=== PATIENT | female | born 1965 | race Caucasian/White ===

== ENCOUNTER 2023-05-06 08:59 | Outpatient (OUT) | payer OTHER, SELFPAY ==
--- NOTE | 2023-05-06 09:01 | MM_ITS ---
Patient: TAMELA MENJIVAR Exam Date: 05/06/2023 : 1965 Gender:F Ordering : DR Chris Quezada . Admission #: [id number] Family : DR Emory Alexis . Order #: [id number] CLICK HERE TO VIEW EXAM RADIOLOGY REPORT PROCEDURE: MM TOMOSYNTHESIS SCREENING BI COMPARISON: MG MAMM SCREEN 3D ESTHE[facility] CAD, 03/15/2021. MG MAMM SCREEN 3D [place]HELA CAD, 04/07/2022. INDICATIONS: Screening Calculator Name NCI Breast Cancer Risk Assessment Tool 5 Year Breast Cancer Risk 0.90% Lifetime Breast Cancer Risk 4.90% Personal Breast Cancer No Personal Ovarian Cancer No Treatments None Family Cancers Aunt-paternal with breast cancer at age 50; Grandmother-maternal with breast cancer at age 70. LOCATION: [facility] BREAST COMPOSITION: Heterogeneously dense,which may obscure small masses. FINDINGS: DIAGNOSTIC CATEGORY 1--NEGATIVE. NO CHANGE FROM COMPARISON ASSESSMENT. Scattered benign-appearing calcifications are present. Scattered benign-appearing lymph nodes are present. RIGHT BREAST: No significant suspicious finding. LEFT BREAST: No significant suspicious finding. RECOMMENDATIONS: ROUTINE MAMMOGRAM AND CLINICAL EVALUATION IN 12 MONTHS. PLEASE NOTE: A NORMAL MAMMOGRAM DOES NOT EXCLUDE THE POSSIBILITY OF BREAST CANCER. A CLINICALLY SUSPICIOUS PALPABLE LUMP SHOULD BE BIOPSIED. Dictated by: Quinton Baeza MD on 05/06/2023 at 11:43 Approved by: Quinton Baeza MD on 05/06/2023 at 11:52
== END 2023-05-06 09:00 | disposition home or self-care (01) ==
LOC: MAMMO 08:59
PROVIDERS: PCP Family Medicine; Visit Provider Obstetrics & Gynecology
DX: Z12.31 Encounter for screening mammogram for malignant neoplasm of breast (principal); Z80.3 Family history of malignant neoplasm of breast
CPT/HCPCS: 77063; 77067

== ENCOUNTER 2023-09-17 21:07 | Outpatient (REF) | payer OTHER, SELFPAY ==
[2023-09-23 15:09] LABS: Age Gdln ACOG Testing Note (.); HPV Aptima Negative (Negative); IGP, Aptima HPV, rfx 16/18,45 Note (.)
== END 2023-09-17 21:08 | disposition home or self-care (01) ==
LOC: LAB 21:07
PROVIDERS: PCP Family Medicine; Visit Provider Physician Assistant
DX: Z01.419 Encounter for gynecological examination (general) (routine) without abnormal findings (principal)
CPT/HCPCS: 87624; G0145

== ENCOUNTER 2023-09-21 08:00 | Outpatient (OUT) | payer OTHER, SELFPAY ==
--- OUTSIDE RECORDS SUMMARY | 2023-09-21 08:03 | XMS_ITS | CCD ---
Author Name Unknown Address [id number] [place] [address] Organization [facility] Care Team Providers Care Pool Hand Name Role Phone PHYSICIAN, DEFAULT Unavailable Unavailable PHYSICIAN, DEFAULT Unavailable Unavailable Unavailable Primary Care Provider UnavailArpan Pagan Primary Care Physician [phone] Unavailable Primary Care Provider Unavailmalaika e Unavailable Primary Care Provider Unavailmalaika ALEXIS ., DR ANTONY Primary Care Unavailable KARASIK ., DR BARKER Admitting Unavailabl e KARASIK ., DR BARKER Consulting Unavailabl e KARASIK ., DR BARKER Attending Unavailabl e ZIEBER, DR GEORGIA Orozco Consulting Unavailable HOY ., DR ANTONY Consulting Unavailable HOY ., DR ANTONY Attending Unavailable HOY ., DR ANTONY Admitting Unavailable HOY ., DR ANTONY Primary Care Unavailable SAMSA .ADAM Attending Unavailable SAMSA ., ADAM Admitting Unavailable SAMSA ., ADAM Consulting Unavailable HOY ., DR ANTONY Primary Care Unavailable HOY ., DR ANTONY Primary Care Unavailable KARASIK ., DR BARKER Admitting Unavailabl e KARASIK ., DR BARKER Consulting Unavailabl e KARASIK ., DR BARKER Attending Unavailabl e SALAM, Peters Attending Unavailable SALAM, Lorraine Attending Unavailable SALAM, Lorraine Attending Unavailable SALAM, Peters Admitting Unavailable NONE, XXXX Referring Unavailable INDIGO PUGH Attending Unavailable HAMDAN, MOHAMMAD Referring Unavailable HAMDAN, MOHAMMAD Attending Unavailable COREEN, HILDA J Referring Unavailable HAMDAN, MOHAMMAD Attending Unavailable COREEN, HILDA J Referring Unavailable HAMDAN, MOHAMMAD Attending Unavailable COREEN, HILDA J Referring Unavailable COREEN, HILDA J Attending Unavailable Allergies Allergy Classification Reported Allergen(s) Allergy Type Date of Onset Reaction(s) Facility (8 sources) Sulfonamides (Antibiotic); Translations: [SULFA (SULFONAMIDE ANTIBIOTICS)] Drug All[facility]08[facility]2020 [facility] Work Phone: (3 sources) Sulfonamides (Antibiotic); Translations: [sulfa drugs] Drug allergy [facility] (1 source) Sulfonamides (Antibiotic) Drug allergy (disorder) 03-08-2013 [facility] Repository Medications Current Medications Medication Drug Class(es) Dates Sig (Normalized) Sig (Original) amitriptyline hydrochloride 10 mg oral tablet (10 sources) Tricyclic Antidepressant Start: 07-26-2020 End: 04-13-2022 take 1 tablet by mouth once daily amitriptyline 10 mg Tab 10 mg = 1 tab(s), Oral, Daily, # 30 tab(s), Refills(s) 11, Pharmacy: [address], 154, cm, 07/26/20 9:59:00 EST, Height/Length Dosing, 66.8, kg, 07/26/20 9:59:00 EST, Weight Dosing Start Date: 07/26/20 Status: Ordered Start: 04-07-2020 take 3 tablets by mo uth once daily at bedtime amitriptyline (ELAVIL) 25 mg tablet Take 75 mg by mouth daily at bedtime. Takes 3 tabs 0 04/07/2020 Active Comment on above: Take 75 mg by mouth daily at bedtime. Takes 3 tabs omeprazole 20 mg delayed release oral capsule (9 sources) Proton Pump Inhibitor Start: 02-23-2019 omeprazole 20 mg Cap-DR 20 mg = 1 cap(s), Oral, Daily, Control of stomach acid Start Date: 02/23/19 Status: Ordered Start: 05-05-2011 take 20 mg by mouth once daily Omeprazole 20 mg TbEC Take 20 mg by mouth once daily. 0 05/05/2011 Active Comment on above: Take 20 mg by mouth once daily. Completed/Discontinued Medications Medication Drug Class(es) Dates Sig (Normalized) Sig (Original) onabotulinumtoxina 200 unt injection (7 sources) Acetylcholine Release Inhibitor Start: 10-17-2022 onabotulinum toxin type A 200 Units injection (BOTOX) Start: 07-23-2022 End: 07-23-2022 onabotulinum toxin type A 20 0 Units injection (BOTOX) Start: 01-23-2022 End: 01-23-2022 onabotulinum toxin type A 20 0 Units injection (BOTOX) estrogens, conjugated (mcfp) 0.625 mg/ml vaginal cream (7 sources) Estrogen Start: 03-13-2020 PREMARIN vaginal cream Use 1 Applicator vaginally three times a week. 0 03/13/2020 Active Comment on above: Use 1 Applicator vag inally three times a week. methylPREDNISolone 4 mg oral tablet (2 sources) Corticosteroid Start: 03-30-2023 methylPREDNISolone (MEDROL, SHAWNA,) 4 mg Dose-Pack Indications: Intractable chronic migraine without aura and without status migrainosus Take by mouth. As directed on package 21 tablet 0 03/30/2023 Active Comment on above: Take by mouth. As di rected on package 24 hr metoprolol succinate 100 mg extended release oral tablet (9 sources) beta-Adrenergic Angel Start: 02-23-2019 take 100 mg by mouth once daily metoprolol succinate ER (TOPROL XL) 100 mg Take 100 mg by mouth once daily. 0 04/04/2020 Active Comment on above: Take 100 mg by mouth once daily. naratriptan 2.5 mg oral tablet (8 sources) Serotonin-1b and Serotonin-1d Receptor Agonist Start: 06-14-2021 End: 07-23-2022 take 1 tablet by mouth every four hours as needed, then take 2 tablets by mouth every twenty-fou r hours as needed naratriptan (AMERGE) 2.5 mg tablet Indications: Intractable chronic migraine without aura and without status migrainosus Take 1 tablet by mouth as needed (at onset of migraine, may repeat in 4 hrs. no more than 2 in 24 hrs or 2 days a week). 9 tablet 11 07/23/2022 Active Comment on above: Take 1 tablet by skye th as needed (at onset of migraine, may repeat in 4 hrs. no more than 2 in 24 hrs or 2 days a week). Problems Active Problems Problem Classification Problem Date Documented Da te Episodic/Chronic Cardiac dysrhythmias (3 sources) Atrial fibrillation; Translations: [Unspecified atrial fibrillation] Onset: 2 04-21-2019 Chronic Esophageal disorders (3 sources) Gastroesophageal reflux disease; Translations: [Gastroesophageal reflux disease without esophagitis] Onset: 2 04-21-2019 Chronic Genitourinary symptoms and ill-defined conditions (4 sources) Dysuria; Translations: [Urgent desire to urinate] 04-21-2019 Episodic Headache; including migraine (11 sources) Chronic intractable migraine without aura; Translations: [Chronic migraine without aura, intractable, without status migrainosus] Onset: 1 Chronic Other diseases of bladder and urethra (2 sources) Urethral stricture 04-22-2019 Episodic Other gastrointestinal disorders (4 sources) Irritable bowel syndrome 04-21-2019 Chronic Other liver diseases (3 sources) Steatosis of liver; Translations: [Fatty (change of) liver, not elsewhere classified] Onset: 2 02-26-2022 Chronic Other nervous system disorders (2 sources) Neuropathy 04-22-2019 Chronic Other screening for suspected conditions (not mental disorders or infectious disease) (12 sources) Abnormal results of pulmonary function studies; Translations: [Encounter for screening for malignant neoplasm of cervix] Onset: 2 Episodic Screening and history of mental health and substance abuse codes (2 sources) Ex-smoker 04-22-2019 Episodic Unclassified (3 sources) COUGH, UNSPECIFIED; Translations: [COUGH, UNSPECIFIED] Onset: 3 Unclassified (1 source) CONTACT W/AND (SUSP) EXPOS COVID-19; Translations: [CONTACT W/AND (SUSP) EXPOS COVID-19] Onset: 3 Urinary tract infections (2 sources) Chronic cystitis 04-22-2019 Chronic Urinary tract infections (2 sources) Cystitis 04-22-2019 Episodic Past or Other Problems Problem Classification Problem Date Documented Date Episodic/Chronic Immunizations and screening for infectious disease (1 source) Encounter for screening for human papillomavirus (HPV); Translations: [ENC SCREENING HUMAN PAPILLOMAVIRUS] Onset: 04-21-2022 Episodic Residual codes; unclassified (1 source) Family history of malignant neoplasm of breast; Translations: [FAMILY HX MALIG NEOPLASM OF BREAST] Onset: 04-10-2022 Episodic Unclassified (2 sources) History of nasal sinus surgery Resolved: 02-22-2019 04-22-2019 Unclassified (1 source) COUGH, UNSPECIFIED; Translations: [COUGH, UNSPECIFIED] Onset: 11-06-2022 Results Test Name Value Interpretation Reference Range Facility [facility] 09-17-2023 CNOV Office Visit (NEHAAV ) TAMELA HOPPER ([id number]) 1965 F [place] Date Time Provider Department 09/17/23 1:00 PM DAPHNE PADRON During your visit today, we recorded the following information about you: Pulse Blood pressure 86/minute 144/97 Daphne Padron APRN.DEPUTY ASSESSOR 09/17/2023 1:18 PM Signed Answers submitted by the patient for this visit: Headache Questionnaire (Submitted on 09/10/2023) How many days of work or school have you missed due to headaches in the last month? : 0 In the last month, how many headache days did you experience ALL of the following symptoms: decreased productivity, light sensitivity and nausea?: 0 How many days have you been completely free of headache pain in the last month? : 15 Follow-Up Onabotulinum Toxin A (BotoxTM) for Migraine Indication: Chronic Intractable Migraine Treatment #: 13 Referral Expiration: 08/25/2024 Prior to the initiation of the FIRST treatment with Onabotulinum Toxin A, the patient reported the following average headache frequency over the past 3 MONTHS: Number of moderate-severe migraine days/month: 18 Number of mild migraine days/month: 10 Number of headache free days/month: 2 (48 headache-free hours) Migraine severity: 8/10 After treatment with Onabotulinum Toxin A: Number of mild migraine days/month: 15 Number of headache free days/month: 15 (360 headache-free hours) Migraine severity: 6/10 Patient reduction in overall migraine days: Yes Patient reduction in moderate-severe migraine days: Yes Patient reduction of headache hours by 100 hours or more: Yes (reduction of 312 hours) Individual has obtained clinical benefit deemed significant by individual or prescriber (Y/N): Yes Patient's quality of life and ability to perform ADLs has improved (Y/N): Yes Side effects: none Wearing off: Yes - 10 weeks after treatment The patient has been assessed for disorders which could contribute to breathing or swallowing difficulty, and there is no contraindication with PREEMPT Botox. There is no documented allergic reaction/hypersensitiv ity to any botulinum toxin and there is no active infection at proposed injection site. HEADACHE SCORES: Headache Questions 03/23/2023 06/18/2023 09/10/2023 ID Migraine Screener: - - - ER visits in the last year: - - - ER visits since last office visit: 0 0 0 Hospital stays in the last year: - - - Hospital stays since last office visit 0 0 0 Limited ADLs in the last month: 0 0 0 Days missed from work or school in the last month: 0 0 0 Days headache pain free in the last month: 20 26 15 Days per month with ALL of the following symptoms - decreased productivity, light sensitivity and nausea: 0 0 0 Initial improvement of headache after botox injection at last visit: Much improved Much improved Much improved PRN medication usage in the last month: 3 4 12 Patient impression of improvement since last visit: No change Much improved Much improved HIT-6 03/23/2023 06/18/2023 09/10/2023 HIT-6 46 (Little or no impact) 48 (Little or no impact) 42 (Little or no impact) HANS - 2/7 SCORES 03/23/2023 06/18/2023 09/10/2023 HANS-2 Score 0 0 0 Migraine Specific QOL - Higher scores indicate better HRQL 03/23/2023 06/18/2023 09/10/2023 Role Function-Restrictive Transformed Score (range: 0-100) 97.14 100 100 Role Function-Preventive Transformed Score (range: 0-100) 100 100 95 Emotional Function Transformed Score (range: 0-100) 100 100 100 PHQ-9 03/23/2023 06/18/2023 09/10/2023 Score 0 0 0 BP 144/97 (BP Site: Right Arm, BP Position: Sitting, BP Cuff Size: Regular Adult) Pulse 86 [facility] 1965 ALLERGIES Allergen Reactions Sulfa (Sulfonamide * Hives UNIVERSAL PROTOCOL / SAFETY CHECKLIST Procedure: Onabotulinum toxin A for migraine Informed Consent Consent Obtained: Written [place] Protocol A moment to CARE was completed SIGN IN Personnel directly involved with the procedure wore the appropriate PPE Special Equipment: N/A Patient/Surrogate Stated/Verified: Patient name, Date of , Relevant allergies and Intended procedure TIME OUT Intended patient and procedure match the source document(s) Consent documented and matches the intended procedure No relevant labs, photos, and/or imaging studies were applicable for review. Correct side/site marked and visible. Medications required for procedure verified. No fire risk assessment and interventions applicable. No implant(s) inserted. SIGN OUT No specimen collected. No instruments, equipment or retained foreign bodies applicable. Post-procedure follow-up management communicated and Plan of Care Visit completed when applicable Written Consent Obtained: Written Injection Sites Left (Units) Left (Sites) Right (Units) Right (Sites) TOTAL (Units) Butcher 5 1 5 1 10 Procerus Units: 5 Sites: 1 (more content not included)... Normal [facility] CNOVon 06-25-2023 CNOV Office Visit (BALWINDER ) TAMELA HOPPER ([id number]) 1965 F [place] Date Time Provider Department 06/25/23 11:00 AM DAPHNE PADRON During your visit today, we recorded the following information about you: Pulse Blood pressure Weight 68/minute 161/97 78 kg Daphne Padron APRN.CNP 06/25/2023 11:18 AM Signed Answers submitted by the patient for this visit: Headache Questionnaire (Submitted on 06/18/2023) How many days of work or school have you missed due to headaches in the last month? : 0 In the last month, how many headache days did you experience ALL of the following symptoms: decreased productivity, light sensitivity and nausea?: 0 How many days have you been completely free of headache pain in the last month? : 26 Follow-Up Onabotulinum Toxin A (BotoxTM) for Migraine Indication: Chronic Intractable Migraine Treatment #: 12 Referral Expiration: 09/06/2023 Prior to the initiation of the FIRST treatment with Onabotulinum Toxin A, the patient reported the following average headache frequency over the past 3 MONTHS: Number of moderate-severe migraine days/month: 18 Number of mild migraine days/month: 10 Number of headache free days/month: 2 (48 headache-free hours) Migraine severity: 04/16 After treatment with Onabotulinum Toxin A: Number of moderate-severe migraine days/month: 4 Number of mild migraine days/month: 0 Number of headache free days/month: 26 (624 headache-free hours) Migraine severity: 02/14 Patient reduction in overall migraine days: Yes Patient reduction in moderate-severe migraine days: Yes Patient reduction of headache hours by 100 hours or more: Yes (reduction of 576 hours) Individual has obtained clinical benefit deemed significant by individual or prescriber (Y/N): Yes Patient's quality of life and ability to perform ADLs has improved (Y/N): Yes Side effects: none Wearing off: Yes - 10 weeks after treatment The patient has been assessed for disorders which could contribute to breathing or swallowing difficulty, and there is no contraindication with PREEMPT Botox. There is no documented allergic reaction/hypersensitiv ity to any botulinum toxin and there is no active infection at proposed injection site. HEADACHE SCORES: Headache Questions 10/15/2022 03/23/2023 06/18/2023 ID Migraine Screener: - - - ER visits in the last year: - - - ER visits since last office visit: 0 0 0 Hospital stays in the last year: - - - Hospital stays since last office visit 0 0 0 Limited ADLs in the last month: 0 0 0 Days missed from work or school in the last month: 0 0 0 Days headache pain free in the last month: 20 20 26 Days per month with ALL of the following symptoms - decreased productivity, light sensitivity and nausea: 0 0 0 Initial improvement of headache after botox injection at last visit: Very much improved Much improved Much improved PRN medication usage in the last month: 8 3 4 Patient impression of improvement since last visit: Much improved No change Much improved HIT-6 10/15/2022 03/23/2023 06/18/2023 HIT-6 46 (Little or no impact) 46 (Little or no impact) 48 (Little or no impact) HANS - 2/7 SCORES 10/15/2022 03/23/2023 06/18/2023 HANS-2 Score 0 0 0 Migraine Specific QOL - Higher scores indicate better HRQL 10/15/2022 03/23/2023 06/18/2023 Role Function-Restrictive Transformed Score (range: 0-100) 97.14 97.14 100 Role Function-Preventive Transformed Score (range: 0-100) 100 100 100 Emotional Function Transformed Score (range: 0-100) 100 100 100 PHQ-9 10/15/2022 03/23/2023 06/18/2023 Score 0 0 0 There were no vitals taken for this visit. Patient name: Tamela Perrinyadiraxiomara : 1965 ALLERGIES Allergen Reactions Sulfa (Sulfonamide * Hives UNIVERSAL PROTOCOL / SAFETY CHECKLIST Procedure: Onabotulinum toxin A for migraine Informed Consent Consent Obtained: Written [place] Protocol A moment to CARE was completed SIGN IN Personnel directly involved with the procedure wore the appropriate PPE Special Equipment: N/A Patient/Surrogate Stated/Verified: Patient name, Date of , Relevant allergies and Intended procedure TIME OUT Intended patient and procedure match the source document(s) Consent documented and matches the intended procedure No relevant labs, photos, and/or imaging studies were applicable for review. Correct side/site marked and visible. Medications required for procedure verified. No fire risk assessment and interventions applicable. No implant(s) inserted. SIGN OUT No specimen collected. No instruments, equipment or retained foreign bodies applicable. Post-procedure follow-up management communicated and Plan of Care Visit completed when applicable Written Consent Obtained: Written LOT #: [id number] Expiration Date: Month: 3 Year: 2024 Injection Sites Left (Units) Left (Sites) Right (Units) Rig (more content not included)... Normal [facility] 06-22-2023 [facility] ([facility]) TAMELA HOPPER ([id number]) 1965 F [place] Date Time Provider Department 06/22/23 DAPHNE PADRON [facility] During your visit today, we recorded the following information about you: Belle Erazo RN 06/22/2023 3:40 PM Signed Botox referral sent to pharmacy. Maya Erazo RN Allergies As of Date: 06/22/2023 Noted Allergy Reaction SULFA (SULFONAMIDE ANTIBIOTICS) 05/08/2020 4 - Hives Date Reviewed: 03/30/2023 Reviewed by: Daphne Padron, 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 - Fully Assessed Reason for Visit: Referral Request [124] Prescriptions as of 06/22/2023 - amitriptyline (ELAVIL) 25 mg tablet Take 75 mg by mouth daily at bedtime. Takes 3 tabs - methylPREDNISolone (MEDROL, SHAWNA,) 4 mg Dose-Pack Take by mouth. As directed on package - metoprolol succinate ER (TOPROL XL) 100 mg Take 100 mg by mouth once daily. - naratriptan (AMERGE) 2.5 mg tablet Take 1 tablet by mouth as needed (at onset of migraine, may repeat in 4 hrs. no more than 2 in 24 hrs or 2 days a week). - Omeprazole 20 mg TbEC Take 20 mg by mouth once daily. - PREMARIN vaginal cream Use 1 Applicator vaginally three times a week. Facility-Administered Medications as of 06/22/2023 - onabotulinum toxin type A 200 Units injection (BOTOX) Problem List As Of Date 06/22/2023 Noted Resolved Intractable chronic migraine without aura and w*10/03/2020 Encounter Status:Closed by BELLE ERAZO on 06/22/23 [facility] CNOVon 03-30-2023 CNOV Office Visit ([facility] ) TAMELA HOPPER ([id number]) 1965 F [place] Date Time Provider Department 03/30/23 11:30 AM DAPHNE PADRON [facility] During your visit today, we recorded the following information about you: Pulse Blood pressure Weight Height 66/minute 125/79 77.3 kg 1.549 m Frediconnor APRN. DaphneDEPUTY ASSESSOR 03/30/2023 11:46 AM Signed Answers submitted by the patient for this visit: Headache Questionnaire (Submitted on 03/23/2023) How many days of work or school have you missed due to headaches in the last month? : 0 In the last month, how many headache days did you experience ALL of the following symptoms: decreased productivity, light sensitivity and nausea?: 0 How many days have you been completely free of headache pain in the last month? : 20 Follow-Up Onabotulinum Toxin A (BotoxTM) for Migraine Indication: Chronic Intractable Migraine Treatment #: 11 Referral Expiration: 09/06/2023 Prior to the initiation of the FIRST treatment with Onabotulinum Toxin A, the patient reported the following average headache frequency over the past 3 MONTHS: Number of moderate-severe migraine days/month: 18 Number of mild migraine days/month: 10 Number of headache free days/month: 2 (48 headache-free hours) Migraine severity: 8/10 After treatment with Onabotulinum Toxin A: Number of moderate-severe migraine days/month: 14 Number of mild migraine days/month: 10 Number of headache free days/month: 6 (144 headache-free hours) Migraine severity: 6/10 Patient reduction in overall migraine days: Yes Patient reduction in moderate-severe migraine days: Yes Patient reduction of headache hours by 100 hours or more: No Individual has obtained clinical benefit deemed significant by individual or prescriber (Y/N): Yes Patient's quality of life and ability to perform ADLs has improved (Y/N): Yes Side effects: none Wearing off: Yes - 10 weeks after treatment The patient has been assessed for disorders which could contribute to breathing or swallowing difficulty, and there is no contraindication with PREEMPT Botox. There is no documented allergic reaction/hypersensitiv ity to any botulinum toxin and there is no active infection at proposed injection site. HEADACHE SCORES: Headache Questions 07/17/2022 10/15/2022 03/23/2023 ID Migraine Screener: - - - ER visits in the last year: - - - ER visits since last office visit: - 0 0 Hospital stays in the last year: - - - Hospital stays since last office visit - 0 0 Limited ADLs in the last month: - 0 0 Days missed from work or school in the last month: - 0 0 Days headache pain free in the last month: - 20 20 Days per month with ALL of the following symptoms - decreased productivity, light sensitivity and nausea: - 0 0 Initial improvement of headache after botox injection at last visit: - Very much improved Much improved PRN medication usage in the last month: - 8 3 Patient impression of improvement since last visit: Much improved Much improved No change HIT-6 07/17/2022 10/15/2022 03/23/2023 HIT-6 44 (Little or no impact) 46 (Little or no impact) 46 (Little or no impact) HANS - 2/7 SCORES 07/14/2022 10/15/2022 03/23/2023 HANS-2 Score 0 0 0 Migraine Specific QOL - Higher scores indicate better HRQL 07/17/2022 10/15/2022 03/23/2023 Role Function-Restrictive Transformed Score (range: 0-100) 100 97.14 97.14 Role Function-Preventive Transformed Score (range: 0-100) 100 100 100 Emotional Function Transformed Score (range: 0-100) 100 100 100 PHQ-9 07/17/2022 10/15/2022 03/23/2023 Score 0 0 0 There were no vitals taken for this visit. Patient name: Tamela Meza [facility] : 1965 ALLERGIES Allergen Reactions - Sulfa (Sulfonamide * Hives UNIVERSAL PROTOCOL / SAFETY CHECKLIST Procedure: Onabotulinum toxin A for migraine Informed Consent Consent Obtained: Written [place] Protocol A moment to CARE was completed SIGN IN Personnel directly involved with the procedure wore the appropriate PPE Special Equipment: N/A Patient/Surrogate Stated/Verified: Patient name, Date of , Relevant allergies and Intended procedure TIME OUT Intended patient and procedure match the source document(s) Consent documented and matches the intended procedure No relevant labs, photos, and/or imaging studies were applicable for review. Correct side/site marked and visible. Medications required for procedure verified. No fire risk assessment and interventions applicable. No implant(s) inserted. SIGN OUT No specimen collected. No instruments, equipment or retained foreign bodies applicable. Post-procedure follow-up management communicated and Plan of Care Visit completed when applicable Written Consent Obtained: Written LOT #: [id number] Expiration Date: Month: 2 Year: 2025 Injection Sites Left (Units) Left (Sites) Right (Units) Right (Sites) TOTAL (Unit (more content not included)... Normal [facility] 03-03-2023 CNPN Telephone ([facility] TAMELA HOPPER ([id number]) 1965 F [place] Date Time Provider Department 03/03/23 HILDA ANGELA During your visit today, we recorded the following information about you: Hakan Mike 03/03/2023 9:09 AM Signed === PHARMACY TEAM ==== ADDITIONAL INFORMATION NEEDED/REQUESTED Case Submitted: No Request Type: Provider Date of Service: 03/30/2023 Additional Information Needed: as per today's eligibility check [employer] [place] ([id number]) coverage for the patient is termed. We need active coverage of the patient to work on authorization. Request from Payor by: N/A Email Sent to: C21 Botjessica Galevz, Britney W, Rashawn S, Dwight T, Maddie ORahat Requested Clinicals/Information Sent: N/A Adry Acosta 03/03/2023 11:23 AM Signed Called patient, she has new MMO insurance. Registration has been updated Allergies As of Date: 03/03/2023 Noted Allergy Reaction SULFA (SULFONAMIDE ANTIBIOTICS) 05/08/2020 4 - Hives Date Reviewed: 10/17/2022 Reviewed by: Hlida Angela APRN.DEPUTY ASSESSOR - Fully Assessed Reason for Visit: Insurance Authorization [[id number]] Cmt: PRIOR AUTH DELAYED: NEED COVERAGE VERIFICATION Prescriptions as of 03/03/2023 - naratriptan (AMERGE) 2.5 mg tablet Take 1 tablet by mouth as needed (at onset of migraine, may repeat in 4 hrs. no more than 2 in 24 hrs or 2 days a week). - metoprolol succinate ER (TOPROL XL) 100 mg Take 100 mg by mouth once daily. - amitriptyline (ELAVIL) 25 mg tablet Take 75 mg by mouth daily at bedtime. Takes 3 tabs - PREMARIN vaginal cream Use 1 Applicator vaginally three times a week. - Omeprazole 20 mg TbEC Take 20 mg by mouth once daily. Facility-Administered Medications as of 03/03/2023 - onabotulinum toxin type A 200 Units injection (BOTOX) Problem List As Of Date 03/03/2023 Noted Resolved Intractable chronic migraine without aura and w*10/03/2020 Encounter Status:Closed by HAKAN MCKEON on 03/03/23 [facility] Outside Mammographyon 2022 Outside Mammography [id number]#[id number] 0CD:127 [facility] Transfer Inon 01-20-2023 Transfer In [id number] 04 [id number]. 00CD:127 [facility] TAMELA HOPPER ([id number]) 1965 F [place] Date Time Provider Department 01/01/23 HILDA ANGELA [facility] During your visit today, we recorded the following information about you: Glendy Gipson LPN 01/01/2023 11:45 AM Signed Botox referral sent to pharmacy Glendy Gipson LPN January 01, 2023 11:44 AM Allergies As of Date: 01/01/2023 Noted Allergy Reaction SULFA (SULFONAMIDE ANTIBIOTICS) 05/08/2020 4 - Hives Date Reviewed: 10/17/2022 Reviewed by: 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 APRN.DEPUTY ASSESSOR - Fully Assessed Reason for Visit: Referral Request [[id number]] Prescriptions as of 01/01/2023 - naratriptan (AMERGE) 2.5 mg tablet Take 1 tablet by mouth as needed (at onset of migraine, may repeat in 4 hrs. no more than 2 in 24 hrs or 2 days a week). - metoprolol succinate ER (TOPROL XL) 100 mg Take 100 mg by mouth once daily. - amitriptyline (ELAVIL) 25 mg tablet Take 75 mg by mouth daily at bedtime. Takes 3 tabs - PREMARIN vaginal cream Use 1 Applicator vaginally three times a week. - Omeprazole 20 mg TbEC Take 20 mg by mouth once daily. Facility-Administered Medications as of 01/01/2023 - onabotulinum toxin type A 200 Units injection (BOTOX) Problem List As Of Date 01/01/2023 Noted Resolved Intractable chronic migraine without aura and w*10/03/2020 Encounter Status:Closed by GLENDY GIPSON on 01/01/23 Normal [facility] Covid-19 PCR (CVDTBH)on SARS-CoV-2 (COVID-19) RNA NELL+probe Ql (Unsp spec) Not detected Normal NOT DETECTED [facility] Comment on above: Result Comment: When diagnostic testing is negative, the possibility of a false negative should be considered in the context of a patient's recent exposures and the presence of clinical signs and symptoms consistent with SARS-CoV-2. This test is not yet approved or cleared by the [place] FDA. When there are no FDA-approved or cleared tests available, and other criteria are met, FDA can make tests available under an emergency access mechanism called an Emergency Use Authorization (EUA). The EUA for this test is supported by the Logging Assistant of Health and Human Service's declaration that circumstances exist to justify the emergency use of in vitro diagnostics for the detection and/or diagnosis of the virus that causes COVID-19. This EUA will remain in effect for the duration of the COVID-19 declaration justifying emergency of IVDs, unless it is terminated or revoked by the FDA (after which the test may no longer be used). Performed By: #### C VDTB #### [facility] [address] [place] [address] Dr. Merritt Berger INFLUENZA A AND B AGon 11-06 [facility] SEE BELOW Normal [facility] Comment on above: Result Comment: Nega tive for Flu A protein angiten. Infection due to Flu A cannot be ruled out. Flu A angiten in the sample may be below the detection limit of the test. Performed By: #### I NFLUAB #### [facility] [address] [place] [address] Dr. Merritt Berger [facility] SEE BELOW Normal [facility] Comment on above: Result Comment: Nega tive for Flu B protein antigen. Infection due to Flu B cannot be ruled out. Flu B antigen in the sample may be below the detection limit of the test. Performed By: #### I NFLUAB #### [facility] [address] [place] [address] Dr. Merritt Berger INFLUENZA A AG Negative Normal NEGATIVE SEE COMMENT [facility] Comment on above: Performed By: #### I NFLUAB #### [facility] [address] [place] [address] Dr. Merritt Berger INFLUENZA B AG Negative Normal NEGATIVE SEE COMMENT [facility] Comment on above: Performed By: #### I NFLUAB #### [facility] [address] [place] [address] Dr. Merritt Durant 10-17-2022 [facility] Office Visit ([facility] ) TAMELA HOPPER ([id number]) 1965 F [place] Date Time Provider Department 10/17/22 10:30 AM HILDA ANGELA [facility] During your visit today, we recorded the following information about you: Pulse Blood pressure Weight Height 74/minute 126/84 76.4 kg 1.549 m 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 APRN.DEPUTY ASSESSOR 10/17/2022 11:02 AM Signed Follow-Up Onabotulinum Toxin A (BotoxTM) for Migraine Indication: Chronic Intractable Migraine Treatment #: 11 Referral Expiration: 01/22/2023 Prior to the initiation of the FIRST treatment with Onabotulinum Toxin A, the patient reported the following average headache frequency over the past 3 MONTHS: Number of moderate-severe migraine days/month: 18 Number of mild migraine days/month: 10 Number of headache free days/month: 2 (48 headache-free hours) Migraine severity: 04/16 After treatment with Onabotulinum Toxin A: Number of moderate-severe migraine days/month: 4 Number of mild migraine days/month: 0 Number of headache free days/month: 26 (624 headache-free hours) Migraine severity: 02/14 Patient reduction in overall migraine days: Yes Patient reduction in moderate-severe migraine days: Yes Patient reduction of headache hours by 100 hours or more: Yes (reduction of 576 hours) Individual has obtained clinical benefit deemed significant by individual or prescriber (Y/N): Yes Patient's quality of life and ability to perform ADLs has improved (Y/N): Yes Side effects: none Wearing off: Yes - 10 weeks after treatment The patient has been assessed for disorders which could contribute to breathing or swallowing difficulty, and there is no contraindication with PREEMPT Botox. There is no documented allergic reaction/hypersensitiv ity to any botulinum toxin and there is no active infection at proposed injection site. HEADACHE SCORES: Headache Questions 07/14/2022 07/17/2022 10/15/2022 ID Migraine Screener: - - - ER visits in the last year: - - - ER visits since last office visit: 0 - 0 Hospital stays in the last year: - - - Hospital stays since last office visit 0 - 0 Limited ADLs in the last month: 0 - 0 Days missed from work or school in the last month: 0 - 0 Days headache pain free in the last month: 20 - 20 Days per month with ALL of the following symptoms - decreased productivity, light sensitivity and nausea: 0 - 0 Initial improvement of headache after botox injection at last visit: Much improved - Very much improved PRN medication usage in the last month: 0 - 8 Patient impression of improvement since last visit: Much improved Much improved Much improved HIT-6 07/14/2022 07/17/2022 10/15/2022 HIT-6 44 (Little or no impact) 44 (Little or no impact) 46 (Little or no impact) HANS - 2/7 SCORES 07/14/2022 07/14/2022 10/15/2022 HANS-2 Score 0 0 0 Migraine Specific QOL - Higher scores indicate better HRQL 07/14/2022 07/17/2022 10/15/2022 Role Function-Restrictive Transformed Score (range: 0-100) 100 100 97.14 Role Function-Preventive Transformed Score (range: 0-100) 100 100 100 Emotional Function Transformed Score (range: 0-100) 100 100 100 PHQ-9 07/14/2022 07/17/2022 10/15/2022 Score 0 0 0 BP 126/84 (BP Site: Left Arm, BP Position: Sitting, BP Cuff Size: Small Adult) Pulse 74 Ht 154.9 cm (5' 1 ) Wt 76.4 kg (168 lb 8 oz) SpO2 97% BMI 31.84 kg/m? Patient name: Tamela Meza [facility] : 1965 ALLERGIES Allergen Reactions Sulfa (Sulfonamide * Hives UNIVERSAL PROTOCOL / SAFETY CHECKLIST Procedure: Onabotulinum toxin A for migraine Informed Consent Consent Obtained: Written [place] Protocol A moment to CARE was completed SIGN IN Personnel directly involved with the procedure wore the appropriate PPE Special Equipment: N/A Patient/Surrogate Stated/Verified: Patient name, Date of , Relevant allergies and Intended procedure TIME OUT Intended patient and procedure match the source document(s) Consent documented and matches the intended procedure No relevant labs, photos, and/or imaging studies were applicable for review. No correct side/site applicable for marking and visibility. No medications required for procedure. No fire risk assessment and interventions applicable. No implant(s) inserted. SIGN OUT No specimen collected. No instruments, equipment or retained foreign bodies applicable. Post-procedure follow-up management communicated and Plan of Care Visit completed when applicable Written Consent Obtained: Written LOT #: [id number] Expiration Date: Month: 5 Year: 2024 Injection Sites Left (Units) Left (Sites) Right (Units) Right (Sites) TOTAL (Units) Butcher 5 1 5 1 10 Procerus Units: 5 Sites: 1 5 Frontalis 10 2 10 2 20 Temporalis 20 4 20 4 40 Occipitalis 15 3 15 3 30 Cervical PSP 10 2 10 2 20 Trapezius 15 3 15 3 30 Total Units used: 155 Total Units wasted: 45 Prior Therapies Duration (more content not included)... Normal [facility] HEMOGLOBINon 09-12-2022 Hemoglobin (Bld) [Mass/Vol] 12.5 g/dL Normal 12.0-16.0 [facility] Comment on above: Performed By: #### H GB #### [facility] [address] [address] [address] Merritt Berger Gastroenterology Office/Clin ic Noteon 05-12-2022 Gastroenterology Office/Clinic Note Chief Complaint f/u fibro HPI Staff This is a 57 year old female who presents today for a follow up to a Fibroscan History of Present Illness Tamela Hopper is a 57-year-old white female who presents today for a follow-up. She was last seen in 02/2022. She has a history of fatty liver. Her FibroScan was done in 2020 and showed severe steatosis and F4 fibrosis. Her blood testing and clinical examination were arguing against advanced liver disease. We discussed at her last visit proceeding with a liver biopsy and eventually we agreed to repeat FibroScan. We did FibroScan again and showed a fibrosis score of F4, which is consistent with liver cirrhosis, but again her blood tests are not consistent with that. The patient has a history of atrial fibrillation and she is no longer taking blood thinners. She notes she had a blood clot when she had COVID-19 in 06/2020. The patient states she is in agreement to proceed with a liver biopsy. Review of Systems PHQ Score Initial Depression Screen Score: 0 Constitutional: no fever, no chills, no sweats, no weakness Skin: no Jaundice, no rash, no lesions, no petechiae ENMT: no ear pain, no sore throat, no congestion, no hoarseness Respiratory: no shortness of breath, no cough, no orthopnea, no wheezing Cardiovascular: no chest pain, no palpitations, no edema Gastrointestinal: no nausea, no vomiting, no diarrhea, no constipation, no GI bleeding, no abdominal pain, no dysphagia, no bloating, no heartburn Genitourinary: no dysuria, no hematuria, no discharge, no pain Musculoskeletal: no back pain, no trauma Neurologic: no numbness, no sleeping problems Additional ROS info: Except as noted in the above Review of Systems and in the History of Present Illness all other systems have been reviewed and are negative or noncontributory. Physical Exam Vitals & Measurements HR: 78(Peripheral) RR: 16 BP: 116/78 HT: 154.0 cm HT: 154 cm WT: 75.9 kg WT: 75.9 kg BMI: 32 Constitutional: Appearance: well developed Skin: Inspection: no rashes, ulcers, icterus, or telangiectasias. Eyes: Conjunctivae/lids: normal conjunctivae and lids. ENMT: Hearing: within normal limits. Lips/Teeth/Gums: normal oral mucosa Neck: Neck: normal motion, central trachea Respiratory: Percussion: thorax normoresonant. Auscultation: normal breath sounds; no rubs, wheezes, rale or ronchi. Cardiovascular: Auscultation: normal rhythm, S1 and S2; no rubs, murmurs or gallop. Peripheral: no edema Gastrointestinal/Abdom en: Abdomen: normal consistency and bowel sounds; no tenderness or masses. Liver/Spleen: normal size and consistency, not palpable. Rectal: deferred Musculoskeletal: Gait/station: normal gait Assessment/Plan 1. Fatty liver (K76.0: Fatty (change of) liver, not elsewhere classified) The patient had 2 separate FibroScans. Both showed severe steatosis and advanced fibrosis at F4. Her blood serologies are not consistent with advanced liver disease. Her platelets are normal. Her creatinine is normal. AST and ALT ratio is not inverted. She has normal albumin and protein. She tested negative for serology for other etiologies of advanced liver disease including a normal TOMAS, AMA, celiac panel, ASMA, ceruloplasmin and viral hepatitis B and C. At this point, I think it would be reasonable to proceed with a liver biopsy to differentiate between mild versus advanced liver fibrosis, including ruling out cirrhosis. A detailed discussion was made with the patient about the potential complications and she agreed to proceed. 2. Chronic GERD (K21.9: Gastro-esophageal reflux disease without esophagitis) This is fairly controlled with her current anti-acid. She has no alarming symptoms. 3. Atrial fibrillation (I48.91: Unspecified atrial fibrillation) The patient is not on any anticoagulation or antiplatelets currently. ATTESTATION: Documentation services were performed after patient or guardian consented to allow Henok Baeza to record this visit. PUMA provider enrollment specialist and provider reviewed before signing. PUMA: Smitha Pradhan Follow-up With When Contact Information ENA BROTHERS, LELIA Peters MED Within 3 months [facility] [address], [place] [address]- Additional Instructions: Problem List/Past Medical History Ongoing Atrial fibrillation Chronic cystitis Chronic GERD Cystitis Dysuria Fatty liver Former smoker IBS (irritable bowel syndrome) Irritable bowel syndrome (IBS) Neuropathy Other urethral stricture, female Urgency of urination Historical H/O sinus surgery History of appendectomy History of partial hysterectomy Hx of tonsillectomy Procedure/Surgical History Cystourethroscopy with dilation of urethral stricture (05/26/2017), Suspension of bladder (09/06/2015), Cystourethroscopy with dilation of urethral stricture (04/24/2015), Adenoidectomy planned, Appendectomy, Bilateral carpal tunnel syndrome, Colonoscopy, Hysterectomy, Sinus Surgery, (more content not included)... Normal [facility] Comment on above: Result Comment: Elec tronically Signed By: Lorraine SUTHERLAND MD\.br\Date and Time Signed: 05/12/22 13:56 EDT\.br\Electronically Co-Signed By: Smitha Pradhan\.br\Date and Time Co-Signed: 05/08/22 15:12 EDT Ambulatory Visit Summaryon 0 05-08-2022 Ambulatory Visit Summary TAMELA HOPPER :1965 Visit Date:05/08/2022 Ambulatory Visit Instructions Your Diagnosis Fatty liver Chronic GERD Atrial fibrillation Your Care Team Attending Physician - Lorraine SUTHERLAND MD Primary Care Physician - Arpan Alexis MD This Is Your Medications List Contact prescribing physician if questions or concerns amitriptyline (amitriptyline 10 mg Tab) metoprolol (metoprolol 100 mg ER Tab) omeprazole (omeprazole 20 mg Cap-DR) Procedures Performed Cystourethroscopy with dilation of urethral stricture (05/26/2017), Suspension of bladder (09/06/2015), Cystourethroscopy with dilation of urethral stricture (04/24/2015), Adenoidectomy planned, Appendectomy, Bilateral carpal tunnel syndrome, Colonoscopy, Hysterectomy, Sinus Surgery, Tonsillectomy. Discharge Vitals Heart Rate (Peripheral) 78 Respiratory Rate 16 Blood Pressure 116/78 Height 154.0 cm Height 154 cm Weight 75.9 kg Weight 75.9 kg BMI 32 What to do next You Need to Schedule the Following Appointments Follow Up with ENA BROTHERS, LELIA Peters, YOGI When: Within 3 months Where: [facility] [address], [place] [address]- Medications What How Much When Why Instructions Unchanged amitriptyline (amitriptyline 10 mg Tab) 1 Tablets By Mouth Every day Bacterial overgrowth syndrome Irritable bowel syndrome with diarrhea Contact prescribing physician if questions or concerns Unchanged metoprolol (metoprolol 100 mg ER Tab) 100 Milligram By Mouth Every day Contact prescribing physician if questions or concerns Unchanged omeprazole (omeprazole 20 mg Cap-DR) 1 Capsules By Mouth Every day Contact prescribing physician if questions or concerns Medications and Immunizations Administered Not Given influenza virus vaccine, inactivated, Patient Refuses Allergies sulfa drugs (hives) Problems Ongoing - Any problem that you are currently receiving treatment for. Atrial fibrillation Chronic cystitis Chronic GERD Cystitis Dysuria Fatty liver Former smoker IBS (irritable bowel syndrome) Irritable bowel syndrome (IBS) Neuropathy Other urethral stricture, female Urgency of urination Historical - Any problem that you are no longer receiving treatment for. H/O sinus surgery History of appendectomy History of partial hysterectomy Hx of tonsillectomy Normal [facility] PAP ACOG PANEL 2: 30 to 65on 04-24-2022 . . Normal [facility] Comment on above: Result Comment: Perf ormed at: WB Performed By: #### [id number] #### [facility] [address] [address] [address] Merritt Berger Age Gdln ACOG Testing 30-65 [facility] Comment on above: Performed By: #### [id number] #### [facility] [address] [address] [address] Merritt Berger DIAGNOSIS: Comment [facility] Comment on above: Result Comment: NEGA TIVE FOR INTRAEPITHELIAL LESION OR MALIGNANCY. Performed at: WB Performed By: #### [id number] #### [facility] [address] [place] [address] Dr. Merritt Berger HPV Aptima Negative Normal Negative [facility] Comment on above: Result Comment: This nucleic acid amplification test detects fourteen high-risk HPV types (16,18,31,33,35,39,45,51,52,56,58,59,66,68) without differentiation. Performed at: =G Performed By: #### [id number] #### [facility] [address] [place] [address] Dr. Merritt Berger Methodology: Comment Normal [facility] Comment on above: Result Comment: This liquid based ThinPrep(R) pap test was screened with the use of an image guided system. Performed at: WB Performed By: #### [id number] #### [facility] [address] [place] [address] Dr. Merritt Berger Note: Comment Normal [facility] Comment on above: Result Comment: The Pap smear is a screening test designed to aid in the detection of premalignant and malignant conditions of the uterine cervix. It is not a diagnostic procedure and should not be used as the sole means of detecting cervical cancer. Both false-positive and false-negative reports do occur. . Performed at: WB Performed By: #### [id number] #### [facility] [address] [place] [address] Dr. Merritt Berger Performed by: Comment Normal [facility] Comment on above: Result Comment: Marlen Travis, Dye Maker (ASCP) Performed at: WB Performed By: #### [id number] #### [facility] [address] [place] [address] Dr. Merritt Berger Specimen adequacy: Comment Normal [facility] Comment on above: Result Comment: Sati sfactory for evaluation. No endocervical component is identified. Performed at: WB Performed By: #### [id number] #### [facility] [address] [place] [address] Dr. Merritt Berger MG MAMM SCREEN 3D ESTHELA CADon 04-07-2022 MG MAMM SCREEN 3D ESTHELA CAD Patient: TAMELA HOPPER Exam Date: 04/07/2022 : 1965 Gender:F Ordering : DR MJ ORTIZ . Admission #: [id number] Family : DR ARPAN ALEXIS . Order #: [id number] CLICK HERE TO VIEW EXAM RADIOLOGY REPORT PROCEDURE: MAMMOGRAM SCREENING 3D BILATERAL CAD COMPARISON: MG MAMM SCREEN 3D ESTHELA CAD, 03/15/2021. MG MAMM SCREEN ESTHELA W CAD, 03/14/2020. INDICATIONS: Screening mammography Calculator Name NCI Breast Cancer Risk Assessment Tool 5 Year Breast Cancer Risk 0.90% Lifetime Breast Cancer Risk 5.00% Personal Breast Cancer No Personal Ovarian Cancer No Treatments None Family Cancers Aunt-paternal with breast cancer at age 50; Grandmother-maternal with breast cancer at age 70. LOCATION: [facility] BREAST COMPOSITION: Heterogeneously dense,which may obscure small masses. FINDINGS: DIAGNOSTIC CATEGORY 2--BENIGN FINDING: RIGHT BREAST: No significant suspicious finding. Scattered benign-appearing calcifications are present. No significant change has occurred. LEFT BREAST: No significant suspicious finding. No significant change has occurred. RECOMMENDATIONS: ROUTINE MAMMOGRAM AND CLINICAL EVALUATION IN 12 MONTHS. PLEASE NOTE: A NORMAL MAMMOGRAM DOES NOT EXCLUDE THE POSSIBILITY OF BREAST CANCER. A CLINICALLY SUSPICIOUS PALPABLE LUMP SHOULD BE BIOPSIED. Dictated by: Georgia Lopez M.D. on 04/07/2022 at 14:21 Approved by: Georgia Lopez M.D. on 04/07/2022 at 14:25 Normal [facility] Coding Summary.on 03-13-2022 Coding Summary. CD:[id number] Gh 0bWw+PGhlYWQ+GX6HNLXkG 79anCZaxS7PZ1uUBT9FEZK FZNAHDD9FIG4xqSK0YOibW 2VybiAv VhdaqJWsQN04UPf9QIY4eF yxHYmvvF0kvSRoC6t5OsCr QO31mL37MDiqBVEfZjA0Dj ZpbjsgbWFy H2gtMeMakYSrQrj+PHRhYm xlIHdpZHRoPScxMDAlJyBz hZykNE4fVq8oGOPdQZQikK xhcHNlOiBj o1uqIWPcHYijTY2nuTyyT5 GbiJB7BKNpk6t0Qv81jKA+ RRPqSWT5hGwcWFnau975Om Ocy0zoYBR6 sQUmHOddURX4P50nk2G5PX XnFWNtEQW6aOD5lS6hiFag jrdwR9AxpOJnAoY5NLO3hB GlwS1oeQqn mzdabK5hGti+W13KGB2CWR JRPH2ENwe0H0WfThzbjIG+ RV29SUHvEU82oGPlnXDuv2 ffeYw1QbDp YMXhQOX9bTmaBPygt9FjXY DoL00loYJop6G8NUXjpTwq vBSnSeKabTD6hA3lOBlbpj cbz9kwmmvc Ebqxt3ddku28qR33Y94kUY twBWTtKHM2DFEqQMHwtOug no2oyK8iVx1+CVpzf1sim9 wqkKx2AwUb JILdqcCscOdqANF5x4BmLl 44X9FuhQzze6HrUxg4vc29 uLQpc3K0qRQ9MLnhZMJfyZ 0hSUruEaN5 QGQsCdErcE18iOAwGUzjVj 3kzBbwgMqfOY3kHXRoeuak ZCNoeO9lNARqkAUfmPopEZ 4wNTBpbjtm m488BqVkHNC4VABxdJKcS1 DjzE3wIcSkWYDoLPStE3Al aIBfXZapR323UXpxAwM8RU IxatSvK1Wt LXBnmOpeNmN2i4T4Lu6Vk0 KpbkqxUFZ6UOrcJOJ5RlJ5 CrQkUiL0W3CvKlt7SZDloD tkDL2dD3Gi JRPszdhanrbvdUI8VGXxET DynW52jZWnSSqbTu5vp1M5 c379LESoHITjjH50Ei5giZ ogMTBwdCBU qR7xzjtmm3vefefqRwOfMY NdWJt3BOs4JOZceNokRtSd YJC6QjX4HSG3uITahR5fyR jvwbfzaB4m Oyc+B10afU1kAKI8FMH1id atNTOnevDuCX22CV76Z0Co PjwvdGFibGU+PGRpdiBzdH ezPL3rOdOn r0aiz2XjREpmW1UiIEVyTM dvThm0JOVhTGP5kRJ1xS2n IKSlCJzlq4O6kDF8U7Tmqo Olcm4bc6bf ANNqWIveY75rhMEoh5Y9KY PzuFO3ONKxgDwuJgArzR92 Oyc+PGZesVkue2PkCcipg7 kgf5jalZp2 FwGxGYTitqGerZjsVOU9t6 BfHd81X41pEIrcHOOjGTTh XVMzRDDoxNmuff3zsD7jHu 8+PGNvbCB3 lGU9mN5nQYUzKzM7YRvuI5 41JjOxaVEyCvwhd8iju2ri iKc5NrRnQLSdtcEnwYpkGB F4h0MyVe10 D59pHEkuZDUbFLQoMEQnJM LlbDxmdc2hgK1tRs0+PC9j d0bczi47aD79tLW+PHRkIH A5bJalCZkv LWWjwT2hDWzxDnG6DWFuVh HecD87fOMsEHgoHl5dlAjb fNzdFW0uZDCebklcc962To Gme9dbFZMp ySExTMslZDY3C54kn6Y6WD PwUVGjFHN4dNC0pZ0mlZxk bjogbGVmdDsgdmVydGljYW obHGwxC434 IHRvcDsnPlBhdGllbnQgTm LmMQq2N3McFkl4VUAilOaw YY7yuOUbPYhfWh1mqKqejC hsMC3eEDMu lpsiu879YzVlq7yuEIVvqB JmRSdkCZV3W85qq2J4TDSz WRRmASG7pXY9iG7cbIozck ogbGVmdDsg ghSdrSvpLVsvFKhvJ909VB RvcDsnPkJpcnRoIERhdGU6 HG16QO50jFKvj0Y6qKD7S5 BhZGRpbmct mbyllOG0GMEkTWFcfY74Sf 5fdNagQp0sQZQfRJA9JPQs tMLsX4XnaJ6xLwWhZZMvBJ TvE2LpwBJn DEpgP875EViiDpE7RRNbde TmG3GjUDLsnDxpYfN7e1U7 Vb7OR4Z8XB55PK41hHQku4 Y8tWX3I3Bj ZUDxsqbgqembyKW6CMKhQZ UulB12Bq7wuPmjPz8zYYRi BQD9TKTxzFKtJ0AkuZ5rCd AjMDAwMDAw U7TjwOSuFEslI575LKltYk Y3XFHbwwLxR1StMRCutSbv VyH5l9F7Tm0YFCz6DG79MP 36pQBvv3O0 uUU6X2WqALOlhoodjrfmfI H5CYDgBCVtbR40Xy2liChn Nw3oSRIdNYH9ZBOieWEfL2 PplI1bWyGc HNPiKUTcE6OzdYVkYGteH0 54ESpzMpY9XULdueGrL7Rz POFxtRieGsH9z7D5Vx4BKI VrAW36PLM2 tMI3AA69SL62P4AuCaytaO FibGU+PHRhYmxlIHdpZHRo NHooKXGiOaJqcEraUU5oKc 9yZGVyLWNv cWoasCLuYyYeu8wkRSAyFQ wbLX1abXpqL3OyaRQ5LFJp o6t3Vq52X40oA9PisQU+PG NlkKX9cCR7 wV1bFsFxByP3CDltU769Kt LqmTKoZwcmf9hec8agnXb7 AsZ1SXAwrwYlwCowKSV5f8 YvOc56F86c IHdpZHRoPSIxNSUiIHZhbG guie0scO0bIa9+PGNvbCB3 qZV7yQ3qEiMuSnV9MLtqG9 49InRvcCIv Nwqdq3hpe6ezjTe6YkQkCD QpjnQljWylLVV8g7KxQz15 F2AmoRlmw8XvYwh0sf48hN Ftd6F8mJE9 O8TqDSBawcbwxZGgtPtbQT 7zPTIaifvyLDElaR9dVCCy L1n4YuJsKcC1SSwwC2Rqky M0JIMycJOo UEypVJE9P43vb0P5YZGnKT NtHRG2nWB1qY0hxJfrwskf bGVmdDsgdmVydGljYWwtYW weY494SCBr mZzfZKWubQ8hOXLdrXVgeR hyVR9lJBVrampbMcpAPqtJ Hp6IY0RKFLkeZ4FVQ6wPPw EXMV67OS53 sSSsa2U8iCA0M5SjKEKeyb yidcxhnZD5TQIoRCJxzT31 dAVnKZseRz6sc4O5a218HM VlYXYhxP11 Qz7vtTefWLIvgBJZiI3gdj cbi5pngzgfAuIxATDhTWq0 FNw4XBNvwFagFrVoXSU5Wq Z3VDL1aXJn lE3jlLvzvcxvaI8nLpv+MD SbQMOkLQs6XspvaQE+PHRk XSU0oSpsZVirAYWqsB9vEY GgT1c4ZmTn TxE2PRooH4ZiXGCrifkjSi 86lJ0rSmOqAkG5RYfbW2Lb aaX3CPPxaKMrIKcoHHA4U3 2ew8B5OQNa WQYkPIL1jVK2nI5ajKqejc ogbGVmdDsgdmVydGljYWwt XYduK332URAwoPinIsE1LA evEVWpDE19 VX77lURxj1F3vST9L8VzPD ZfocrofmucpZE9SAPrJFJx jU04qNEeNDjbRp2jl0I0q8 06IDAuMDUw cZ52Jm1esXjlEZFaoPDUuI 6zmtaoi4ecilveVfSnSGNa EDx3FTr6RSJydQrrJdLcPO P6RxZ9UJD8 rUMogJ0slJeyjmutqK1qNi c+ArLrQKquLF58CT82tPZe e4K3tRV3G4VqVUAoiqogxx ompUX5ANZn WEAxeF42iDFyYYvdEj0lo4 G3b524QHMgFTBpjO64Nz5y rQxfPJXraPJXlB1qyzbxs7 xvcjogIzAw NBFhQPd0RAz0KXPahRppYb BlSNZ1HpO5FFV2jOUklF3i nXlkvnzpzO5iSdc+T3V0cG I0sWBtpWzy dGQ+LG54mi33N0DyFiujPj b8QHBnKMI9eQB5wM4eXVYk CQcbz1B4nCK5K3YizxCtkz 6oc0pmJVPp YJteU62ohWJyw8N1WLXllN L3CHInaJnwHoUehD48Hke+ LLColVbyr1EfBmron8lpy9 gdfNe1TfAr JQXzeuYvyVlaXPT9l9OsNk 37O95cTLjrJEYzOKBiBTWl UWYniMaxrk5keU9wWp1+PG SuoDH7fKI4 pO1jCgQrRdY3IXqrO739Zg TvsQSmMuacv4lto1qcpLi4 UsWnBODmmaBioFmaHLO4l3 FvAs69B6Wq lLjvo8IvZuw9rm22lEKeh2 K6hDR0J2MwPNBvpfkkcCZs eYtrWQ4aCFJsdrnkBQJdyO 6aEWQpU4c8 QiZgJnJ5HDlmR2DixpP3WP ApcNCrOBAkyDKKeO6rrakz k9gfqstkFlIoSHHfVWa6GX x2KROfvNmy UeRlKAG0BlD1TUV5jGBuyN 6fyBcktbabvA5aBkl+UGh5 j3vbnAVgIO1veOM5BV43NN 02uTVzz4J1 dEF6G0JgMGIznljfkricvY Z6XJWwIOFsgQ40Is4qnYix Kp6fPHEiMDF5ECBnzLOlR0 KgyL5cSvSe QFXbFPDjM4FntNDuWVkpI9 48NQylOmG6WQXxtlDdI1Lm BOAthNcmHqO5p1A7Ij1FXE 69WR75XA58 rDIjz3S2oGU6S1QaEGHtqw uagrldwGP6GEQpBNAefW35 Rw8neCrvSh7dTUGlQJN4OG JsnLHaQ5Ju zH6zDeQzQFKhIXWwV5LpqO WjJSzbG585WFemOyY1RGJn aoJbP0RaSBPsjTzqTaF2a9 B9Jf2EBf83 RF56LE24eKZah8S3cRE7R2 DnNJMdozcyqohybRR0MBRu LUZeiG11Qo5jzQwfWg7fNQ IhAUM3CLFg sWHdV1CzeW0lSmIcPSThEF TuV9KvpGXqRSgkA093YHib PbT2DKBffjCyS2XiBZIumI qkMtT6s1O1 If8ZDPxdnoo6I8RvPvvdyH I+VE81FXVoZL18wCOfzNPs t9fhmNr7MdXqZPXqLMX9zE rdXOypw3Yw ZXIt (more content not included)... Normal [facility] Postoperative Documentson Postoperative Documents [id number]#1.0 0CD:127 Normal [facility] Physician Orderon 03-07-2022 Physician Order [id number]#1. 00CD:127 Normal [facility] Consent for Treatmenton 02-07 Consent for Treatment [id number]#1.0 0CD:127 Normal [facility] Gastroenterology Office/Clin ic Noteon 02-27-2022 Gastroenterology Office/Clinic Note Chief Complaint 1 year follow up HPI Staff Tamela is a 57 y.o. female here for 1 year follow up IBS. Patient continues with amitriptyline 10 mg daily History of Present Illness Lovely is a 57-year-old white female who presents today for a 1-year follow-up. She was last seen in 04/2021 and was diagnosed with fatty liver. She has a personal history of colon polyps. Her fatty liver was diagnosed based on an ultrasound that showed fatty infiltrate and negative serology for other etiologies. She had a FibroScan in 2020 that showed severe steatosis with F4 fibrosis. Her MELD score is consistent with possible liver cirrhosis. Her platelets have been always normal. Her AST and ALT ratio was normal. Her albumin and protein has been normal. Her testing for autoimmune disease, TOMAS, ASMA, and celiac disease have been normal. She is no longer taking blood thinners. The patient has a history of IBS that she feels is well controlled. Review of Systems PHQ Score Initial Depression Screen Score: 0 Constitutional: no fever, no chills, no sweats, no weakness Skin: no Jaundice, no rash, no lesions, no petechiae ENMT: no ear pain, no sore throat, no congestion, no hoarseness Respiratory: no shortness of breath, no cough, no orthopnea, no wheezing Cardiovascular: no chest pain, no palpitations, no edema Gastrointestinal: no nausea, no vomiting, no diarrhea, no constipation, no GI bleeding, no abdominal pain, no dysphagia, no bloating, no heartburn Genitourinary: no dysuria, no hematuria, no discharge, no pain Musculoskeletal: no back pain, no trauma Neurologic: no numbness, no sleeping problems Additional ROS info: Except as noted in the above Review of Systems and in the History of Present Illness all other systems have been reviewed and are negative or noncontributory. Physical Exam Vitals & Measurements HR: 76(Peripheral) RR: 16 BP: 132/88 HT: 154 cm HT: 154.0 cm WT: 76.3 kg WT: 76.3 kg BMI: 32.17 Constitutional: Appearance: well developed Skin: Inspection: no rashes, ulcers, icterus, or telangiectasias. Eyes: Conjunctivae/lids: normal conjunctivae and lids. ENMT: Hearing: within normal limits. Lips/Teeth/Gums: normal oral mucosa Neck: Neck: normal motion, central trachea Respiratory: Percussion: thorax normoresonant. Auscultation: normal breath sounds; no rubs, wheezes, rale or rhonchi. Cardiovascular: Auscultation: normal rhythm, S1 and S2; no rubs, murmurs or gallop. Peripheral: no edema Gastrointestinal/Abdom en: Abdomen: normal consistency and bowel sounds; no tenderness or masses. Liver/Spleen: normal size and consistency, not palpable. Rectal: deferred Musculoskeletal: Gait/station: normal gait Assessment/Plan 1. Fatty liver (K76.0: Fatty (change of) liver, not elsewhere classified) This was seen on ultrasound. She underwent a FibroScan in 2020 that showed severe steatosis andF4 fibrosis. Her blood test and clinic physical exam are arguing against liver cirrhosis given the high fibrosis score on FibroScan. I discussed proceeding with a liver biopsy and eventually agreed to repeat the FibroScan. If the FibroScan showed a high fibrosis score, then we will proceed with a liver biopsy at this time. 2. IBS (irritable bowel syndrome) (K58.9: Irritable bowel syndrome without diarrhea) This is fairly controlled. She will continue with fiber, probiotics, and peppermint oil as symptomatic treatment. 3. Atrial fibrillation (I48.91: Unspecified atrial fibrillation) ATTESTATION: Documentation services were performed after patient or guardian consented to allow [employer] to record this visit. PUMA provider enrollment specialist and provider reviewed before signing. PUMA: Lyndsey Baxter. Follow-up No qualifying data available Problem List/Past Medical History Ongoing Atrial fibrillation Chronic cystitis Chronic GERD Cystitis Dysuria Fatty liver Former smoker IBS (irritable bowel syndrome) Irritable bowel syndrome (IBS) Neuropathy Other urethral stricture, female Urgency of urination Historical H/O sinus surgery History of appendectomy History of partial hysterectomy Hx of tonsillectomy Procedure/Surgical History Cystourethroscopy with dilation of urethral stricture (05/26/2017), Suspension of bladder (09/06/2015), Cystourethroscopy with dilation of urethral stricture (04/24/2015), Adenoidectomy planned, Appendectomy, Bilateral carpal tunnel syndrome, Colonoscopy, Hysterectomy, Sinus Surgery, Tonsillectomy. Medications amitriptyline 10 mg Tab, 10 mg= 1 tab(s), Oral, Daily, 11 refills amitriptyline 10 mg Tab, 10 mg= 1 tab(s), Oral, Once a day (at bedtime), 1 refills metoprolol 100 mg ER Tab, 100 mg, Oral, Daily omeprazole 20 mg Cap-DR, 20 mg= 1 cap(s), Oral, Daily Allergies sulfa drugs (hives) Social History Alcohol - Low Risk, 05/04/2019 Current, Beer, Wine, 02/23/2019 Exercise Other Caffeine- 1 cup daily, 02/23/2019 Substance Abuse - Denies Substance Abuse, 02/23/2019 (more content not included)... Normal [facility] Comment on above: Result Comment: Elec tronically Signed By: Lyndsey Baxter\.br\Date and Time Signed: 02/26/22 13:04 EDT\.br\Electronically Co-Signed By: Lorraine SUTHERLAND MD\.br\Date and Time Co-Signed: 02/27/22 09:09 EDT Ambulatory Visit Summaryon 0 02-26-2022 Ambulatory Visit Summary TAMELA HOPPER :1965 Visit Date:02/26/2022 Ambulatory Visit Instructions Your Diagnosis Fatty liver IBS (irritable bowel syndrome) Atrial fibrillation Your Care Team Attending Physician - Lorraine SUTHERLAND MD Primary Care Physician - Arpan Alexis MD This Is Your Medications List Contact prescribing physician if questions or concerns amitriptyline (amitriptyline 10 mg Tab) amitriptyline (amitriptyline 10 mg Tab) metoprolol (metoprolol 100 mg ER Tab) omeprazole (omeprazole 20 mg Cap-DR) Procedures Performed Cystourethroscopy with dilation of urethral stricture (05/26/2017), Suspension of bladder (09/06/2015), Cystourethroscopy with dilation of urethral stricture (04/24/2015), Adenoidectomy planned, Appendectomy, Bilateral carpal tunnel syndrome, Colonoscopy, Hysterectomy, Sinus Surgery, Tonsillectomy. Discharge Vitals Heart Rate (Peripheral) 76 Respiratory Rate 16 Blood Pressure 132/88 Height 154 cm Height 154.0 cm Weight 76.3 kg Weight 76.3 kg BMI 32.17 What to do next Scheduled Follow-Up Appointments 2021 1:00 PM EDT With: Where: [facility] 2021 1:15 PM EDT With: Lorraine SUTHERLAND MD Where: [facility] Normal [facility] HIPAA Forms Officeon 022 HIPAA Forms Office [id number] 0CD:127 Normal [facility] Complete Blood Count Auto Di ffon 07-02-2021 Basophils (Bld) [#/Vol] 0.0 10*3/uL Normal 0.0-0.2 [facility] Comment on above: Result Comment: PERF ORMED BY: [place] [address] PATHOLOGIST SILK SCREEN PRINTER JUAN LUNA M.D. Performed By: #### C BC #### [address] Basophils/100 WBC (Bld) 1.0 % Normal . [facility] Comment on above: Performed By: #### C BC #### [facility] [address] [place] [address] [place] Eosinophils (Bld) [#/Vol] 0.2 10*3/uL Normal 0.0-0.45 [facility] Comment on above: Performed By: #### C BC #### [address] Eosinophils/100 WBC (Bld) 3.8 % Normal . [facility] Comment on above: Performed By: #### C BC #### [address] Erythrocyte distribution width (RBC) [Ratio] 14.0 % Normal 11.9-15.3 [facility] Comment on above: Performed By: #### C BC #### [facility] [address] Hematocrit (Bld) [Volume fraction] 39.8 % Normal 34.0-46.4 [facility] Comment on above: Performed By: #### C BC #### [facility] [address] Hemoglobin (Bld) [Mass/Vol] 13.2 g/dL Normal 11.8-15.4 [facility] Comment on above: Performed By: #### C BC #### [facility] [address] Lymphocytes (Bld) [#/Vol] 1.4 10*3/uL Normal 1.00-4.8 [facility] Comment on above: Performed By: #### C BC #### [address] Lymphocytes/100 WBC (Bld) 31.7 % Normal . [facility] Comment on above: Performed By: #### C BC #### [facility] [address] MCH (RBC) [Entitic mass] 31.4 pg Normal 24.7-34.3 [facility] Comment on above: Performed By: #### C BC #### [address] MCV (RBC) [Entitic vol] 94.9 fL Normal 80-100 [facility] Comment on above: Performed By: #### C BC #### [address] Mean Corpuscular HGB Conc 33.1 g/dL Normal 32.0-35.0 [facility] Comment on above: Performed By: #### C BC #### [address] Monocytes (Bld) [#/Vol] 0.4 10*3/uL Normal 0.0-0.8 [facility] Comment on above: Performed By: #### C BC #### [facility] [address] [place] [address] [place] Monocytes/100 WBC (Bld) 9.6 % Normal . [facility] Comment on above: Performed By: #### C BC #### [facility] [address] Neutrophils (Bld) [#/Vol] 2.4 10*3/uL Normal 1.8-7.7 [facility] Comment on above: Performed By: #### C BC #### [facility] [address] Neutrophils/100 WBC (Bld) 53.9 % Normal . [facility] Comment on above: Performed By: #### C BC #### [facility] [address] Nucleated RBC/100 WBC (Bld) [Ratio] 0.1 % Normal 0-0.5 [facility] Comment on above: Performed By: #### C BC #### [facility] [address] Platelet mean volume (Bld) [Entitic vol] 8.3 fL Normal 6.3-10.7 [facility] Comment on above: Performed By: #### C BC #### [place] [address] [place] Platelets (Bld) [#/Vol] 236 10*3/uL Normal 150-450 [facility] Comment on above: Performed By: #### C BC #### [facility] [address] [place] [address] [place] RBC (Bld) [#/Vol] 4.19 10*6/uL Normal 3.60-5.00 [facility] Comment on above: Performed By: #### C BC #### [facility] [address] [place] [address] [place] WBC (Bld) [#/Vol] 4.5 10*3/uL Normal 4.5-11.0 [facility] Comment on above: Performed By: #### C BC #### [address] [place] [address] [facility] Dermatopathologyon Dermatopathology [facility] [id number] [address] DERMATOPATHOLOGY REPORT Name:TAMELA HOPPER. Rec #. [id number] Location: [facility] Date of Procedure: 11/14/2020 Race: Date Received: 11/16/2020 /Sex: 1965 (Age: 55) / F Date Reported: 11/19/2020 Other: Submitting Physician:JINNY PURI APRN, QUILTING MACHINE HELPER-C FINAL DIAGNOSIS A. 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 B. SKIN, R POSTAUR. NECK, 3MM PUNCH BIOPSY: ACUTE TO SUBACUTE SPONGIOTIC DERMATITIS, SEE NOTE. Note: Microscopic examination reveals a specimen that extends into the deep reticular dermis. There is both orthokeratosis and parakeratosis with mild spongiosis and an area of mild acanthosis of the epidermis with a mild superficial lymphocytic infiltrate. The differential diagnosis includes atopic dermatitis, nummular dermatitis, allergic contact dermatitis, id reaction, eczematous drug reaction, and seborrheic dermatitis. Electronically Signed Out by FEDERICO SNOW M.D. Electronically Signed Out By FEDERICO SNOW MD/[facility] By the signature on this report, the individual or group listed as making the Final Interpretation/Diagnos is certifies that they have reviewed this case. Clinical History: A: SCC vs BCC vs amelanotic melanoma vs other. Biopsy. B: Drug eruption vs dermatomyositis vs jessica derm vs other. 3 mm Biopsy. Specimens Submitted As: A: SKIN, L HAIR B: SKIN, R POSTAUR. NECK Gross Description: A: Received in formalin is one gillette-brown piece of skin measuring [id number]. The specimen is inked and embedded in toto. B: Received in formalin is a gillette-brown, cylindrical piece of skin measuring [id number]. The specimen is inked and embedded in toto. dcp/11/16/2020 Microscopic Description: A. Microscopic analysis shows hyperplastic epidermis with full-thickness atypia of keratinocytes. Normal [facility] Comment on above: Performed By: #### D #### Dermatopathology Vital Signs Date Time Vital Sign Value Performing Clinician Nga bright 06-25-2023 11:08-0400 Body weight 78.02 kg Mohammad Hamdan 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 Work Phone: [facility] 06-25-2023 11:08-0400 Diastolic blood pressure 97 mm[Hg] Mohammad Hamdan 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 Work Phone: [facility] 06-25-2023 11:08-0400 Heart rate 68 /min Mohammad Hamdan 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 Work Phone: [facility] 06-25-2023 11:08-0400 Systolic blood pressure 161 mm[Hg] Mohammad Hamdan 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 Work Phone: [facility] 10-17-2022 10:07-0500 Body height 154.9 cm 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 Work Phone: [facility] 10-17-2022 10:07-0500 Body weight 76.43 kg 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 Work Phone: [facility] 10-17-2022 10:07-0500 Diastolic blood pressure 84 mm[Hg] 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 Work Phone: [facility] 10-17-2022 10:07-0500 Heart rate 74 /min 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 Work Phone: [facility] 10-17-2022 10:07-0500 SaO2% (BldA) [Mass fraction] 97 % 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 Work Phone: [facility] 10-17-2022 10:07-0500 Systolic blood pressure 126 mm[Hg] 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 Work Phone: [facility] 07-23-2022 08:56-0500 Body height 154.9 cm Koli Green 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 Work Phone: [facility] 07-23-2022 08:56-0500 Body weight 76.66 kg Koli Green 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 Work Phone: [facility] 07-23-2022 08:56-0500 Diastolic blood pressure 84 mm[Hg] Koli Green 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 Work Phone: [facility] 07-23-2022 08:56-0500 Heart rate 94 /min Koli Green 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 Work Phone: [facility] 07-23-2022 08:56-0500 Systolic blood pressure 119 mm[Hg] Koli Green 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 Work Phone: [facility] 05-08-2022 14:05-0400 Blood Pressure Location Peters SALAM [facility] 05-08-2022 14:05-0400 Diastolic blood pressure 78 mm[Hg] Peters SALAM [facility] 05-08-2022 14:05-0400 Heart rate 78 /min Peters SALAM [facility] 05-08-2022 14:05-0400 Respiratory rate 16 /min Peters SALAM [facility] 05-08-2022 14:05-0400 Systolic blood pressure 116 mm[Hg] Peters SALAM [facility] 01-23-2022 09:38-0400 Body height 154.9 cm 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 Work Phone: [facility] 01-23-2022 09:38-0400 Body weight 77.52 kg 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 Work Phone: [facility] 01-23-2022 09:38-0400 Diastolic blood pressure 72 mm[Hg] 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 Work Phone: [facility] 01-23-2022 09:38-0400 Heart rate 68 /min 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 Work Phone: [facility] 01-23-2022 09:38-0400 SaO2% (BldA) [Mass fraction] 99 % 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 Work Phone: [facility] 01-23-2022 09:38-0400 Systolic blood pressure 120 mm[Hg] 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 Work Phone: [facility] Encounters Encounter Date Encounter Type Care Provider Facility Start: 09-17-2023 End: 09-17-2023 ambulatory INDIGO PUGH Not Available Start: 06-25-2023 End: 06-25-2023 ambulatory HILDA ANGELA Facility:[facility] Start: 06-25-2023 End: 06-25-2023 Patient encounter procedure Daphne Padron APRN.DEPUTY ASSESSOR Work Phone: Neurology Comment on above: Intractable chronic migraine without aura and without status migrainosus (Primary Dx) Start: 06-22-2023 Telephone encounter Daphne del real APRN.CNP Work Phone: Neurology Comment on above: Referral Request Start: 03-30-2023 End: 03-30-2023 ambulatory HILDA ANGELA Facility:[facility] Start: 03-03-2023 Telephone encounter Hilda Garayfler 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 Work Phone: [facility] HB[facility] Comment on above: Insurance Authorizat ion (PRIOR AUTH DELAYED: NEED COVERAGE VERIFICATION) Start: 01-14-2023 ambulatory Lorraine SUTHERLAND Facility: [facility] Start: 01-01-2023 Telephone encounter Hilda Patino iffler 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 Work Phone: Neurology Comment on above: Referral Request Start: 11-06-2022 End: 11-06-[address] ARPAN ALEXIS . Facility: Start: 10-17-2022 End: 10-17-2022 ambulatory HILDA ANGELA Facility:[facility] Start: 10-17-2022 End: 10-17-2022 Patient encounter procedure Hilda nAgela 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 Work Phone: Neurology Comment on above: Intractable chronic migraine without aura and without status migrainosus (Primary Dx) Start: 09-12-2022 End: 09-13-2022 ambulatory ADAM SHADIA . Facility: Start: 07-23-2022 End: 07-23-2022 Patient encounter procedure Marcus Zamora 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 Work Phone: Neurology Comment on above: Intractable chronic migraine without aura and without status migrainosus Start: 05-08-2022 End: 05-09-2022 ambulatory [facility] Start: 05-08-2022 End: 05-08-2022 Patient encounter procedure Petersbibi SUTHERLAND [facility] Start: 04-18-2022 End: 04-18-[address] ARPAN ALEXIS . Facility: Start: 04-07-2022 End: 04-08-[address] ARPAN ALEXIS . Facility: Start: 03-06-2022 End: 03-07-2022 [facility] [place] Start: 03-06-2022 End: 03-06-2022 Patient encounter procedure Peters SALAM [facility] Start: 02-26-2022 End: 02-27-2022 ambulatory Peters [facility] Start: 02-19-2022 ambulatory Peters [facility] Facility:Carolee Gudino Start: 01-23-2022 End: 01-23-2022 Patient encounter procedure 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 Work Phone: Neurology Comment on above: Intractable chronic migraine without aura and without status migrainosus (Primary Dx) Start: 03-31-2017 End: 04-01-2017 Ambulatory DEFAULT PHYSICIAN Facility:[facility] Procedures Date Procedure Procedure Detail Performing Clinician Start: 01-19-2022 Adult depression scr eening assessment 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 Work Phone: Start: 05-26-2017 Cystourethroscopy wi th dilation of urethral stricture Lorraine SUTHERLAND Start: 09-06-2015 Cystopexy Lorraine Maciel Start: 04-24-2015 Cystourethroscopy wi th dilation of urethral stricture Lorraine SUTHERLAND Comment on above: 05-26-2017 Adenoidectomy planned Lorraine SUTHERLAND Appendectomy Lorraine SUTHERLAND 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) Petersbibi RASHEEDAM Colonoscopy Lorraine SUTHERLAND End: 02-22-2019 H/O: hysterectomy History of partial hysterectomy( Confirmed ) Lorraine SUTHERLAND End: 02-22-2019 History of appendectomy History of appendectomy( Confirmed ) Petersbibi SUTHERLAND End: 02-22-2019 History of tonsillectomy Hx of tonsillectomy( Confirmed ) Petersbibi SUTHERLAND Hysterectomy Lorraine S[facility]LAND [facility] Sinus Surgery [facility] Tonsillectomy Petersbibi [facility] Plan of Treatment Date Care Activity Detail Author Start: 05-08-2023 Influenza vaccination Influenza Vacc ine (#1) [facility] Start: 01-19-2023 Adult depression scr eening assessment DEPRESSION SCREENING [facility] Start: 2023 RSV Vaccine (1 - 1-d ose 60+ series) RSV Vaccine (1 - 1-dose 60+ series) [facility] Start: 09-07-2022 DEPRESSION ASSESSMENT DEPRESSION ASS ESSMENT [facility] Start: 09-07-2021 DEPRESSION ASSESSMENT DEPRESSION ASS ESSMENT [facility] Start: 01-18-2008 COLOGUARD (FIT-DNA) COLOGUARD (FIT-D NA) [facility] Start: 01-18-2008 Colonoscopy COLONOSCOPY [facility] Start: 01-18-2008 COLORECTAL CANCER SCREENING COLORECTAL CANCER SCREENING [facility] Start: 01-18-[address] COLONOGRAPHY [facility] Start: 01-18-2008 DIABETES SCREEN DIABETES SCREEN [facility] Start: 01-18-2008 Diabetes Screening Diabetes Screenin g [facility] Start: 01-18-2008 FECAL OCCULT BLOOD FECAL OCCULT BLOO D [facility] Start: 01-18-2008 Lipid 1996 panel - S shey or Plasma Lipid Screening [facility] Start: 01-18-2008 LIPID SCREEN LIPID SCREEN [facility] Start: 01-18-2008 SIGMOIDOSCOPY SIGMOIDOSCOPY [facility] Start: 2003 Mammography [facility] Start: 1993 HPV TESTING HPV TESTING [facility] Start: 01-18-1984 PAP TESTING PAP TESTING [facility] Start: 1982 Urine microalbumin profile [facility] Start: 1981 HEPATITIS C SCREENING HEPATITIS C SC REENING [facility] Start: 1981 HIV SCREENING HIV SCREENING [facility] Start: 01-18-1968 COVID-19 VACCINE (#1) COVID-19 VACCI NE (#1) [facility] Start: 1965 COVID-19 VACCINE (#1) COVID-19 VACCI NE (#1) [facility] Immunizations Immunization Date Immunization Notes Care Provider Ruth montoya 06-11-2022 influenza virus vaccine, unspecified formulation Daphne Padron 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 Work Phone: [facility] 07-01-2021 influenza virus vaccine, unspecified formulation Peters SALAM [facility] 05-29-2020 influenza virus vaccine, unspecified formulation Peters SALAM [facility] 05-22-2020 influenza virus vaccine, unspecified formulation Peters SALAM [facility] 08-08-2019 zoster vaccine recombinant 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 Work Phone: [facility] Work Phone: 05-19-2019 zoster vaccine recombinant 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.[facility] Work Phone: [facility] Work Phone: 05-10-2019 influenza virus vaccine, unspecified formulation Peters SALAM [facility] 05-10-2019 influenza, injectabl e, quadrivalent, preservative free 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.[facility] Work Phone: [facility] Work Phone: 05-10-2019 measles, mumps and rubella virus vaccine 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.[facility] Work Phone: [facility] Work Phone: 06-08-2017 influenza virus vaccine, unspecified formulation 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.[facility] Work Phone: [facility] Work Phone: 06-08-2017 influenza, unspecifi ed formulation Peters SALAM [facility] 09-15-2016 pneumococcal polysaccharide vaccine, 23 valent 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.[facility] Work Phone: [facility] Work Phone: 06-17-2016 influenza virus vaccine, unspecified formulation 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.[facility] Work Phone: [facility] Work Phone: 06-17-2016 influenza, unspecifi ed formulation Peters SALAM [facility] NEGATED: Highlighted row has not occurred!05-08-2022 influenza virus vaccine, unspecified formulation Peters SALAM [facility] Payers Date Payer Category Payer Unknown [id number] 2021 Unknown 2021 Unknown [employer] PPO [id number] 2021-Present [phone] [address] [place] [address] PPO [id number] 1965 Unknown [id number] 1965 Unknown [id number] 1965 Unknown [id number] 1965 Unknown [id number] 1965 Unknown [id number] 1965 Unknown [id number] 1965 Unknown [id number] 1965 Unknown [id number] 1965 Unknown [id number] 1959 Unknown [id number] Social History Date Type Detail Facility Start: 10-03-2020 End: 04-17-2022 Tobacco smoking status NHIS Ex-smoker [facility] Start: 10-03-2020 End: 04-17-2022 Tobacco use and exposure Smokeless tobacco non-user [facility] Start: 01-23-2022 End: 06-25-2023 Alcohol intake Current drinker of alcohol (finding) [facility] Start: 05-08-2020 History SDOH Alcohol Frequency 4 [facility] Start: 1965 Sex Assigned At Not on file [facility] Start: 01-13-2022 End: 07-23-2022 Exposure to SARS-CoV-2 (event) Not sure [facility] Start: 05-08-2020 End: 03-30-2023 Sex Assigned At Female [facility] History of tobacco use Current smoker [facility] Start: 05-08-2020 End: 03-30-2023 History of Social function [facility] Work Phone: How often to you hav e a drink containing alcohol? 2-3 time sa week [facility] Work Phone: Average Number of Drinks Not on file [facility] Functional Status Date Assessment Result Facility 05-08-2022 Functional Status N/A [facility] Clinical Notes 01-23-2022 to 09-17-2023 Patient InstructionsDaphne Padron APRN.DEPUTY ASSESSOR - 06/25/2023 11:08 AM EDTTelephone Kush - Belle Erazo RN - 06/22/2023 3:40 PM Nemo Angela APRN.DEPUTY ASSESSOR - 10/17/2022 10:30 AM EST Note Date & Type Note Facility 09-17-2023 Note HNO ID: [id number] Author: DAPHNE PADRON APRN.DEPUTY ASSESSOR Service: ? Author Type: Nurse Practitioner Type: Progress Notes Filed: 09/17/2023 13:18 Note Text: Answers submitted by the patient for this visit: Headache Questionnaire (Submitted on 09/10/2023) How many days of work or school have you missed due to headaches in the last month? : 0 In the last month, how many headache days did you experience ALL of the following symptoms: decreased productivity, light sensitivity and nausea?: 0 How many days have you been completely free of headache pain in the last month? : 15 Follow-Up Onabotulinum Toxin A (BotoxTM) for Migraine Indication: Chronic Intractable Migraine Treatment #: 13 Referral Expiration: 08/25/2024 Prior to the initiation of the FIRST treatment with Onabotulinum Toxin A, the patient reported the following average headache frequency over the past 3 MONTHS: Number of moderate-severe migraine days/month: 18 Number of mild migraine days/month: 10 Number of headache free days/month: 2 (48 headache-free hours) Migraine severity: 8/10 After treatment with Onabotulinum Toxin A: Number of mild migraine days/month: 15 Number of headache free days/month: 15 (360 headache-free hours) Migraine severity: 02/14 Patient reduction in overall migraine days: Yes Patient reduction in moderate-severe migraine days: Yes Patient reduction of headache hours by 100 hours or more: Yes (reduction of 312 hours) Individual has obtained clinical benefit deemed significant by individual or prescriber (Y/N): Yes Patient's quality of life and ability to perform ADLs has improved (Y/N): Yes Side effects: none Wearing off: Yes - 10 weeks after treatment The patient has been assessed for disorders which could contribute to breathing or swallowing difficulty, and there is no contraindication with PREEMPT Botox. There is no documented allergic reaction/hypersensitivity to any botulinum toxin and there is no active infection at proposed injection site. HEADACHE SCORES: Headache Questions 03/23/2023 06/18/2023 09/10/2023 ID Migraine Screener: - - - ER visits in the last year: - - - ER visits since last office visit: 0 0 0 Hospital stays in the last year: - - - Hospital stays since last office visit 0 0 0 Limited ADLs in the last month: 0 0 0 Days missed from work or school in the last month: 0 0 0 Days headache pain free in the last month: 20 26 15 Days per month with ALL of the following symptoms - decreased productivity, light sensitivity and nausea: 0 0 0 Initial improvement of headache after botox injection at last visit: Much improved Much improved Much improved PRN medication usage in the last month: 3 4 12 Patient impression of improvement since last visit: No change Much improved Much improved HIT-6 03/23/2023 06/18/2023 09/10/2023 HIT-6 46 (Little or no impact) 48 (Little or no impact) 42 (Little or no impact) HANS - 2/7 SCORES 03/23/2023 06/18/2023 09/10/2023 HANS-2 Score 0 0 0 Migraine Specific QOL - Higher scores indicate better HRQL 03/23/2023 06/18/2023 09/10/2023 Role Function-Restrictive Transformed Score (range: 0-100) 97.14 100 100 Role Function-Preventive Transformed Score (range: 0-100) 100 100 95 Emotional Function Transformed Score (range: 0-100) 100 100 100 PHQ-9 03/23/2023 06/18/2023 09/10/2023 Score 0 0 0 BP 144/97 (BP Site: Right Arm, BP Position: Sitting, BP Cuff Size: Regular Adult) Pulse 86 [facility] 1965 ALLERGIES Allergen Reactions Sulfa (Sulfonamide * Hives UNIVERSAL PROTOCOL / SAFETY CHECKLIST Procedure: Onabotulinum toxin A for migraine Informed Consent Consent Obtained: Written [place] Protocol A moment to CARE was completed SIGN IN Personnel directly involved with the procedure wore the appropriate PPE Special Equipment: N/A Patient/Surrogate Stated/Verified: Patient name, Date of , Relevant allergies and Intended procedure TIME OUT Intended patient and procedure match the source document(s) Consent documented and matches the intended procedure No relevant labs, photos, and/or imaging studies were applicable for review. Correct side/site marked and visible. Medications required for procedure verified. No fire risk assessment and interventions applicable. No implant(s) inserted. SIGN OUT No specimen collected. No instruments, equipment or retained foreign bodies applicable. Post-procedure follow-up management communicated and Plan of Care Visit completed when applicable Written Consent Obtained: Written Injection Sites Left (Units) Left (Sites) Right (Units) Right (Sites) TOTAL (Units) Butcher 5 1 5 1 10 Procerus Units: 5 Sites: 1 5 Frontalis 10 2 10 2 20 Temporalis optional follow the pain 20 10 4 2 20 10 4 2 60 Occipitalis optional follow the pain 15 10 3 2 15 10 3 2 50 Cervical PSP 10 2 10 2 20 Trapezius optional follow the pain 15 (more content not included)... [facility] 06-25-2023 Note HNO ID: [id number] Author: Daphne Padron APRN.DEPUTY ASSESSOR Service: ? Author Type: Nurse Practitioner Type: Progress Notes Filed: 06/25/2023 11:18 AM Note Text: Answers submitted by the patient for this visit: Headache Questionnaire (Submitted on 06/18/2023) How many days of work or school have you missed due to headaches in the last month? : 0 In the last month, how many headache days did you experience ALL of the following symptoms: decreased productivity, light sensitivity and nausea?: 0 How many days have you been completely free of headache pain in the last month? : 26 Follow-Up Onabotulinum Toxin A (BotoxTM) for Migraine Indication: Chronic Intractable Migraine Treatment #: 12 Referral Expiration: 09/06/2023 Prior to the initiation of the FIRST treatment with Onabotulinum Toxin A, the patient reported the following average headache frequency over the past 3 MONTHS: Number of moderate-severe migraine days/month: 18 Number of mild migraine days/month: 10 Number of headache free days/month: 2 (48 headache-free hours) Migraine severity: 04/16 After treatment with Onabotulinum Toxin A: Number of moderate-severe migraine days/month: 4 Number of mild migraine days/month: 0 Number of headache free days/month: 26 (624 headache-free hours) Migraine severity: 02/14 Patient reduction in overall migraine days: Yes Patient reduction in moderate-severe migraine days: Yes Patient reduction of headache hours by 100 hours or more: Yes (reduction of 576 hours) Individual has obtained clinical benefit deemed significant by individual or prescriber (Y/N): Yes Patient's quality of life and ability to perform ADLs has improved (Y/N): Yes Side effects: none Wearing off: Yes - 10 weeks after treatment The patient has been assessed for disorders which could contribute to breathing or swallowing difficulty, and there is no contraindication with PREEMPT Botox. There is no documented allergic reaction/hypersensitivity to any botulinum toxin and there is no active infection at proposed injection site. HEADACHE SCORES: Headache Questions 10/15/2022 03/23/2023 06/18/2023 ID Migraine Screener: - - - ER visits in the last year: - - - ER visits since last office visit: 0 0 0 Hospital stays in the last year: - - - Hospital stays since last office visit 0 0 0 Limited ADLs in the last month: 0 0 0 Days missed from work or school in the last month: 0 0 0 Days headache pain free in the last month: 20 20 26 Days per month with ALL of the following symptoms - decreased productivity, light sensitivity and nausea: 0 0 0 Initial improvement of headache after botox injection at last visit: Very much improved Much improved Much improved PRN medication usage in the last month: 8 3 4 Patient impression of improvement since last visit: Much improved No change Much improved HIT-6 10/15/2022 03/23/2023 06/18/2023 HIT-6 46 (Little or no impact) 46 (Little or no impact) 48 (Little or no impact) HANS - 2/7 SCORES 10/15/2022 03/23/2023 06/18/2023 HANS-2 Score 0 0 0 Migraine Specific QOL - Higher scores indicate better HRQL 10/15/2022 03/23/2023 06/18/2023 Role Function-Restrictive Transformed Score (range: 0-100) 97.14 97.14 100 Role Function-Preventive Transformed Score (range: 0-100) 100 100 100 Emotional Function Transformed Score (range: 0-100) 100 100 100 PHQ-9 10/15/2022 03/23/2023 06/18/2023 Score 0 0 0 There were no vitals taken for this visit. [facility] 1965 ALLERGIES Allergen Reactions Sulfa (Sulfonamide * Hives UNIVERSAL PROTOCOL / SAFETY CHECKLIST Procedure: Onabotulinum toxin A for migraine Informed Consent Consent Obtained: Written [place] Protocol A moment to CARE was completed SIGN IN Personnel directly involved with the procedure wore the appropriate PPE Special Equipment: N/A Patient/Surrogate Stated/Verified: Patient name, Date of , Relevant allergies and Intended procedure TIME OUT Intended patient and procedure match the source document(s) Consent documented and matches the intended procedure No relevant labs, photos, and/or imaging studies were applicable for review. Correct side/site marked and visible. Medications required for procedure verified. No fire risk assessment and interventions applicable. No implant(s) inserted. SIGN OUT No specimen collected. No instruments, equipment or retained foreign bodies applicable. Post-procedure follow-up management communicated and Plan of Care Visit completed when applicable Written Consent Obtained: Written LOT #: [id number] Expiration Date: Month: 3 Year: 2024 Injection Sites Left (Units) Left (Sites) Right (Units) Right (Sites) TOTAL (Units) Butcher 5 1 5 1 10 Procerus Units: 5 Sites: 1 5 Frontalis 10 2 10 2 20 Temporalis optional follow the pain 20 10 4 2 20 10 4 2 60 Occipitalis optional follow the pain 15 10 3 2 15 10 3 (more content not included)... [facility] 06-25-2023 Instructions Daphne Padron APRN.DEPUTY ASSESSOR - 06/25/2023 11:10 AM EDT Instruction after Botox injection: - If you have any pain or swelling use ice, 20 min on and 20 min off. Do not rub or massage the area for 24 hrs. - If you have any neck stiffness, you may use heat and do stretching exercises. - This should improve over the next 5 days. - If it does not, call our office at [phone] for further instructions. documented in this encounter [facility] 06-25-2023 History of Presen t illness Narrative Answers submitted by the patient for this visit: Headache Questionnaire (Submitted on 06/18/2023) How many days of work or school have you missed due to headaches in the last month? : 0 In the last month, how many headache days did you experience ALL of the following symptoms: decreased productivity, light sensitivity and nausea?: 0 How many days have you been completely free of headache pain in the last month? : 26 Follow-Up Onabotulinum Toxin A (BotoxTM) for Migraine Indication: Chronic Intractable Migraine Treatment #: 12 Referral Expiration: 09/06/2023 Prior to the initiation of the FIRST treatment with Onabotulinum Toxin A, the patient reported the following average headache frequency over the past 3 MONTHS: Number of moderate-severe migraine days/month: 18 Number of mild migraine days/month: 10 Number of headache free days/month: 2 (48 headache-free hours) Migraine severity: 8/10 After treatment with Onabotulinum Toxin A: Number of moderate-severe migraine days/month: 4 Number of mild migraine days/month: 0 Number of headache free days/month: 26 (624 headache-free hours) Migraine severity: 6/10 Patient reduction in overall migraine days: Yes Patient reduction in moderate-severe migraine days: Yes Patient reduction of headache hours by 100 hours or more: Yes (reduction of 576 hours) Individual has obtained clinical benefit deemed significant by individual or prescriber (Y/N): Yes Patient's quality of life and ability to perform ADLs has improved (Y/N): Yes Side effects: none Wearing off: Yes - 10 weeks after treatment The patient has been assessed for disorders which could contribute to breathing or swallowing difficulty, and there is no contraindication with PREEMPT Botox. There is no documented allergic reaction/hypersensitivity to any botulinum toxin and there is no active infection at proposed injection site. HEADACHE SCORES: Headache Questions 10/15/2022 03/23/2023 06/18/2023 ID Migraine Screener: - - - ER visits in the last year: - - - ER visits since last office visit: 0 0 0 Hospital stays in the last year: - - - Hospital stays since last office visit 0 0 0 Limited ADLs in the last month: 0 0 0 Days missed from work or school in the last month: 0 0 0 Days headache pain free in the last month: 20 20 26 Days per month with ALL of the following symptoms - decreased productivity, light sensitivity and nausea: 0 0 0 Initial improvement of headache after botox injection at last visit: Very much improved Much improved Much improved PRN medication usage in the last month: 8 3 4 Patient impression of improvement since last visit: Much improved No change Much improved HIT-6 10/15/2022 03/23/2023 06/18/2023 HIT-6 46 (Little or no impact) 46 (Little or no impact) 48 (Little or no impact) HANS - 2/7 SCORES 10/15/2022 03/23/2023 06/18/2023 HANS-2 Score 0 0 0 Migraine Specific QOL - Higher scores indicate better HRQL 10/15/2022 03/23/2023 06/18/2023 Role Function-Restrictive Transformed Score (range: 0-100) 97.14 97.14 100 Role Function-Preventive Transformed Score (range: 0-100) 100 100 100 Emotional Function Transformed Score (range: 0-100) 100 100 100 PHQ-9 10/15/2022 03/23/2023 06/18/2023 Score 0 0 0 There were no vitals taken for this visit. Patient name: Tamela Meza [facility] : 1965 ALLERGIES Allergen Reactions Sulfa (Sulfonamide * Hives UNIVERSAL PROTOCOL / SAFETY CHECKLIST Procedure: Onabotulinum toxin A for migraine Informed Consent Consent Obtained: Written [place] Protocol A moment to CARE was completed SIGN IN Personnel directly involved with the procedure wore the appropriate PPE Special Equipment: N/A Patient/Surrogate Stated/Verified: Patient name, Date of , Relevant allergies and Intended procedure TIME OUT Intended patient and procedure match the source document(s) Consent documented and matches the intended procedure No relevant labs, photos, and/or imaging studies were applicable for review. Correct side/site marked and visible. Medications required for procedure verified. No fire risk assessment and interventions applicable. No implant(s) inserted. SIGN OUT No specimen collected. No instruments, equipment or retained foreign bodies applicable. Post-procedure follow-up management communicated and Plan of Care Visit completed when applicable Written Consent Obtained: Written LOT #: [id number] Expiration Date: Month: 3 Year: 2024 Injection Sites Left (Units) Left (Sites) Right (Units) Right (Sites) TOTAL (Units) Butcher 5 1 5 1 10 Procerus Units: 5 Sites: 1 5 Frontalis 10 2 10 2 20 Temporalis optional follow the pain 20 10 4 2 20 10 4 2 60 Occipitalis optional follow the pain 15 10 3 2 15 10 3 2 50 Cervical PSP 10 2 10 2 20 Trapezius optional follow the pain 15 5 3 1 15 3 35 Total Units used: 200 Total Units wasted: 0 Prior Therapies Duration of Use Dose Side effect Anti-Convulsant Gabapentin (Neurontin) Anti-Depressant and Antipsychotic Amitriptyline (Elavil) Blood Pressure Metoprolol (Lopressor,Toprol XL) Over the Counter Medications Acetaminophen (Tylenol) lack of efficacy Ibuprofen (Advil, Motrin) Naproxen sodium (Aleve) lack of efficacy Daphne Padron APRN.CNP documented in this encounter [facility] 06-22-2023 Miscellaneous Notes Botox referral sent to pharmacy. Maya Erazo RN documented in this encounter [facility] 03-30-2023 Note HNO ID: [id number] Author: Daphne Padron APRN.CNP Service: ? Author Type: Nurse Practitioner Type: Progress Notes Filed: 03/30/2023 11:46 AM Note Text: Answers submitted by the patient for this visit: Headache Questionnaire (Submitted on 03/23/2023) How many days of work or school have you missed due to headaches in the last month? : 0 In the last month, how many headache days did you experience ALL of the following symptoms: decreased productivity, light sensitivity and nausea?: 0 How many days have you been completely free of headache pain in the last month? : 20 Follow-Up Onabotulinum Toxin A (BotoxTM) for Migraine Indication: Chronic Intractable Migraine Treatment #: 11 Referral Expiration: 09/06/2023 Prior to the initiation of the FIRST treatment with Onabotulinum Toxin A, the patient reported the following average headache frequency over the past 3 MONTHS: Number of moderate-severe migraine days/month: 18 Number of mild migraine days/month: 10 Number of headache free days/month: 2 (48 headache-free hours) Migraine severity: 04/16 After treatment with Onabotulinum Toxin A: Number of moderate-severe migraine days/month: 14 Number of mild migraine days/month: 10 Number of headache free days/month: 6 (144 headache-free hours) Migraine severity: 02/14 Patient reduction in overall migraine days: Yes Patient reduction in moderate-severe migraine days: Yes Patient reduction of headache hours by 100 hours or more: No Individual has obtained clinical benefit deemed significant by individual or prescriber (Y/N): Yes Patient's quality of life and ability to perform ADLs has improved (Y/N): Yes Side effects: none Wearing off: Yes - 10 weeks after treatment The patient has been assessed for disorders which could contribute to breathing or swallowing difficulty, and there is no contraindication with PREEMPT Botox. There is no documented allergic reaction/hypersensitivity to any botulinum toxin and there is no active infection at proposed injection site. HEADACHE SCORES: Headache Questions 07/17/2022 10/15/2022 03/23/2023 ID Migraine Screener: - - - ER visits in the last year: - - - ER visits since last office visit: - 0 0 Hospital stays in the last year: - - - Hospital stays since last office visit - 0 0 Limited ADLs in the last month: - 0 0 Days missed from work or school in the last month: - 0 0 Days headache pain free in the last month: - 20 20 Days per month with ALL of the following symptoms - decreased productivity, light sensitivity and nausea: - 0 0 Initial improvement of headache after botox injection at last visit: - Very much improved Much improved PRN medication usage in the last month: - 8 3 Patient impression of improvement since last visit: Much improved Much improved No change HIT-6 07/17/2022 10/15/2022 03/23/2023 HIT-6 44 (Little or no impact) 46 (Little or no impact) 46 (Little or no impact) HANS - 2/7 SCORES 07/14/2022 10/15/2022 03/23/2023 HANS-2 Score 0 0 0 Migraine Specific QOL - Higher scores indicate better HRQL 07/17/2022 10/15/2022 03/23/2023 Role Function-Restrictive Transformed Score (range: 0-100) 100 97.14 97.14 Role Function-Preventive Transformed Score (range: 0-100) 100 100 100 Emotional Function Transformed Score (range: 0-100) 100 100 100 PHQ-9 07/17/2022 10/15/2022 03/23/2023 Score 0 0 0 There were no vitals taken for this visit. Patient name: Tamela Meza [facility] : 1965 ALLERGIES Allergen Reactions - Sulfa (Sulfonamide * Hives UNIVERSAL PROTOCOL / SAFETY CHECKLIST Procedure: Onabotulinum toxin A for migraine Informed Consent Consent Obtained: Written [place] Protocol A moment to CARE was completed SIGN IN Personnel directly involved with the procedure wore the appropriate PPE Special Equipment: N/A Patient/Surrogate Stated/Verified: Patient name, Date of , Relevant allergies and Intended procedure TIME OUT Intended patient and procedure match the source document(s) Consent documented and matches the intended procedure No relevant labs, photos, and/or imaging studies were applicable for review. Correct side/site marked and visible. Medications required for procedure verified. No fire risk assessment and interventions applicable. No implant(s) inserted. SIGN OUT No specimen collected. No instruments, equipment or retained foreign bodies applicable. Post-procedure follow-up management communicated and Plan of Care Visit completed when applicable Written Consent Obtained: Written LOT #: [id number] Expiration Date: Month: 2 Year: 2025 Injection Sites Left (Units) Left (Sites) Right (Units) Right (Sites) TOTAL (Units) Butcher 5 1 5 1 10 Procerus Units: 5 Sites: 1 5 Frontalis 10 2 10 2 20 Temporalis optional follow the pain 20 10 4 2 20 10 4 2 60 Occipitalis optional follow the pain 15 10 3 2 15 10 3 2 50 Cervical PSP 10 2 10 2 20 Trap (more content not included)... [facility] 03-03-2023 Miscellaneous Notes Called patient, she has new MMO insurance. Registration has been updated === PHARMACY TEAM ==== ADDITIONAL INFORMATION NEEDED/REQUESTED Case Submitted: No Request Type: Provider Date of Service: 03/30/2023 Additional Information Needed: as per today's eligibility check [place] ([id number]) coverage for the patient is termed. We need active coverage of the patient to work on authorization. Request from Payor by: N/A Email Sent to: [employer] Lenny, Britney Sandoval, Rashawn Padilla, Dwight Olsen, Rahat Cassidy Requested Clinicals/Information Sent: N/A documented in this encounter [facility] 01-01-2023 Miscellaneous Notes Botox referral sent to pharmacy Glendy Gipson LPN January 01, 2023 11:44 AM documented in this encounter [facility] 10-17-2022 Note HNO ID: [id number] Author: 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 APRN.DEPUTY ASSESSOR Service: ? Author Type: Nurse Practitioner Type: Progress Notes Filed: 10/17/2022 11:02 AM Note Text: Follow-Up Onabotulinum Toxin A (BotoxTM) for Migraine Indication: Chronic Intractable Migraine Treatment #: 11 Referral Expiration: 01/22/2023 Prior to the initiation of the FIRST treatment with Onabotulinum Toxin A, the patient reported the following average headache frequency over the past 3 MONTHS: Number of moderate-severe migraine days/month: 18 Number of mild migraine days/month: 10 Number of headache free days/month: 2 (48 headache-free hours) Migraine severity: 04/16 After treatment with Onabotulinum Toxin A: Number of moderate-severe migraine days/month: 4 Number of mild migraine days/month: 0 Number of headache free days/month: 26 (624 headache-free hours) Migraine severity: 02/14 Patient reduction in overall migraine days: Yes Patient reduction in moderate-severe migraine days: Yes Patient reduction of headache hours by 100 hours or more: Yes (reduction of 576 hours) Individual has obtained clinical benefit deemed significant by individual or prescriber (Y/N): Yes Patient's quality of life and ability to perform ADLs has improved (Y/N): Yes Side effects: none Wearing off: Yes - 10 weeks after treatment The patient has been assessed for disorders which could contribute to breathing or swallowing difficulty, and there is no contraindication with PREEMPT Botox. There is no documented allergic reaction/hypersensitivity to any botulinum toxin and there is no active infection at proposed injection site. HEADACHE SCORES: Headache Questions 07/14/2022 07/17/2022 10/15/2022 ID Migraine Screener: - - - ER visits in the last year: - - - ER visits since last office visit: 0 - 0 Hospital stays in the last year: - - - Hospital stays since last office visit 0 - 0 Limited ADLs in the last month: 0 - 0 Days missed from work or school in the last month: 0 - 0 Days headache pain free in the last month: 20 - 20 Days per month with ALL of the following symptoms - decreased productivity, light sensitivity and nausea: 0 - 0 Initial improvement of headache after botox injection at last visit: Much improved - Very much improved PRN medication usage in the last month: 0 - 8 Patient impression of improvement since last visit: Much improved Much improved Much improved HIT-6 07/14/2022 07/17/2022 10/15/2022 HIT-6 44 (Little or no impact) 44 (Little or no impact) 46 (Little or no impact) HANS - 2/7 SCORES 07/14/2022 07/14/2022 10/15/2022 HANS-2 Score 0 0 0 Migraine Specific QOL - Higher scores indicate better HRQL 07/14/2022 07/17/2022 10/15/2022 Role Function-Restrictive Transformed Score (range: 0-100) 100 100 97.14 Role Function-Preventive Transformed Score (range: 0-100) 100 100 100 Emotional Function Transformed Score (range: 0-100) 100 100 100 PHQ-9 07/14/2022 07/17/2022 10/15/2022 Score 0 0 0 BP 126/84 (BP Site: Left Arm, BP Position: Sitting, BP Cuff Size: Small Adult) Pulse 74 Ht 154.9 cm (5' 1 ) Wt 76.4 kg (168 lb 8 oz) SpO2 97% BMI 31.84 kg/m? Patient name: Tamela Meza [facility] : 1965 ALLERGIES Allergen Reactions Sulfa (Sulfonamide * Hives UNIVERSAL PROTOCOL / SAFETY CHECKLIST Procedure: Onabotulinum toxin A for migraine Informed Consent Consent Obtained: Written [place] Protocol A moment to CARE was completed SIGN IN Personnel directly involved with the procedure wore the appropriate PPE Special Equipment: N/A Patient/Surrogate Stated/Verified: Patient name, Date of , Relevant allergies and Intended procedure TIME OUT Intended patient and procedure match the source document(s) Consent documented and matches the intended procedure No relevant labs, photos, and/or imaging studies were applicable for review. No correct side/site applicable for marking and visibility. No medications required for procedure. No fire risk assessment and interventions applicable. No implant(s) inserted. SIGN OUT No specimen collected. No instruments, equipment or retained foreign bodies applicable. Post-procedure follow-up management communicated and Plan of Care Visit completed when applicable Written Consent Obtained: Written LOT #: [id number] Expiration Date: Month: 5 Year: 2024 Injection Sites Left (Units) Left (Sites) Right (Units) Right (Sites) TOTAL (Units) Butcher 5 1 5 1 10 Procerus Units: 5 Sites: 1 5 Frontalis 10 2 10 2 20 Temporalis 20 4 20 4 40 Occipitalis 15 3 15 3 30 Cervical PSP 10 2 10 2 20 Trapezius 15 3 15 3 30 Total Units used: 155 Total Units wasted: 45 Prior Therapies Duration of Use Dose Side effect Anti-Convulsant Gabapentin (Neurontin) Anti-Depressant and Antipsychotic Amitriptyline (Elavil) Blood Pressure Metoprolol (Lopressor,Toprol XL) Over the Counter Medications Acetaminophen (Tylenol) lack of efficacy Ibupr (more content not included)... [facility] 10-17-2022 History of Presen t illness Narrative Follow-Up Onabotulinum Toxin A (BotoxTM) for Migraine Indication: Chronic Intractable Migraine Treatment #: 11 Referral Expiration: 01/22/2023 Prior to the initiation of the FIRST treatment with Onabotulinum Toxin A, the patient reported the following average headache frequency over the past 3 MONTHS: Number of moderate-severe migraine days/month: 18 Number of mild migraine days/month: 10 Number of headache free days/month: 2 (48 headache-free hours) Migraine severity: 04/16 After treatment with Onabotulinum Toxin A: Number of moderate-severe migraine days/month: 4 Number of mild migraine days/month: 0 Number of headache free days/month: 26 (624 headache-free hours) Migraine severity: 02/14 Patient reduction in overall migraine days: Yes Patient reduction in moderate-severe migraine days: Yes Patient reduction of headache hours by 100 hours or more: Yes (reduction of 576 hours) Individual has obtained clinical benefit deemed significant by individual or prescriber (Y/N): Yes Patient's quality of life and ability to perform ADLs has improved (Y/N): Yes Side effects: none Wearing off: Yes - 10 weeks after treatment The patient has been assessed for disorders which could contribute to breathing or swallowing difficulty, and there is no contraindication with PREEMPT Botox. There is no documented allergic reaction/hypersensitivity to any botulinum toxin and there is no active infection at proposed injection site. HEADACHE SCORES: Headache Questions 07/14/2022 07/17/2022 10/15/2022 ID Migraine Screener: - - - ER visits in the last year: - - - ER visits since last office visit: 0 - 0 Hospital stays in the last year: - - - Hospital stays since last office visit 0 - 0 Limited ADLs in the last month: 0 - 0 Days missed from work or school in the last month: 0 - 0 Days headache pain free in the last month: 20 - 20 Days per month with ALL of the following symptoms - decreased productivity, light sensitivity and nausea: 0 - 0 Initial improvement of headache after botox injection at last visit: Much improved - Very much improved PRN medication usage in the last month: 0 - 8 Patient impression of improvement since last visit: Much improved Much improved Much improved HIT-6 07/14/2022 07/17/2022 10/15/2022 HIT-6 44 (Little or no impact) 44 (Little or no impact) 46 (Little or no impact) HANS - 2/7 SCORES 07/14/2022 07/14/2022 10/15/2022 HANS-2 Score 0 0 0 Migraine Specific QOL - Higher scores indicate better HRQL 07/14/2022 07/17/2022 10/15/2022 Role Function-Restrictive Transformed Score (range: 0-100) 100 100 97.14 Role Function-Preventive Transformed Score (range: 0-100) 100 100 100 Emotional Function Transformed Score (range: 0-100) 100 100 100 PHQ-9 07/14/2022 07/17/2022 10/15/2022 Score 0 0 0 BP 126/84 (BP Site: Left Arm, BP Position: Sitting, BP Cuff Size: Small Adult) Pulse 74 Ht 154.9 cm (5' 1 ) Wt 76.4 kg (168 lb 8 oz) SpO2 97% BMI 31.84 kg/m Patient name: Tamela Meza [facility] : 1965 ALLERGIES Allergen Reactions Sulfa (Sulfonamide * Hives UNIVERSAL PROTOCOL / SAFETY CHECKLIST Procedure: Onabotulinum toxin A for migraine Informed Consent Consent Obtained: Written [place] Protocol A moment to CARE was completed SIGN IN Personnel directly involved with the procedure wore the appropriate PPE Special Equipment: N/A Patient/Surrogate Stated/Verified: Patient name, Date of , Relevant allergies and Intended procedure TIME OUT Intended patient and procedure match the source document(s) Consent documented and matches the intended procedure No relevant labs, photos, and/or imaging studies were applicable for review. No correct side/site applicable for marking and visibility. No medications required for procedure. No fire risk assessment and interventions applicable. No implant(s) inserted. SIGN OUT No specimen collected. No instruments, equipment or retained foreign bodies applicable. Post-procedure follow-up management communicated and Plan of Care Visit completed when applicable Written Consent Obtained: Written LOT #: [id number] Expiration Date: Month: 5 Year: 2024 Injection Sites Left (Units) Left (Sites) Right (Units) Right (Sites) TOTAL (Units) Butcher 5 1 5 1 10 Procerus Units: 5 Sites: 1 5 Frontalis 10 2 10 2 20 Temporalis 20 4 20 4 40 Occipitalis 15 3 15 3 30 Cervical PSP 10 2 10 2 20 Trapezius 15 3 15 3 30 Total Units used: 155 Total Units wasted: 45 Prior Therapies Duration of Use Dose Side effect Anti-Convulsant Gabapentin (Neurontin) Anti-Depressant and Antipsychotic Amitriptyline (Elavil) Blood Pressure Metoprolol (Lopressor,Toprol XL) Over the Counter Medications Acetaminophen (Tylenol) lack of efficacy Ibuprofen (Advil, Motrin) Naproxen sodium (Aleve) lack of efficacy 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 APRN.SOHAIL Answers submitted by the patient for this visit: Headache Questionnaire (Submitted on 10/15/2022) How many days of work or school have you missed due to headaches in the last month? : 0 documented in this encounter [facility] 07-23-2022 Instructions Marcus Zamora APRN.CNP - 07/23/2022 9:38 AM EST Instruction after Botox injection: - If you have any pain or swelling use ice, 20 min on and 20 min off. Do not rub or massage the area for 24 hrs. - If you have any neck stiffness, you may use heat and do stretching exercises. - This should improve over the next 5 days. - If it does not, call our office at [phone] for further instructions. documented in this encounter [facility] 07-23-2022 History of Presen t illness Narrative Follow-Up Onabotulinum Toxin A (BotoxTM) for Migraine Indication: Chronic Intractable Migraine Treatment #: 10 Referral Expiration: 01/22/2023 Prior to the initiation of the FIRST treatment with Onabotulinum Toxin A, the patient reported the following average headache frequency over the past 3 MONTHS: Number of moderate-severe migraine days/month: 18 Number of mild migraine days/month: 10 Number of headache free days/month: 2 (48 headache-free hours) Migraine severity: 04/16 After treatment with Onabotulinum Toxin A: Number of moderate-severe migraine days/month: 1 Number of mild migraine days/month: 1 Number of headache free days/month: 28 (672 headache-free hours) Migraine severity: 03/16 Patient reduction in overall migraine days: Yes Patient reduction in moderate-severe migraine days: Yes Patient reduction of headache hours by 100 hours or more: Yes (reduction of 624 hours) Individual has obtained clinical benefit deemed significant by individual or prescriber (Y/N): Yes Patient's quality of life and ability to perform ADLs has improved (Y/N): Yes Side effects: none Wearing off: Yes - 11 weeks after treatment The patient has been assessed for disorders which could contribute to breathing or swallowing difficulty, and there is no contraindication with PREEMPT Botox. There is no documented allergic reaction/hypersensitivity to any botulinum toxin and there is no active infection at proposed injection site. HEADACHE SCORES: Headache Questions 04/10/2022 07/14/2022 07/17/2022 ID Migraine Screener: - - - ER visits in the last year: - - - ER visits since last office visit: 0 0 - Hospital stays in the last year: - - - Hospital stays since last office visit 0 0 - Limited ADLs in the last month: 0 0 - Days missed from work or school in the last month: 0 0 - Days headache pain free in the last month: 20 20 - Days per month with ALL of the following symptoms - decreased productivity, light sensitivity and nausea: 0 0 - Initial improvement of headache after botox injection at last visit: Much improved Much improved - PRN medication usage in the last month: 10 0 - Patient impression of improvement since last visit: Much improved Much improved Much improved HIT-6 04/10/2022 07/14/2022 07/17/2022 HIT-6 44 (Little or no impact) 44 (Little or no impact) 44 (Little or no impact) HANS - 2/7 SCORES 04/10/2022 07/14/2022 07/14/2022 HANS-2 Score 0 0 0 Migraine Specific QOL - Higher scores indicate better HRQL 04/10/2022 07/14/2022 07/17/2022 Role Function-Restrictive Transformed Score (range: 0-100) 100 100 100 Role Function-Preventive Transformed Score (range: 0-100) 100 100 100 Emotional Function Transformed Score (range: 0-100) 100 100 100 PHQ-9 07/14/2022 07/14/2022 07/17/2022 Score 0 0 0 There were no vitals taken for this visit. Patient [facility]: [facility] : 1965 ALLERGIES Allergen Reactions Sulfa (Sulfonamide * Hives Denies . No fever, rashes, or body aches. UNIVERSAL PROTOCOL / SAFETY CHECKLIST Procedure: Onabotulinum toxin A for migraine Informed Consent Consent Obtained: Written [place] Protocol A moment to CARE was completed SIGN IN Personnel directly involved with the procedure wore the appropriate PPE Special Equipment: N/A Patient/Surrogate Stated/Verified: Patient name, Date of , Relevant allergies and Intended procedure TIME OUT Intended patient and procedure match the source document(s) Consent documented and matches the intended procedure No relevant labs, photos, and/or imaging studies were applicable for review. No correct side/site applicable for marking and visibility. No medications required for procedure. No fire risk assessment and interventions applicable. No implant(s) inserted. SIGN OUT No specimen collected. No instruments, equipment or retained foreign bodies applicable. Post-procedure follow-up management communicated and Plan of Care Visit completed when applicable Written Consent Obtained: Written LOT #: [id number] Expiration Date: Month: 3 Year: 2024 Injection Sites Left (Units) Left (Sites) Right (Units) Right (Sites) TOTAL (Units) Butcher 5 1 5 1 10 Procerus Units: 5 Sites: 1 5 Frontalis 10 2 10 2 20 Temporalis optional follow the pain 20 10 4 2 20 10 4 2 60 Occipitalis 15 3 15 3 30 Cervical PSP 10 2 10 2 20 Trapezius optional follow the pain 15 10 3 2 15 10 3 2 50 Total Units used: 195 Total Units wasted: 5 Prior Therapies Duration of Use Dose Side effect Anti-Convulsant Gabapentin (Neurontin) Anti-Depressant and Antipsychotic Amitriptyline (Elavil) Blood Pressure Metoprolol (Lopressor,Toprol XL) Over the Counter Medications Acetaminophen (Tylenol) lack of efficacy Ibuprofen (Advil, Motrin) Naproxen sodium (Aleve) lack of efficacy Marcus Zamora APRN.DEPUTY ASSESSOR Answers submitted by the patient for this visit: Headache Questionnaire (Submitted on 07/17/2022) documented in this encounter [facility] 02-26-2022 Hospital Discharg e instructions Follow Up Care 02/26/2022 10:41:21 With:ENA BROTHERS, LELIA Peters, [facility] Address: [facility] [address] [place] [address]- When:3 months [facility] 01-23-2022 History of Presen t illness Narrative Follow-Up Onabotulinum Toxin A (BotoxTM) for Migraine Indication: Chronic Intractable Migraine Treatment #: 7 Referral Expiration: 01/22/2023 Prior to the initiation of the FIRST treatment with Onabotulinum Toxin A, the patient reported the following average headache frequency over the past 3 MONTHS: Number of moderate-severe migraine days/month: 18 Number of mild migraine days/month: 10 Number of headache free days/month: 2 (48 headache-free hours) Migraine severity: 8/10 After treatment with Onabotulinum Toxin A: Number of moderate-severe migraine days/month: 10 Number of mild migraine days/month: 0 Number of headache free days/month: 20 (480 headache-free hours) Migraine severity: 7/10 Patient reduction in overall migraine days: Yes Patient reduction in moderate-severe migraine days: Yes Patient reduction of headache hours by 100 hours or more: Yes (reduction of 432 hours) Individual has obtained clinical benefit deemed significant by individual or prescriber (Y/N): Yes Patient's quality of life and ability to perform ADLs has improved (Y/N): Yes Side effects: none Wearing off: No HEADACHE SCORES: Headache Questions 10/04/2021 10/21/2021 01/19/2022 ID Migraine Screener: - - - ER visits in the last year: - - - ER visits since last office visit: 0 - 0 Hospital stays in the last year: - - - Hospital stays since last office visit 0 - 0 Limited ADLs in the last month: - - 0 Days missed from work or school in the last month: 0 0 0 Days headache pain free in the last month: 20 - 25 Days per month with ALL of the following symptoms - decreased productivity, light sensitivity and nausea: 0 - 0 Initial improvement of headache after botox injection at last visit: Much improved Much improved Much improved PRN medication usage in the last month: 0 - - Patient impression of improvement since last visit: Much improved Much improved Much improved HIT-6 07/05/2021 10/04/2021 01/19/2022 HIT-6 46 (Little or no impact) 46 (Little or no impact) 46 (Little or no impact) HANS - 2/7 SCORES 10/04/2021 10/04/2021 01/19/2022 HANS-2 Score 0 0 0 Migraine Specific QOL - Higher scores indicate better HRQL 07/05/2021 10/04/2021 01/19/2022 Role Function-Restrictive Transformed Score (range: 0-100) 94.28 97.14 97.14 Role Function-Preventive Transformed Score (range: 0-100) 95 100 100 Emotional Function Transformed Score (range: 0-100) 100 100 93.33 PHQ-9 10/04/2021 10/04/2021 01/19/2022 Score 0 0 0 BP 120/72 (BP Site: Left Arm, BP Position: Sitting, BP Cuff Size: Small Adult) Pulse 68 Ht 154.9 cm (5' 1 ) Wt 77.5 kg (170 lb 14.4 oz) SpO2 99% BMI 32.29 kg/m Patient name: Tamela Meza [facility] : 1965 ALLERGIES Allergen Reactions Sulfa (Sulfonamide * Hives UNIVERSAL PROTOCOL / SAFETY CHECKLIST Procedure to be Performed: Botox Sign In: A Moment of CARE was completed. Personnel directly involved with the procedure wore the appropriate PPE (Personal Protective Equipment). No special equipment needed. Patient/Surrogate Stated/Verified: PATIENT VERIFIED(optional for EMERGENT procedures): Patient name, Date of , Relevant allergies and The intended procedure Time Out Communication: Intended patient and procedure match the source documents. Consent documented and matches the intended procedure. No relevant labs, photos, and/or imaging studies were applicable for review. No correct side/site applicable for marking and visibility. Medications required for procedure verified. No fire risk assessment and interventions applicable. No implant(s) inserted. Sign Out: SIGN OUT (optional for EMERGENT procedures): No specimen collected. No instruments, equipment or retained foreign bodies applicable. Post-procedure follow-up management communicated and Plan of Care Visit completed when applicable. 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 APRN.CNP UNIVERSAL PROTOCOL / SAFETY CHECKLIST Procedure: Onabotulinum toxin A for migraine Informed Consent Consent Obtained: yes [place] Protocol A moment to CARE was completed SIGN IN Personnel directly involved with the procedure wore the appropriate PPE Special Equipment: N/A Patient/Surrogate Stated/Verified: Patient name, Date of , Relevant allergies and Intended procedure TIME OUT Intended patient and procedure match the source document(s) Consent documented and matches the intended procedure No relevant labs, photos, and/or imaging studies were applicable for review. No correct side/site applicable for marking and visibility. No medications required for procedure. No fire risk assessment and interventions applicable. No implant(s) inserted. SIGN OUT No specimen collected. No instruments, equipment or retained foreign bodies applicable. Post-procedure follow-up management communicated and Plan of Care Visit completed when applicable Procedure to be performed: Onabotulinum toxin A injections Written Consent Obtained: yes LOT #: [id number] Expiration Date: Month: 12 Year: 2023 Injection Sites Left (Units) Left (Sites) Right (Units) Right (Sites) TOTAL (Units) Butcher 5 1 5 1 10 Procerus Units: 5 Sites: 1 5 Frontalis 10 2 10 2 20 Temporalis optional follow the pain 20 4 1 20 4 1 40 Occipitalis 15 3 15 3 30 Cervical PSP optional follow the pain 10 2 1 10 2 1 20 Trapezius optional follow the pain 15 3 2 15 3 2 30 Total Units used: 155 Total Units wasted: 45 Prior Therapies Duration of Use Dose Side effect Anti-Convulsant Gabapentin (Neurontin) Anti-Depressant and Antipsychotic Amitriptyline (Elavil) Blood Pressure Metoprolol (Lopressor,Toprol XL) Over the Counter Medications Acetaminophen (Tylenol) lack of efficacy Ibuprofen (Advil, Motrin) Naproxen sodium (Aleve) lack of efficacy RTC 3 months 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 APRN.CNP Answers for HPI/ROS submitted by the patient on 01/19/2022 How many days of work or school have you missed due to headaches in the last month? : 0 documented in this encounter [facility] Evaluation + Plan note Future Appointments Appointment Date:04/10/2022 01:15:00 PM Scheduled Provider:Lorraine SUTHERLAND [place] [place] [facility] [place] Type[place] Follow Up [facility] Evaluation note Diagnosis Intractable chronic migraine without aura and without status migrainosus- Primary Chronic migraine without aura, with intractable migraine, so stated, without mention of status migrainosus [facility] Intractable chronic migraine without aura and without status migrainosus Chronic migraine without aura, with intractable migraine, so stated, without mention of status migrainosus [facility] Diagnosis Intractable chronic migraine without aura and without status migrainosus- Primary Chronic migraine without aura, with intractable migraine, so stated, without mention of status migrainosus [facility] Intractable chronic migraine without aura and without status migrainosus- Primary Chronic migraine without aura, with intractable migraine, so stated, without mention of status migrainosus documented in this encounter [facility] course Narrative No data available for this section [facility] No data available for this section [facility] No data available for this section [facility] Summary Purpose Family History No Family History Records FoundNo Family History Records FoundNo Family History Records FoundNo Family History Records FoundNo Family History Records FoundNo Family History Records FoundNo Family History Records Found Advance Directives No Advanced Directives Records FoundNo Advanced Directives Records FoundNo Advanced Directives Records FoundNo Advanced Directives Records FoundNo Advanced Directives Records FoundNo Advanced Directives Records FoundNo Advanced Directives Records Found Medications Administered Section Inactive Administered Medications - up to 3 most recent administrations Medication Order MAR Action Action Date Dose Rate Site onabotulinum toxin type A 200 Units injection (BOTOX) 200 Units, INTRADERMAL, ONCE, 1 dose, On Alice 01/23/22 at 0730, This record documents the total dose provided to patient. See progress note for specific locations and amounts administered. Given 01/23/2022 7:30 AM EDT 200 Units Othe r Inactive Administered Medications - up to 3 most recent administrations Medication Order MAR Action Action Date Dose Rate Site onabotulinum toxin type A 200 Units injection (BOTOX) 200 Units, INTRAMUSCULAR, ONCE, 1 dose, On 07/23/22 at 1000, This record documents the total dose provided to patient. See progress note for specific locations and amounts administered. Given 07/23/2022 10:00 AM EST 200 Units Oth er Active Administered Medications - up to 3 most recent administrations Medication Order MAR Action Action Date Dose Rate Site onabotulinum toxin type A 200 Units injection (BOTOX) 200 Units, INTRAMUSCULAR, EVERY 3 MONTHS, First dose on Thu10/17/22 at 1130, Until Discontinued, This record documents the total dose provided to patient. See progress note for specific locations and amounts administered. Given 10/17/2022 11:30 AM EST 200 Units Oth er Active Administered Medications - up to 3 most recent administrations Medication Order MAR Action Action Date Dose Rate Site onabotulinum toxin type A 200 Units injection (BOTOX) 200 Units, INTRAMUSCULAR, EVERY 3 MONTHS, First dose on Thu10/17/22 at 1130, Until Discontinued, This record documents the total dose provided to patient. See progress note for specific locations and amounts administered. Given 06/25/2023 11:09 AM EDT 200 Units Oth er Given 03/30/2023 11:28 AM EDT 200 Units O ther Given 10/17/2022 11:30 AM EST 200 Units O ther Reason for Referral Specialty Diagnoses / Procedures Referred By Contac t Referred To Contact Diagnoses Intractable chronic migraine without aura and without status migrainosus Procedures PROVIDER ORDERED FOLLOW UP OFFICE/OUTPATIENT [facility] MDM 60-74 MINUTES Marcus Zamora APRN.DEPUTY ASSESSOR [address] [place] [address] Referral ID Status Reason Start Date Expiration Date Visits Requested Visits Authorized [id number] Authorized PCP Requested Referral 10/23/2022 07/23/2023 1 1 Additional Source Comments INFORMATION SOURCE (unrecogn ized section and content) DATE CREATED AUTHOR 03/03/2018 [facility] DATE CREATED AUTHOR AUTHOR'S ORGANIZ ATION 11/20/2020 [facility] DATE CREATED AUTHOR AUTHOR'S ORGANIZ ATION 10/31/2021 [facility] DATE CREATED AUTHOR AUTHOR'S ORGANIZ ATION 11/11/2022 [facility] DATE CREATED AUTHOR AUTHOR'S ORGANIZ ATION 01/21/2023 [facility] DATE CREATED AUTHOR AUTHOR'S ORGANIZ ATION 09/18/2023 [facility] DATE CREATED AUTHOR AUTHOR'S ORGANIZ ATION 09/18/2023 [facility] Source Comments (unrecognize d section and content) In the event this informatio n is protected by the Federal Confidentiality of Alcohol and Drug Abuse Patient Records regulations: The Federal rules restrict any use of the information to criminally investigate or prosecute any alcohol or drug abuse patient.[facility] the event this information is protected by the Federal Confidentiality of Alcohol and Drug Abuse Patient Records regulations: The Federal rules restrict any use of the information to criminally investigate or prosecute any alcohol or drug abuse patient.[facility] the event this information is protected by the Federal Confidentiality of Alcohol and Drug Abuse Patient Records regulations: The Federal rules restrict any use of the information to criminally investigate or prosecute any alcohol or drug abuse patient.[facility] the event this information is protected by the Federal Confidentiality of Alcohol and Drug Abuse Patient Records regulations: The Federal rules restrict any use of the information to criminally investigate or prosecute any alcohol or drug abuse patient.[facility] the event this information is protected by the Federal Confidentiality of Alcohol and Drug Abuse Patient Records regulations: The Federal rules restrict any use of the information to criminally investigate or prosecute any alcohol or drug abuse patient.[facility] the event this information is protected by the Federal Confidentiality of Alcohol and Drug Abuse Patient Records regulations: The Federal rules restrict any use of the information to criminally investigate or prosecute any alcohol or drug abuse patient.[facility] the event this information is protected by the Federal Confidentiality of Alcohol and Drug Abuse Patient Records regulations: The Federal rules restrict any use of the information to criminally investigate or prosecute any alcohol or drug abuse patient.[facility] Reason for Visit (unrecogniz ed section and content) Reason Comments Botox Injection Specialty Diagnoses / Procedures Referred By Contac t Referred To Contact HEADACHE Diagnoses Chronic migraine without aura, intractable, without status migrainosus Procedures BOTULINUM TOXIN A PER 1 UNIT CHEMODERVATE FACIAL/TRIGEM/CERV MUSC MIGRAINE Renewal due 12/24/2021 Botox 200 units every 12 weeks for 1 year through [facility] buy and bill Preempt protocol J0585 Procedure -25956 chemodervate facial/trigem/cerv musc migraine 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, 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 [address] [place] [address] Neur Headache Main [address] [id number] Referral ID Status Reason Start Date Expiration Date V isits Requested Visits Authorized [id number] Authorized 12/24/2021 01/22/2023 5 5 Reason Comments Botox Injection Specialty Diagnoses / Procedures Referred By Contac t Referred To Contact HEADACHE Diagnoses Chronic migraine without aura, intractable, without status migrainosus Procedures BOTULINUM TOXIN A PER 1 UNIT CHEMODERVATE FACIAL/TRIGEM/CERV MUSC MIGRAINE Renewal due 12/24/2021 Botox 200 units every 12 weeks for 1 year through [facility] buy and bill Preempt protocol J0585 Procedure -89169 chemodervate facial/trigem/cerv musc migraine 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, 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 [address] [place] [address] Neur Headache Main [address] [place] [address] Reason Comments Referral Request Reason Comments Insurance Authorization PRIOR AUTH DELAY ED: NEED COVERAGE VERIFICATION Reason Comments Chronic Migraine botox Specialty Diagnoses / Procedures Referred By Contac t Referred To Contact HEADACHE Diagnoses Chronic migraine without aura, intractable, without status migrainosus Botox renewal due 03/14/2023 Botox 200 units every 12 weeks for 1 year through [facility] buy and bill Preempt protocol J0585 Procedure -63195 chemodervate facial/trigem/cerv musc migraine Procedures BOTULINUM TOXIN A PER 1 UNIT CHEMODERVATE FACIAL/TRIGEM/CERV MUSC MIGRAINE 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, 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 This clinical summary was aggregated from multiple sources. Caution should be exercised in using it in the provision of clinical care. This summary normalizes information from multiple sources, and as a consequence, information in this document may materially change the coding, format and clinical context of patient data. In addition, data may be omitted in some cases. CLINICAL DECISIONS SHOULD BE BASED ON THE PRIMARY CLINICAL RECORDS. [facility] [employer] [facility]. provides no warranty or guarantee of the accuracy or completeness of information in this document.
--- NOTE | 2023-09-21 08:16 | XR_ITS ---
The [address] [address] Patient Name: TAMELA MENJIVAR MRN: [id number] date: 1965 Sex: F Assigned Patient Location: [facility] Current Patient Location: [facility] Accession/Order Number: [id number] Exam Date: 09/21/2023 08:08 Report Date: 09/21/2023 10:19 At the request of: INDIGO PUGH Procedure: XR DEXA axial skeleton EXAM: XR DEXA axial skeleton HISTORY: Postmenopausal State Z78.0 COMPARISON: None. TECHNIQUE: Routine DEXA scan lumbar spine and bilateral hips. FINDINGS: L1-L4: Bone mineral density 1.302 g/sq cm and T score 1.0. Left femoral neck: Bone mineral density 0.913 g/sq cm and T score -0.9. Left hip total: Bone mineral density 1.019 g/sq cm and T score 0.1. Right femoral neck: Bone mineral density 0.85 g/sq cm and T score -1.1. Right hip total: Bone mineral density 0.992 g percent meters squared and T score -0.1. XR/XR DEXA axial skeleton IMPRESSION: Osteopenia. Electronically authenticated by: TOI AUSTIN Date: 09/21/2023 10:19
== END 2023-09-21 08:01 | disposition home or self-care (01) ==
LOC: RAD 08:00
PROVIDERS: PCP Family Medicine; Visit Provider Physician Assistant
DX: M85.80 Other specified disorders of bone density and structure, unspecified site (principal); Z78.0 Asymptomatic menopausal state
CPT/HCPCS: 77080

== ENCOUNTER 2024-05-11 07:41 | Outpatient (OUT) | payer OTHER, SELFPAY ==
--- NOTE | 2024-05-11 07:43 | MM_ITS ---
Patient Name: TAMELA MENJIVAR MR#: [id number] : 1965 Exam Date: 05/11/2024 Ordering Doctor: RAFIA Jaimes . RADIOLOGY REPORT PROCEDURE: MM TOMOSYNTHESIS SCREENING BI COMPARISON: MM TOMOSYNTHESIS SCREENING BI, 05/06/2023. MG MAMM SCREEN 3D ESTHELA CAD, 04/07/2022. MG MAMM SCREEN 3D ESTHELA CAD, 03/15/2021. MG MAMM ESTHELA SCRN W CAD DIG, 01/17/2014. INDICATIONS: Screening Calculator Name NCI Breast Cancer Risk Assessment Tool 5 Year Breast Cancer Risk 1.00% Lifetime Breast Cancer Risk 4.70% Personal Breast Cancer No Personal Ovarian Cancer No Treatments None Family Cancers Aunt-paternal with breast cancer at age 50; Grandmother-maternal with breast cancer at age 70. LOCATION: [facility] BREAST COMPOSITION: The breasts are heterogeneously dense,which may obscure small masses. FINDINGS: DIAGNOSTIC CATEGORY 2--BENIGN FINDING: RIGHT BREAST: No significant suspicious finding. Scattered benign-appearing calcifications are present. No significant change has occurred. LEFT BREAST: No significant suspicious finding. No significant change has occurred. RECOMMENDATIONS: ROUTINE MAMMOGRAM AND CLINICAL EVALUATION IN 12 MONTHS. PLEASE NOTE: A NORMAL MAMMOGRAM DOES NOT EXCLUDE THE POSSIBILITY OF BREAST CANCER. A CLINICALLY SUSPICIOUS PALPABLE LUMP SHOULD BE BIOPSIED. Dictated by: Marlo Lopez M.D. on 05/13/2024 at 09:25 Approved by: Marlo Lopez M.D. on 05/13/2024 at 09:37
--- OUTSIDE RECORDS SUMMARY | 2024-05-11 07:43 | XMS_ITS | CCD ---
Author Organization [facility] Care Team Providers Care Medical Coding Instructor Name Role Phone PHYSICIAN, DEFAULT Unavailable Unavailable PHYSICIAN, DEFAULT Unavailable Unavailable Unavailable Primary Care Provider UnavailArpan Pagan Primary Care Physician Unavailable Primary Care Provider Unavailabl e Unavailable Primary Care Provider Unavailabl haja ALEXIS ., DR ANTONY Primary Care Unavailable KARASIK ., DR BARKER Admitting Unavailabl e KARASIK ., DR BARKER Consulting Unavailabl e KARASIK ., DR BARKER Attending Unavailabl e ZIEBER, DR GEORGIA Orozco Consulting Unavailable HOY ., DR ANTONY Consulting Unavailable HOY ., DR ANTONY Attending Unavailable HOY ., DR ANTONY Admitting Unavailable HOY ., DR ANTONY Primary Care Unavailable SAMSA ., ADAM Attending Unavailable SAMSA ., ADAM Admitting Unavailable SAMSA ., ADAM Consulting Unavailable HOY ., DR ANTONY Primary Care Unavailable HOY ., DR ANTONY Primary Care Unavailable KARASIK ., DR BARKER Admitting Unavailabl e KARASIK ., DR BARKER Consulting Unavailabl e KARASIK ., DR BARKER Attending Unavailabl e SALAM, Lorraine Attending Unavailable SALAM, Lorraine Attending Unavailable SALAM, Lorraine Attending Unavailable SALAM, Lorraine Admitting Unavailable NONE, XXXX Referring Unavailable HAMDAN, MOHAMMAD Attending Unavailable HAMDAN, MOHAMMAD Referring Unavailable HAMDAN, MOHAMMAD Attending Unavailable HAMDAN, MOHAMMAD Referring Unavailable HAMDAN, MOHAMMAD Attending Unavailable HILDA ANGELA Referring Unavailable HAMDAN, MOHAMMAD Attending Unavailable HILDA ANGELA Referring Unavailable Unavailable Primary Care Provider Unavailabl e INDIGO PUGH Attending Unavailable ALFONSO CORREA Attending Unavailable Allergies Allergy Classification Reported Allergen(s) Allergy Type Date of Onset Reaction(s) Facility (11 sources) Sulfonamides (Antibiotic); Translations: [SULFA (SULFONAMIDE ANTIBIOTICS)] Drug Allergy 05-08-[address] [facility] Work Phone: (3 sources) Sulfonamides (Antibiotic); Translations: [sulfa drugs] Drug allergy hives [facility] (1 source) Sulfonamides (Antibiotic) Drug allergy (disorder) 03-08-2013 [facility] Repository Medications Current Medications Medication Drug Class(es) Dates Sig (Normalized) Sig (Original) amitriptyline hydrochloride 10 mg oral tablet (13 sources) Tricyclic Antidepressant Start: 07-26-2020 End: 04-13-2022 take 1 tablet by mouth once daily amitriptyline 10 mg Tab 10 mg = 1 tab(s), Oral, Daily, # 30 tab(s), Refills(s) 11, [facility], 154, cm, 07/26/20 9:59:00 EST, Height/Length Dosing, 66.8, kg, 07/26/20 9:59:00 EST, Weight Dosing Start Date: 07/26/20 Status: Ordered Start: 04-07-2020 take 3 tablets by mo uth once daily at bedtime amitriptyline (ELAVIL) 25 mg tablet Take 75 mg by mouth daily at bedtime. Takes 3 tabs 04/07/2020 Active Comment on above: Take 75 mg by mouth daily at bedtime. Takes 3 tabs estrogens, conjugated (half-way) 0.625 mg/ml vaginal cream (10 sources) Estrogen Start: 0 PREMARIN vaginal cream Use 1 Applicator vaginally three times a week. 03/13/2020 Active Comment on above: Use 1 Applicator vag inally three times a week. 24 hr metoprolol succinate 100 mg extended release oral tablet (12 sources) beta-Adrenergic Angel Start: 9 take 100 mg by mouth once daily metoprolol succinate ER (TOPROL XL) 100 mg Take 100 mg by mouth once daily. 04/04/2020 Active Comment on above: Take 100 mg by mouth once daily. naratriptan 2.5 mg oral tablet (12 sources) Serotonin-1b and Serotonin-1d Receptor Agonist Start: 3 End: 4 take 1 tablet by mouth every four hours as needed naratriptan (AMERGE) 2.5 mg tablet Indications: Intractable chronic migraine without aura and without status migrainosus Take 1 tablet (2.5 mg) by mouth as needed. May repeat dose after 4 hours if needed. Maximum daily dose is 5 mg per day. 9 tablet 11 05/06/2024 Active Start: 06-14-2021 End: 07-23-2022 take 1 tablet by mouth every four hours as needed, then take 2 tablets by mouth every twenty-four hours as needed naratriptan (AMERGE) 2.5 mg tablet Indications: Intractable chronic migraine without aura and without status migrainosus Take 1 tablet by mouth as needed (at onset of migraine, may repeat in 4 hrs. no more than 2 in 24 hrs or 2 days a week). 9 tablet 11 07/23/2022 Active Comment on above: Take 1 tablet by yovanny th as needed (at onset of migraine, may repeat in 4 hrs. no more than 2 in 24 hrs or 2 days a week). TAKE 1 TABLET BY YOVANNY TH AT ONSET OF MIGRAINE - MAY REPEAT IN 4 HOURS - NO MORE THAN 2 IN 24 HOURS OR 2 DAYS PER WEEK omeprazole 20 mg delayed release oral capsule (12 sources) Proton Pump Inhibitor Start: 02-23-2019 omeprazole 20 mg Cap-DR 20 mg = 1 cap(s), Oral, Daily, Control of stomach acid Start Date: 02/23/19 Status: Ordered Start: 05-05-2011 take 20 mg by mouth once daily Omeprazole 20 mg TbEC Take 20 mg by mouth once daily. 05/05/2011 Active Comment on above: Take 20 mg by mouth once daily. Completed/Discontinued Medications Medication Drug Class(es) Dates Sig (Normalized) Sig (Original) onabotulinumtoxina 100 unt injection (11 sources) Acetylcholine Release Inhibitor Start: 03-31-2024 End: 03-31-2024 onabotulinum toxin type A 200 Units injection (BOTOX) Start: 03-31-2024 End: 03-31-2024 onabotulinum toxin type A 20 0 Units injection (BOTOX) Start: 12-24-2023 End: 12-24-2023 onabotulinum toxin type A 20 0 Units injection (BOTOX) Start: 10-17-2022 End: 12-24-2023 onabotulinum toxin type A 20 0 Units injection (BOTOX) Start: 07-23-2022 End: 07-23-2022 onabotulinum toxin type A 20 0 Units injection (BOTOX) Start: 01-23-2022 End: 01-23-2022 onabotulinum toxin type A 20 0 Units injection (BOTOX) methylPREDNISolone 4 mg oral tablet (4 sources) Corticosteroid Start: 03-30-2023 End: 03-31-2024 methylPREDNISolone (MEDROL, SHAWNA,) 4 mg Dose-Pack Indications: Intractable chronic migraine without aura and without status migrainosus Take by mouth. As directed on package 21 tablet 0 03/30/2023 03/31/2024 Discontinued (Course of therapy completed) Comment on above: Take by mouth. As di rected on package Problems Active Problems Problem Classification Problem Date Documented Da te Episodic/Chronic Cardiac dysrhythmias (3 sources) Atrial fibrillation; Translations: [Unspecified atrial fibrillation] Onset: 2 04-21-2019 Chronic Esophageal disorders (3 sources) Gastroesophageal reflux disease; Translations: [Gastroesophageal reflux disease without esophagitis] Onset: 2 04-21-2019 Chronic Genitourinary symptoms and ill-defined conditions (4 sources) Dysuria; Translations: [Urgent desire to urinate] 04-21-2019 Episodic Headache; including migraine (17 sources) Chronic intractable migraine without aura; Translations: [...] Test Name Value Interpretation Reference Range Facility [facility] 12-24-2023 CNOV Office Visit (NEHAAV ) TAMELA HOPPER ([id number]) 1965 F [facility] Date Time Provider Department 12/24/23 10:30 AM DAPHNE PADRON During your visit today, we recorded the following information about you: Pulse Blood pressure 68/minute 159/85 Daphne Padron APRN.TRUSS BUILDER 12/24/2023 10:50 AM Signed Answers submitted by the patient for this visit: Headache Questionnaire (Submitted on 12/19/2023) How many days of work or school have you missed due to headaches in the last month? : 0 In the last month, how many headache days did you experience ALL of the following symptoms: decreased productivity, light sensitivity and nausea?: 0 How many days have you been completely free of headache pain in the last month? : 28 Follow-Up Onabotulinum Toxin A (BotoxTM) for Migraine Indication: Chronic Intractable Migraine Treatment #: 14 Referral Expiration: 08/25/2024 Prior to the initiation of the FIRST treatment with Onabotulinum Toxin A, the patient reported the following average headache frequency over the past 3 MONTHS: Number of moderate-severe migraine days/month: 18 Number of mild migraine days/month: 10 Number of headache free days/month: 2 (48 headache-free hours) Migraine severity: 04/16 After treatment with Onabotulinum Toxin A: Number of moderate-severe migraine days/month: 0 Number of mild migraine days/month: 2 Number of headache free days/month: 28 (672 headache-free hours) Migraine severity: 02/14 Patient reduction [...] infection at proposed injection site. HEADACHE SCORES: 06/18/2023 09/10/2023 12/19/2023 Headache Questions ER visits since last office visit: 0 0 0 Hospital stays since last office visit 0 0 0 Limited ADLs in the last month: 0 0 0 Days missed from work or school in the last month: 0 0 0 Days headache pain free in the last month: 26 15 28 Days per month with ALL of the following symptoms - decreased productivity, light sensitivity and nausea: 0 0 0 Initial improvement of headache after botox injection at last visit: Much improved Much improved Much improved PRN medication usage in the last month: 4 12 Patient impression of improvement since last visit: Much improved Much improved Much improved 06/18/2023 09/10/2023 12/19/2023 HIT-6 HIT-6 48 (Little or no impact) 42 (Little or no impact) 42 (Little or no impact) 06/18/2023 09/10/2023 12/19/2023 HANS - 2/7 SCORES HANS-2 Score 0 0 0 06/18/2023 09/10/2023 12/19/2023 Migraine Specific QOL - Higher scores indicate better HRQL Role Function-Restrictive Transformed Score (range: 0-100) 100 100 100 Role Function-Preventive Transformed Score (range: 0-100) 100 95 100 Emotional Function Transformed Score (range: 0-100) 100 100 100 12/19/2023 09/10/2023 06/18/2023 PHQ-9 Score 0 0 0 BP 159/85 (BP Site: Right Arm, BP Position: Sitting, BP Cuff Size: Regular Adult) Pulse 68 [facility] 1965 ALLERGIES Allergen Reactions Sulfa (Sulfonamide * Hives UNIVERSAL PROTOCOL / SAFETY CHECKLIST Procedure: Onabotulinum toxin A for migraine Informed Consent Consent Obtained: Written Helton Protocol A moment to CARE was completed [...] (Sites) Right (Units) Right (Sites) TOTAL (Units) Production Pattern Maker 5 1 5 1 10 Procerus Units: 5 Sites: 1 5 Frontalis 10 2 10 2 20 Temporalis opti (more content not included)... Normal [facility] CNOVon 09-17-2023 CNOV Office [facility] (NEHAAV ) [id number] 1965 F [facility] Date Time Provider Department 09/17/23 1:00 PM DAPHNE PADRON During your visit today, we recorded the following information about you: Pulse Blood pressure 86/minute 144/97 Daphne Padron APRN.CNP 09/17/2023 1:18 PM Signed Answers submitted by [...] Regular Adult) Pulse 86 [facility]: [facility] : 1965 ALLERGIES Allergen Reactions Sulfa (Sulfonamide * Hives UNIVERSAL PROTOCOL / SAFETY CHECKLIST Procedure: Onabotulinum toxin A for migraine Informed Consent Consent Obtained: Written Helton Protocol A moment to CARE was completed [...] (Sites) Right (Units) Right (Sites) TOTAL (Units) Production Pattern Maker 5 1 5 1 10 Procerus Units: 5 Sites: 1 (more content not included)... Normal [facility] CNOVon 06-25-2023 CNOV Office Visit (NEHAAV ) TAMELA HOPPER ([id number]) 1965 [facility] Date Time Provider Department 06/25/23 11:00 AM DAPHNE PADRON During your visit today, we recorded the following information about you: Pulse Blood pressure Weight 68/minute 161/97 78 kg Daphne Padron APRN.TRUSS BUILDER 06/25/2023 11:18 AM Signed Answers submitted by [...] taken for this visit. Patient name: Tamela Hopper : 1965 ALLERGIES Allergen Reactions Sulfa (Sulfonamide * Hives UNIVERSAL PROTOCOL / SAFETY CHECKLIST Procedure: Onabotulinum toxin A for migraine Informed Consent Consent Obtained: Written Helton Protocol A moment to CARE was completed [...] applicable Written Consent Obtained: Written LOT #: [id number] Expiration Date: Month: 3 Year: 2024 Injection Sites Left (Units) Left (Sites) Right (Units) Rig (more content not included)... Normal [facility] 06-22-2023 [facility] Telephone (NHMNS2) TAMELA HOPPER ([id number]) 1965 F [place] Date Time Provider Department 06/22/23 DAPHNE PADRON [facility] During your visit today, we recorded the following information about you: Belle Erazo RN 06/22/2023 3:40 PM Signed Botox referral sent to pharmacy. Maya Erazo RN Allergies As of Date: 06/22/2023 Noted Allergy Reaction SULFA (SULFONAMIDE ANTIBIOTICS) 05/08/2020 4 - Hives Date Reviewed: 03/30/2023 Reviewed by: Daphne Padron APRN.CNP - Fully Assessed Reason for Visit: Referral [...] Encounter Status:Closed by BELLE ERAZO on 06/22/23 [facility] Bhargav 03-30-2023 CNOV Office Visit (AZMNS2 ) TAMELA HOPPER ([id number]) 1965 F [facility] Date Time Provider Department 03/30/23 11:30 AM DAPHNE PADRON AZSAL During your visit today, we recorded the following information about you: Pulse Blood pressure Weight Height 66/minute 125/79 77.3 kg 1.549 m Daphne Padron APRN.CNP 03/30/2023 11:46 AM Signed Answers submitted by [...] HANS - 2/7 SCORES 07/14/2022 10/15/2022 03/23/2023 AHNS-2 Score 0 0 0 Migraine Specific QOL - Higher scores indicate better HRQL 07/17/2022 10/15/2022 03/23/2023 Role Function-Restrictive Transformed Score (range: 0-100) 100 97.14 97.14 Role Function-Preventive Transformed Score (range: 0-100) 100 100 100 Emotional Function Transformed Score (range: 0-100) 100 100 100 PHQ-9 07/17/2022 10/15/2022 03/23/2023 Score 0 0 0 There were no vitals taken for this visit. Patient name: Tamela Meza [facility] : 1965 ALLERGIES Allergen Reactions - Sulfa (Sulfonamide * Hives UNIVERSAL PROTOCOL / SAFETY CHECKLIST Procedure: Onabotulinum toxin A for migraine Informed Consent Consent Obtained: Written Helton Protocol A moment to CARE was completed [...] applicable Written Consent Obtained: Written LOT #: [id number] Expiration Date: Month: 2 Year: 2025 Injection Sites Left (Units) Left (Sites) Right (Units) Right (Sites) TOTAL (Unit (more content not included)... Normal [facility] 03-03-2023 [facility] Telephone ([facility]) OTTOTAMELA Meza ([id number]) 1965 F [place] Date Time Provider Department 03/03/23 HILDA ANGELA During your visit today, we recorded the following information about you: Hakan Mckeon 03/03/2023 9:09 AM Signed === PHARMACY TEAM ==== ADDITIONAL INFORMATION NEEDED/REQUESTED Case Submitted: No Request Type: Provider Date of Service: 03/30/2023 Additional Information Needed: as per today's eligibility check [employer] ([id number]) coverage for the patient is termed. We need active coverage of the patient to work on authorization. Request from Payor by: N/A Email Sent to: [employer] Lenny, Britney W, Rashawn S, Dwight T, Maddie O, Rahat Maciel Requested Clinicals/Information Sent: N/A Adry Acosta 03/03/2023 11:23 AM Signed Called patient, she has new MMO insurance. Registration has been updated Allergies As of Date: 03/03/2023 Noted Allergy Reaction SULFA (SULFONAMIDE ANTIBIOTICS) 05/08/2020 4 - Hives Date Reviewed: 10/17/2022 Reviewed by: 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 APRN.TRUSS BUILDER - Fully Assessed Reason for Visit: Insurance [...] Encounter Status:Closed by HAKAN MCKEON on 03/03/23 Normal [facility] Outside Mammographyon 2022 Outside Mammography [id number]#[id number] 0CD:127 [facility] Transfer Inon 01-20-2023 Transfer In [id number]. 00CD:127 [facility]Non [facility] TAMELA HOPPER ([id number]) 1965 F [facility] Date Time Provider Department 01/01/23 HILDA ANGELAS2 During your visit today, we recorded the following information about you: Glendy Gipson LPN 01/01/2023 11:45 AM Signed Botox referral sent to pharmacy Glendy Gipson LPN January 01, 2023 11:44 AM Allergies As of Date: 01/01/2023 Noted Allergy Reaction SULFA (SULFONAMIDE ANTIBIOTICS) 05/08/2020 4 - Hives Date Reviewed: 10/17/2022 Reviewed by: 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 APRN.TRUSS BUILDER - Fully Assessed Reason for Visit: Referral [...] [facility] Covid-[facility] ([facility])on SARS-CoV-2 (COVID-19) RNA NELL+probe Ql (Unsp spec) Not detected Normal NOT DETECTED [facility] Comment on above: Result Comment: When [...] for this test is supported by the [employer] Vice President of Health and Human Service's declaration that [...] longer be used). Performed By: #### C [facility] #### [facility] [address] [place] [address] Dr. Merritt Berger INFLUENZA A AND B AGon 11-06 INFLUANEGH SEE BELOW Normal [facility] Comment on above: Result Comment: Nega tive for Flu A protein angiten. Infection due to Flu A cannot be ruled out. Flu A angiten in the sample may be below the detection limit of the test. Performed By: #### I NFLUAB #### [facility] [address] [place] [address] Dr. Merritt Berger INFLUBNEGH SEE BELOW Normal [facility] Comment on above: Result Comment: Nega tive for Flu B protein antigen. Infection due to Flu B cannot be ruled out. Flu B antigen in the sample may be below the detection limit of the test. Performed By: #### I NFLUAB #### [facility] [address] [place] [address] Dr. Merritt Berger INFLUENZA A AG Negative Normal NEGATIVE SEE COMMENT [facility] Comment on above: Performed By: #### I NFLUAB #### [facility] [address] [place] [address] Dr. Merritt Berger INFLUENZA B AG Negative Normal NEGATIVE SEE COMMENT [facility] Comment on above: Performed By: #### I NFLUAB #### [facility] [address] [place] [address] Dr. Merritt Berger HEMOGLOBINon 09-12-2022 Hemoglobin (Bld) [Mass/Vol] 12.5 g/dL Normal 12.0-16.0 [facility] Comment on above: Performed By: #### H GB #### [facility] [address] [place] [address] Dr. Merritt Berger Gastroenterology Office/Clin ic Noteon [...] after patient or guardian consented to allow [employer] to record this visit. PUMA drug safety specialist and provider reviewed before signing. PUMA: Smitha Pradhan Follow-up With When Contact Information Lorraine SUTHERLAND MD, GAS, MED Within 3 months [facility] [address], [place] [address]- Additional Instructions: Problem List/Past Medical History Ongoing [...] Sinus Surgery, (more content not included)... Normal [facility] Comment on above: Result Comment: Elec tronically [...] Follow Up with ENA BROTHERS, LELIA Peters, [facility] When: Within 3 months Where: [facility] [address] [place] [address]- Medications What How Much When Why Instructions [...] of partial hysterectomy Hx of tonsillectomy Normal [facility] PAP ACOG PANEL 2: 30 to 65on 04-24-2022 . . Normal [facility] Comment on above: Result Comment: Perf ormed at: WB Performed By: #### [id number] #### [facility] [address] [address] [address] Merritt Berger Age Gdln ACOG Testing 30-65 Normal [facility] Comment on above: Performed By: #### [id number] #### [facility] [address] [address] [address] Merritt Berger DIAGNOSIS: Comment Normal [facility] Comment on above: Result Comment: NEGA TIVE FOR INTRAEPITHELIAL LESION OR MALIGNANCY. Performed at: WB Performed By: #### 4 [id number] #### [facility] [address] [place] [address] Dr. Merritt Berger HPV Aptima Negative Normal Negative [facility] Comment on above: Result Comment: This nucleic acid amplification test detects fourteen high-risk HPV types (16,18,31,33,35,39,45,51,52,56,58,59,66,68) without differentiation. Performed at: =G Performed By: #### 4 [id number] #### [facility] [address] [address] [address] Merritt Berger Methodology: Comment Normal [facility] Comment on above: Result Comment: This liquid based ThinPrep(R) pap test was screened with the use of an image guided system. Performed at: WB Performed By: #### 4 [id number] #### [facility] [address] [address] [address] Merritt Berger Note: Comment Normal [facility] Comment on above: Result Comment: The Pap smear is a screening test designed to aid in the detection of premalignant and malignant conditions of the uterine cervix. It is not a diagnostic procedure and should not be used as the sole means of detecting cervical cancer. Both false-positive and false-negative reports do occur. . Performed at: WB Performed By: #### [id number] #### [facility] [address] [place], [place] [address] Dr. Merritt Berger Performed by: Comment Normal [facility] Comment on above: Result Comment: Marlen Travis, Information Systems Supervisor (ASCP) Performed at: WB Performed By: #### [id number] #### [facility] [address] [place], [place] [address] Dr. Merritt Berger Specimen adequacy: Comment Normal [facility] Comment on above: Result Comment: Sati sfactory for evaluation. No endocervical component is identified. Performed at: WB Performed By: #### 4 [id number] #### [facility] [address] [address] [address] Merritt Berger MG MAMM SCREEN 3D ESTHELA CADon 04-07-2022 MG MAMM SCREEN 3D ESTHELA CAD Patient: TAMELA HOPPER Exam Date: 04/07/2022 : 1965 Gender:F Ordering : DR MJ ORTIZ . Admission #: [id number] Family : DR ARPAN ALEXIS . Order #: [id number] CLICK HERE TO VIEW EXAM RADIOLOGY REPORT [...] breast cancer at age 68. LOCATION: [facility] BREAST COMPOSITION: Heterogeneously dense,which may obscure [...] M.D. on 04/07/2022 at 14:25 Normal [facility] Coding Summary.on 03-13-2022 Coding Summary. CD:[id number] Gh 0bWw+PGhlYWQ+KG2FNXRqW 73dtWKvtM5UQ8vRXU5MBUT RBXKETF5FBA9xoBX5YIgoQ 2VybiAv OkyrvUZzYB92VWl3IYA2pO xeGYlohY5kxTKqR4d8FlUl DI36tA22CAznGXEyQxE0Rz ZpbjsgbWFy S8sqHkZeiEOjPxl+PHRhYm xlIHdpZHRoPScxMDAlJyBz jBvyGA1tMk4qEVMzSWTvkZ xhcHNlOiBj r3miQQBpYZuaVC1otRgsP8 OmlDV9QQSxj1n9Qu97zZV+ GDXhATT5nAkjCTgwr742Sg Jkc1ioQBJ7 wCUbTDblRCS2E82mf3F0FA VdMJIzDSW1ySS3dH4liYar oxsiD6KqyCBkUhA6DRQ0wY PmtR3bvPdh ktdogF8oKad+N27HUO5SLL WNDI4TFpy6S2MpGzfbjPE+ FH84OGSmDO34xMCjwCBpx8 ojoMg4QdUt WRAaIGE4uUqhOQktr4YuTH DpZ14mwGThp9O9NXDmrSef hMDtWcBjqLM1hE8gTKyxdm tum3xujeqm Ycsfi1uprt53qJ04H49rRE emSFAgQTT0IXLwBAPylChh jo2muY1mUc9+DEnrx2cfj9 fuiFf3UwOm BWXnvkGwiGkaDRK2l3DpYq 70P2JryOmcq2XtHpc3km66 tRTtb2I4hVH7IMpaLIBqoL 1jEShfLaV4 LPPyZjKsgD85qQVfXOgkAk 6wcVispEooXD7hWYWqmlaa TQSmrR0aHBVrgKYdmIdmVU 4wNTBpbjtm v962HxFbNHN9GUBvrZDbM8 DgfX9iZkOpGGTqKMOkG8Km fJEgHOqkQ941OWacGcO4BK HoeiDiL7Dg NECliWxnBbM0x0Z9Ks4Gw3 JwgnrwZWF4HJgfXSK7IwN4 ZcBsUqF5M7XcVhh7LAPyyB cdQR5eX3Zg TIKioetlqtiluHK5MBFlUH XxnV67pJVcLWvnMr0yo0E8 f452DFMlUEUxcA22Uy1mdM ogMTBwdCBU mF7tqihez5sifgjzWhAsZU KzAHy1ZXh4WNXgyVieFiSw NPO8UzK7MGJ2lOVzaQ2ivU tmmgmtgF9q Oyc+B72dnT4aIPY6WZB2gt dbRJLsevGrLG61FE98F0Tb PjwvdGFibGU+PGRpdiBzdH cdRA5wRyQp u7hye6QrHXbkT4NdKSYaLB ljIbi8PPZjFAC1sQO8cT2r LEHbCHqzx3Z8lYD4K2Ljfh Juyc3ln9xu HOEuRLoxN58euMVai0E5YG XesYJ0PPLocSnsIgDstG75 Oyc+HYCbdSjnd7XrRjlby1 ugg4kugSo4 MiDbRHZeytUwhGvwSDO3o4 FkGg60W19dOSueXFQpJRZm XJDqQFXqtTajqi3niJ1dUr 8+PGNvbCB3 oQS8uK9wRBYqJrP3LZueD5 30MdYskLIqCkotv1apr3nm nPq8UqNbZHEypbDckHpyZV R0v7KdOl44 N89aZTwcFEMhJYIeKTJeVO PkbHxbek5jqK8eLq3+PC9j u6eetg60mR71aGN+PHRkIH R6wSuvVSce OBLiaQ8qCBzlWlR7VXFgJb HksC52uLTiRVydTd1ypFgl pKewMH9wZUJmohpzr422Ie Ehh7oqCOUk nVUfMWonEON4G25fd5J8TX WdKLQuSOQ6xNA4aO6mwTmn bjogbGVmdDsgdmVydGljYW ycPQyhM538 IHRvcDsnPlBhdGllbnQgTm LmMKy3G2ZqLqe8ZFMygPsw UK2pkHIrCSgfVh5odAoduO gtTT6uIONn hkwec928FjUkx6seHMMzfI UhRDcqZNH9J62lx9Z4GLOa YRLfZXU9mAF7uV2oeWknvr ogbGVmdDsg fxGzgKdcASxmUHefA615GT RvcDsnPkJpcnRoIERhdGU6 WJ50CO13qQChc3N7oKT6O2 BhZGRpbmct nonorXO2AFIiGCJkjA77Ki 8arDemKr2bVGNrHMG4CZVq nSApO7TrrV1gIuUsOIJjON OdT0OwhGSf KQccH055SGbfWkK2VNIzvh ChF8OhRVNipJpuXqK1r2P5 As2YO0K8HZ82UB66eWBml6 L7dMF4X1Fh GJDkfrikhyweqEE3OLFkWM DvlC32Iy0srJtjPd3nUKGq DYP0IEEecMFrW3UauN6nYv AjMDAwMDAw G2JtwWMnCOzgN891PGojEy J1BHCtupNzF4CwNWFsfTkw NwH3v5L9Sh0OXGy9CF68BW 57lEJfb7X5 oBQ7F4EfBBCojfzsxegoqP C3SDCkXSCarG49Tn5icZij Ih5bPLIwTAK6UDUxzMCxL2 SrcZ8zUyWi WBPeLXPjS4IgsVToTSvzJ0 17GXlqFfU0MQEpziTbP1Pk EKMtiNfhRcF1k5C1Pp0AEW AfRX64UNQ6 cQI9EO11LU24T1VzYhkfbG FibGU+PHRhYmxlIHdpZHRo CHgvZINwLaOqkPkeMW4qZg 9yZGVyLWNv rTscqZPuYrYeg6qpPHVcKS ncEX2pjIiwE0UkxXM3HFOt z6h0Fc59U94mE8EwcEP+PG RwzOD5dCK8 vQ1aZdFjDmC2CEqkJ079Yn PjmTBxXvmlj2dzq9bsyPe0 SqK2WTOmelKavSbbCNO6r5 PcBf10E66g IHdpZHRoPSIxNSUiIHZhbG hxnj4kaZ7vKo6+PGNvbCB3 fVV7uX6eBiKeErM5UGllB9 49InRvcCIv Jbxsf1hkg0klfIw7YgJiGO AlrhGslGizJUD9w3McGl80 B1FvnKqmn1ScBlo8fz73jZ Ylb7E6qFS4 Y6PjHUMfwawwdVFddHhsET 5lZIThgkmuLFFyvR5yRZQv F5b5NnOxGoB3ZZcnP2Vqaq G3RNHubBJr KOcfARZ1F04no0V0EMZlKB LxOQI6rHP9wA4ncZoxavwa bGVmdDsgdmVydGljYWwtYW dqG861BMWq hVoeTXIdwR5uSAGuzGQbjV cwPL7eAXYfcuqiRzsQWzlL Td6ZG8OZLTxmZ6SMS8jQGc KVKL61EL59 lEAja2Q9vSG3M4EjOBOquu npayessEX7ZSOjYREorP14 zHUzILhnVk1px7P5j978NW ZwUCHorG14 Kn4poIxqKLGnhKEFtS2gjj lrh3xubvzhEdApHILhIAz8 DTm8YJFzvDroZfCzEHS5Vo T6HRZ6fWKa gS7ctQhgsxgdnF5gLem+MD DuPZMuCKv7DbqebNE+PHRk NQH3hGotKJupYYWvzE4zKG GjW2s2XaFb KwJ4JLyzW8ZkSPLtpmckQm 65jS8jUvSsGzO2WHimV9Be alT0MDEcwZAtXYdkPMM9J7 1gr5N3AJFg RZNqVZZ8cQP7yQ1luKcezp ogbGVmdDsgdmVydGljYWwt CVecP679GQTrrRogPwM2ND hjCCThJU74 DM64rPNfx4Q3lAS2I1FgNF ZsnwhscrvsrEK6XSJrTJNu bK88cCSaDZezSb2fq9A5c5 06IDAuMDUw cA41Jq7kyIslIYSuhFABfO 7brripc2wxxekbXrAmHLLc FFw2RQb4QXMpzNizJvCpOC V2FmP7ZXP8 eVOveO2cqVuntywmcB2xQg c+FtAaOBzrQW63XJ22gARi d7P9iGM9H2BwNKCfbvoslp gcrBV3HDRn DRKglX35kRZtUJawDe9zg7 N8x968MNFwCZGikM49Ur5m zPqzTDLbsSABaP1ezakgf3 xvcjogIzAw GPOkBCa9XZi7LSBqcDdqHn RfIGQ8XbU8GLA4dFOvvG2m zKlcjnfhfP4jSso+T3V0cG D6kSRrsQxy dGQ+IG54bn77R9PgUikvGz r9YDXaUFJ9pDP1tA6nCYBh GZmsv8Z9sTD2G9PfmoIkmq 0nd9drANGq NAvoL42dmGMag7E0EIGkfG T5ZKYjgFreRiIssY13Rnu+ BVNtdOxbe7AwIfohv5tah1 tmbJc1GxEr ZNPirgVevOzoUPJ1g6EmXr 32Y26kDAniYVGgVEIuMHPo MFSepJouxa6ioX9pFo0+PG UsmHQ0qTM9 yJ1qDxAxFyB1TJrnH778Eo HzzQQhDazzh1sll6bxaKm5 NcLrHUCfpxSsrYfiPBM6u7 YwEo73E2Gu rRaea9HbLtd4nb63cJDrr2 U0mBS5Z2QrYWDizyktdIMe rCczDM3pBJQqujftFZHrrU 4nMIHbV6s0 MwEbOxS3BMarV8AmhlC9KH UfbLUsCZAyuLBHyG2liwhe j4fhjcvoJmQyVRXiZPm2VL t3XMFnqJkq UlCmXZY7VoD3GKF1zCYbyM 3wyZgcwvvskQ0rRov+UGh5 e2qyhMQhLM7jrJC9DY82EJ 04mUWzr9O7 yNJ3G1ErCIIlzemjftkabV C6OMKbKPZblS39Iz7xdHuv Ma1bVUVpCOT9VAShhWOfO0 WibM9gUkUj HUQhXKKtG2RzmVMgMYylO2 78TSlnAvF7TCLbsgZyV9Cw AGCtfZbuRvD4a1Q0Ds7JHM 96FR00QP78 lGVtl8A2wVH9F0KzIOMdho rrydrwzCQ8KPGwGTUuhM03 Xb6thYhwYp9oCHNuYVW2UC PmtICeF3Vi xM3sVaIvRRJsYHLxA9NlcZ QrUOmhA931PBdgBrB7RHZb nwGbZ4LuPOFvfAwhEuP1t9 I2Qc3ITx30 MP57XE30oYFed4M6iLR4C1 DlDTTxrgixkngppCA0FOAu DONjxH72Si2btGsdPh9mJA DwZJI4PUUd qNAbW2HqdU2zSxKzPURuRE PtC3XidBJnBMxtW930IKic FeE3BIHkknJeO0CkMYQmvF biNjL8g6U4 Wz7IKPakilt0W6SjFqxjrT I+LD33FIKhLH33eATwsOWh y5vulFu5GwVcHFLxKVR1eS ynJEtap6Bl ZXIt (more content not included)... Normal [facility] Postoperative Documentson Postoperative Documents [id number]#1.0 0CD:127 Normal [facility] Physician Orderon 03-07-2022 Physician Order [id number]#1. 00CD:127 Normal [facility] Consent for Treatmenton 02-07 Consent for Treatment [id number]#1.0 0CD:127 Normal [facility] Gastroenterology Office/Clin ic Noteon 02-27-2022 Gastroenterology Office/Clinic [...] Henok Baeza to record this visit. [facility]MA drug safety specialist and provider reviewed before signing. PUMA: [...] Abuse, 02/23/2019 (more content not included)... Normal [facility] Comment on above: Result Comment: Elec tronically Signed By: Lyndsey Baxter\.br\Date and Time Signed: 02/26/22 13:04 EDT\.br\Electronically Co-Signed By: Lorraine SUTHERLAND MD\.br\Date and Time Co-Signed: 02/27/22 09:09 EDT Ambulatory Visit Summaryon 0 02-26-2022 Ambulatory Visit Summary TAMELA HOPPER :1965 Visit Date:02/26/2022 Ambulatory Visit Instructions Your Diagnosis Fatty liver IBS (irritable bowel syndrome) Atrial fibrillation Your Care Team Attending Physician - ENA BROTHERS, Lorraine Primary Care Physician - Arpan Alexis MD [...] Appointments 2021 1:00 PM EDT With: Where: [facility] 2021 1:15 PM EDT With: Lorraine SUTHERLAND MD Where: [facility] Normal [facility] HIPAA Forms Officeon 022 HIPAA Forms Office [id number]#1.0 0CD:127 Normal [facility] Complete Blood Count Auto Di ff07-02-2021 Basophils (Bld) [#/Vol] 0.0 10*3/uL Normal 0.0-0.[address] [facility] Comment on above: Result Comment: PERF ORMED BY: [address] [id number] PATHOLOGIST CHECK PROCESSOR JUAN LUNA M.D. Performed By: #### C #### [address] Basophils/100 WBC (Bld) 1.0 % Normal . [facility] Comment on above: Performed By: #### C BC #### [facility] [address] Eosinophils (Bld) [#/Vol] 0.2 10*3/uL Normal 0.0-0.[address] [facility] Comment on above: Performed By: #### C BC #### [facility] [address] Eosinophils/100 WBC (Bld) 3.8 % Normal . [facility] Comment on above: Performed By: #### C BC #### [facility] [address] Erythrocyte distribution width (RBC) [Ratio] 14.0 % Normal 11.9-15.[address] [facility] Comment on above: Performed By: #### C BC #### [address] Hematocrit (Bld) [Volume fraction] 39.8 % Normal 34.0-46.[address] [facility] Comment on above: Performed By: #### C BC #### [facility] [address] Hemoglobin (Bld) [Mass/Vol] 13.2 g/dL Normal 11.8-15.[address] [facility] Comment on above: Performed By: #### C BC #### [address] Lymphocytes (Bld) [#/Vol] 1.4 10*3/uL Normal 1.00-4.[address] [facility] Comment on above: Performed By: #### C BC #### [facility] [address] [place] [address] [place] Lymphocytes/100 WBC (Bld) 31.7 % Normal . [facility] Comment on above: Performed By: #### C BC #### [address] MCH (RBC) [Entitic mass] 31.4 pg Normal 24.7-34.[address] [facility] Comment on above: Performed By: #### C BC #### [facility] [address] MCV (RBC) [Entitic vol] 94.9 fL Normal 80-[address] [facility] Comment on above: Performed By: #### C BC #### [facility] [address] Mean Corpuscular HGB Conc 33.1 g/dL Normal 32.0-35.[address] [facility] Comment on above: Performed By: #### C BC #### [facility] [address] Monocytes (Bld) [#/Vol] 0.4 10*3/uL Normal 0.0-0.[address] [facility] Comment on above: Performed By: #### C BC #### [address] Monocytes/100 WBC (Bld) 9.6 % Normal . [facility] Comment on above: Performed By: #### C BC #### [address] Neutrophils (Bld) [#/Vol] 2.4 10*3/uL Normal 1.8-7.[address] [facility] Comment on above: Performed By: #### C BC #### [address] Neutrophils/100 WBC (Bld) 53.9 % Normal . [facility] Comment on above: Performed By: #### C BC #### [address] Nucleated RBC/100 WBC (Bld) [Ratio] 0.1 % Normal 0-0.[address] [facility] Comment on above: Performed By: #### C BC #### [address] Platelet mean volume (Bld) [Entitic vol] 8.3 fL Normal 6.3-10.[address] [facility] Comment on above: Performed By: #### C BC #### [place] [address] [place] Platelets (Bld) [#/Vol] 236 10*3/uL Normal 150-[address] [facility] Comment on above: Performed By: #### C BC #### [facility] [address] [place] [id number] [facility] RBC (Bld) [#/Vol] 4.19 10*6/uL Normal 3.60-5.00 [facility] Comment on above: Performed By: #### C BC #### [facility] [address] [place] [id number] [facility] WBC (Bld) [#/Vol] 4.5 10*3/uL Normal 4.5-11.0 [facility] Comment on above: Performed By: #### C BC #### [facility] [address] [place] [id number] [facility] Dermatopathologyon Dermatopathology [facility] Dermatopathology Laboratory [address] [place] [id number] DERMATOPATHOLOGY REPORT Name:TAMELA HOPPER [facility]. Rec #. [id number] Location: [facility] Date of Procedure: 11/14/2020 Race: Date Received: 11/16/2020 /Sex: 1965 (Age: 55) / F Date Reported: 11/19/2020 Other: Submitting Physician:JINNY PURI APRN, COOLING ROOM ATTENDANT-C FINAL DIAGNOSIS A. SKIN, L HAIR, BIOPSY: [...] M.D. Electronically Signed Out By FEDERICO SNOW MD/LAUREL By the signature on this report, the [...] is one gillette-brown piece of skin measuring [id number]. The specimen is inked and embedded in toto. B: Received in formalin is a gillette-brown, cylindrical piece of skin measuring [id number]. The specimen is inked and embedded in toto. mtp/11/16/2020 Microscopic Description: A. Microscopic analysis shows hyperplastic epidermis with full-thickness atypia of keratinocytes. Normal [facility] Comment on above: Performed By: #### D #### Dermatopathology Vital Signs Date Time Vital Sign Value Performing Clinician Faci reidy 03-31-2024 10:31-0400 Diastolic blood pressure 82 mm[Hg] Mohammad Hamdan SECURITY VEHICLE PATROL OFFICER.TRUSS BUILDER Work Phone: [facility] 03-31-2024 10:31-0400 Heart rate 74 /min Mohammad Hamdan SECURITY VEHICLE PATROL OFFICER.TRUSS BUILDER Work Phone: [facility] 03-31-2024 10:31-0400 Systolic blood pressure 121 mm[Hg] Mohammad Hamdan SECURITY VEHICLE PATROL OFFICER.TRUSS BUILDER Work Phone: [facility] 12-24-2023 10:31-0400 Diastolic blood pressure 85 mm[Hg] Mohammad Hamdan SECURITY VEHICLE PATROL OFFICER.TRUSS BUILDER Work Phone: [facility] 12-24-2023 10:31-0400 Heart rate 68 /min Mohammad Hamdan SECURITY VEHICLE PATROL OFFICER.TRUSS BUILDER Work Phone: [facility] 12-24-2023 10:31-0400 Systolic blood pressure 159 mm[Hg] Mohammad Hamdan SECURITY VEHICLE PATROL OFFICER.TRUSS BUILDER Work Phone: [facility] 06-25-2023 11:08-0400 Body weight 78.02 kg Mohammad Hamdan SECURITY VEHICLE PATROL OFFICER.TRUSS BUILDER Work Phone: [facility] 06-25-2023 11:08-0400 Diastolic blood pressure 97 mm[Hg] Mohammad Hamdan SECURITY VEHICLE PATROL OFFICER.TRUSS BUILDER Work Phone: [facility] 06-25-2023 11:08-0400 Heart rate 68 /min Mohammad Hamdan SECURITY VEHICLE PATROL OFFICER.TRUSS BUILDER Work Phone: [facility] 06-25-2023 11:08-0400 Systolic blood pressure 161 mm[Hg] Mohammad Hamdan SECURITY VEHICLE PATROL OFFICER.TRUSS BUILDER Work Phone: [facility] 10-17-2022 10:07-0500 Body height 154.9 cm Hilda Shilpa SECURITY VEHICLE PATROL OFFICER.TRUSS BUILDER Work Phone: [facility] 10-17-2022 10:07-0500 Body weight 76.43 kg Hilda Shilpa SECURITY VEHICLE PATROL OFFICER.TRUSS BUILDER Work Phone: [facility] 10-17-2022 10:07-0500 Diastolic blood pressure 84 mm[Hg] Hilda Shilpa SECURITY VEHICLE PATROL OFFICER.TRUSS BUILDER Work Phone: [facility] 10-17-2022 10:07-0500 Heart rate 74 /min Hilda Shilpa SECURITY VEHICLE PATROL OFFICER.TRUSS BUILDER Work Phone: [facility] 10-17-2022 10:07-0500 SaO2% (BldA) [Mass fraction] 97 % Hilda Shilpa SECURITY VEHICLE PATROL OFFICER.TRUSS BUILDER Work Phone: [facility] 10-17-2022 10:07-0500 Systolic blood pressure 126 mm[Hg] Hilda Shilpa SECURITY VEHICLE PATROL OFFICER.TRUSS BUILDER Work Phone: [facility] 07-23-2022 08:56-0500 Body height 154.9 cm Koli Green SECURITY VEHICLE PATROL OFFICER.TRUSS BUILDER Work Phone: [facility] 07-23-2022 08:56-0500 Body weight 76.66 kg Koli Green SECURITY VEHICLE PATROL OFFICER.TRUSS BUILDER Work Phone: [facility] 07-23-2022 08:56-0500 Diastolic blood pressure 84 mm[Hg] Koli Green SECURITY VEHICLE PATROL OFFICER.TRUSS BUILDER Work Phone: [facility] 07-23-2022 08:56-0500 Heart rate 94 /min Koli Green SECURITY VEHICLE PATROL OFFICER.TRUSS BUILDER Work Phone: [facility] 07-23-2022 08:56-0500 Systolic blood pressure 119 mm[Hg] Koli Green SECURITY VEHICLE PATROL OFFICER.TRUSS BUILDER Work Phone: [facility] 05-08-2022 14:05-0400 Blood Pressure Location Peters SALAM [facility] 05-08-2022 14:05-0400 Diastolic blood pressure 78 mm[Hg] Peters SALAM [facility] 05-08-2022 14:05-0400 Heart rate 78 /min Peters SALAM [facility] 05-08-2022 14:05-0400 Respiratory rate 16 /min Peters SALAM [facility] 05-08-2022 14:05-0400 Systolic blood pressure 116 mm[Hg] Peters SALAM [facility] 01-23-2022 09:38-0400 Body height 154.9 cm Hilda Shilpa SECURITY VEHICLE PATROL OFFICER.TRUSS BUILDER Work Phone: [facility] 01-23-2022 09:38-0400 Body weight 77.52 kg Hilda Shilpa SECURITY VEHICLE PATROL OFFICER.TRUSS BUILDER Work Phone: [facility] 01-23-2022 09:38-0400 Diastolic blood pressure 72 mm[Hg] Hilda Shilpa SECURITY VEHICLE PATROL OFFICER.TRUSS BUILDER Work Phone: [facility] 01-23-2022 09:38-0400 Heart rate 68 /min Hilda Shilpa SECURITY VEHICLE PATROL OFFICER.TRUSS BUILDER Work Phone: [facility] 01-23-2022 09:38-0400 SaO2% (BldA) [Mass fraction] 99 % 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 APRN.TRUSS BUILDER Work Phone: [facility] 01-23-2022 09:38-0400 Systolic blood pressure 120 mm[Hg] 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 APRN.TRUSS BUILDER Work Phone: [facility] Encounters Encounter Date Encounter Type Care Provider Facility Start: 05-06-2024 End: 05-06-2024 Refill Marcus Zamora APRN.TRUSS BUILDER Work Phone: Neurology Comment on above: Refill Request Start: 05-04-2024 End: 05-04-2024 ambulatory ALFONSO CORREA Not Available Start: 03-31-2024 End: 03-31-2024 Patient encounter procedure Daphne Padron APRN.TRUSS BUILDER Work Phone: Neurology Comment on above: Intractable chronic migraine without aura and without status migrainosus (Primary Dx) Start: 12-24-2023 End: 12-24-2023 ambulatory MOHAMMAD HAMDAN Facility:[facility] [place] Start: 12-24-2023 End: 12-24-2023 Patient encounter procedure Mohpaloma Robertsondan SECURITY VEHICLE PATROL OFFICER.TRUSS BUILDER Work Phone: Neurology Comment on above: Intractable chronic migraine without aura and without status migrainosus (Primary Dx) Start: 09-17-2023 End: 09-17-2023 ambulatory MOHAMMAD HAMDAN Facility:[facility] [place] Start: 06-25-2023 End: 06-25-2023 ambulatory MOHAMMAD HAMDAN Facility:[facility] [place] Start: 06-25-2023 End: 06-25-2023 Patient encounter procedure Mohpaloma Robertsondan SECURITY VEHICLE PATROL OFFICER.TRUSS BUILDER Work Phone: Neurology Comment on above: Intractable chronic migraine without aura and without status migrainosus (Primary Dx) Start: 06-22-2023 Telephone encounter Daphne del real APRN.TRUSS BUILDER Work Phone: Neurology Comment on above: Referral Request Start: 03-30-2023 End: 03-30-2023 ambulatory MOHAMMAD HAMDAN Facility:[facility] [place] Start: 03-03-2023 Telephone encounter Hilda Garayfler SECURITY VEHICLE PATROL OFFICER.TRUSS BUILDER Work Phone: [facility] Comment on above: Insurance Authorizat ion (PRIOR AUTH DELAYED: NEED COVERAGE VERIFICATION) Start: 01-14-2023 ambulatory [facility] Facility:Carolee Adamson Start: 01-01-2023 Telephone encounter Hilda Henley St iffler SECURITY VEHICLE PATROL OFFICER.TRUSS BUILDER Work Phone: Neurology Comment on above: Referral Request Start: 11-06-2022 End: 11-06-[address] ARPAN ALEXIS . Facility:[facility] Start: 10-17-2022 End: 10-17-2022 Patient encounter procedure Hilda Henley Shilpa SECURITY VEHICLE PATROL OFFICER.TRUSS BUILDER Work Phone: Neurology Comment on above: Intractable chronic migraine without aura and without status migrainosus (Primary Dx) Start: 09-12-2022 End: 09-13-2022 ambulatory ADAM RENO . Facility:[facility] Start: 07-23-2022 End: 07-23-2022 Patient encounter procedure Marcus Green SECURITY VEHICLE PATROL OFFICER.TRUSS BUILDER Work Phone: Neurology Comment on above: Intractable chronic migraine without aura and without status migrainosus Start: 05-08-2022 End: 05-09-2022 [facility]ulatory [facility] Start: 05-08-2022 End: 05-08-2022 Patient encounter procedure Lorraine SUTHERLAND [facility] Start: 04-18-2022 End: 04-18-[address] ARPAN ALEXIS . Facility:[facility] Start: 04-07-2022 End: 04-08-[address] ARPAN ALEXIS . Facility:[facility] Start: 03-06-2022 End: 03-07-2022 ambulatory Lorraine SUTHERLAND Facility:[facility] Start: 03-06-2022 End: 03-06-2022 Patient encounter procedure Lorraine SUTHERLAND [facility] Start: 02-26-2022 End: 02-27-2022 ambulatory [facility] Facility:Genoveva HARKINS Start: 02-19-2022 ambulatory [facility] Facility:Carolee Gudino Start: 01-23-2022 End: 01-23-2022 Patient encounter procedure 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 SECURITY VEHICLE PATROL OFFICER.TRUSS BUILDER Work Phone: Neurology Comment on above: Intractable chronic migraine without aura and without status migrainosus (Primary Dx) Start: 03-31-2017 End: 04-01-2017 Ambulatory DEFAULT PHYSICIAN Facility:[email or web address] Procedures Date Procedure Procedure Detail Performing Clinician Start: 01-19-2022 Adult depression scr eening assessment 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 SECURITY VEHICLE PATROL OFFICER.TRUSS BUILDER Work Phone: Start: 05-26-2017 Cystourethroscopy wi th dilation of urethral stricture [facility] Start: 09-06-2015 Cystopexy Lorraine Maciel Start: 04-24-2015 Cystourethroscopy wi th dilation of urethral stricture [facility] Comment on above: 05-26-2017 Adenoidectomy planned Peters Beeline Appendectomy Peters SAL 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) Peters Beeline Colonoscopy Peters [employer] End: 02-22-2019 H/O: hysterectomy History of partial hysterectomy( Confirmed ) Peters SALAM End: 02-22-2019 History of appendectomy History of appendectomy( Confirmed ) Peters BeelineAM End: 02-22-2019 History of tonsillectomy Hx of tonsillectomy( Confirmed ) Peters SALAM Hysterectomy Peters SALAM Sinus Surgery Peters Bettery Tonsillectomy Peters Bettery Plan of Treatment Date Care Activity Detail Author Start: 07-07-2024 End: 07-07-2024 Patient encounter procedure 07/07/2024 11:00 AM EDT Office Visit Neurology [address] [place], [place] [id number] Daphne Padron APRN.TRUSS BUILDER [address] [place] [address] [facility] Comment on above: Botox Start: 05-08-2024 Influenza vaccination C [facility] Start: 05-08-2023 Covid-19 Vaccine () Covid-19 Vaccine () [facility] Start: 05-08-2023 Influenza vaccination Influenza Vacc ine (#1) [facility] Start: 01-19-2023 Adult depression screening assessment DEPRESSION SCREENING [facility] Start: 2023 RSV Vaccine (1 - 1-d ose 60+ series) RSV Vaccine (1 - 1-dose 60+ series) [facility] Start: 09-07-2022 [facility] Start: 09-07-2021 DEPRESSION [facility]ESSMENT [facility] Start: 01-18-2008 COLOGUARD (FIT-DNA) COLOGUARD (FIT-D NA) [facility] Start: 01-18-2008 Colonoscopy COLONOSCOPY [facility] Start: 01-18-2008 COLORECTAL CANCER SCREENING COLORECTAL CANCER SCREENING [facility] Start: 01-18-[address] COLONOGRAPHY [facility] Start: 01-18-2008 DIABETES SCREEN DIABETES SCREEN [facility] Start: 01-18-2008 Diabetes Screening Diabetes Screenin g [facility] Start: 01-18-2008 FECAL OCCULT BLOOD FECAL OCCULT BLOO D [facility] Start: 01-18-2008 Lipid 1996 panel - S shey or Plasma Lipid Screening [facility] Start: 01-18-[address] [facility] Start: 01-18-2008 LIPID SCREEN LIPID SCREEN [facility] Start: 01-18-2008 Screening for malign ant neoplasm of colon [facility] Start: 01-18-2008 [facility] Start: [address] [facility] Start: 2003 Screening for malign ant neoplasm of breast Mammogram Screening [facility] Start: 1993 HPV TESTING HPV TESTING [facility] Start: 1993 Screening for malign ant neoplasm of cervix HPV Testing [facility] Start: 01-18-1984 PAP TESTING PAP TESTING [facility] Start: 01-18-1984 Screening for malign ant neoplasm of cervix [facility] Start: 1982 Urine microalbumin profile [facility] Start: 1981 Anxiety Screening Anxiety Screening [facility] Start: 1981 Depression Screening Depression Scre ening [facility] Start: 1981 HEPATITIS C SCREENING HEPATITIS C SC [facility] Start: 1981 Hepatitis C screening Hepatitis C Sc [facility] Start: 1981 HIV SCREENING HIV SCREENING [facility] Start: 1981 HIV screening HIV Screening [facility] Start: 01-18-1968 COVID-19 VACCINE (#1) COVID-19 VACCI NE (#1) [facility] Start: 1963 COVID-19 VACCINE (#1) COVID-19 VACCI NE (#1) [facility] Immunizations Immunization Date Immunization Notes Care Provider Ruth galaviz 06-11-2022 influenza virus vaccine, unspecified formulation Daphne Padron [employer] OFFICER.[employer] Work Phone: [facility] 07-01-2021 influenza virus vaccine, unspecified formulation Peters SALAM [facility] 05-29-2020 influenza virus vaccine, unspecified formulation Peters SALAM [facility] 05-22-2020 influenza virus vaccine, unspecified formulation Peters SALAM [facility] 08-08-2019 zoster vaccine recombinant Hilda Shilpa SECURITY VEHICLE PATROL OFFICER.[employer] BU[employer] Work Phone: [facility] Work Phone: 05-19-2019 zoster vaccine recombinant Hilda Shilpa [employer]ROL OFFICER.TRUSS BUILDER Work Phone: [facility] Work Phone: 05-10-2019 influenza virus vaccine, unspecified formulation Peters SALAM [facility] 05-10-2019 influenza, injectabl e, quadrivalent, preservative free Hilda Shilpa [employer] VEHICLE PATROL OFFICER.TRUSS BUILDER Work Phone: [facility] Work Phone: 05-10-2019 measles, mumps and rubella virus vaccine Hilda Shilpa SECURITY VEHICLE PATROL OFFICER.TRUSS BUILDER Work Phone: [facility] Work Phone: 06-08-2017 influenza virus vaccine, unspecified formulation Hilda Shilpa SECURITY VEHICLE PATROL OFFICER.[facility] Work Phone: [facility] Work Phone: 06-08-2017 influenza, unspecifi ed formulation Peters SALAM [facility] 09-15-2016 pneumococcal polysaccharide vaccine, 23 valent Hilda Shilpa SECURITY VEHICLE PATROL OFFICER.[facility] Work Phone: [facility] Work Phone: 06-17-2016 influenza virus vaccine, unspecified formulation Hilda Shilpa SECURITY VEHICLE PATROL OFFICER.[facility] Work Phone: [facility] Work Phone: 06-17-2016 influenza, unspecifi ed formulation Peters SALAM [facility] NEGATED: Highlighted row has not occurred!05-08-2022 influenza virus vaccine, unspecified formulation Peters SALAM [facility] Payers Date Payer Category Payer Unknown [id number] 2021 Unknown 2021 Unknown [employer]YANNE [employer] PPO [id number] 2021-Present [phone] [address] [place] [address] PPO [id number] 1965 Unknown [id number] 1965 Unknown [id number] 1965 Unknown [id number] 1965 Unknown [id number] 1965 Unknown [id number] 1965 Unknown [id number] 1965 Unknown [id number] 1965 Unknown [id number] 1965 Unknown [id number] 1965 Unknown [id number] 1959 Unknown [id number] Social History Date Type Detail Facility Start: 10-03-2020 End: 04-17-2022 Tobacco smoking status NHIS Ex-smoker [facility] Start: 10-03-2020 End: 04-17-2022 Tobacco use and exposure Smokeless tobacco non-user [facility] Start: 01-23-2022 End: 03-31-2024 Alcohol intake Current drinker of alcohol (finding) [facility] Start: 05-08-2020 History SDOH Alcohol Frequency [address] [facility] Start: 1965 Sex Assigned At Not on file C [facility] Start: 01-13-2022 End: 07-23-2022 Exposure to SARS-CoV-2 (event) Not sure [facility] Start: 05-08-2020 End: 03-30-2023 Sex Assigned At Female [facility] History of tobacco use Current smoker [facility] Start: 05-08-2020 End: 03-30-2023 History of Social function [facility] Work Phone: How often to you hav e a drink containing alcohol? 2-3 time sa week [facility] Work Phone: Average Number of Drinks Not on file [facility] Functional Status Date Assessment Result Facility 05-08-2022 Functional Status N/A [facility] Clinical Notes 01-23-2022 to 05-06-2024 Telephone Encounter - Adriana Tyler RN - 05/06/2024 3:06 PM EDTTelephone Encounter - Adriana Tyler RN - 05/06/2024 3:06 PM EDTPatient InstructionsPatient InstructionsPatient Instructions Note Date & Type Note Facility 05-06-2024 Telephone encounter Note patient requesting refill via [employer]. Last OV: 03/31/2024 with Daphne Padron APRN.CNP Future OV: 07/07/2024 with Daphne Padron APRN.SOHAIL Last prescribed: 9 months ago (08/10/2023) by Daphne Padron APRN.TRUSS BUILDER Requested Prescriptions Pending Prescriptions Disp Refills naratriptan (AMERGE) 2.5 mg tablet 9 tablet 11 Sig: May repeat dose after 4 hours if needed. Maximum daily dose is 5 mg per day. [facility] 05-06-2024 Miscellaneous Notes patient requesting refill via Mychart. Last OV: 03/31/2024 with Daphne Padron APRN.CNP Future OV: 07/07/2024 with Daphne Padron APRN.CNP Last prescribed: 9 months ago (08/10/2023) by Daphne Padron APRN.TRUSS BUILDER Requested Prescriptions Pending Prescriptions Disp Refills naratriptan (AMERGE) 2.5 mg tablet 9 tablet 11 Sig: May repeat dose after 4 hours if needed. Maximum daily dose is 5 mg per day. documented in this encounter [facility] 03-31-2024 Instructions Daphne Padron APRN.CNP - 03/31/2024 10:46 AM EDT Instruction after Botox injection: - [...] it does not, call our office at [phone] for further instructions. documented in this encounter [facility] 03-31-2024 History of Presen t illness Narrative Answers submitted by the patient for this visit: Headache Questionnaire (Submitted on 03/24/2024) How many days of work or school [...] Migraine Indication: Chronic Intractable Migraine Treatment #: 15 Referral Expiration: 08/25/2024 Prior to the initiation of the FIRST treatment with Onabotulinum Toxin A, the patient reported the following average headache frequency over the past 3 MONTHS: Number of moderate-severe migraine days/month: 18 Number of mild migraine days/month: 10 Number of headache free days/month: 2 (48 headache-free hours) Migraine severity: 8/10 After treatment with Onabotulinum Toxin A: Number of moderate-severe migraine days/month: 0 Number of mild migraine days/month: 10 Number of headache free days/month: 20 (480 headache-free hours) Migraine severity: 02/14 Patient reduction [...] infection at proposed injection site. HEADACHE SCORES: 09/10/2023 12/19/2023 03/24/2024 Headache Questions ER visits since last office visit: 0 0 0 Hospital stays since last office visit 0 0 0 Limited ADLs in the last month: 0 0 0 Days missed from work or school in the last month: 0 0 0 Days headache pain free in the last month: 15 28 20 Days per month with ALL of the following symptoms - decreased productivity, light sensitivity and nausea: 0 0 0 Initial improvement of headache after botox injection at last visit: Much improved Much improved Much improved PRN medication usage in the last month: 12 Patient impression of improvement since last visit: Much improved Much improved Much improved 09/10/2023 12/19/2023 03/24/2024 HIT-6 HIT-6 42 (Little or no impact) 42 (Little or no impact) 38 (Little or no impact) 09/10/2023 12/19/2023 03/24/2024 HANS - 2/7 SCORES HANS-2 Score 0 0 0 09/10/2023 12/19/2023 03/24/2024 Migraine Specific QOL - Higher scores indicate better HRQL Role Function-Restrictive Transformed Score (range: 0-100) 100 100 100 Role Function-Preventive Transformed Score (range: 0-100) 95 100 100 Emotional Function Transformed Score (range: 0-100) 100 100 86.67 03/24/2024 12/19/2023 09/10/2023 PHQ-9 Score 0 0 0 BP 121/82 (BP Site: Right Arm, BP Position: Sitting, BP Cuff Size: Regular Adult) Pulse 74 Patient name: Tamela Meza [facility] : 1965 ALLERGIES Allergen Reactions Sulfa (Sulfonamide * Hives UNIVERSAL PROTOCOL / SAFETY CHECKLIST Procedure: Onabotulinum toxin A for migraine Informed Consent Consent Obtained: Written [place] Protocol A moment to CARE was completed [...] (Sites) Right (Units) Right (Sites) TOTAL (Units) Production Pattern Maker 5 1 5 1 10 Procerus Units: [...] Daphne Padron APRN.CNP documented in this encounter [facility] 12-24-2023 Note HNO ID: [id number] Author: DAPHNE PADRON APRN.CNP Service: ? Author Type: Nurse Practitioner Type: Progress Notes Filed: 12/24/2023 10:50 Note Text: Answers submitted by the patient for this visit: Headache Questionnaire (Submitted on 12/19/2023) How many days of work or school have you missed due to headaches in the last month? : 0 In the last month, how many headache days did you experience ALL of the following symptoms: decreased productivity, light sensitivity and nausea?: 0 How many days have you been completely free of headache pain in the last month? : 28 Follow-Up Onabotulinum Toxin A (BotoxTM) for Migraine Indication: Chronic Intractable Migraine Treatment #: 14 Referral Expiration: 08/25/2024 Prior to the initiation of the FIRST treatment with Onabotulinum Toxin A, the patient reported the following average headache frequency over the past 3 MONTHS: Number of moderate-severe migraine days/month: 18 Number of mild migraine days/month: 10 Number of headache free days/month: 2 (48 headache-free hours) Migraine severity: 04/16 After treatment with Onabotulinum Toxin A: Number of moderate-severe migraine days/month: 0 Number of mild migraine days/month: 2 Number of headache free days/month: 28 (672 headache-free hours) Migraine severity: 02/14 Patient reduction [...] infection at proposed injection site. HEADACHE SCORES: 06/18/2023 09/10/2023 12/19/2023 Headache Questions ER visits since last office visit: 0 0 0 Hospital stays since last office visit 0 0 0 Limited ADLs in the last month: 0 0 0 Days missed from work or school in the last month: 0 0 0 Days headache pain free in the last month: 26 15 28 Days per month with ALL of the following symptoms - decreased productivity, light sensitivity and nausea: 0 0 0 Initial improvement of headache after botox injection at last visit: Much improved Much improved Much improved PRN medication usage in the last month: 4 12 Patient impression of improvement since last visit: Much improved Much improved Much improved 06/18/2023 09/10/2023 12/19/2023 HIT-6 HIT-6 48 (Little or no impact) 42 (Little or no impact) 42 (Little or no impact) 06/18/2023 09/10/2023 12/19/2023 HANS - 2/7 SCORES HANS-2 Score 0 0 0 06/18/2023 09/10/2023 12/19/2023 Migraine Specific QOL - Higher scores indicate better HRQL Role Function-Restrictive Transformed Score (range: 0-100) 100 100 100 Role Function-Preventive Transformed Score (range: 0-100) 100 95 100 Emotional Function Transformed Score (range: 0-100) 100 100 100 12/19/2023 09/10/2023 06/18/2023 PHQ-9 Score 0 0 0 BP 159/85 (BP Site: Right Arm, BP Position: Sitting, BP Cuff Size: Regular Adult) Pulse 68 [facility] 1965 ALLERGIES Allergen Reactions Sulfa (Sulfonamide * Hives UNIVERSAL PROTOCOL / SAFETY CHECKLIST Procedure: Onabotulinum toxin A for migraine Informed Consent Consent Obtained: Written [place] Protocol A moment to CARE was completed [...] (Sites) Right (Units) Right (Sites) TOTAL (Units) Production Pattern Maker 5 1 5 1 10 Procerus Units: [...] 15 3 35 Total Units used: 200 Tota (more content not included)... [facility] 12-24-2023 Instructions Daphne Padron APRN.CNP - 12/24/2023 10:49 AM EDT Instruction after Botox injection: - [...] it does not, call our office at [phone] for further instructions. documented in this encounter [facility] 12-24-2023 History of Presen t illness Narrative Answers submitted by the patient for this visit: Headache Questionnaire (Submitted on 12/19/2023) How many days of work or school have you missed due to headaches in the last month? : 0 In the last month, how many headache days did you experience ALL of the following symptoms: decreased productivity, light sensitivity and nausea?: 0 How many days have you been completely free of headache pain in the last month? : 28 Follow-Up Onabotulinum Toxin A (BotoxTM) for Migraine Indication: Chronic Intractable Migraine Treatment #: 14 Referral Expiration: 08/25/2024 Prior to the initiation of the FIRST treatment with Onabotulinum Toxin A, the patient reported the following average headache frequency over the past 3 MONTHS: Number of moderate-severe migraine days/month: 18 Number of mild migraine days/month: 10 Number of headache free days/month: 2 (48 headache-free hours) Migraine severity: 810 After treatment with Onabotulinum Toxin A: Number of moderate-severe migraine days/month: 0 Number of mild migraine days/month: 2 Number of headache free days/month: 28 (672 headache-free hours) Migraine severity: 610 Patient reduction in overall migraine days: Yes [...] infection at proposed injection site. HEADACHE SCORES: 06/18/2023 09/10/2023 12/19/2023 Headache Questions ER visits since last office visit: 0 0 0 Hospital stays since last office visit 0 0 0 Limited ADLs in the last month: 0 0 0 Days missed from work or school in the last month: 0 0 0 Days headache pain free in the last month: 26 15 28 Days per month with ALL of the following symptoms - decreased productivity, light sensitivity and nausea: 0 0 0 Initial improvement of headache after botox injection at last visit: Much improved Much improved Much improved PRN medication usage in the last month: 4 12 Patient impression of improvement since last visit: Much improved Much improved Much improved 06/18/2023 09/10/2023 12/19/2023 HIT-6 HIT-6 48 (Little or no impact) 42 (Little or no impact) 42 (Little or no impact) 06/18/2023 09/10/2023 12/19/2023 HANS - 2/7 SCORES HANS-2 Score 0 0 0 06/18/2023 09/10/2023 12/19/2023 Migraine Specific QOL - Higher scores indicate better HRQL Role Function-Restrictive Transformed Score (range: 0-100) 100 100 100 Role Function-Preventive Transformed Score (range: 0-100) 100 95 100 Emotional Function Transformed Score (range: 0-100) 100 100 100 12/19/2023 09/10/2023 06/18/2023 PHQ-9 Score 0 0 0 BP 159/85 (BP Site: Right Arm, BP Position: Sitting, BP Cuff Size: Regular Adult) Pulse 68 [facility] 1965 ALLERGIES Allergen Reactions Sulfa (Sulfonamide * Hives UNIVERSAL PROTOCOL / SAFETY CHECKLIST Procedure: Onabotulinum toxin A for migraine Informed Consent Consent Obtained: Written Hel[place] Protocol A moment to CARE was completed [...] (Sites) Right (Units) Right (Sites) TOTAL (Units) Production Pattern Maker 5 1 5 1 10 Procerus Units: [...] Daphne Padron APRN.CNP documented in this encounter [facility] 09-17-2023 Note HNO ID: [id number] Author: DAPHNE PADRON APRN.CNP Service: ? Author Type: Nurse Practitioner [...] Regular Adult) Pulse 86 [facility] 1965 ALLERGIES Allergen Reactions Sulfa (Sulfonamide * Hives UNIVERSAL PROTOCOL / SAFETY CHECKLIST Procedure: Onabotulinum toxin A for migraine Informed Consent Consent Obtained: Written [place] Protocol A moment to CARE was completed [...] (Sites) Right (Units) Right (Sites) TOTAL (Units) Production Pattern Maker 5 1 5 1 10 Procerus Units: [...] [facility] 06-25-2023 Note HNO ID: [id number] Author: Daphne Padron APRN.TRUSS BUILDER Service: ? Author Type: Nurse Practitioner Type: [...] days/month: 2 (48 headache-free hours) Migraine severity: 8 After treatment with Onabotulinum Toxin A: Number of moderate-severe migraine days/month: 4 Number of mild migraine days/month: 0 Number of headache free days/month: 26 (624 headache-free hours) Migraine severity: 610 Patient reduction in overall migraine days: Yes [...] for this visit. Patient name: Tamela Meza [facility] : 1965 ALLERGIES Allergen Reactions Sulfa (Sulfonamide * Hives UNIVERSAL PROTOCOL / SAFETY CHECKLIST Procedure: Onabotulinum toxin A for migraine Informed Consent Consent Obtained: Written [place] Protocol A moment to CARE was completed [...] applicable Written Consent Obtained: Written LOT #: [id number] Expiration Date: Month: 3 Year: 2024 Injection Sites Left (Units) Left (Sites) Right (Units) Right (Sites) TOTAL (Units) Production Pattern Maker 5 1 5 1 10 Procerus Units: 5 Sites: 1 5 Frontalis 10 2 10 2 20 Temporalis optional follow the pain 20 10 4 2 20 10 4 2 60 Occipitalis optional follow the pain 15 10 3 2 15 10 3 (more content not included)... [facility] 06-25-2023 Instructions Daphne Padron APRN.CNP - 06/25/2023 11:10 AM EDT Instruction after [...] it does not, call our office at [phone] for further instructions. documented in this encounter [facility] 06-25-2023 History of Presen t [...] taken for this visit. Patient name: Tamela Hopper : 1965 ALLERGIES Allergen Reactions Sulfa (Sulfonamide * Hives UNIVERSAL PROTOCOL / SAFETY CHECKLIST Procedure: Onabotulinum toxin A for migraine Informed Consent Consent Obtained: Written [place] Protocol A moment to CARE was completed [...] applicable Written Consent Obtained: Written LOT #: [id number] Expiration Date: Month: 3 Year: 2024 Injection Sites Left (Units) Left (Sites) Right (Units) Right (Sites) TOTAL (Units) Production Pattern Maker 5 1 5 1 10 Procerus Units: [...] sodium (Aleve) lack of efficacy Daphne Padron APRN.TRUSS BUILDER documented in this encounter [facility] 06-22-2023 Miscellaneous Notes Botox referral sent to pharmacy. Maya Erazo RN documented in this encounter [facility] 03-30-2023 Note HNO ID: [id number] Author: Daphne Padron APRN.TRUSS BUILDER Service: ? Author Type: Nurse Practitioner Type: [...] for this visit. Patient name: Tamela Meza [facility] : 1965 ALLERGIES Allergen Reactions - Sulfa (Sulfonamide * Hives UNIVERSAL PROTOCOL / SAFETY CHECKLIST Procedure: Onabotulinum toxin A for migraine Informed Consent Consent Obtained: Written [place] Protocol A moment to CARE was completed [...] applicable Written Consent Obtained: Written LOT #: [id number] Expiration Date: Month: 2 Year: 2025 Injection Sites Left (Units) Left (Sites) Right (Units) Right (Sites) TOTAL (Units) Production Pattern Maker 5 1 5 1 10 Procerus Units: [...] Information Needed: as per today's eligibility check [employer] ([id number]) coverage for the patient is termed. We need active coverage of the patient to work on authorization. Request from Payor by: N/A Email Sent to: C21 Nikolas Galvez, Britney Sandoval, Rashawn Dc, Dwight Olsen, Rahat Cassidy Requested Clinicals/Information Sent: N/A documented in this encounter [facility] 01-01-2023 Miscellaneous Notes Botox referral sent to pharmacy Glendy Gipson LPN January 01, 2023 11:44 AM documented in this encounter [facility] 10-17-2022 History of Presen t [...] improved Much improved Much improved HIT-6 07/14/2022 07/17/202210/15/2022 HIT-6 44 (Little or no impact) 44 [...] BMI 31.84 kg/m Patient name: Tamela Meza [facility] : 1965 ALLERGIES Allergen Reactions Sulfa (Sulfonamide * Hives UNIVERSAL PROTOCOL / SAFETY CHECKLIST Procedure: Onabotulinum toxin A for migraine Informed Consent Consent Obtained: Written [place] Protocol A moment to CARE was completed [...] applicable Written Consent Obtained: Written LOT #: [id number] Expiration Date: Month: 5 Year: 2024 Injection Sites Left (Units) Left (Sites) Right (Units) Right (Sites) TOTAL (Units) Production Pattern Maker 5 1 5 1 10 Procerus Units: [...] month? : 0 documented in this encounter [facility] 07-23-2022 Instructions Marcus Zamora APRN.CNP [...] it does not, call our office at [phone] for further instructions. documented in this encounter [facility] 07-23-2022 History of Presen t [...] taken for this visit. Patient name: Tamela Hopper : 1965 ALLERGIES Allergen Reactions Sulfa (Sulfonamide * Hives Denies . No fever, rashes, or body aches. UNIVERSAL PROTOCOL / SAFETY CHECKLIST Procedure: Onabotulinum toxin A for migraine Informed Consent Consent Obtained: Written Hel[place] Protocol A moment to CARE was completed [...] applicable Written Consent Obtained: Written LOT #: [id number] Expiration Date: Month: 3 Year: 2024 Injection Sites Left (Units) Left (Sites) Right (Units) Right (Sites) TOTAL (Units) Production Pattern Maker 5 1 5 1 10 Procerus Units: [...] sodium (Aleve) lack of efficacy Marcus Zamora APRN.TRUSS BUILDER Answers submitted by the patient for this visit: Headache Questionnaire (Submitted on 07/17/2022) documented in this encounter [facility] 02-26-2022 Hospital Discharg e instructions Follow Up Care 02/26/2022 10:41:21 With:ENA BROTHERS, LELIA Peters, [facility] Address: [facility] [address] [place] [address]- When:3 months [facility] 01-23-2022 History of Presen t [...] BMI 32.29 kg/m Patient name: Tamela Meza [facility] : 1965 ALLERGIES Allergen Reactions Sulfa [...] Care Visit completed when applicable. 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 APRN.TRUSS BUILDER UNIVERSAL PROTOCOL / SAFETY CHECKLIST Procedure: Onabotulinum toxin A for migraine Informed Consent Consent Obtained: yes Hel[place] Protocol A moment to CARE was completed [...] injections Written Consent Obtained: yes LOT #: [id number] Expiration Date: Month: Year: 2023 Injection Sites Left (Units) Left (Sites) Right (Units) Right (Sites) TOTAL (Units) Production Pattern Maker 5 1 5 1 10 Procerus Units: [...] of efficacy RTC 3 months 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 APRN.SOHAIL Answers for HPI/ROS submitted by the patient on 01/19/2022 How many days of work or school have you missed due to headaches in the last month? : 0 documented in this encounter [facility] Evaluation + Plan note Future Appointments Appointment Date:04/10/2022 01:15:00 PM Scheduled Provider:Lorraine SUTHERLAND MD Location:[facility] Appointment Type:[facility] Follow Up [facility] Evaluation note Diagnosis Intractable chronic migraine without aura and without status migrainosus- Primary Chronic migraine without aura, with intractable migraine, so stated, without mention of status migrainosus [facility] Intractable chronic migraine without aura and without status migrainosus Chronic migraine without aura, with intractable migraine, so stated, without mention of status migrainosus [facility] Diagnosis Intractable chronic migraine without aura and without status migrainosus- Primary Chronic migraine without aura, with intractable migraine, so stated, without mention of status migrainosus [facility] Diagnosis Intractable chronic migraine without aura and without status migrainosus- Primary Chronic migraine without aura, with intractable migraine, so stated, without mention of status migrainosus [facility] Diagnosis Intractable chronic migraine without aura and without status migrainosus- Primary Chronic migraine without aura, with intractable migraine, so stated, without mention of status migrainosus [facility] Diagnosis Intractable chronic migraine without aura and without status migrainosus- Primary Chronic migraine without aura, with intractable migraine, so stated, without mention of status migrainosus [facility] Intractable chronic migraine without aura and without status migrainosus Chronic migraine without aura, with intractable migraine, so stated, without mention of status migrainosus documented in this encounter [facility] course Narrative No data available for this section [facility] No data available for this section [facility] No data available for this section [facility] Summary Purpose Family History No Family History [...] Referral Specialty Diagnoses / Procedures Referred By Davion t Referred To Contact Diagnoses Intractable chronic migraine without aura and without status migrainosus Procedures PROVIDER ORDERED FOLLOW UP OFFICE[facility]OUTPATIENT [facility] OF [place] 60-74 MINUTES Marcus Zamora, AMERICA.[employer] [address] [place] [address] Referral ID Status Reason Start Date Expiration Date Visits Requested Visits Authorized [id number] Authorized PCP Requested Referral 10/23/2022 07/23/2023 1 1 Additional Source Comments INFORMATION SOURCE (unrecogn ized section and content) DATE CREATED AUTHOR 03/03/2018 [facility] DATE CREATED AUTHOR AUTHOR'S ORGANIZ ATION 11/20/2020 [facility] DATE CREATED AUTHOR AUTHOR'S ORGANIZ ATION 10/31/2021 [facility] DATE CREATED AUTHOR AUTHOR'S ORGANIZ ATION 11/11/2022 [facility] DATE CREATED AUTHOR AUTHOR'S ORGANIZ ATION 01/21/2023 Whaley Agustin [facility] DATE CREATED AUTHOR AUTHOR'S ORGANIZ ATION 12/25/2023 [facility] DATE CREATED AUTHOR AUTHOR'S ORGANIZ ATION 05/06/2024 [facility] EPIC Source Comments (unrecognize d section and content) In the event this informatio n is protected by the Federal Confidentiality of Alcohol and Drug Abuse Patient Records regulations: The Federal rules restrict any use of the information to criminally investigate or prosecute any alcohol or drug abuse patient.[facility] Center[facility] the event this information is protected by the Federal Confidentiality of Alcohol and Drug Abuse Patient Records regulations: The Federal rules restrict any use of the information to criminally investigate or prosecute any alcohol or drug abuse patient.[facility] Center[facility] the event this information is protected by the Federal Confidentiality of Alcohol and Drug Abuse Patient Records regulations: The Federal rules restrict any use of the information to criminally investigate or prosecute any alcohol or drug abuse patient.[facility] Center[facility] the event this information is protected by the Federal Confidentiality of Alcohol and Drug Abuse Patient Records regulations: The Federal rules restrict any use of the information to criminally investigate or prosecute any alcohol or drug abuse patient.[facility] CenterIn the event this information is protected by the Federal Confidentiality of Alcohol and Drug Abuse Patient Records regulations: The Federal rules restrict any use of the information to criminally investigate or prosecute any alcohol or drug abuse patient.[facility] CenterIn the event this information is protected by the Federal Confidentiality of Alcohol and Drug Abuse Patient Records regulations: The Federal rules restrict any use of the information to criminally investigate or prosecute any alcohol or drug abuse patient.[facility] CenterIn the event this information is protected by the Federal Confidentiality of Alcohol and Drug Abuse Patient Records regulations: The Federal rules restrict any use of the information to criminally investigate or prosecute any alcohol or drug abuse patient.[facility] CenterIn the event this information is protected by the Federal Confidentiality of Alcohol and Drug Abuse Patient Records regulations: The Federal rules restrict any use of the information to criminally investigate or prosecute any alcohol or drug abuse patient.[facility] CenterIn the event this information is protected by the Federal Confidentiality of Alcohol and Drug Abuse Patient Records regulations: The Federal rules restrict any use of the information to criminally investigate or prosecute any alcohol or drug abuse patient.[facility] CenterIn the event this information is protected by the Federal Confidentiality of Alcohol and Drug Abuse Patient Records regulations: The Federal rules restrict any use of the information to criminally investigate or prosecute any alcohol or drug abuse patient.[facility] Reason for Visit (unrecogniz ed section and content) Reason Comments Established Patient Follow Up Botox Injection Chronic Migraine Specialty Diagnoses / Procedures Referred By Contac t Referred To Contact HEADACHE Diagnoses Chronic migraine without aura, intractable, without status migrainosus Renewal. Due 08/25/23. Botox 200 units every 12 weeks for 1 year through [facility] buy and bill Preempt protocol [id number] Procedure -89622 chemodervate facial/trigem/cerv musc migraine Procedures BOTULINUM TOXIN A PER 1 UNIT CHEMODERVATE FACIAL/TRIGEM/CERV MUSC MIGRAINE Daphne Padron, SECURITY [employer]LE PATROL OFFICER.[employer] [address] [place] [address] Neur Headache Main [address] [phone] Referral ID Status Reason Start Date Expiration Date V isits Requested Visits Authorized [id number] Authorized 08/19/2023 08/25/2024 4 4 Reason Comments Botox Injection Specialty Diagnoses / Procedures Referred By Contac t Referred To Contact HEADACHE Diagnoses Chronic migraine without aura, intractable, without status migrainosus Procedures BOTULINUM TOXIN A PER 1 UNIT CHEMODERVATE FACIAL/TRIGEM/CERV MUSC MIGRAINE Renewal due 12/24/2021 Botox 200 units every 12 weeks for 1 year through [facility] buy and bill Preempt protocol [id number] Procedure -[id number] chemodervate facial/trigem/cerv musc migraine 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, SECURITY VEHICLE PATROL OFFICER.[employer] [address] [place] [address] Neur Headache Main [address] [phone] Referral ID Status Reason Start Date Expiration Date V isits Requested Visits Authorized [id number] Authorized 12/24/2021 01/22/2023 5 5 Reason Comments Botox Injection Specialty Diagnoses / Procedures Referred By Contac t Referred To Contact HEADACHE Diagnoses Chronic migraine without aura, intractable, without status migrainosus Procedures BOTULINUM TOXIN A PER 1 UNIT CHEMODERVATE FACIAL/TRIGEM/CERV MUSC MIGRAINE Renewal due 12/24/2021 Botox 200 units every 12 weeks for 1 year through [facility] buy and bill Preempt protocol [id number] Procedure -[id number] chemodervate facial/trigem/cerv musc migraine 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, SECURITY VEHICLE PATROL OFFICER.[employer] BU[employer] [address] [place] [address] Neur Headache Main [address] [phone] Reason Comments Referral Request Reason Comments Insurance Authorization PRIOR AUTH DELAY ED: NEED COVERAGE VERIFICATION Reason Comments Chronic Migraine botox Specialty Diagnoses / Procedures Referred By Davion t Referred To Contact HEADACHE Diagnoses Chronic migraine without aura, intractable, without status migrainosus Botox renewal due 03/14/2023 Botox 200 units every 12 weeks for 1 year through [facility] buy and bill Preempt protocol [id number] Procedure -73200 chemodervate facial/trigem/cerv musc migraine Procedures BOTULINUM TOXIN A PER 1 UNIT CHEMODERVATE FACIAL/TRIGEM/CERV MUSC MIGRAINE 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, SECURITY VEHICLE PATROL OFFICER.[employer] BU[employer]DER [address] [phone] Neur Headache Main [address] [phone] Referral ID Status Reason Start Date Expiration Date V isits Requested Visits Authorized [id number] Authorized 03/30/2023 09/06/2023 99 99 Reason Comments Established Patient Follow Up Chronic Migraine Botox Injection Reason Onset Date Comments Refill Request 05/06/2024 Care Team (unrecognized sect ion and content) Personnel Name: Arpan Alexis MD Address: [address] [place] [address] Personnel Name: Arpan Alexis MD Address: [address] [place] [address] Inactive Administered Medications - up to 3 most recent administrations Administered Medications (un recognized section and content) Medication Order MAR Action Action Date Dose Rate Site onabotulinum toxin type A 200 Units injection (BOTOX) 200 Units, INTRAMUSCULAR, ONCE, 1 dose, On [place] 12/24/23 at 1100, This record documents the total dose provided to patient. See progress note for specific locations and amounts administered. REFRIGERATE - Pharmaceutical Waste: Lab Pack - Given 12/24/2023 10:48 AM EDT 200 Units Other FOR RECORDS PERTAINING TO PATIENTS WHO ARE [...] BE BASED ON THE PRIMARY CLINICAL RECORDS. [facility]. provides no warranty or guarantee of the accuracy or completeness of information in this document.
== END 2024-05-11 07:42 | disposition home or self-care (01) ==
LOC: MAMMO 07:41
PROVIDERS: PCP Family Medicine; Visit Provider Physician Assistant
DX: Z12.31 Encounter for screening mammogram for malignant neoplasm of breast (principal); Z80.3 Family history of malignant neoplasm of breast
CPT/HCPCS: 77063; 77067

== ENCOUNTER 2024-09-20 19:33 | Outpatient (REF) | payer OTHER, SELFPAY ==
--- OUTSIDE RECORDS SUMMARY | 2024-09-20 19:37 | XMS_ITS | CCD ---
Author Organization [facility] Care Team Providers Care Maturity Checker Name Role Phone PHYSICIAN, DEFAULT Unavailable Unavailable PHYSICIAN, DEFAULT Unavailable Unavailable Unavailable Primary Care Provider UnavailArpan Pagan Primary Care Physician Unavailable Primary Care Provider Unavailmalaika e Unavailable Primary Care Provider Unavailmalaika MULLINS ., DR ANTONY Primary Care Unavailable KARASIK [...] Unavailable SAMSA ., ADAM Admitting Unavailable SAMSA .ADAM Consulting Unavailable HOY ., DR ANTONY Primary Care Unavailable HOY ., DR ANTONY Primary Care Unavailable KARASIK ., DR BARKER Admitting Unavailabl e KARASIK ., DR BARKER Consulting Unavailabl e KARASIK ., DR BARKER Attending Unavailabl e SALAM, Peters Attending Unavailable SALAM, Peters Attending Unavailable SALAM, Lorraine Attending Unavailable SALAM, Peters Admitting Unavailable NONE, XXXX Referring Unavailable Unavailable Primary Care Provider Unavailabl e HAMDAN, MOHAMMAD Attending Unavailable HAMDAN, MOHAMMAD Referring Unavailable HAMDAN, MOHAMMAD Attending Unavailable HAMDAN, MOHAMMAD Referring Unavailable HAMDAN, MOHAMMAD Attending Unavailable HAMDAN, MOHAMMAD Referring Unavailable HAMDAN, MOHAMMAD Attending Unavailable HAMDAN, MOHAMMAD Referring Unavailable Arpan Mullins MD Primary Care Provider PARI JAIMES Attending Unavailable ALFONSO PURI Attending Unavailable JINNY MAST Attending Unavailable Allergies Allergy Classification Reported Allergen(s) Allergy Type Date of Onset Reaction(s) Facility (20 sources) Sulfonamides (Antibiotic); Translations: [SULFA (SULFONAMIDE ANTIBIOTICS)] Drug Allergy 0 Hives, Itching, Other [facility] Work Phone: (3 sources) Sulfonamides (Antibiotic); Translations: [sulfa drugs] [facility] (1 source) Sulfonamides (Antibiotic) Drug allergy (disorder) 3 [facility] Repository Medications Current Medications Medication Drug Class(es) Dates Sig (Normalized) Sig (Original) amitriptyline hydrochloride 25 mg oral tablet (20 sources) Tricyclic Antidepressant Start: 07-26-2020 End: 04-13-2022 take 1 tablet by mouth once daily amitriptyline 10 mg Tab 10 mg = 1 tab(s), Oral, Daily, # 30 tab(s), Refills(s) 11, Pharmacy: [address], 154, cm, 07/26/20 9:59:00 EST, Height/Length Dosing, 66.8, kg, 07/26/20 9:59:00 EST, Weight Dosing Start Date: 07/26/20 Status: Ordered Start: 04-07-2020 End: 05-04-2024 take 3 tablets by mouth at bedtime amitriptyline (Elavil) 25 MG tablet Indications: Migraine without aura and without status migrainosus, not intractable (CMS/HCC) Take 3 tablets (75 mg) by mouth at bedtime 270 tablet 11 05/04/2024 Active Comment on above: Take 75 mg by mouth daily at bedtime. Takes 3 tabs apixaban 5 mg oral tablet (5 sources) Factor Xa Inhibitor End: 09-20-19 25 apixaban (Eliquis) 5 MG tablet Eliquis 09/20/2024 Discontinued (Other) 60 actuat budesonide 0.16 mg/actuat / formoterol fumarate 0.0045 mg/actuat metered dose inhaler (11 sources) Corticosteroid, beta2-Adrenergic Agonist Start: 05-04-20 23 End: 05-04-20 24 take 2 puff(s) by inhalation every four hours for wheezing budesonide-formoter ol (Symbicort) 160-4.5 MCG/ACT inhaler Indications: Seasonal allergic rhinitis due to pollen Inhale 2 puffs every 4 (four) hours if needed for wheezing or shortness of breath 1 each 3 05/04/2024 Active [id number] 0.3 ml EPINEPHrine 1 mg/ml auto-injector (11 sources) alpha-Adrenergic Agonist, beta-Adrenergic Agonist, Catecholamine Start: 05-04-20 End: 05-04-20 EPINEPHrine (Epipen) 0.3 MG/0.3ML injection syringe Indications: Mild intermittent asthma without complication (CMS/HCC) Inject 0.3 mL (0.3 mg) as directed if needed for anaphylaxis Call 911 after use. 2 each 1 05/04/2024 05/04/2025 Active estrogens, conjugated (retirement) 0.625 mg/ml vaginal cream (20 sources) Estrogen Start: 09-21-19 25 Estrogens Conjugated (Premarin) 0.625 MG/GM cream Indications: Vaginal dryness Apply 0.625 mg topically 3 (three) times a week 30 g 09/21/2024 Active Start: 09-21-2024 Estrogens Conj ugated (Premarin) 0.625 MG/GM cream Indications: Vaginal dryness Apply 0.625 mg topically 3 (three) times a week 30 g 09/21/2024 Active Start: 07-29-2024 End: 09-20-2024 Premarin 0.625 MG/GM cream I NSERT 0.625 MG INTO THE VAGINA AT BEDTIME 07/29/2024 09/20/2024 Discontinued (Reorder) Start: 04-19-2024 End: 05-19-2024 Estrogens Conjugated (Premar in) 0.625 MG/GM cream Indications: Postmenopausal state Insert 0.625 mg into the vagina at bedtime 30 g 04/19/2024 05/19/2024 Active Start: 03-13-2020 PREMARIN vagin al cream Use 1 Applicator vaginally three times a week. 03/13/2020 Active Comment on above: Use 1 Applicator vag inally three times a week. 24 hr metoprolol succinate 100 mg extended release oral tablet (20 sources) beta-Adrenergic Angel Start: 02-23-2019 take 100 mg by mouth once daily metoprolol succinate ER (TOPROL XL) 100 mg Take 100 mg by mouth once daily. 04/04/2020 Active take 1 tablet by yovanny th every twenty-four hours in the morning metoprolol succinate XL (Toprol-XL) 100 MG 24 hr tablet Take 100 mg by mouth in the morning. Active Comment on above: Take 100 mg by mouth once daily. naratriptan 2.5 mg oral tablet (20 sources) Serotonin-1b and Serotonin-1d Receptor Agonist Start: 08-10-2023 End: 09-20-2024 naratriptan (Amerge) 2.5 MG tablet Take 2.5 mg by mouth 07/07/2024 09/20/2024 Discontinued (Other) Start: 06-14-2021 End: 07-23-2022 take 1 tablet [...] omeprazole 20 mg delayed release oral capsule (20 sources) Proton Pump Inhibitor Start: 02-23-2019 omeprazole 20 mg Cap-DR 20 mg = 1 cap(s), Oral, Daily, Control of stomach acid Start Date: 02/23/19 Status: Ordered Start: 05-05-2011 End: 09-20-2024 take 20 mg by mouth once daily Omeprazole 20 mg TbEC T betsy 20 mg by mouth once daily. 05/05/2011 Active Comment on above: Take 20 mg by mouth once daily. pantoprazole 40 mg delayed release oral tablet (5 sources) Proton Pump Inhibitor Start: take 1 tablet by mouth in the evening pantoprazole (ProtoNix) 40 MG EC tablet Take 40 mg by mouth in the evening 07/28/2024 Active rizatriptan 10 mg oral tablet (7 sources) Serotonin-1b and Serotonin-1d Receptor Agonist Start: take 1 tablet by mouth every two hours as needed for headache rizatriptan (MAXALT) 10 mg tablet Indications: Intractable chronic migraine without aura and without status migrainosus TAKE 1 TABLET (10 MG) BY MOUTH NEEDED. AT ONSET OF HEADACHE. MAY REPEAT AFTER 2 HOURS. 9 tablet 5 09/14/2024 Active Start: 07-25-2024 End: 09-14-2024 rizatriptan (Maxalt) 10 MG t ablet Take 10 mg by mouth 07/25/2024 Active Completed/Discontinued Medications Medication Drug Class(es) Dates Sig (Normalized) Sig (Original) onabotulinumtoxina 100 unt injection (13 sources) Acetylcholine Release Inhibitor Start: 07-07-2024 End: 07-07-2024 onabotulinum toxin type A 200 Units injection (BOTOX) Start: 07-07-2024 End: 07-07-2024 inject 1 dose by intramuscular injection once 200 Units, INTRAMUSCULAR, ONCE, 1 dose, On Alice 07/07/24 at 1100, This record documents the total dose provided to patient. See progress note for specific locations and amounts administered. REFRIGERATE - Pharmaceutical Waste: Lab Pack - Start: 03-31-2024 End: 03-31-2024 onabotulinum toxin type A 20 0 Units injection (BOTOX) Start: 03-31-2024 End: 03-31-2024 [...] Classification Problem Date Documented Da te Episodic/Chronic Asthma (13 sources) Mild intermittent asthma; Translations: [Mild intermittent asthma, uncomplicated] Onset: 3 05-04-2023 Chronic Cardiac dysrhythmias (3 sources) Atrial fibrillation; Translations: [Unspecified atrial fibrillation] Onset: 2 04-21-2019 Chronic Esophageal disorders (3 sources) Gastroesophageal reflux disease; Translations: [Gastroesophageal reflux disease without esophagitis] Onset: 2 04-21-2019 Chronic Genitourinary symptoms and ill-defined conditions (4 sources) Dysuria; Translations: [Urgent desire to urinate] 04-21-2019 Episodic Headache; including migraine (20 sources) Chronic intractable migraine without aura; Translations: [Chronic migraine without aura, intractable, without status migrainosus] Onset: 1 Chronic Other and unspecified benign neoplasm (2 sources) Melanocytic nevus of trunk; Translations: [Melanocytic nevi of trunk] 08-16-2024 Episodic Other circulatory disease (2 sources) Spider nevus; Translations: [Nevus, non-neoplastic] 08-16-2024 Episodic Other diseases of bladder and urethra (2 sources) Urethral stricture 04-22-2019 Episodic Other female genital disorders (2 sources) Vaginal dryness; Translations: [Other specified noninflammatory disorders of vagina] 09-20-2024 Episodic Other gastrointestinal disorders (4 sources) Irritable bowel syndrome 04-21-2019 Chronic Other liver diseases (3 sources) Steatosis of liver; Translations: [Fatty (change of) liver, not elsewhere classified] Onset: 2 02-26-2022 Chronic Other nervous system disorders (2 sources) Neuropathy 04-22-2019 Chronic Other non-epithelial cancer of skin (2 sources) History of squamous cell carcinoma of skin; Translations: [Personal history of other malignant neoplasm of skin] 08-16-2024 Episodic Other screening for suspected conditions (not mental disorders or infectious disease) (14 sources) Abnormal results of pulmonary function studies; Translations: [Encounter for screening for malignant neoplasm of cervix] Onset: 2 Episodic Other skin disorders (2 sources) Lentiginosis; Translations: [Other melanin hyperpigmentation] 08-16-2024 Episodic Other skin disorders (2 sources) Seborrheic keratosis; Translations: [Other seborrheic keratosis] 08-16-2024 Episodic Other upper respiratory disease (11 sources) Allergic rhinitis due to pollen; Translations: [Allergic rhinitis due to pollen] Onset: 3 05-04-2023 Chronic Other upper respiratory disease (2 sources) Seasonal allergic rhinitis; Translations: [Other seasonal allergic rhinitis] 05-04-2024 Chronic Screening and history of mental health and [...] Test Name Value Interpretation Reference Range Facility [facility] 07-21-[address] [facility] Telephone ([facility]) OTTOTAMELA ([id number]) 1965 F [place] Date Time Provider Department 07/21/24 DAPHNE PADRON [facility] During your visit today, we recorded the following information about you: Sharonda Parikh 07/21/2024 12:00 PM Signed Prior Authorization for Medications Requested by ([place], Pharmacy, Patient Call, Fax) : Phone Pharmacy Name: [facility] Pharmacy Phone # : [phone] Name of Medication : Naratriptan Dose : 2.5 mg Tablet - 9 tabs If renewal, auth date expiration: NA Prescribing Provider: Vito Last OV: 07/07/2024 with Vito Insurance Provider : CELINE / [employer] Erika. Is insurance card scanned in, including Rx info? Yes Rx ID number: [id number] Rx BIN: [id number] Rx PCN: COPAY Rx Grp: [id number] Insurance Phone : CoverMyMeds Carreon: NA E-PA? Yes Ju Reynolds MA 07/21/2024 1:05 PM Signed Completed over CMM: [employer] is reviewing your PA request and will respond within 24 hours for Medicaid or up to 72 hours TAMELA HOPPER (Carreon: [id number]) PA Drug Naratriptan HCl 2.5MG tablets ePA cloud logo Form [employer] PA Form (2016 [facility]) MICKEY Stern Latonya J, MA 07/21/2024 3:42 PM Signed TAMELA HOPPER (Carreon: [id number]) PA Denied today by [employer] 2016 CaseId:[id number];Statu s:Denied;Review Type:Prior Auth;Appeal Information: Attention:ATTN: CLINICAL APPEALS DEPARTMENT [employer] [address] [address],[facility],[place],[address] ; I We reviewed the information you provided in support of your patient?s request to obtain Naratriptan hcl 2.5 mg TABLET under his or her plan. We are unable to approve this request for the following reason(s): ? Coverage is provided in situations where the patient has tried and failed one of the preferred agents: rizatriptan (tablets and orally disintegrating tablets) OR sumatriptan (tablets, nasal spray, injection). Coverage cannot be authorized at this time. MICKEY Stern Jeffrey M, RN 07/25/2024 11:22 AM Signed Called Pt and let her know that her insurance has denied naratriptan due to not meeting step therapy requirements. I let her know that she would have to trial either rizatriptan or sumatriptan. Similarities and differences explained. Pt OK with trialing rizatriptan. Provider notified. Daphne Padron APRN.CNP 07/25/2024 11:56 AM Signed Addended by: DAPHNE PADRON on: 07/25/2024 11:56 AM Modules accepted: Orders Allergies As of Date: 07/21/2024 Noted Allergy Reaction SULFA (SULFONAMIDE ANTIBIOTICS) 05/08/2020 4 - Hives Date Reviewed: 07/07/2024 Reviewed by: Daphne Padron APRN.MANAGER RAIL - Fully Assessed Reason for Visit: Insurance Authorization [[id number]] Cmt: Naratriptan Naratriptan PA - MMO / [employer]. [Other] Primary Visit Diagnosis:Intractable chronic migraine without aura and without status migrainosus [G43.719] Order(s):rizatriptan (MAXALT) 10 mg tabletTake 1 tablet (10 mg) by mouth as needed. AT ONSET OF HEADACHE. MAY REPEAT AFTER 2 HOURS. DO NOT EXCEED 30 MG PER DAY.Disp: 9 tabletRfl: 1 Prescriptions as of 07/25/2024 - rizatriptan (MAXALT) 10 mg tablet Take 1 tablet (10 mg) by mouth as needed. AT ONSET OF HEADACHE. MAY REPEAT AFTER 2 HOURS. DO NOT EXCEED 30 MG PER DAY. - naratriptan (AMERGE) 2.5 mg tablet Take 1 tablet (2.5 mg) by mouth as needed. May repeat dose after 4 hours if needed. Maximum daily dose is 5 mg per day. - metoprolol succinate ER (TOPROL XL) 100 mg Take 100 mg by mouth once daily. - amitriptyline (ELAVIL) 25 mg tablet Take 75 mg by mouth daily at bedtime. Takes 3 tabs - PREMARIN vaginal cream Use 1 Applicator vaginally three times a week. - Omeprazole 20 mg TbEC Take 20 mg by mouth once daily. Problem List As Of Date 07/21/2024 Noted Resolved Intractable chronic migraine without aura and w*10/03/2020 Prescriptions ordered this encounter Disp Refills Start End RIZATRIPTAN 10 MG TABLET 9 ta* 1 07/25/2024 Route: ORAL Sig: Take 1 tablet (10 mg) by mouth as needed. AT ONSET OF HEADACHE. MAY REPEAT AFTER 2 HOURS. DO NOT EXCEED 30 MG PER DAY. Encounter Status:Closed by JU REYNOLDS on 07/21/24 [facility] John 07-08-[address] [facility] Telephone ([facility]) [facility] ([id number][facility] 1965 F [place] Date Time Provider Department 07/08/24 DAPHNE PADRON [facility] During your visit today, we recorded the following information about you: Belle Erazo RN 07/08/2024 9:58 AM Signed Botox referral sent to pharmacy. Belle Erazo RN Allergies As of Date: 07/08/2024 Noted Allergy Reaction SULFA (SULFONAMIDE ANTIBIOTICS) 05/08/2020 4 - Hives Date Reviewed: 07/07/2024 Reviewed by: Daphne Padron APRN.MANAGER RAIL - Fully Assessed Reason for Visit: Referral Request [124] Prescriptions as of 07/08/2024 - naratriptan (AMERGE) 2.5 mg tablet Take 1 tablet (2.5 mg) by mouth as needed. May repeat dose after 4 hours if needed. Maximum daily dose is 5 mg per day. - metoprolol succinate ER (TOPROL XL) 100 mg Take 100 mg by mouth once daily. - amitriptyline (ELAVIL) 25 mg tablet Take 75 mg by mouth daily at bedtime. Takes 3 tabs - PREMARIN vaginal cream Use 1 Applicator vaginally three times a week. - Omeprazole 20 mg TbEC Take 20 mg by mouth once daily. Problem List As Of Date 07/08/2024 Noted Resolved Intractable chronic migraine without aura and w*10/03/2020 Encounter Status:Closed by BELLE ERAZO on 07/08/24 [facility] CNOVon 07-07-2024 CNOV Office Visit (BALWINDER ) TAMELA HOPPER ([id number]) 1965 F [facility] Date Time Provider Department 07/07/24 11:00 AM DAPHNE PADRON During your visit today, we recorded the following information about you: Pulse Blood pressure 76/minute 139/89 Daphne Padron APRN.CNP 07/07/2024 11:01 AM Signed Answers submitted by the patient for this visit: Headache Questionnaire (Submitted on 06/30/2024) How many days of work or school [...] Migraine Indication: Chronic Intractable Migraine Treatment #: 16 Referral Expiration: 08/25/2024 Prior to the initiation [...] PREEMPT Botox. There is no documented allergic reaction/hypersensiti vity to any botulinum toxin and there is no active infection at proposed injection site. HEADACHE SCORES: 12/19/2023 03/24/2024 06/30/2024 Headache Questions ER visits since last office visit: 0 0 0 Hospital stays since last office visit 0 0 0 Limited ADLs in the last month: 0 0 0 Days missed from work or school in the last month: 0 0 0 Days headache pain free in the last month: 28 20 28 Days per month with ALL of the following symptoms - decreased productivity, light sensitivity and nausea: 0 0 0 Initial improvement of headache after botox injection at last visit: Much improved Much improved Much improved Patient impression of improvement since last visit: Much improved Much improved Much improved 12/19/2023 03/24/2024 06/30/2024 HIT-6 HIT-6 42 (Little or no impact) 38 (Little or no impact) 44 (Little or no impact) 12/19/2023 03/24/2024 06/30/2024 HANS - 2/7 SCORES HANS-2 Score 0 0 0 12/19/2023 03/24/2024 06/30/2024 Migraine Specific QOL - Higher scores indicate better HRQL Role Function-Restrictive Transformed Score (range: 0-100) 100 100 100 Role Function-Preventive Transformed Score (range: 0-100) 100 100 100 Emotional Function Transformed Score (range: 0-100) 100 86.67 100 03/24/2024 12/19/2023 09/10/2023 PHQ-9 Score 0 0 0 BP 139/89 (BP Site: Left Arm, BP Position: Sitting, BP Cuff Size: Small Adult) Pulse 76 Patient name: Tamela Hopper : 1965 ALLERGIES Allergen Reactions Sulfa (Sulfonamide * Hives UNIVERSAL PROTOCOL / SAFETY CHECKLIST Procedure: Onabotulinum toxin A for migraine Informed Consent Consent Obtained: Written [place] Protocol A moment to CARE was completed [...] (Sites) Right (Units) Right (Sites) TOTAL (Units) Fun House Operator 5 1 5 1 10 Procerus Units: 5 Sites: 1 5 Frontalis 10 2 10 2 20 Temporalis optional follow the pain 20 10 4 2 20 1 (more content not included)... Normal [facility] CNOVon 03-31-2024 CNOV Office Visit (BALWINDER ) TAMELA HOPPER ([id number]) 1965 F [place] Date Time Provider Department 03/31/24 11:00 AM DAPHNE PADRON During your visit today, we recorded the following information about you: Pulse Blood pressure 74/minute 121/82 Daphne Padron APRN.MANAGER RAIL 03/31/2024 10:56 AM Signed Answers submitted by the patient [...] PREEMPT Botox. There is no documented allergic reaction/hypersensiti vity to any botulinum toxin and there is [...] Adult) Pulse 74 Patient name: Tamela Meza [facility] : 1965 ALLERGIES Allergen Reactions Sulfa (Sulfonamide * Hives UNIVERSAL PROTOCOL / SAFETY CHECKLIST Procedure: Onabotulinum toxin A for migraine Informed Consent Consent Obtained: Written [place] Protocol A moment to CARE was completed [...] (Sites) Right (Units) Right (Sites) TOTAL (Units) Fun House Operator 5 1 5 1 10 Procerus Units: 5 Sites: 1 5 Frontalis 10 2 10 2 20 Temporalis optional (more content not included)... Normal [facility] CNOVon 12-24-2023 CNOV Office Visit (NEHAAV ) TAMELA HOPPER ([id number]) 1965 F [place] Date Time Provider Department 12/24/23 10:30 AM DAPHNE PADRON During your visit today, we recorded the following information about you: Pulse Blood pressure 68/minute 159/85 Daphne Padron APRN.[facility] 12/24/2023 10:50 AM Signed Answers submitted by [...] days/month: 28 (672 headache-free hours) Migraine severity: 6/10 Patient reduction [...] PREEMPT Botox. There is no documented allergic reaction/hypersensiti vity to any botulinum toxin and there is [...] Regular Adult) Pulse 68 [facility]: [facility] : 1965 ALLERGIES Allergen Reactions Sulfa (Sulfonamide * Hives UNIVERSAL PROTOCOL / SAFETY CHECKLIST Procedure: Onabotulinum toxin A for migraine Informed Consent Consent Obtained: Written [place] Protocol A moment to CARE was completed [...] (Sites) Right (Units) Right (Sites) TOTAL (Units) Fun House Operator 5 1 5 1 10 Procerus Units: 5 Sites: 1 5 Frontalis 10 2 10 2 20 Temporalis opti (more content not included)... Normal [facility] CNOVon 09-17-2023 CNOV Office Visit (BALWINDER ) TAMELA HOPPER ([id number]) 1965 F [facility] Date Time Provider Department 09/17/23 1:00 PM DAPHNE PADRON During your visit today, we recorded the following information about you: Pulse Blood pressure 86/minute 144/97 Daphne Padron APRN.MANAGER RAIL 09/17/2023 1:18 PM Signed Answers submitted by [...] PREEMPT Botox. There is no documented allergic reaction/hypersensiti vity to any botulinum toxin and there is [...] Regular Adult) Pulse 86 Patient [facility]: [facility] : 1965 ALLERGIES Allergen Reactions Sulfa (Sulfonamide * Hives UNIVERSAL PROTOCOL / SAFETY CHECKLIST Procedure: Onabotulinum toxin A for migraine Informed Consent Consent Obtained: Written [place] Protocol A moment to CARE was completed [...] (Sites) Right (Units) Right (Sites) TOTAL (Units) Fun House Operator 5 1 5 1 10 Procerus Units: 5 Sites: 1 (more content not included)... Normal [facility] Outside Mammographyon 2022 Outside Mammography [id number] .00CD:127 Normal [facility] Transfer Inon 01-20-2023 Transfer In [id number] 1.00CD:127 Normal [facility] Covid-19 PCR (CVDTB)on SARS-CoV-2 (COVID-19) RNA NELL+probe Ql (Unsp spec) Not detected Normal NOT DETECTED [facility] Comment on above: Result Comment: When [...] for this test is supported by the Service Tester of Health and Human Service's declaration that [...] longer be used). Performed By: #### C VDTBH #### [facility] [address] [place] [address] Dr. Merritt Berger INFLUENZA A AND B AGon 11-06 INFLUANEGH SEE BELOW Normal [facility] Comment on above: Result Comment: Nega tive for Flu A protein angiten. Infection due to Flu A cannot be ruled out. Flu A angiten in the sample may be below the detection limit of the test. Performed By: #### I NFLUAB #### [facility] [address] [place] [address] Dr. Merritt Berger INFLUBNEG SEE BELOW Normal [facility] Comment on above: Result Comment: Nega tive for Flu B protein antigen. Infection due to Flu B cannot be ruled out. Flu B antigen in the sample may be below the detection limit of the test. Performed By: #### I NFLUAB #### [facility] [address] [place] [address] Dr. Merritt Berger INFLUENZA A AG Negative Normal NEGATIVE SEE COMMENT [facility] Comment on above: Performed By: #### I NFLUAB #### [facility] [address] [place] [address] Dr. Merritt Berger INFLUENZA B AG Negative Normal NEGATIVE SEE COMMENT [facility] Comment on above: Performed By: #### I NFLUAB #### [facility] [address] [address] [address] Merritt Berger HEMOGLOBINon 09-12-2022 Hemoglobin (Bld) [Mass/Vol] 12.5 g/dL Normal 12.0-16.0 [facility] Comment on above: Performed By: #### H GB #### [facility] [address] [address] [address] Merritt Berger Gastroenterology Office/Clin ic Noteon [...] rubs, murmurs or gallop. Peripheral: no edema Gastrointestinal/Abdo men: Abdomen: normal consistency and bowel sounds; no [...] Henok Baeza to record this visit. PUMA early breastfeeding care specialist and provider reviewed before signing. PUMA: Smitha Pradhan Follow-up With When Contact Information ENA BROTHERS, LELIA Peters MED Within 3 months [facility] [address] [place] [address]- Additional Instructions: Problem List/Past Medical History Ongoing [...] Sinus Surgery, (more content not included)... Normal [facility] Comment on above: Result Comment: Elec tronically [...] SUTHERLAND MD Primary Care Physician - Arpan Mullins MD This Is Your Medications List Contact [...] Appointments Follow Up with ENA BROTHERS, LELIA Peters MED When: Within 3 months Where: [facility] [address] [place] [address]- Medications What How Much When Why Instructions [...] of partial hysterectomy Hx of tonsillectomy Normal [facility] PAP ACOG PANEL 2: 30 to 65on 04-24-2022 . . Normal [facility] Comment on above: Result Comment: Perf ormed at: WB Performed By: #### [id number] #### [facility] [address] [address] [address] Merritt Berger Age Gdln ACOG Testing 30-65 [facility] Comment on above: Performed By: #### [id number] #### [facility] [address] [address] [address] Merritt Berger DIAGNOSIS: Comment [facility] Comment on above: Result Comment: NEGA TIVE FOR INTRAEPITHELIAL LESION OR MALIGNANCY. Performed at: WB Performed By: #### [id number] #### [facility] [address] [place] [address] Dr. Merritt Berger HPV Aptima Negative Normal Negative [facility] Comment on above: Result Comment: This nucleic acid amplification test detects fourteen high-risk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 [phone] Pari Jaimes PA [address] [place] [address] [facility] Start: 08-17-2025 End: 08-17-2025 Patient encounter procedure 08/17/2025 8:40 AM EST Office Visit [facility] [address] [place] [phone] Jinny Mast, AIRPLANE DISPATCHER-MANAGER RAIL [address] [place] [address] [facility] Start: 02-27-2025 End: 02-27-2025 Patient encounter procedure 02/27/2025 9:40 AM EDT Office Visit [facility] [address] [place] [phone] Alfonso Puri MD [address] [place] [address] [facility] Start: 10-06-2024 End: 10-06-2024 Patient encounter procedure 10/06/2024 8:30 AM EST Office Visit Neurology [address] [place] [address] Dahpne Padron, AIRPLANE DISPATCHER.MANAGER RAIL [address] [place] [address] [facility] Comment on above: Botox Start: 09-20-2024 End: 11-18-2025 MG Breast - bilateral Screening Bilateral screening mammogram Imaging Routine Breast cancer screening by mammogram Expected: 09/20/2024, Expires: 11/18/2025 [facility] Work Phone: Comment on above: Expected: 09/20/2024 , Expires: 11/18/2025 Start: 09-20-2024 End: 09-20-2024 Patient encounter procedure [facility] Comment on above: Arrived Start: 07-11-2024 End: 07-11-2024 Patient encounter procedure 07/11/2024 11:05 AM EST Office Visit [facility] [address] [place] [address] Jinny Mast AIRPLANE DISPATCHER-MANAGER RAIL [address] [place] [address] [facility] Start: 07-07-2024 End: 07-07-2024 Patient encounter procedure 07/07/2024 11:00 AM EDT Office Visit Neurology [address] [facility] [address] [place], [place] [phone] Daphne Padron, AMERICA.MANAGER RAIL [address] [place] [address] [facility] Comment on above: Botox Start: 05-08-2024 Covid-19 Vaccine ( season) Covid-19 Vaccine ( season) [facility] Start: 05-08-2024 Influenza vaccination C [facility] Start: 05-08-2023 Covid-19 Vaccine ( season) Covid-19 Vaccine ( season) [facility] Start: 05-08-2023 Influenza vaccination Influenza Vacc ine (#1) [facility] Start: 01-19-2023 Adult depression screening assessment DEPRESSION SCREENING [facility] Start: 2023 RSV Vaccine (1 - 1-d ose 60+ series) RSV Vaccine (1 - 1-dose 60+ series) [facility] Start: 2023 RSV Vaccine (1 - Ris k 60-74 years 1-dose series) RSV Vaccine (1 - Risk 60-74 years 1-dose series) [facility] Start: 09-07-2022 DEPRESSION ASSESSMENT DEPRESSION ASS ESSMENT [facility] Start: 09-07-2021 DEPRESSION ASSESSMENT DEPRESSION ASS ESSMENT [facility] Start: 09-15-2017 Pneumococcal Vaccine : 50+ (2 of 2 - PCV) Pneumococcal Vaccine: 50+ (2 of 2 - PCV) [facility] Start: 01-18-2008 COLOGUARD (FIT-DNA) COLOGUARD (FIT-D NA) [facility] Start: 01-18-2008 Colonoscopy COLONOSCOPY [facility] Start: 01-18-2008 COLORECTAL CANCER SCREENING COLORECTAL CANCER SCREENING [facility] Start: 01-18-[address] COLONOGRAPHY [facility] Start: 01-18-2008 DIABETES SCREEN [facility] Start: 01-18-2008 Diabetes Screening Diabetes Screenin g [facility] Start: 01-18-2008 FECAL OCCULT BLOOD FECAL OCCULT BLOO D [facility] Start: 01-18-2008 Lipid 1996 panel - S shey or Plasma Lipid Screening [facility] Start: 01-18-2008 Lipid panel Lipid Screening [facility] Start: 01-18-2008 LIPID SCREEN LIPID SCREEN [facility] Start: 01-18-2008 Screening for malign ant neoplasm of colon [facility] Start: 01-18-2008 SIGMOIDOSCOPY SIGMOIDOSCOPY [facility] Start: 2003 Mammography [facility] Start: 2003 Screening for malign ant neoplasm of breast Mammogram Screening [facility] Start: 1993 HPV TESTING HPV TESTING [facility] Start: 1993 Screening for malign ant neoplasm of cervix HPV Testing [facility] Start: 01-18-1984 PAP TESTING PAP TESTING [facility] Start: 01-18-1984 Screening for malign ant neoplasm of cervix [facility] Start: 1982 Urine microalbumin profile [facility] Start: 1981 Anxiety Screening Anxiety Screening [facility] Start: 1981 Depression Screening Depression Scre ening [facility] Start: 1981 HEPATITIS C SCREENING HEPATITIS C [facility] Start: 1981 Hepatitis C screening Hepatitis C [facility] Start: 1981 HIV SCREENING HIV SCREENING [facility] Start: 1981 HIV screening HIV Screening [facility] Start: 01-18-1968 COVID-19 VACCINE (#1) COVID-19 VACCI NE (#1) [facility] Start: 1963 COVID-19 VACCINE (#1) COVID-19 VACCI NE (#1) [facility] THIN PREP TIS PAP AN D HR HPV DNA THIN PREP TIS PAP AND HR HPV DNA Pathology and Cytology Routine Well woman exam with routine gynecological exam Ordered: 09/20/2024 [facility] Comment on above: Ordered: 09/20/2024 [facility] Immunizations Immunization Date Immunization Notes Care Provider Ruth guillaumean 06-11-2022 influenza virus vaccine, unspecified formulation Daphne Padron AIRPLANE DISPATCHER.MANAGER RAIL Work Phone: [facility] 07-01-2021 influenza virus vaccine, unspecified formulation Peters SALAM [facility] 05-29-2020 influenza virus vaccine, unspecified formulation Peters SALAM [facility] 05-22-2020 influenza virus vaccine, unspecified formulation Peters SALAM [facility] 08-08-2019 zoster vaccine recombinant Hilda Shilpa AIRPLANE DISPATCHER.MANAGER RAIL Work Phone: [facility] Work Phone: 05-19-2019 zoster vaccine recombinant Hilda Shilpa AIRPLANE DISPATCHER.MANAGER RAIL Work Phone: [facility] Work Phone: 05-10-2019 influenza virus vaccine, unspecified formulation Peters SALAM [facility] 05-10-2019 influenza, injectabl e, quadrivalent, preservative free Hilda Shilpa AIRPLANE DISPATCHER.MANAGER RAIL Work Phone: [facility] Work Phone: 05-10-2019 measles, mumps and rubella virus vaccine Hilda Shilpa AIRPLANE DISPATCHER.MANAGER RAIL Work Phone: [facility] Work Phone: 06-08-2017 influenza virus vaccine, unspecified formulation Hilda Shilpa AIRPLANE DISPATCHER.MANAGER RAIL Work Phone: [facility] Work Phone: 06-08-2017 influenza, unspecifi ed formulation Peters SALAM [facility] 09-15-2016 pneumococcal polysaccharide vaccine, 23 valent Hilda Massey AIRPLANE DISPATCHER.MANAGER RAIL Work Phone: [facility] Work Phone: 06-17-2016 influenza virus vaccine, unspecified formulation Hilda Gustafsonler AIRPLANE DISPATCHER.MANAGER RAIL Work Phone: [facility] Work Phone: 06-17-2016 influenza, unspecifi ed formulation Peters SALAM [facility] NEGATED: Highlighted row has not occurred!05-08-2022 influenza virus vaccine, unspecified formulation Peters SALAM [facility] Payers Date Payer Category Payer Private Health Insurance [employer] [id number] 2023 Unknown [id number] 2021 Unknown 2021 Unknown CHEYANNE MORGAN PPO [id number] 2021-Present [phone] [address] [place] [address] PPO [id number] 1963 Unknown [id number] 1963 Unknown [id number] 593 1963 Unknown [id number]. 593 1963 Unknown [id number]. 593 1963 Unknown [id number] 727 1963 Unknown [id number] 727 1963 Unknown [id number] 727 1963 Unknown [id number] 727 1963 Unknown [id number]. 1259 1963 Unknown [id number]. 1259 1963 Unknown [id number] 1259 1959 Unknown [id number] Social History Date Type Detail Facility Start: 10-03-2020 End: 04-17-2022 Tobacco smoking status IDIS Ex-smoker [facility] Start: 10-03-2020 End: 05-04-2023 Tobacco use and exposure Smokeless tobacco non-user [facility] Start: 01-23-2022 End: 08-16-2024 Alcohol intake Current drinker of alcohol (finding) [facility] Start: 05-08-2020 History SDOH Alcohol Frequency 4 [facility] Start: 1965 Sex Assigned At Not on file [facility] Start: 01-13-2022 End: 07-23-2022 Exposure to SARS-CoV-2 (event) Not sure [facility] Start: 05-08-2020 End: 08-16-2024 Sex Assigned At Female [facility] History of tobacco use Current smoker [facility] Start: 05-08-2020 End: 08-16-2024 History of Social function [facility] Work Phone: How often to you hav e a drink containing alcohol? 2-3 time sa week [facility] Work Phone: Average Number of Drinks Not on file [facility] Start: 05-04-2023 Tobacco smoking status NHIS Never smoked tobacco [facility] Start: 05-01-2023 Alcohol Comment less than monthly, Caffeine intake: 1-2 cups per day [facility] Start: 1965 Sex assigned at Female [facility] Start: 04-27-2023 Gender identity Identifies as female gender (finding) [facility] Start: 04-27-2023 Sexual orientation Heterosexual (finding) [facility] Functional Status Date Assessment Result Facility 05-08-2022 Functional Status N/A [facility] Clinical Notes 01-23-2022 to 09-20-2024 RAFIA Waggoner - 09/20/2024 9:00 AM ESTTelephone Encounter - Maris Rubio - 09/14/2024 7:24 AM ESTTelephone Encounter - Maris Rubio - 09/14/2024 7:24 AM ESTPatient Instructions Note Date & Type Note Facility 09-20-2024 History of Present illness Narrative Reason for Appointment: Patient ID: Tamela Hopper is a 59 y.o. female who presents for Well Women Visit Patient presents today for Annual Exam. MEDICATIONS Current Outpatient Medications Medication Instructions amitriptyline (ELAVIL) 75 mg, Oral, Nightly budesonide-formoterol (Symbicort) 160-4.5 MCG/ACT inhaler 2 puffs, Inhalation, Every 4 hours PRN EPINEPHrine (EPIPEN) 0.3 mg, Injection, As needed, Call 911 after use. metoprolol succinate XL (TOPROL-XL) 100 mg, Daily pantoprazole (PROTONIX) 40 mg, Every evening [START ON 09/21/2024] Premarin 0.625 mg, Topical, 3 times weekly rizatriptan (MAXALT) 10 mg ALLERGIES Allergies Allergen Reactions Sulfa Antibiotics Hives, Itching and Other PROBLEMS Active Ambulatory Problems Diagnosis Date Noted Seasonal allergic rhinitis due to pollen 05/04/2023 Migraine without aura and without status migrainosus, not intractable (CMS/HCC) 05/04/2023 Mild intermittent asthma without complication (CMS/HCC) 05/04/2023 Resolved Ambulatory Problems Diagnosis Date Noted No Resolved Ambulatory Problems Past Medical History: Diagnosis Date Abnormal diffusion capacity determined by pulmonary function test Actinic keratosis Acute pulmonary embolism (CMS/HCC) Anticoagulant long-term use Arrhythmia Asthma, mild intermittent (CMS/HCC) Carpal tunnel syndrome Chronic hypoxemic respiratory failure (CMS/HCC) COVID-19 with multiple comorbidities Encounter for gynecological examination (general) (routine) without abnormal findings Ganglion cyst of wrist, right Irritable bowel syndrome Neuropathy Obesity (BMI 30-39.9) Ovarian cyst Palpitations Premenopausal patient Pulmonary hypertension assoc with unclear multi-factorial mechanisms (CMS/HCC) Squamous cell carcinoma in situ Squamous cell skin cancer HISTORY PAST MEDICAL HISTORY SOCIAL HISTORY Past Medical History: Diagnosis Date Abnormal diffusion capacity determined by pulmonary function test Actinic keratosis Acute pulmonary embolism (CMS/HCC) Anticoagulant long-term use Arrhythmia Asthma, mild intermittent (CMS/HCC) Carpal tunnel syndrome Chronic hypoxemic respiratory failure (CMS/HCC) COVID-19 with multiple comorbidities Encounter for gynecological examination (general) (routine) without abnormal findings Ganglion cyst of wrist, right Irritable bowel syndrome Neuropathy Obesity (BMI 30-39.9) Ovarian cyst Palpitations Premenopausal patient Pulmonary hypertension assoc with unclear multi-factorial mechanisms (CMS/HCC) 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 Squamous cell skin cancer Social History Tobacco Use Smoking status: Never Smokeless tobacco: Never Substance Use Topics Alcohol use: Yes Comment: less than monthly, Caffeine intake: 1-2 cups per day Drug use: Never FAMILY HISTORY Family History Problem Relation Name Age of Onset Mental illness Mother Hypertension Father Heart disease Father Stroke Father Cancer Father Skin Heart disease Paternal Grandfather SURGICAL HISTORY Past Surgical History: Procedure Laterality Date APPENDECTOMY BLADDER SURGERY bladder lift CARPAL TUNNEL RELEASE Left 12/20/2018 CARPAL TUNNEL RELEASE Right 02/2018 GANGLION CYST EXCISION Right ganglion cyst wrist HYSTERECTOMY OOPHORECTOMY ovarian cyst OTHER SURGICAL HISTORY Right removal of ganglion wrist ID MEDICATION MANAGEMENT irritable bowel syndrome SINUS SURGERY SINUS SURGERY SKIN BIOPSY SKIN CANCER EXCISION TONSILLECTOMY REVIEW OF SYSTEMS Review of Systems: Review of Systems Constitutional: Negative. HENT: Negative. Eyes: Negative. Respiratory: Negative. Cardiovascular: Negative. Gastrointestinal: Negative. Genitourinary: Negative. Musculoskeletal: Negative. Skin: Negative. Neurological: Negative. All other systems reviewed and are negative. Hematological: Negative. Endocrine: Negative. Allergic/Immunologic: Negative. OBJECTIVE Objective: Physical Exam Constitutional: Appearance: Normal appearance. She is well-developed. Genitourinary: Vulva normal. Right Adnexa: no mass present. Left Adnexa: no mass present. Cervix is absent. Uterus is absent. Breasts: Breasts are soft. Right: Normal. Left: Normal. HENT: Head: Normocephalic. Nose: Nose normal. Mouth/Throat: Mouth: Mucous membranes are moist. Cardiovascular: Rate and Rhythm: Normal rate and regular rhythm. Pulmonary: Effort: Pulmonary effort is normal. Breath sounds: Normal breath sounds. Abdominal: General: Bowel sounds are normal. There is no distension. Palpations: Abdomen is soft. Tenderness: There is no abdominal tenderness. There is no guarding or rebound. Musculoskeletal: General: No swelling. Normal range of motion. Cervical back: Normal range of motion. Right lower leg: No edema. Left lower leg: No edema. Neurological: General: No focal deficit present. Mental Status: She is alert and oriented to person, place, and time. Skin: General: Skin is warm and dry. Psychiatric: Mood and Affect: Mood normal. Behavior: Behavior normal. Vitals and nursing note reviewed. Exam conducted with a hiv nurse present. Vitals: Estimated body mass index is 29.12 kg/m as calculated from the following: Height as of 05/04/23: 5' 1 . Weight as of this encounter: 154 lb 1.9 oz. BP: 110/82 No LMP recorded. ASSESSMENT & PLAN ICD-10-CM 1. Well woman exam with routine gynecological exam Z01.419 THIN PREP TIS PAP AND HR HPV DNA 2. Breast cancer screening by mammogram Z12.31 Bilateral screening mammogram Bilateral screening mammogram 3. Vaginal dryness N89.8 Estrogens Conjugated (Premarin) 0.625 MG/GM cream Annual Exam: Patient presents today for an annual exam. Patient states she is doing well and has no complaints. Pap was obtained without difficulty. Orders Placed This Encounter Procedures Bilateral screening mammogram Follow Up: Patient is to return in one year for annual unless needed otherwise. Documented by Donna Dendinger, SET OFF PRESS OPERATOR on behalf of: RAFIA Waggoner documented in this encounter [facility] 09-14-2024 Telephone encounter Note Physician: Vito Call from patient requesting refill. Please E-Scribe Last office visit 07/07/24 with Hamdan in person Next office visit 10/06/24 with Hamdan in person Requested Prescriptions Pending Prescriptions Disp Refills rizatriptan (MAXALT) 10 mg tablet [Pharmacy Med Name: RIZATRIPTAN 10 MG TABLET] 9 tablet 1 Sig: TAKE 1 TABLET (10 MG) BY MOUTH NEEDED. AT ONSET OF HEADACHE. MAY REPEAT AFTER 2 HOURS. Pharmacy Name: BRITTANY Rubio [facility] 09-14-2024 Miscellaneous Notes Physician: Vito Call from patient requesting refill. Please E-Scribe Last office visit 07/07/24 with Hamdan in person Next office visit 10/06/24 with Hamdan in person Requested Prescriptions Pending Prescriptions Disp Refills rizatriptan (MAXALT) 10 mg tablet [Pharmacy Med Name: RIZATRIPTAN 10 MG TABLET] 9 tablet 1 Sig: TAKE 1 TABLET (10 MG) BY MOUTH NEEDED. AT ONSET OF HEADACHE. MAY REPEAT AFTER 2 HOURS. Pharmacy Name: [facility] Rubio documented in this encounter [facility] 08-16-2024 History of Present illness Narrative Skin Check Location: Patient requests a full body skin examination Dermatologic history: history of Actinic Keratosis, history of Squamous Cell Carcinoma Last visit: 1 year ago Established patient All pertinent medical history, medications, and allergies were reviewed. General Exam: alert, oriented to person, place, and time, normal affect, well appearing Unaccompanied Scalp, Examined , exam limited by hair Right leg Examined Head, Face Examined Left leg Examined Neck Examined Right foot Examined Chest Examined Left foot Examined Back Examined Buttocks Examined Abdomen Examined Digits,nails: Examined Right arm Examined Patient wearing nail italian, Denies dark streaks under finger nails, Denies dark streaks on toenails Left arm Examined Lymphatics: Not examined Hands Examined 1. Seborrheic keratosis Torso - Posterior (Back) Stuck on verrucous, variably pigmented papules and plaques. Patient was counseled regarding these benign growths. Removal is normally not necessary, but they may be removed if they are symptomatic or for cosmetic reasons. 2. Lentigines (2) Chest, Face Scattered gillette macules in sun-exposed areas. The patient was informed that lentigines are benign pigmented lesions that occur on sun-exposed and sun-damaged skin. No treatment is necessary. Recommended regular use of broad spectrum sunscreen SPF 30 or higher 3. History of SCC (squamous cell carcinoma) of skin Left Upper Back No evidence of recurrence at SCC scar. The patient was counseled that scars from excisional sites of nonmelanoma skin cancers should be monitored closely for recurrence. The patient was instructed to contact the office for any new, changing, or symptomatic moles. The patient was also instructed to contact the office for any new lesions that develop within or around the previous surgery scar. 4. Capillary angioma Scattered mercado-red papule(s). The patient was informed that angiomas are benign growths on the the skin. No treatment is necessary. 5. Melanocytic nevus of trunk Scattered benign appearing, regular brown to light brown melanocytic papules and macules with similar morphology Counseled regarding these benign growths. Rarely, a nevus can develop into malignant melanoma, so any changing nevi should be promptly re-evaluated. Next Visit: 1 year documented in this encounter [facility] 07-21-2024 Telephone encounter Note TAMELA HOPPER (Carreon: [id number]) RAFIA Denied today by [employer] 2016 CaseId:[id number];Status:Denied;Rev iew Type:Prior Auth;Appeal Information: Attention:ATTN: CLINICAL APPEALS DEPARTMENT [employer] [address] [address],[place], [place],[address] ; I We reviewed the information you provided in support of your patient s request to obtain Naratriptan hcl 2.5 mg TABLET under his or her plan. We are unable to approve this request for the following reason(s): ? Coverage is provided in situations where the patient has tried and failed one of the preferred agents: rizatriptan (tablets and orally disintegrating tablets) OR sumatriptan (tablets, nasal spray, injection). Coverage cannot be authorized at this time. Ju Reynolds MA [facility] 07-21-2024 Miscellaneous Notes TAMELA HOPPER (Carreon: [id number]) PA Denied today by [employer] 2016 CaseId:[id number];Status:Denied;Rev iew Type:Prior Auth;Appeal Information: Attention:ATTN: CLINICAL APPEALS DEPARTMENT [employer] [address] [address],[place], [place],[address] ; I We reviewed the information you provided in support of your patient s request to obtain Naratriptan hcl 2.5 mg TABLET under his or her plan. We are unable to approve this request for the following reason(s): ? Coverage is provided in situations where the patient has tried and failed one of the preferred agents: rizatriptan (tablets and orally disintegrating tablets) OR sumatriptan (tablets, nasal spray, injection). Coverage cannot be authorized at this time. Ju Reynolds MA Completed over CMM: [employer] is reviewing your PA request and will respond within 24 hours for Medicaid or up to 72 hours TAMELA HOPPER (Carreon: [id number]) PA Drug Naratriptan HCl 2.5MG tablets ePA cloud logo Form [employer] Electronic PA Form (2016 [facility]) Ju Reynolds MA Images from the original note were not included. Prior Authorization for Medications Requested by ([facility], Pharmacy, Patient Call, Fax) : Phone Pharmacy Name: [facility] Pharmacy Phone # : [phone] Name of Medication : Naratriptan Dose : 2.5 mg Tablet - 9 tabs If renewal, auth date expiration: NA Prescribing Provider: Vito Last OV: 07/07/2024 with Hamdan Insurance Provider : MMO / [employer]. Is insurance card scanned in, including Rx info? Yes Rx ID number: [id number] Rx BIN: [id number] Rx PCN: COPAY Rx Grp: [id number] Insurance Phone : CoverMyMeds Carreon: NA E-PA? Yes documented in this encounter [facility] 07-21-2024 Telephone encounter Note Completed over [facility]: [employer] is reviewing your PA request and will respond within 24 hours for Medicaid or up to 72 hours TAMELA HOPPER (Carreon: [id number]) PA Drug Naratriptan HCl 2.5MG tablets ePA cloud logo Form [employer] Electronic PA Form (2016 [facility]) Ju Reynolds MA [facility] 07-21-2024 Telephone encounter Note Images from the original note were not included. Prior Authorization for Medications Requested by ([facility], Pharmacy, Patient Call, Fax) : Phone Pharmacy Name: [facility] Pharmacy Phone # : [phone] Name of Medication : Naratriptan Dose : 2.5 mg Tablet - 9 tabs If renewal, auth date expiration: NA Prescribing Provider: Vito Last OV: 07/07/2024 with Hamdan Insurance Provider : MMO / [employer]. Is insurance card scanned in, including Rx info? Yes Rx ID number: [id number] Rx BIN: [id number] Rx PCN: COPAY Rx Grp: [id number] Insurance Phone : CoverMyMeds Carreon: NA E-PA? Yes [facility] 07-08-2024 Telephone encounter Note Botox referral sent to pharmacy. Belle Erazo RN [facility] 07-08-2024 Miscellaneous Notes Botox referral sent to pharmacy. Belle Erazo RN documented in this encounter [facility] 07-07-2024 Instructions Daphne Padron APRN.CNP - 07/07/2024 10:51 AM EDT Instruction after Botox injection: - [...] it does not, call our office at [phone] for further instructions. documented in this encounter [facility] 07-07-2024 Note HNO ID: [id number] Author: DAPHNE PADRON APRN.CNP Service: ? Author Type: Nurse Practitioner Type: Progress Notes Filed: 07/07/2024 11:01 Note Text: Answers submitted by the patient for this visit: Headache Questionnaire (Submitted on 06/30/2024) How many days of work or school [...] Migraine Indication: Chronic Intractable Migraine Treatment #: 16 Referral Expiration: 08/25/2024 Prior to the initiation [...] infection at proposed injection site. HEADACHE SCORES: 12/19/2023 03/24/2024 06/30/2024 Headache Questions ER visits since last office visit: 0 0 0 Hospital stays since last office visit 0 0 0 Limited ADLs in the last month: 0 0 0 Days missed from work or school in the last month: 0 0 0 Days headache pain free in the last month: 28 20 28 Days per month with ALL of the following symptoms - decreased productivity, light sensitivity and nausea: 0 0 0 Initial improvement of headache after botox injection at last visit: Much improved Much improved Much improved Patient impression of improvement since last visit: Much improved Much improved Much improved 12/19/2023 03/24/2024 06/30/2024 HIT-6 HIT-6 42 (Little or no impact) 38 (Little or no impact) 44 (Little or no impact) 12/19/2023 03/24/2024 06/30/2024 HANS - 2/7 SCORES HANS-2 Score 0 0 0 12/19/2023 03/24/2024 06/30/2024 Migraine Specific QOL - Higher scores indicate better HRQL Role Function-Restrictive Transformed Score (range: 0-100) 100 100 100 Role Function-Preventive Transformed Score (range: 0-100) 100 100 100 Emotional Function Transformed Score (range: 0-100) 100 86.67 100 03/24/2024 12/19/2023 09/10/2023 PHQ-9 Score 0 0 0 BP 139/89 (BP Site: Left Arm, BP Position: Sitting, BP Cuff Size: Small Adult) Pulse 76 [facility] 1965 ALLERGIES Allergen Reactions Sulfa (Sulfonamide * Hives UNIVERSAL PROTOCOL / SAFETY CHECKLIST Procedure: Onabotulinum toxin A for migraine Informed Consent Consent Obtained: Written [place] Protocol A moment to CARE was completed [...] (Sites) Right (Units) Right (Sites) TOTAL (Units) Fun House Operator 5 1 5 1 10 Procerus Units: [...] 200 Total Units wasted: 0 Prior Therapies Duratio (more content not included)... [facility] 07-07-2024 History of Present illness Narrative Answers submitted by the patient for this visit: Headache Questionnaire (Submitted on 06/30/2024) How many days of work or school [...] Migraine Indication: Chronic Intractable Migraine Treatment #: 16 Referral Expiration: 08/25/2024 Prior to the initiation [...] infection at proposed injection site. HEADACHE SCORES: 12/19/2023 03/24/2024 06/30/2024 Headache Questions ER visits since last office visit: 0 0 0 Hospital stays since last office visit 0 0 0 Limited ADLs in the last month: 0 0 0 Days missed from work or school in the last month: 0 0 0 Days headache pain free in the last month: 28 20 28 Days per month with ALL of the following symptoms - decreased productivity, light sensitivity and nausea: 0 0 0 Initial improvement of headache after botox injection at last visit: Much improved Much improved Much improved Patient impression of improvement since last visit: Much improved Much improved Much improved 12/19/2023 03/24/2024 06/30/2024 HIT-6 HIT-6 42 (Little or no impact) 38 (Little or no impact) 44 (Little or no impact) 12/19/2023 03/24/2024 06/30/2024 HANS - 2/7 SCORES HANS-2 Score 0 0 0 12/19/2023 03/24/2024 06/30/2024 Migraine Specific QOL - Higher scores indicate better HRQL Role Function-Restrictive Transformed Score (range: 0-100) 100 100 100 Role Function-Preventive Transformed Score (range: 0-100) 100 100 100 Emotional Function Transformed Score (range: 0-100) 100 86.67 100 03/24/2024 12/19/2023 09/10/2023 PHQ-9 Score 0 0 0 BP 139/89 (BP Site: Left Arm, BP Position: Sitting, BP Cuff Size: Small Adult) Pulse 76 [facility] 1965 ALLERGIES Allergen Reactions Sulfa (Sulfonamide * Hives UNIVERSAL PROTOCOL / SAFETY CHECKLIST Procedure: Onabotulinum toxin A for migraine Informed Consent Consent Obtained: Written [place] Protocol A moment to CARE was completed [...] (Sites) Right (Units) Right (Sites) TOTAL (Units) Fun House Operator 5 1 5 1 10 Procerus Units: [...] Daphne Padron APRN.CNP documented in this encounter [facility] 05-06-2024 Telephone encounter Note patient requesting refill via [facility] [employer]. Last OV: 03/31/2024 with Daphne Padron APRN.SOHAIL Future OV: 07/07/2024 with Daphne Padron APRN.SOHAIL Last prescribed: 9 months ago (08/10/2023) by Daphne Padron APRN.MANAGER RAIL Requested Prescriptions Pending Prescriptions Disp Refills naratriptan (AMERGE) 2.5 mg tablet 9 tablet 11 Sig: May repeat dose after 4 hours if needed. Maximum daily dose is 5 mg per day. [facility] 05-06-2024 Miscellaneous Notes patient requesting refill via Mychart. Last OV: 03/31/2024 with Daphne Padron APRN.CNP Future OV: 07/07/2024 with Daphne Padron APRN.CNP Last prescribed: 9 months ago (08/10/2023) by Daphne Padron APRN.MANAGER RAIL Requested Prescriptions Pending Prescriptions Disp Refills naratriptan (AMERGE) 2.5 mg tablet 9 tablet 11 Sig: May repeat dose after 4 hours if needed. Maximum daily dose is 5 mg per day. documented in this encounter [facility] 05-04-2024 History of Present illness Narrative Tamela Hopper returns to the office today and notes that allergen immunotherapy is going well. The patient reports having an excellent response to allergen immunotherapy and denies having any systemic reactions and is holding metoprolol for 1-2 days before the shots. She feels her asthma has been doing well. She does Symbicort before allergen immunotherapy and this has been helpful. She has lost 43 pounds and her exercise tolerance has been better. She has been swimming and walking. She rarely has headache now. She feels elavil has been very helpful for her symptoms. She has been taking 75 mg at bed. She is going to [employer] soon. EXAM The patient appears comfortable in the office today. Lungs are clear to auscultation bilaterally. The oral mucosa is pink and healthy without any lesions or ulcers. The palate elevates in the midline. The nasal mucosa is pink and healthy. There is no epistaxis mucopus or nasal polyposis noted. The nasal septum is approximately in the midline. The skin is clear of any lesions, excoriations, or erythema. IMPRESSION: Allergic rhinoconjunctivitis - [facility] [facility] [facility] [facility] [place] Continue allergen immunotherapy. Headache - continue elavil Mild intermittent asthma - Symbicort prn cccm exercise and weight loss. Follow-up 10 months or sooner if problems arise. documented in this encounter [facility] 03-31-2024 Instructions Daphne Padron APRN.CNP - 03/31/2024 [...] it does not, call our office at [phone] for further instructions. documented in this encounter [facility] 03-31-2024 Note HNO ID: [id number] Author: DAPHNE PADRON APRN.MANAGER RAIL Service: ? Author Type: Nurse Practitioner Type: Progress Notes Filed: 03/31/2024 10:56 Note Text: Answers submitted by the patient [...] days/month: 20 (480 headache-free hours) Migraine severity: 6/10 Patient reduction [...] Regular Adult) Pulse 74 [facility] 1965 ALLERGIES Allergen Reactions Sulfa (Sulfonamide * Hives UNIVERSAL PROTOCOL / SAFETY CHECKLIST Procedure: Onabotulinum toxin A for migraine Informed Consent Consent Obtained: Written [place] Protocol A moment to CARE was completed [...] (Sites) Right (Units) Right (Sites) TOTAL (Units) Fun House Operator 5 1 5 1 10 Procerus Units: [...] 3 35 Total Units used: 200 Total Un (more content not included)... [facility] 03-31-2024 History of Present illness Narrative Answers submitted by the patient [...] days/month: 20 (480 headache-free hours) Migraine severity: 6/10 Patient reduction [...] Adult) Pulse 74 Patient name: Tamela Meza [facility] : 1965 ALLERGIES Allergen Reactions Sulfa (Sulfonamide * Hives UNIVERSAL PROTOCOL / SAFETY CHECKLIST Procedure: Onabotulinum toxin A for migraine Informed Consent Consent Obtained: Written [place] Protocol A moment to CARE was completed [...] (Sites) Right (Units) Right (Sites) TOTAL (Units) Fun House Operator 5 1 5 1 10 Procerus Units: [...] Daphne Padron APRN.CNP documented in this encounter [facility] 12-24-2023 Instructions Daphne Padron APRN.CNP [...] it does not, call our office at [phone] for further instructions. documented in this encounter [facility] 12-24-2023 Note HNO ID: [id number] Author: HAMDAN, MOHAMMAD, AIRPLANE DISPATCHER.MANAGER RAIL Service: ? Author Type: Nurse Practitioner Type: [...] Regular Adult) Pulse 68 [facility]: [facility] 1965 ALLERGIES Allergen Reactions Sulfa (Sulfonamide * Hives UNIVERSAL PROTOCOL / SAFETY CHECKLIST Procedure: Onabotulinum toxin A for migraine Informed Consent Consent Obtained: Written [place] Protocol A moment to CARE was completed [...] (Sites) Right (Units) Right (Sites) TOTAL (Units) Fun House Operator 5 1 5 1 10 Procerus Units: [...] used: 200 Tota (more content not included)... [facility] 12-24-2023 History of Present illness Narrative Answers submitted by the patient [...] days/month: 28 (672 headache-free hours) Migraine severity: 6/10 Patient reduction [...] Regular Adult) Pulse 68 Patient name: Tamela Meza [facility] : 1965 ALLERGIES Allergen Reactions Sulfa (Sulfonamide * Hives UNIVERSAL PROTOCOL / SAFETY CHECKLIST Procedure: Onabotulinum toxin A for migraine Informed Consent Consent Obtained: Written [place] Protocol A moment to CARE was completed [...] (Sites) Right (Units) Right (Sites) TOTAL (Units) Fun House Operator 5 1 5 1 10 Procerus Units: [...] sodium (Aleve) lack of efficacy Daphne Padron APRN.MANAGER RAIL documented in this encounter [facility] 09-17-2023 Note HNO ID: [id number] Author: DAPHNE PADRON APRN.CNP Service: ? Author [...] Regular Adult) Pulse 86 Patient name: Tamela Hopper : 1965 ALLERGIES Allergen Reactions Sulfa (Sulfonamide * Hives UNIVERSAL PROTOCOL / SAFETY CHECKLIST Procedure: Onabotulinum toxin A for migraine Informed Consent Consent Obtained: Written [place] Protocol A moment to CARE was completed [...] (Sites) Right (Units) Right (Sites) TOTAL (Units) Fun House Operator 5 1 5 1 10 Procerus Units: 5 Sites: 1 5 Frontalis 10 2 10 2 20 Temporalis optional follow the pain 20 10 4 2 20 10 4 2 60 Occipitalis optional follow the pain 15 10 3 2 15 10 3 2 50 Cervical PSP 10 2 10 2 20 Trapezius optional follow the pain 15 (more content not included)... [facility] 06-25-2023 Instructions Daphne Padron APRN.MANAGER RAIL - 06/25/2023 11:10 AM EDT Instruction after [...] it does not, call our office at [phone] for further instructions. documented in this encounter [facility] 06-25-2023 History of Present illness Narrative Answers submitted by the patient [...] for this visit. Patient name: Tamela Meza [facility] : 1965 ALLERGIES Allergen Reactions Sulfa (Sulfonamide * Hives UNIVERSAL PROTOCOL / SAFETY CHECKLIST Procedure: Onabotulinum toxin A for migraine Informed Consent Consent Obtained: Written [place] Protocol A moment to CARE was completed [...] applicable Written Consent Obtained: Written LOT #: [id number] Expiration Date: Month: 3 Year: 2024 Injection Sites Left (Units) Left (Sites) Right (Units) Right (Sites) TOTAL (Units) Fun House Operator 5 1 5 1 10 Procerus Units: [...] sodium (Aleve) lack of efficacy Daphne Padron APRN.MANAGER RAIL documented in this encounter [facility] 06-22-2023 Miscellaneous Notes Botox referral sent to pharmacy. Maya Erazo RN documented in this encounter [facility] 03-03-2023 Miscellaneous Notes Called patient, she has new O insurance. Registration has been updated === PHARMACY TEAM ==== ADDITIONAL INFORMATION NEEDED/REQUESTED Case Submitted: No Request Type: Provider Date of Service: 03/30/2023 Additional Information Needed: as per today's eligibility check [place] ([id number]) coverage for the patient is termed. We need active coverage of the patient to work on authorization. Request from Payor by: N/A Email Sent to: C21 Nikolas Galvez, Britney Sandoval, Rashawn Padilla, Dwight Harris, Maddie Martinez, Rahat Maciel Requested Clinicals/Information Sent: N/A documented in this encounter [facility] 01-01-2023 Miscellaneous Notes Botox referral sent to pharmacy Bridgette Gipson LPN January 01, 2023 11:44 AM documented in this encounter [facility] 10-17-2022 History of Present illness Narrative Follow-Up Onabotulinum Toxin A (BotoxTM) [...] BMI 31.84 kg/m Patient name: Tamela Meza [facility] : 1965 ALLERGIES Allergen Reactions Sulfa (Sulfonamide * Hives UNIVERSAL PROTOCOL / SAFETY CHECKLIST Procedure: Onabotulinum toxin A for migraine Informed Consent Consent Obtained: Written [place] Protocol A moment to CARE was completed [...] applicable Written Consent Obtained: Written LOT #: [id number] Expiration Date: Month: 5 Year: 2024 Injection Sites Left (Units) Left (Sites) Right (Units) Right (Sites) TOTAL (Units) Fun House Operator 5 1 5 1 10 Procerus Units: [...] Naproxen sodium (Aleve) lack of efficacy Hilda Massey APRN.SOHAIL Answers submitted by the patient for this visit: Headache Questionnaire (Submitted on 10/15/2022) How many days of work or school have you missed due to headaches in the last month? : 0 documented in this encounter [facility] 07-23-2022 Instructions Marcus Zamora APRN.CNP [...] it does not, call our office at [phone] for further instructions. documented in this encounter [facility] 07-23-2022 History of Present illness Narrative Follow-Up Onabotulinum Toxin A (BotoxTM) [...] for this visit. [facility] 1965 ALLERGIES Allergen Reactions Sulfa (Sulfonamide * Hives Denies . No fever, rashes, or body aches. UNIVERSAL PROTOCOL / SAFETY CHECKLIST Procedure: Onabotulinum toxin A for migraine Informed Consent Consent Obtained: Written [place] Protocol A moment to CARE was completed [...] applicable Written Consent Obtained: Written LOT #: [id number] Expiration Date: Month: 3 Year: 2024 Injection Sites Left (Units) Left (Sites) Right (Units) Right (Sites) TOTAL (Units) Fun House Operator 5 1 5 1 10 Procerus Units: [...] sodium (Aleve) lack of efficacy Marcus Zamora APRN.MANAGER RAIL Answers submitted by the patient for this visit: Headache Questionnaire (Submitted on 07/17/2022) documented in this encounter [facility] 02-26-2022 Hospital Discharge instructions Follow Up Care 02/26/2022 10:41:21 With:ENA BROTHERS, LELIA Peters, [facility] Address: [facility] [address] [place] [address] [place] [address]- When:3 months [facility] 01-23-2022 History of Present illness Narrative Follow-Up Onabotulinum Toxin A (BotoxTM) [...] BMI 32.29 kg/m Patient name: Tamela Meza [facility] : 1965 ALLERGIES Allergen Reactions Sulfa (Sulfonamide [...] of Care Visit completed when applicable. Hilda Massey APRN.[facility] UNIVERSAL PROTOCOL / SAFETY CHECKLIST Procedure: Onabotulinum toxin A for migraine Informed Consent Consent Obtained: yes [place] Protocol A moment to CARE was completed [...] injections Written Consent Obtained: yes LOT #: [id number] Expiration Date: Month: Year: 2023 Injection Sites Left (Units) Left (Sites) Right (Units) Right (Sites) TOTAL (Units) Fun House Operator 5 1 5 1 10 Procerus Units: [...] lack of efficacy RTC 3 months Hilda Massey APRN.CNP Answers for HPI/ROS submitted by the patient on 01/19/2022 How many days of work or school have you missed due to headaches in the last month? : 0 documented in this encounter [facility] Evaluation + Plan note Future Appointments Appointment Date:04/10/2022 01:15:00 PM Scheduled Provider:Lorraine SUTHERLAND MD [place] Appointment Type:[facility] Follow Up [facility] Evaluation note Diagnosis Intractable chronic migraine without aura and without status migrainosus- Primary Chronic migraine without aura, with intractable migraine, so stated, without mention of status migrainosus [facility] Intractable chronic migraine without aura and without status migrainosus Chronic migraine without aura, with intractable migraine, so stated, without mention of status migrainosus [facility] Diagnosis Intractable chronic migraine without aura and without status migrainosus- Primary Chronic migraine without aura, with intractable migraine, so stated, without mention of status migrainosus [facility] Diagnosis Intractable chronic migraine without aura and without status migrainosus- Primary Chronic migraine without aura, with intractable migraine, so stated, without mention of status migrainosus [facility] Diagnosis Intractable chronic migraine without aura and without status migrainosus- Primary Chronic migraine without aura, with intractable migraine, so stated, without mention of status migrainosus [facility] Diagnosis Intractable chronic migraine without aura and without status migrainosus- Primary Chronic migraine without aura, with intractable migraine, so stated, without mention of status migrainosus [facility] Diagnosis Intractable chronic migraine without aura and without status migrainosus Chronic migraine without aura, with intractable migraine, so stated, without mention of status migrainosus [facility] Diagnosis Intractable chronic migraine without aura and without status migrainosus Chronic migraine without aura, with intractable migraine, so stated, without mention of status migrainosus [facility] Diagnosis Seborrheic keratosis- Primary Lentigines History of SCC (squamous cell carcinoma) of skin Personal history of other malignant neoplasm of skin Capillary angioma Nevus, non-neoplastic Melanocytic nevus of trunk Benign neoplasm of skin of trunk, except scrotum documented in this encounter [facility]* Diagnosis Asthma, allergic, mild intermittent, uncomplicated (CMS/HCC)- Primary Seasonal allergic rhinitis, unspecified trigger Migraine without aura and without status migrainosus, not intractable (CMS/HCC) Mild intermittent asthma without complication (CMS/HCC) Seasonal allergic rhinitis due to pollen documented in this encounter [facility] HealthcareEvaluation note* Diagnosis Intractable chronic migraine without aura and without status migrainosus Chronic migraine without aura, with intractable migraine, so stated, without mention of status migrainosus [facility] Diagnosis Well woman exam with routine gynecological exam Routine gynecological examination Breast cancer screening by mammogram Vaginal dryness Postmenopausal atrophic vaginitis documented in this encounter [facility] HealthcareHospital course Narrative No data available for this section [facility] No data available for this [facility] data available for this section [facility] Summary Purpose Family History No Family [...] 200 Units, INTRAMUSCULAR, ONCE, 1 dose, On Thu07/23/22 at 1000, This record documents the total [...] Referral Specialty Diagnoses / Procedures Referred By Davoin harris Referred To Contact Diagnoses Intractable chronic migraine without aura and without status migrainosus Procedures PROVIDER ORDERED FOLLOW UP OFFICE/OUTPATIENT [facility] 60-74 MINUTES Marcus Zamora APRN.MANAGER RAIL [address] [place] [address] Referral ID Status Reason Start Date Expiration Date Visits Requested Visits Authorized [id number] Authorized PCP Requested Referral 10/23/2022 07/23/2023 1 1 Additional Source Comments INFORMATION SOURCE (unrecogn ized section and content) DATE CREATED AUTHOR 03/03/2018 [facility] DATE CREATED AUTHOR AUTHOR'S ORGANIZ ATION 11/20/2020 [facility] DATE CREATED AUTHOR AUTHOR'S ORGANIZ ATION 10/31/2021 [facility] DATE CREATED AUTHOR AUTHOR'S ORGANIZ ATION 11/11/2022 [facility] DATE CREATED AUTHOR AUTHOR'S ORGANIZ ATION 01/21/2023 [facility] DATE CREATED AUTHOR AUTHOR'S ORGANIZ ATION 07/27/2024 [facility] DATE CREATED AUTHOR AUTHOR'S ORGANIZ ATION 08/19/2024 [facility] EPIC Source Comments (unrecognize d section and content) In the event this informatio n is protected by the Federal Confidentiality of Alcohol and Drug Abuse Patient Records regulations: The Federal rules restrict any use of the information to criminally investigate or prosecute any alcohol or drug abuse patient.[facility] the event this information is protected by the Federal Confidentiality of Alcohol and Drug Abuse Patient Records regulations: The Federal rules restrict any use of the information to criminally investigate or prosecute any alcohol or drug abuse patient.[facility] Center[facility] the event this information is protected by the Federal Confidentiality of Alcohol and Drug Abuse Patient Records regulations: The Federal rules restrict any use of the information to criminally investigate or prosecute any alcohol or drug abuse patient.[facility] Center[facility] the event this information is protected by the Federal Confidentiality of Alcohol and Drug Abuse Patient Records regulations: The Federal rules restrict any use of the information to criminally investigate or prosecute any alcohol or drug abuse patient.[facility] Center[facility] the event this information is protected by the Federal Confidentiality of Alcohol and Drug Abuse Patient Records regulations: The Federal rules restrict any use of the information to criminally investigate or prosecute any alcohol or drug abuse patient.[facility] Center[facility] the event this information is protected by the Federal Confidentiality of Alcohol and Drug Abuse Patient Records regulations: The Federal rules restrict any use of the information to criminally investigate or prosecute any alcohol or drug abuse patient.[facility] CenterIn the event this information is protected by the Federal Confidentiality of Alcohol and Drug Abuse Patient Records regulations: The Federal rules restrict any use of the information to criminally investigate or prosecute any alcohol or drug abuse patient.[facility] CenterIn the event this information is protected by the Federal Confidentiality of Alcohol and Drug Abuse Patient Records regulations: The Federal rules restrict any use of the information to criminally investigate or prosecute any alcohol or drug abuse patient.[facility] CenterIn the event this information is protected by the Federal Confidentiality of Alcohol and Drug Abuse Patient Records regulations: The Federal rules restrict any use of the information to criminally investigate or prosecute any alcohol or drug abuse patient.[facility] CenterIn the event this information is protected by the Federal Confidentiality of Alcohol and Drug Abuse Patient Records regulations: The Federal rules restrict any use of the information to criminally investigate or prosecute any alcohol or drug abuse patient.[facility] CenterIn the event this information is protected by the Federal Confidentiality of Alcohol and Drug Abuse Patient Records regulations: The Federal rules restrict any use of the information to criminally investigate or prosecute any alcohol or drug abuse patient.[facility] the event this information is protected by the Federal Confidentiality of Alcohol and Drug Abuse Patient Records regulations: The Federal rules restrict any use of the information to criminally investigate or prosecute any alcohol or drug abuse patient.[facility] CenterIn the event this information is protected by the Federal Confidentiality of Alcohol and Drug Abuse Patient Records regulations: The Federal rules restrict any use of the information to criminally investigate or prosecute any alcohol or drug abuse patient.[facility] CenterIn the event this information is protected by the Federal Confidentiality of Alcohol and Drug Abuse Patient Records regulations: The Federal rules restrict any use of the information to criminally investigate or prosecute any alcohol or drug abuse patient.[facility] Reason for Visit (unrecogniz ed section and content) Reason Comments Established Patient Follow Up Botox Injection Chronic Migraine Specialty Diagnoses / Procedures Referred By Davion harris Referred To Contact [facility] Diagnoses Chronic migraine without aura, intractable, without status migrainosus Renewal. Due 08/25/23. Botox 200 units every 12 weeks for 1 year through [facility] buy and bill Preempt protocol [id number] Procedure -41339 chemodervate facial/trigem/cerv musc migraine Procedures BOTULINUM TOXIN A PER 1 UNIT CHEMODERVATE FACIAL/TRIGEM/CERV MUSC MIGRAINE MarcelodanDaphne, AIRPLANE DISPATCHER.MANAGER RAIL [address] [place] [address] Neur Headache [address] [place] [address] Referral ID Status Reason Start Date Expiration Date V isits Requested Visits Authorized [id number] Authorized 08/19/2023 08/25/2024 4 4 Reason Comments Botox Injection Specialty Diagnoses / Procedures Referred By Contac t Referred To Contact HEADACHE Diagnoses Chronic migraine without aura, intractable, without status migrainosus Procedures BOTULINUM TOXIN A PER 1 UNIT CHEMODERVATE FACIAL/TRIGEM/CERV MUSC MIGRAINE Renewal due 12/24/2021 Botox 200 units every 12 weeks for 1 year through [facility] buy and bill Preempt protocol [id number] Procedure -18303 chemodervate facial/trigem/cerv musc migraine Hilda Massey, AIRPLANE DISPATCHER.MANAGER RAIL [address] [place] [phone] Neur Headache [address] [place] [phone] Referral ID Status Reason Start Date Expiration Date V isits Requested Visits Authorized [id number] Authorized 12/24/2021 01/22/2023 5 5 Reason Comments Botox Injection Specialty Diagnoses / Procedures [facility] Referred To Contact HEAD[facility] Diagnoses Chronic migraine without aura, intractable, without status migrainosus Procedures BOTULINUM TOXIN A PER 1 UNIT CHEMODERVATE FACIAL/TRIGEM/CERV MUSC MIGRAINE Renewal due 12/24/2021 Botox 200 units every 12 weeks for 1 year through [facility] buy and bill Preempt protocol J0585 Procedure -[id number] chemodervate facial/trigem/cerv musc migraine Hilda Massey, AIRPLANE DISPATCHER.MANAGER [address] [place] [address] Neur Headache [address] [place] [phone] Reason Comments Referral Request Reason Comments Insurance Authorization PRIOR AUTH DELAY ED: NEED COVERAGE VERIFICATION Reason Comments Chronic Migraine botox Specialty Diagnoses / Procedures Referred By Contac t Referred To Contact HEADAC[facility] Diagnoses Chronic migraine without aura, intractable, without status migrainosus Botox renewal due 03/14/2023 Botox 200 units every 12 weeks for 1 year through [facility] buy and bill Preempt protocol [id number] Procedure -55069 chemodervate facial/trigem/cerv musc migraine Procedures BOTULINUM TOXIN A PER 1 UNIT CHEMODERVATE FACIAL/TRIGEM/CERV MUSC MIGRAINE Hilda Massey, AIRPLANE DISPATCHER.MANAGER RAIL [address] [place] [phone] Neur Headache [address] [place] [phone] Referral ID Status Reason Start Date Expiration Date V isits Requested Visits Authorized [id number] Authorized 03/30/2023 09/06/2023 99 99 Reason Comments Established Patient Follow Up Chronic Migraine Botox Injection Reason Onset Date Comments Refill Request 05/06/2024 Reason Comments Established Patient Follow Up Chronic Migraine Botox Injection Specialty Diagnoses / Procedures Referred By Contac t Referred To Contact HEADACHE Diagnoses Chronic migraine without aura, intractable, without status migrainosus Renewal. Due 08/25/23. 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 Reason Comments Skin Check Reason Comments Follow-up Pt here for yearly v isit and med refills Reason Comments Refill Request Reason Comments [facility] Visit Care Team (unrecognized sect ion and content) Maturity Checker Relationship Specialty Start Date End Date Arpan Mullins MD [address] [place] [facility] [place] [address] PCP - General Family Medicine 05/04/23 Maturity Checker Relationship Specialty Start Date End Date Arpan Mullins MD [address] [place] [facility] [place] [address] PCP - General Family Medicine 05/04/23 Maturity Checker Relationship Specialty Start Date End Date Arpan Mullins MD [address] [place] [facility] [place] [address] PCP - General Family Medicine 05/04/23 Maturity Checker Relationship Specialty Start Date End Date Arpan Mullins MD [address] [place] [facility] [place] [address] PCP - General Family Medicine 05/04/23 Maturity Checker Relationship Specialty Start Date End Date Arpan Mullins MD [address] [place] [facility] [place] [address] PCP - General Family Medicine 05/04/23 Maturity Checker Relationship Specialty Start Date End Date Arpan Mullins MD [address] [place] [facility] [place] [address] PCP - General Family Medicine 05/04/23 Inactive Administered Medications - up to 3 most recent administrations Administered Medications (un recognized section and content) Medication Order MAR Action Action Date Dose Rate Site onabotulinum toxin type A 200 Units injection (BOTOX) 200 Units, INTRAMUSCULAR, ONCE, 1 dose, On Thu12/24/23 at 1100, This record documents the total [...] BE BASED ON THE PRIMARY CLINICAL RECORDS. [employer] provides no warranty or guarantee of the accuracy or completeness of information in this document.
== END 2024-09-20 19:34 | disposition home or self-care (01) ==
LOC: LAB 19:33
PROVIDERS: PCP Family Medicine; Visit Provider Physician Assistant
DX: Z01.419 Encounter for gynecological examination (general) (routine) without abnormal findings (principal)
CPT/HCPCS: 87624; 88175

== ENCOUNTER 2025-06-09 08:22 | Outpatient (OUT) | payer OTHER, SELFPAY ==
--- OUTSIDE RECORDS SUMMARY | 2025-06-09 08:25 | XMS_ITS | CCD ---
Author Organization [facility] Care Team Providers Care Pilot Submersible Name Role Phone PHYSICIAN, DEFAULT Unavailable Unavailable PHYSICIAN, DEFAULT Unavailable Unavailable Unavailable Primary Care Provider UnavailArpan Pagan Primary Care Physician Unavailable Primary Care Provider Unavailmalaika e Unavailable Primary Care Provider Ramiro MULLINS ., DR ANTONY Primary Care Unavailable [...] Lorraine Admitting Unavailable NONE, XXXX Referring Unavailable Unavailable Primary Care Provider Arpan Fraga MD Primary Care Provider [phone] Arpan Mullins MD Primary Care Provider [phone] Arpan Mullins MD Primary Care Provider [phone] JINNY MAST Attending Unavailable ALFONSO PURI Attending Unavailable MAK HUMMEL Attending Unavailable SANGEETHA BRAND Attending Unavailable MAK HUMMEL Referring Unavailable MAK HUMMEL Attending Unavailable CLAIRE ABDI Attending Unavailable MAK HUMMEL Referring Unavailable CLAIRE ABDI Attending Unavailable MAK HUMMEL Referring Unavailable CLAIRE ABDI Attending Unavailable MAK HUMMEL Referring Unavailable RAMBASEKALFONSO Attending Unavailable RAMBASEKALFONSO Attending Unavailable JINNY MAST Attending Unavailable KEATONPARI Attending Unavailable HAMDAN, MOHAMMAD Attending Unavailable HAMDAN, MOHAMMAD Referring Unavailable DAMARIS HUDSON Attending Unavailable HAMDAN, MOHAMMAD Referring Unavailable TARIK CUMMINS Attending Unavailable HAMDAN, MOHAMMAD Referring Unavailable HAMDAN, MOHAMMAD Attending Unavailable HAMDAN, MOHAMMAD Referring Unavailable Allergies Allergy Classification Reported Allergen(s) Allergy Type Date of Onset Reaction(s) Facility (20 sources) Sulfonamides (Antibiotic); Translations: [SULFA (SULFONAMIDE ANTIBIOTICS)] Drug Allergy 0 Hives, Itching, Other [facility] Work Phone: (3 sources) Sulfonamides (Antibiotic); Translations: [sulfa drugs] Drug allergy [facility] (1 source) Sulfonamides (Antibiotic) Drug allergy (disorder) 3 [facility] Medications Current Medications Medication Drug Class(es) Dates Sig (Normalized) Sig (Original) amitriptyline hydrochloride 25 mg oral tablet (20 sources) Tricyclic Antidepressant Start: 05-25-2025 take 3 tablets by mouth at bedtime amitriptyline (Elavil) 25 MG tablet Indications: Migraine without aura and without status migrainosus, not intractable TAKE 3 TABLETS (75 MG) BY MOUTH AT BEDTIME 90 tablet 35 05/25/2025 Active Start: 07-26-2020 End: 04-13-2022 take 1 tablet by mouth once daily amitriptyline 10 mg Tab 10 mg = 1 tab(s), Oral, Daily, # 30 tab(s), Refills(s) 11, [facility], [facility], cm, 07/26/20 9:59:00 EST, Height/Length Dosing, 66.8, kg, 07/26/20 9:59:00 EST, Weight Dosing Start Date: 07/26/20 Status: Ordered Start: 04-07-2020 End: 05-25-2025 take 3 tablets by mouth at bedtime amitriptyline (Elavil) 25 MG tablet Indications: Migraine without aura and without status migrainosus, not intractable Take 3 tablets (75 mg) by mouth at bedtime 270 tablet 11 02/27/2025 05/25/2025 Discontinued Comment on above: Take 75 mg by mouth daily at bedtime. Takes 3 tabs apixaban 5 mg oral tablet (5 sources) Factor Xa Inhibitor End: 09-20-19 apixaban (Eliquis) 5 MG tablet Eliquis 09/20/2024 Discontinued (Other) 60 actuat budesonide 0.16 mg/actuat / formoterol fumarate 0.0045 mg/actuat metered dose inhaler (20 sources) Corticosteroid, beta2-Adrenergic Agonist Start: 05-04-20 End: 05-04-20 take 2 puff(s) by inhalation every four hours for wheezing budesonide-formoter ol (Symbicort) 160-4.5 MCG/ACT inhaler Indications: Seasonal allergic rhinitis due to pollen Inhale 2 puffs every 4 (four) hours if needed for wheezing or shortness of breath 1 each 3 05/04/2024 Active cefdinir 300 mg oral capsule (5 sources) Cephalosporin Antibacterial Start: 10-13-19 End: 02-28-20 take 2 capsules by mouth once daily cefdinir (Omnicef) 300 MG capsule TAKE 2 CAPSULES BY MOUTH EVERY DAY FOR 10 DAYS 10/13/2024 02/27/2025 Discontinued [id number] 0.3 ml EPINEPHrine 1 mg/ml auto-injector (20 sources) alpha-Adrenergic Agonist, beta-Adrenergic Agonist, Catecholamine Start: 05-04-20 End: 02-28-20 EPINEPHrine (Epipen) 0.3 MG/0.3ML injection syringe Indications: Mild intermittent asthma without complication (HCC) Inject 0.3 mL (0.3 mg) as directed if needed for anaphylaxis Call 911 after use. 2 each 1 02/27/2025 02/27/2026 Active estrogens, conjugated (halfway) 0.625 mg/ml vaginal cream (20 sources) Estrogen Start: 09-21-19 25 Estrogens Conjugated (Premarin) 0.625 MG/GM cream Indications: Vaginal dryness Apply 0.625 mg topically 3 (three) times a week 30 g 11 09/21/2024 Active Start: 09-21-2024 Estrogens Conj ugated [...] Applicator vag inally three times a week. fluconazole 100 mg oral tablet (5 sources) Azole Antifungal Start: 5 End: 5 take 1 tablet by mouth once daily fluconazole (Diflucan) 100 MG tablet TAKE 1 TABLET BY MOUTH EVERY DAY FOR 10 DAYS 10/13/2024 02/27/2025 Discontinued gabapentin 300 mg oral capsule (12 sources) Anti-epileptic Agent Start: 5 End: 5 take 1 capsule by mouth at bedtime gabapentin (Neurontin) 300 MG capsule Indications: Peripheral neuropathy, idiopathic Take 1 capsule (300 mg) by mouth at bedtime 90 capsule 04/06/2025 07/05/2025 Active 24 hr metoprolol succinate 100 mg extended release oral tablet (20 sources) beta-Adrenergic Angel Start: 9 take 100 [...] Take 100 mg by mouth once daily. omeprazole 20 mg delayed release oral capsule (20 sources) Proton Pump Inhibitor Start: 02-23-2019 omeprazole 20 mg Cap-DR 20 mg = 1 cap(s), Oral, Daily, Control of stomach acid Start Date: 02/23/19 Status: Ordered Start: 05-05-2011 End: 01-19-2025 take 20 mg by mouth once daily Omeprazole 20 mg TbEC T betsy 20 mg by mouth once daily. 05/05/2011 01/19/2025 Discontinued Comment on above: Take 20 mg by mouth once daily. pantoprazole 40 mg delayed release oral tablet (20 sources) Proton Pump Inhibitor Start: 4 take 1 tablet by mouth in the evening pantoprazole (ProtoNix) 40 MG EC tablet Take 40 mg by mouth in the evening 07/28/2024 Active rizatriptan 10 mg oral tablet (20 sources) Serotonin-1b and Serotonin-1d Receptor Agonist Start: End: 5 rizatriptan (Maxalt) 10 MG tablet Take 10 mg by mouth 07/25/2024 Active urea 400 mg/ml topical cream (3 sources) Start: End: urea (Carmol) 40 % cream Indications: Pre-ulcerative calluses Apply 1 application topically in the morning and 1 application before bedtime. To bilateral foot calluses. 85 g 2 03/14/2025 04/13/2025 Active Completed/Discontinued Medications Medication Drug Class(es) Dates Sig (Normalized) Sig (Original) onabotulinumtoxina 200 unt injection (19 sources) Acetylcholine Release Inhibitor Start: 04-24-2025 End: 04-25-2025 onabotulinum toxin type A 200 Units injection (BOTOX) Start: 01-19-2025 End: 01-19-2025 onabotulinum toxin type A 20 0 Units injection (BOTOX) Start: 01-19-2025 End: 01-19-2025 inject 1 dose by intramuscular injection once 200 Units, INTRAMUSCULAR, ONCE, 1 dose, On [facility] 01/19/25 at 0930, This record documents the total dose provided to patient. See progress note for specific locations and amounts administered. REFRIGERATE - Pharmaceutical Waste: Lab Pack - Start: 10-06-2024 End: 10-06-2024 onabotulinum toxin type A 20 0 Units injection (BOTOX) Start: 10-06-2024 End: 10-06-2024 inject 1 dose by intramuscular injection once 200 Units, INTRAMUSCULAR, ONCE, 1 dose, On [place] 10/06/24 at 0900, This record documents the total dose provided to patient. See progress note for specific locations and amounts administered. REFRIGERATE - Pharmaceutical Waste: Lab Pack - Start: 10-06-2024 End: 10-06-2024 onabotulinum toxin type A 20 0 Units injection (BOTOX) Start: 07-07-2024 End: 07-07-2024 onabotulinum toxin type A 20 0 Units injection (BOTOX) Start: 07-07-2024 End: 07-07-2024 [...] by mouth. As di rected on package naratriptan 2.5 mg oral tablet (20 sources) Serotonin-1b and Serotonin-1d Receptor Agonist Start: 08-10-2023 End: 01-19-2025 take 1 tablet by mouth every four hours as needed naratriptan (AMERGE) 2.5 mg tablet Indications: Intractable chronic migraine without aura and without status migrainosus Take 1 tablet (2.5 mg) by mouth as needed. May repeat dose after 4 hours if needed. Maximum daily dose is 5 mg per day. 9 tablet 11 07/07/2024 01/19/2025 Discontinued Start: 06-14-2021 End: 07-23-2022 take 1 tablet [...] 24 HOURS OR 2 DAYS PER WEEK Problems Active Problems Problem Classification Problem Date Documented Da te Episodic/Chronic Asthma (20 sources) Mild intermittent asthma; Translations: [Mild intermittent [...] sources) Irritable bowel syndrome 04-21-2019 Chronic Other injuries and conditions due to external causes (15 sources) At risk for falls ; Translations: [History of falling] Onset: 5 04-05-2025 Episodic Other liver diseases (3 sources) Steatosis of liver; Translations: [Fatty (change of) liver, not elsewhere classified] Onset: 2 02-26-2022 Chronic Other nervous system disorders (2 sources) Neuropathy 04-22-2019 Chronic Other nervous system disorders (15 sources) Idiopathic peripheral neuropathy; Translations: [Hereditary and idiopathic neuropathy, unspecified] Onset: 5 04-05-2025 Chronic Other nervous system disorders (15 sources) Poor balance; Translations: [Other abnormalities of gait and mobility] Onset: 5 04-05-2025 Episodic Other non-epithelial cancer of skin (2 sources) [...] melanin hyperpigmentation] 08-16-2024 Episodic Other skin disorders (4 sources) Seborrheic keratosis; Translations: [Other seborrheic keratosis] 08-16-2024 Episodic Other skin disorders (2 sources) Inflamed seborrheic keratosis; Translations: [Inflamed seborrheic keratosis] 10-17-2024 Episodic Other upper respiratory disease (20 sources) Allergic rhinitis due to pollen; Translations: [Allergic rhinitis due to pollen] Onset: 3 05-04-2023 Chronic Other upper respiratory disease (4 sources) Seasonal allergic rhinitis; Translations: [Other seasonal [...] Test Name Value Interpretation Reference Range [facility] ([facility] ) TAMELA HOPPER ([id number]) 1965 F [place] Date Time Provider Department 04/24/25 3:30 PM DAMARIS HUDSON [facility] During your visit today, we recorded the following information about you: Pulse Blood pressure Weight 61/minute 161/87 67.8 kg Damaris Hudson PA-C 04/24/2025 3:49 PM Signed Headache Center Follow-up Visit Current Preventive: Botox, amitriptyline and metoprolol given by outside prescribers Change needed for current preventive? No Current Abortive: rizatriptan Change needed for current abortive? No Impression: Tamela Hopper is a 60 year old year old female, with a history of chronic migraines, doing well with botox. Her neurological examination is essentially normal at this visit. ICHD-3 Diagnosis: Chronic migraine without aura, with intractable migraine, so stated, with status migrainosus (primary encounter diagnosis) Plan: Botox #19, return in 3 months for repeat round. Follow-Up Onabotulinum Toxin A (BotoxTM) for Migraine Indication: Chronic Intractable Migraine Treatment #: 19 Referral Expiration: 09/06/2025 Prior to the initiation of the FIRST treatment with Onabotulinum Toxin A, the patient reported the following average headache frequency over the past 3 MONTHS: Number of moderate-severe migraine days/month: 18 Number of mild migraine days/month: 10 Number of headache free days/month: 2 (48 headache-free hours) Migraine severity: 8/10 After treatment with Onabotulinum Toxin A: Number of moderate-severe migraine days/month: 2 Number of mild migraine days/month: 3 Number of headache free days/month: 25 (600 headache-free hours) Migraine severity: 6/10 Patient reduction in overall migraine days: Yes Patient reduction in moderate-severe migraine days: Yes Patient reduction of headache hours by 100 hours or more: Yes (reduction of 552 hours) Individual has obtained clinical benefit deemed [...] infection at proposed injection site. HEADACHE SCORES: 10/01/2024 01/15/2025 04/18/2025 Headache Questions ER visits since last office visit: 0 0 0 Hospital stays since last office visit 0 0 0 Limited ADLs in the last month: 0 0 0 Days missed from work or school in the last month: 0 0 0 Days headache pain free in the last month: 21 10 25 Days per month with ALL of the following symptoms - decreased productivity, light sensitivity and nausea: 0 2 0 Initial improvement of headache after botox injection at last visit: Much improved Much improved Much improved PRN medication usage in the last month: 9 10 6 Patient impression of improvement since last visit: Much improved Minimally worse Much improved 10/01/2024 01/15/2025 04/18/2025 HIT-6 HIT-6 40 (Little or no impact) 57 (Substantial impact) 46 (Little or no impact) 10/01/2024 01/15/2025 04/18/2025 HANS - 2/7 SCORES HANS-2 Score 0 0 0 10/01/2024 01/15/2025 04/18/2025 Migraine Specific QOL - Higher scores indicate better HRQL Role Function-Restrictive Transformed Score (range: 0-100) 100 80 94.29 Role Function-Preventive Transformed Score (range: 0-100) 100 95 100 Emotional Function Transformed Score (range: 0-100) 100 93.33 100 04/18/2025 01/15/2025 10/01/2024 PHQ-9 Score 0 0 0 BP 161/87 (BP Site: Left Arm, BP Position: Sitting, BP Cuff Size: Regular Adult) Pulse 61 Wt 67.8 kg (149 lb 7.6 oz) BMI 28.24 kg/m? Patient name: Tamela Meza [facility] : 1965 ALLERGIES Allergen Reactions Sulfa (Sulfonamide * Hives UNIVERSAL PROTOCOL / SAFETY CHECKLIST Procedure: Onabotulinum toxin A for migraine Informed Consent Consent Obtained: Written [place] Protocol A moment to CARE was completed SIGN IN Personnel directly involved with the procedure wore the appropriate PPE Special Equipment: N/A Patient/Surrogate Stated/Verified: Patient name, Date of , Relevant allergies and Intended procedure TIME OUT No relevant labs, photos, and/or imaging studies were applicable for review. Consent documented and matches the intended procedure Correct side/site marked and visible. Medications required for procedure verified. No fire risk assessment and interventions applicable. No implant(s) inserted. SIGN OUT No specimen collected. Written Consent Obtained: Written LOT #: [id number] Expiration Date: Month: 11 Year: 2025 Injection Sites Left (Units) Left (Sites) Right (Units) Right (Sites) TOTAL (Units) Corrug (more content not included)... Normal [facility] CNOVon 01-19-2025 CNOV Office Visit (NEHAAV ) TAMELA HOPPER ([id number]) 1965 F [place] Date Time Provider Department 01/19/25 8:45 AM TARIK CUMMINS During your visit today, we recorded the following information about you: Pulse Blood pressure 71/minute 131/76 Tarik Cummins, SATELLITE COMMUNICATIONS ENGINEER.WATERPROOF BAG SEWER 01/19/2025 9:26 AM Signed Headache Center Follow-up Visit Current Preventive: Botox, amitriptyline and metoprolol given by outside prescribers Change needed for current preventive? No Current Abortive: rizatriptan Change needed for current abortive? No Miscellaneous Patient Concerns: 1 month late on botox, starting to get migraines, Plan: Botox Follow-Up Onabotulinum Toxin A (BotoxTM) for Migraine Indication: Chronic Intractable Migraine Treatment #: 18 Referral Expiration: 09/06/2025 Prior to the initiation of the FIRST treatment with Onabotulinum Toxin A, the patient reported the following average headache frequency over the past 3 MONTHS: Number of moderate-severe migraine days/month: 18 Number of mild migraine days/month: 10 Number of headache free days/month: 2 (48 headache-free hours) Migraine severity: 8/10 After treatment with Onabotulinum Toxin A: Number of moderate-severe migraine days/month: 2 Number of mild migraine days/month: 9 Number of headache free days/month: 19 (456 headache-free hours) Migraine severity: 6/10 Patient reduction in overall migraine days: Yes Patient reduction in moderate-severe migraine days: Yes Patient reduction of headache hours by 100 hours or more: Yes (reduction of 408 hours) Individual has obtained clinical benefit deemed [...] infection at proposed injection site. HEADACHE SCORES: 06/30/2024 10/01/2024 01/15/2025 Headache Questions ER visits since last office visit: 0 0 0 Hospital stays since last office visit 0 0 0 Limited ADLs in the last month: 0 0 0 Days missed from work or school in the last month: 0 0 0 Days headache pain free in the last month: 28 21 10 Days per month with ALL of the following symptoms - decreased productivity, light sensitivity and nausea: 0 0 2 Initial improvement of headache after botox injection at last visit: Much improved Much improved Much improved PRN medication usage in the last month: 9 10 Patient impression of improvement since last visit: Much improved Much improved Minimally worse 06/30/2024 10/01/2024 01/15/2025 HIT-6 HIT-6 44 (Little or no impact) 40 (Little or no impact) 57 (Substantial impact) 06/30/2024 10/01/2024 01/15/2025 HANS - 2/7 SCORES HANS-2 Score 0 0 0 06/30/2024 10/01/2024 01/15/2025 Migraine Specific QOL - Higher scores indicate better HRQL Role Function-Restrictive Transformed Score (range: 0-100) 100 100 80 Role Function-Preventive Transformed Score (range: 0-100) 100 100 95 Emotional Function Transformed Score (range: 0-100) 100 100 93.33 01/15/2025 10/01/2024 03/24/2024 PHQ-9 Score 0 0 0 There were no vitals taken for this visit. Patient name: Tamela Meza [facility] : 1965 ALLERGIES Allergen Reactions Sulfa (Sulfonamide * Hives UNIVERSAL PROTOCOL / SAFETY CHECKLIST Procedure: Onabotulinum toxin A for migraine Informed Consent Consent Obtained: Written [place] Protocol A moment to CARE was completed SIGN IN Personnel directly involved with the procedure wore the appropriate PPE Special Equipment: N/A Patient/Surrogate Stated/Verified: Patient name, Date of , Relevant allergies and Intended procedure TIME OUT No relevant labs, photos, and/or imaging studies were applicable for review. Consent documented and matches the intended procedure Correct side/site marked and visible. Medications required for procedure verified. No fire risk assessment and interventions applicable. No implant(s) inserted. SIGN OUT No specimen collected. Written Consent Obtained: Written LOT #: [id number] Expiration Date: Month: Year: 2026 Injection Sites Left (Units) Left (Sites) Right (Units) Right (Sites) TOTAL (Units) Vending Machine Filler 5 1 5 1 10 Procerus Units: [...] Therapies Duration of Use Dose Side effect (more content not included)... Normal [facility] Panel Informationon 10-17 [facility] CNOV 10-06-2024 CNOV Office Visit (BALWINDER ) TAMELA HOPPER ([id number]) 1965 F [place] Date Time Provider Department 10/06/24 8:30 AM DAPHNE PADRON During your visit today, we recorded the following information about you: Pulse Blood pressure 67/minute 159/80 Daphne Padron APRN.WATERPROOF BAG SEWER 10/06/2024 8:50 AM Signed Answers submitted by the patient for this visit: Headache Questionnaire (Submitted on 10/01/2024) How many days of work or school have you missed due to headaches in the last month? : 0 In the last month, how many headache days did you experience ALL of the following symptoms: decreased productivity, light sensitivity and nausea?: 0 How many days have you been completely free of headache pain in the last month? : 21 Follow-Up Onabotulinum Toxin A (BotoxTM) for Migraine Indication: Chronic Intractable Migraine Treatment #: 17 Referral Expiration: 09/06/2025 Prior to the initiation of the FIRST [...] days/month: 0 Number of mild migraine days/month: 9 Number of headache free days/month: 21 (504 headache-free hours) Migraine severity: 02/14 Patient reduction in overall migraine days: Yes Patient reduction in moderate-severe migraine days: Yes Patient reduction of headache hours by 100 hours or more: Yes (reduction of 456 hours) Individual has obtained clinical benefit deemed [...] infection at proposed injection site. HEADACHE SCORES: 03/24/2024 06/30/2024 10/01/2024 Headache Questions ER visits since last office visit: 0 0 0 Hospital stays since last office visit 0 0 0 Limited ADLs in the last month: 0 0 0 Days missed from work or school in the last month: 0 0 0 Days headache pain free in the last month: 20 28 21 Days per month with ALL of the following symptoms - decreased productivity, light sensitivity and nausea: 0 0 0 Initial improvement of headache after botox injection at last visit: Much improved Much improved Much improved PRN medication usage in the last month: 9 Patient impression of improvement since last visit: Much improved Much improved Much improved 03/24/2024 06/30/2024 10/01/2024 HIT-6 HIT-6 38 (Little or no impact) 44 (Little or no impact) 40 (Little or no impact) 03/24/2024 06/30/2024 10/01/2024 HANS - 2/7 SCORES HANS-2 Score 0 0 0 03/24/2024 06/30/2024 10/01/2024 Migraine Specific QOL - Higher scores indicate better HRQL Role Function-Restrictive Transformed Score (range: 0-100) 100 100 100 Role Function-Preventive Transformed Score (range: 0-100) 100 100 100 Emotional Function Transformed Score (range: 0-100) 86.67 100 100 10/01/2024 03/24/2024 12/19/2023 PHQ-9 Score 0 0 0 BP 159/80 (BP Site: Left Arm, BP Position: Sitting, BP Cuff Size: Regular Adult) Pulse 67 [facility] 1965 ALLERGIES Allergen Reactions Sulfa (Sulfonamide * Hives UNIVERSAL PROTOCOL / SAFETY CHECKLIST Procedure: Onabotulinum toxin A for migraine Informed Consent Consent Obtained: Written [place] Protocol A moment to CARE was completed [...] (Sites) Right (Units) Right (Sites) TOTAL (Units) Vending Machine Filler 5 1 5 1 10 Procerus Units: 5 Sites: 1 5 Frontalis 10 2 10 2 20 Temporalis opt (more content not included)... Normal [facility] IGP,APTIMA HPV,AGE GDLNon AGE GDLN ACOG TESTING Note . [facility] Comment on above: TESTS RESULT FLAG UN ITS REF RANGE LAB Clinician Provided Cytology Information Source.............Vagina No. of containers..01 ThinPrep Vial Age Algo ACOG Nadia... 28 FLAG LEGEND: L-Low Normal,H-High Normal,LL-Alert Low,HH-Alert High <-Panic Low,>-Panic High,A-Abnormal,AA-Critical Abnormal Performed at: 01 =G [address] [address] Naomie Wilkes MD, HPV APTIMA Negative Negative [facility] Comment on above: This nucleic acid am plification test detects fourteen high- risk HPV types (16,18,31,33,35,39,45,51,52,56,58,59,66,68) without differentiation. Performed at: =[address] [id number] Sports Physiotherapist: Naomie Wilkes MD, Phone: [phone] Performed at: [address] [id number] Sports Physiotherapist: Naomie Wilkes MD, Phone: [phone] IGP, APTIMA HPV, RFX 16/18,45 Note . [facility] Comment on above: TESTS RESULT FLAG UN [facility] REF RANGE LAB DIAGNOSIS: 02 NEGATIVE FOR INTRAEPITHELIAL LESION OR MALIGNANCY. Specimen adequacy: 02 Satisfactory for evaluation. Performed by: 02 Radha Lam, Curb Worker ([facility]) . 02 Note: Note 02 The Pap smear is a screening test designed to aid in the detection of premalignant and malignant conditions of the uterine cervix. It is not a diagnostic procedure and should not be used as the sole means of detecting cervical cancer. Both false-positive and false-negative reports do occur. Test Methodology: Note 02 This liquid based ThinPrep(R) pap test was screened with the use of an image guided system. HPV Genotype Reflex Note 02 Criteria not met, HPV Genotype not performed. FLAG LEGEND: L-Low Normal,H-High Normal,LL-Alert Low,HH-Alert High <-Panic Low,>-Panic High,A-Abnormal,AA-Critical Abnormal Performed at: [address] [facility] [place] [address] Naomie Wilkes MD, SPATULA-ALONE [facility] TAMELA HOPPER ([id number]) 1965 F [place] Date Time Provider Department 07/21/24 DAPHNE PADRON [facility] During your visit today, we recorded the following information about you: Sharonda Parikh 07/21/2024 12:00 PM Signed Prior Authorization for Medications Requested by (MyChart, Pharmacy, Patient Call, Fax) : Phone Pharmacy Name: [facility] Pharmacy Phone # : [phone] Name of Medication : Naratriptan Dose : 2.5 mg Tablet - 9 tabs If renewal, auth date expiration: NA Prescribing Provider: Vito Last OV: 07/07/2024 with Vito Insurance Provider : [employer] Erika. Is insurance card scanned in, including Rx info? Yes Rx ID number: [id number] Rx BIN: [id number] Rx PCN: [id number] Rx Grp: [id number] Insurance Phone : CoverMyMeds Carreon: NA E-PA? Yes Ju Reynolds MA 07/21/2024 1:05 PM Signed Completed over CMM: [employer] is reviewing your PA request and will respond within 24 hours for Medicaid or up to 72 hours TAMELA OTTO (Carreon: [id number]) PA Drug Naratriptan HCl 2.5MG tablets ePA cloud logo Form [employer] Electronic PA Form (2016 NCPDP) MICKEY Stern Latonya J, MA 07/21/2024 3:42 PM Signed TAMELA OTTO (Carreon: [id number]) PA Denied today by [employer] 2016 CaseId:[id number];Statu s:Denied;Review Type:Prior Auth;Appeal Information: Attention:ATTN: CLINICAL APPEALS DEPARTMENT [employer] [address] [address],[place], [place],[address] ; I We reviewed the information you [...] Date Reviewed: 07/07/2024 Reviewed by: Daphne Padron APRN.WATERPROOF BAG SEWER - Fully Assessed Reason for Visit: Insurance [...] Encounter Status:Closed by JU REYNOLDS on 07/21/24 [facility] John 07-08-2024 [facility][id number][facility] 1965 F U[place] Date Time Provider Department 07/08/24 DAPHNE PADRON [facility] During your visit today, we recorded the following information about you: Belle Erazo RN 07/08/2024 9:58 AM Signed Botox referral sent to pharmacy. Belle Erazo RN Allergies As of Date: 07/08/2024 Noted Allergy Reaction SULFA (SULFONAMIDE ANTIBIOTICS) 05/08/2020 4 - Hives Date Reviewed: 07/07/2024 Reviewed by: Daphne Padron APRN.WATERPROOF BAG SEWER - Fully Assessed Reason for Visit: Referral [...] Encounter Status:Closed by BELLE ERAZO on 07/08/24 [facility] CNOVon 07-07-2024 CNOV Office Visit (NEHAAV ) TAMELA HOPPER ([id number]) 1965 [facility] Date Time Provider Department 07/07/24 11:00 AM DAPHNE PADRON During your visit today, we recorded the following information about you: Pulse Blood pressure 76/minute 139/89 Daphne Padron APRN.WATERPROOF BAG SEWER 07/07/2024 11:01 AM Signed Answers submitted by [...] Size: Small Adult) Pulse 76 Patient name: Taemla Hopper : 1965 ALLERGIES Allergen Reactions Sulfa (Sulfonamide * Hives UNIVERSAL PROTOCOL / SAFETY CHECKLIST Procedure: Onabotulinum toxin A for migraine Informed Consent Consent Obtained: Written [place] Protocol A moment to CARE was completed [...] (Sites) Right (Units) Right (Sites) TOTAL (Units) Vending Machine Filler 5 1 5 1 10 Procerus Units: 5 Sites: 1 5 Frontalis 10 2 10 2 20 Temporalis optional follow the pain 20 10 4 2 20 1 (more content not included)... Normal [facility] Outside Mammographyon 2022 Outside Mammography [id number]#1 .00CD:127 Normal [facility] Transfer Inon 01-20-2023 Transfer In [id number]# 1.00CD:127 Normal [facility] Covid-19 PCR ([facility])on SARS-CoV-2 (COVID-19) RNA NELL+probe Ql (Unsp spec) Not detected Normal NOT DETECTED [facility] Comment on above: Result Comment: When [...] for this test is supported by the [place] of Health and Human Service's declaration that [...] used). Performed By: #### C VDTBH #### [facility] [address] [place] [address] Dr. Merritt Berger INFLUENZA A AND B [facility] 11-06 [facility] SEE BELOW Normal [facility] Comment on above: Result Comment: Nega tive for Flu A protein angiten. Infection due to Flu A cannot be ruled out. Flu A angiten in the sample may be below the detection limit of the test. Performed By: #### I NFLUAB #### [facility] [address] [place] [address] Dr. Merritt Berger [facility] SEE BEL[facility] Normal [facility] Comment on above: Result Comment: Nega tive for Flu B protein antigen. Infection due to Flu B cannot be ruled out. Flu B antigen in the sample may be below the detection limit of the test. Performed By: #### I NFLUAB #### [facility] [address] [place] [address] Dr. Merritt Berger INFLUENZA A AG Negative Normal NEGATIVE SEE COMMENT [facility] Comment on above: Performed By: #### I NFLUAB #### [facility] [address] [place] [address] Dr. Merritt Berger INFLUENZA B AG Negative Normal NEGATIVE SEE COMMENT [facility] Comment on above: Performed By: #### I NFLUAB #### [facility] [address] [place] [address] Dr. Merritt Berger HEMOGLOBINon 09-12-2022 Hemoglobin (Bld) [Mass/Vol] 12.5 g/dL Normal 12.0-16.0 [facility] Comment on above: Performed By: #### H GB #### [facility] [address] [address] [address] Merritt Berger Gastroenterology Office/Clin ic Noteon [...] after patient or guardian consented to allow [employer] to record this visit. [employer] international marketing specialist and provider reviewed before signing. PUMA: Smitha Pradhan Follow-up With When Contact Information ENA BROTHERS, LELIA Peters, YOGI Within [address] [place], [place] [address]- Additional Instructions: Problem List/Past Medical [...] Sinus Surgery, (more content not included)... Normal [facility] Comment on above: Result Comment: Elec [...] Follow Up with ENA BROTHERS, LELIA Peters, MED When: Within 3 months Where: [facility] [address] [place] [address]- Medications What How Much When Why Instructions [...] of partial hysterectomy Hx of tonsillectomy Normal [facility] PAP ACOG PANEL 2: 30 to 65on 04-24-2022 . . Normal [facility] Comment on above: Result Comment: Perf ormed at: WB Performed By: #### 4 [id number] #### [facility] [address] [address] [address] Merritt Berger Age Gdln ACOG Testing 30-65 Normal [facility] Comment on above: Performed By: #### 4 [id number] #### [facility] [address] [address] [address] Merritt Berger DIAGNOSIS: Comment Normal [facility] Comment on above: Result Comment: NEGA TIVE FOR INTRAEPITHELIAL LESION OR MALIGNANCY. Performed at: WB Performed By: #### 4 [id number] #### [facility] [address] [address] [address] Merritt Berger HPV Aptima Negative Normal Negative [facility] Comment on above: Result Comment: This nucleic acid amplification test detects fourteen high-risk HPV types (16,18,31,33,35,39,45,51,52,56,58,59,66,68) without differentiation. Performed at: =G Performed By: #### 4 [id number] #### [facility] [address] [place] [address] Dr. Merritt Berger Methodology: Comment Normal [facility] Comment on above: Result Comment: This liquid based ThinPrep(R) pap test was screened with the use of an image guided system. Performed at: WB Performed By: #### 4 [id number] #### [facility] [address] [place] [address] Dr. Merritt Berger Note: Comment Normal [facility] Comment on above: Result Comment: The Pap smear is a screening test designed to aid in the detection of premalignant and malignant conditions of the uterine cervix. It is not a diagnostic procedure and should not be used as the sole means of detecting cervical cancer. Both false-positive and false-negative reports do occur. . Performed at: WB Performed By: #### 4 [id number] #### [facility] [address] [place] [address] Dr. Merritt Berger Performed by: Comment Normal [facility] Comment on above: Result Comment: Marlen Travis, Curb Worker (ASCP) Performed at: WB Performed By: #### 4 [id number] #### [facility] [address] [place] [address] Dr. Merritt Berger Specimen adequacy: Comment Normal [facility] Comment on above: Result Comment: Sati sfactory for evaluation. No endocervical component is identified. Performed at: WB Performed By: #### 4 [id number] #### [facility] [address] [place] [address] Dr. Merritt Berger MG MAMM SCREEN 3D SORIN CADon 04-07-2022 MG MAMM SCREEN 3D SORIN CAD Patient: TAMELA HOPPER Exam Date: 04/07/2022 : 1965 Gender:F Ordering : DR MJ ORTIZ . Admission #: [id number] Family : DR ARPAN MULLINS . Order #: [id number] CLICK HERE TO VIEW EXAM RADIOLOGY REPORT PROCEDURE: MAMMOGRAM SCREENING 3D BILATERAL CAD COMPARISON: MG MAMM SCREEN 3D SORIN CAD, 03/15/2021. MG MAMM SCREEN SORIN W CAD, 03/14/2020. INDICATIONS: Screening mammography Calculator Name NCI Breast Cancer Risk Assessment Tool 5 Year Breast Cancer Risk 0.90% Lifetime Breast Cancer Risk 5.00% Personal Breast Cancer No Personal Ovarian Cancer No Treatments None Family Cancers Aunt-paternal with breast cancer at age 50; Grandmother-maternal with breast cancer at age 70. LOCATION: [facility] BREAST COMPOSITION: Heterogeneously dense,which may obscure [...] M.D. on 04/07/2022 at 14:25 Normal [facility] Coding Summary.on 03-13-2022 Coding Summary. CD:[id number] G h0bWw+PGhlYWQ+MF5FDLJ zA33ojIUmaU4ZM1tPVD3R OPULGFCNYE3TBX1wpFD2B TftZ6OgffAp UounlZRvDU12CQr6NPQ5y CkePDoqhV2oaGSpU0k6Ck YeMP09rT09QWblGFUgKmQ 3LjZpbjsgbWFy L3eoGmDabLQcRse+PHRhY mxlIHdpZHRoPScxMDAlJy QuuRouXQ5rMc5fSTPzSRZ vbGxhcHNlOiBj d1ngVQQbIRnfYQ8cwRrjT 0IatKI2ZBHfq4g9Dm60bK I+QCAcJEA6kPwmKOrme42 3IrYan0iaWAC3 aFMaWZouPPD8Z07kf3E8K BMrAFAtFYW1aMU3lA6fzI ftqvioT8QqhZBlZcZ8LVP 0tIIysE1luQkn uzifbN7aCde+C78FLD1XQ KIHVY5REkf2H6UdRozacF I+CJ45YGVeHX57bQCibYD uu2kruFg9YsOa VPCfDKL0uDpjVJgnt8FbV MWeX24svPUfs5X9FSBqbW yxaDMiDeTtvHU3wY8hDZa peldts6bkxctq Fegoo9xxmo59hV61Y78tW PkuRMXaWAG6TFAdUQAdzF jzgw3foZ5zMs5+NLbpc6t eo2rpnUx7AcSg YXQkscOzmHulYVH0v9GzM c67N7HfrHopp8ZzPsy0yu 69pLTtc2K6vNA7QFtbWJD saF3qPRqkFwG9 VEJeXiGnbJ01mQVzQQiyQ l6plNfhmGziTI3oHVEpnk xxILCmgH7qBEXceJAjjSa cVN5qUCUauynq n633NjAvRSE6HOOvcPJbW 6KiuM7eGwCzQKNcLDCkY2 BohCHrGKjvR498QWcvGqZ 2QCFrofIuV8Iu RVNlsWojQfP9p5Y4Fq4Dn 3EzfeufGAJ8ZSzrDKO2Ra J7RzHcGyP9S6XtVrj4LJP weTocDI9oZ1Bv KZTekjqqpyckvFI3XMBzD IYajM59dTSjMGwvWj6by5 B0e082ZXHaBUUppM34Mk9 udDogMTBwdCBU lI0luqenw5twanzyFdKsS IZrMFv6XKv4RSBfwZcmUm RhYRZ5EhM1VPI2bIQgcL3 uoJtwqbeegV0w Oyc+P90ltG3sJFK5QHK6b fguRORwgmZdCT69QH33P2 RyPjwvdGFibGU+PGRpdiB blEjbGJ8rIhBs d4usk0XrHJztB3TsWXDdI DmzFpa7KDEmSAN5iDJ8kM 2fKJNzVGvll9I9zRH1K7L braFewb0zg1xb YXCjIWbcG39doZQmf3C2M DGaeKV0MNUyyObmYwHvtS 93Oyc+OVXpxKpnc8MbHfl kj1rgm0nyfWd6 KxHcDPMeuxXfyZnaCTZ6p 2AjIe66K48xEQayEQYnNL OpGVXcSJHdjRwhlr1cqR3 wIi8+PGNvbCB3 jXP0dZ9yOXVlQyE1TNcbG 718PbTwdSKqAqxkp2dem2 rbrUu0NkAlWTIazcCjwZs eBQR6o9XeBy87 B21qQLsaYHIfVCDiLWVkN GIlgJtgww7tkT3oHu5+PC 4ad4quoq47eE12lFK+PHR uXYU1bRsiWHjp VSAuvW0yBDqcFzM4QAMnL bFaoT70xPKvCEeeUg8ckC czuGmoJI3lBSWvqqakx32 3FvIyn6guIPLx aQHoWXalXEB6R58id2O1Q IGpDJKoKDU6uTZ0hE3jyD lnbjogbGVmdDsgdmVydGl eFHnfTFtqE609 IHRvcDsnPlBhdGllbnQgT vEeOWr4Y8KaPte4QVKnuU crIW0oqNObMHlxSk7cqYb okHmeIP7qUEAg aetdq090WfKat3ceIHOzq QOmQFwcQWR8H09ub0F0LB IlCFSeCGD6rFK2fK7ijHe nbjogbGVmdDsg nmXfdZufUHvbBNpiS637D HRvcDsnPkJpcnRoIERhdG M0TX47SZ68pRInh0D8hHW 0H6VzEAFfetii ytoquQV6TWVyCPRilZ04L r5oaVhnUx1dNZSqENP2EY ZxiBHrM7WvdZ8qOaYmUYS jOGWjE9EjzADi YOscW228FNkcMpP4TQByr uGhL7JrMJHchKfbNwI2p4 P8Sh7LS5Z3UT09YQ73pKR em2Q6fAR1G4Qj DEHjrlqudqrprDR6XDMnZ KDvkI92Mq2vhCzrSi3zMW ZiFHN4MQRvoPBhU6MirC2 yOiAjMDAwMDAw P7FbhXXoLKplZ506XEomF wU3GKVrvwAlL8VgULLsyF snNsW7t6L3Pj6AOBk2TJ7 3CN67rQDeu0Q3 fPO9D8HoQFReglpfhgvbm LV8YXUqZHBghF49Re0fbO ndOo7pGVOgYFG0DFOjyNG fJ8PtfU6nFyUp DMUlSMHeF3GepBIuCFzbC 160FOncBbL5YVVjmeUjY9 MwGZNasCrcLvA8k3S5Mm1 PTKDcZD44CEP2 fSO3BF31NJ02L9DkNhkkl GFibGU+PHRhYmxlIHdpZH RoPScxMDAlJyBzdHlsZT0 vRc7yHERtDIXn pMtlcCNzGfYxm5smLQOpK MvnEF8nuWyeO8NldBH5HZ Fle2w1Aj21E46rH2BygZK +JBRqkFU7nAR6 rS0sCoUmGbD6KYijK005O fNujBDcUrsgs7gvq0jhuZ y2UxY4DINujdIrlBnwZKI 8h1KjSy69Y34z IHdpZHRoPSIxNSUiIHZhb Aocdl7iiU1aJq3+PGNvbC O1aOY2vW4zYoYmGhF2EMg oG155UsVypNQd Eythl1nmj9kjvOx8ZfMyQ SPynkWfmEaaBRE3b1MmEa 11K1FvoNetg9PdEgd3gq6 8zPYzr9L8mGC5 Y8NeWCTaldkpxODmrKbcT K2kOPUejpqwZRJuuN7gKF ChP0s4FzSkMmE1CWkpI6P whdA9XUZfrSXf BLztJXL5K44ub4K1CYXlL DIvPUG3cEM3tS1mnLxsnw ogbGVmdDsgdmVydGljYWw cVAktF801GFLm lYoeUOHryU4bKFYqoVIjd ZjmHY2pUPDzwwuwJaoNBf dLZp4QG8BCCTqyY1HAJ5a TDzQGFV42XQ62 bUDjx4C0yYD2G0OdUPCib ogxfzpcrNE6JFJlNAGdyA 15uZKzBLboYa9uh1R6u63 1MJLwFVSpiZ11 Iw0wkJjtDIVauKIEwF0ov zbcb1zbqzrbWtIiCAEaTA s3ZIr8LIJcqNkdBnSeBPH 1ByJ2RNN2fWUq vY9iaYbzpzlizK4lBju+M XTtJJErKQr3ByqodOH+PH IiXNN6dSwdIDegVYLzbP2 dWUVdH9l8OuMd ImN8FJtbV0SeQLZhazhdK s34tX0lGyIuOdF9MEueG6 GqmgM4AQNnmQAuORpzIHS 6P90zw1T9EZTd TSVsJJB7rIE5sS0sqFxko jogbGVmdDsgdmVydGljYW xnBSwiY579OIMfaXlbMbR 1MAiiBDKuMW33 MM27sHXtr4W4sES6P9ZnP TJihbkfzygrrDS0CAOvQT KmvZ40qDOwHZxwWj3vy7S 7j546VGIzETMl fE47Rx8brLxsUWJcjBZMt N2rjycbk8zksadcDkOlWN RtGVn8STp7BYEzuEvyEiX aNLZ8IvL7VJM4 tLEagZ9zrUrejbkjzZ4xH yc+FaVaAUopAD28CO85pF Azf3U7aCT8J2MuCPJgfzf nhwixgYW4OWSj KESjwT22iBLhGCthUd9xw 4J1h077WLZhNCGfyH03Az 8qrAxxHFLvyVTEdV9uobn zu1lmzyqfIwXx UMVtFXd6OQk3JKHvmYmbL wJsSZW0EeX9TUI3wUGicX 9nsMgahfhbvP0nTaz+T3V 4jNQ7lUXbaSkc dGQ+OZ84my32N1KiQgqkA pf9DHZnCZQ0wHX7aM4gBN UeDVebe3F5iUS7Q5OvfxA eyk1pg2djTXIc IPfcG60pnTSkm6D6SHJbh NN6QMWvkDitPtHepI92Ok c+QAChxJqmh2OoOmgqa9h tl0lvrLp2DqTz FHJjqgIykPyzNQZ1j5EwS k86G85xHFtdSZWfJBIvQO JiJEQxaXlwty4vhX7iKs6 +HNWcxDL3iBC3 oL0yNrEvWfI8HTfvF072L hJwtBTzObzxf9bbs5bmvG w3UcLbYWFiuhEbgBfnDLZ 9u1BxZm06W4Ld hHqud8WxKqj1wo19pSPaa 4T5gRG2C1NxRJNltzkebU YjnUdzRO8oZEJrjsbeURR ukU1yAHUmG4c9 OoOiBxE8CCokH3WafrO1A OSdbAXkCRAesOMBrD4atz qdt3kwxvqkVoIuUWGiCGj 4QRv6FKEqvGka ArXhDST5FgC0DRS1dRIvh A7jmKazqhhvvJ7wYug+UG k0y8vdaWXdQY6vqIG1QL5 0KW12lCVcd8L1 hWK0Y8CkUCPdhsbgmraxv JS5POOoSCUgpP49Tw6moJ uiDj7uFFXrUMT0QSLcaCF tH0FjrK3yJvLr MVUdPVUiY2LjhJLzKZwvH 719IPxyIvK9ERLztuToP1 OhVREesJimOvM2m5E8Cy3 HJF01FD73TH37 vFLzs1Q8wAE2N7RiNIJsm cizeuxouYP5SLXfXXRhwZ 12Pb3irAkqRs3iYVGmBGN 5XPKxfEEuW1Uh cO4sRdAlQBPrYNRwQ4Hpo UQpFRhfW129XTovVsF8HN RrzbWrE6LpTIPckTcmYcH 0v8M7Bc4HQv70 KY49AG86jYBvg2R3cGN6K 6CsPXBazbrybpbuePB9WJ DiXDVspS46Uz9fkMqfPa5 uGVKfANO6QHJf mOIrR6LxgD7vAjQkPSSaO ZFkK8GwxROaQXibP649UT teYhV3GMJcrxTqF3ZwTKM mbHrvAjK0o4I3 Vw6XQWwxqnr6D3SpJsggr HI+ZA06BCJpPZ16iVCrrH Ttl0wkwOx9BvHiMSUzOZG 3tJquXQxzq1Lu ZXIt (more content not included)... Normal [facility] Postoperative Documentson Postoperative Documents [id number]#1 .00CD:127 Normal [facility] Physician Orderon 03-07-2022 Physician Order [id number]# 1.00CD:127 [facility] Consent for Treatmenton 02-07 Consent for Treatment [id number]#1 .00CD:127 [facility] Gastroenterology Office/Clin ic Noteon 02-27-2022 Gastroenterology Office/Clinic Note Chief Complaint [address] [facility] Staff Tamela is a 57 y.o. female here for 1 year follow up IBS. Patient continues with amitriptyline 10 mg daily History of Present Illness Lvoely is a 57-year-old white female who presents [...] after patient or guardian consented to allow [employer] to record this visit. [employer] international marketing specialist and provider reviewed before signing. PUMA: [...] Abuse, 02/23/2019 (more content not included)... Normal [facility] Comment on above: Result Comment: Elec [...] Appointments 2021 1:00 PM EDT With: Where: [facility] 2021 1:15 PM EDT With: Lorraine SUTHERLAND MD Where: [facility] Normal [facility] HIPAA Forms Officeon 022 HIPAA Forms Office [id number]#1 .00CD:127 Normal [facility] Complete Blood Count Auto Di ffon 07-02-2021 Basophils (Bld) [#/Vol] 0.0 10*3/uL Normal 0.0-0.2 [facility] Comment on above: Result Comment: PERF ORMED BY: [place] [address] PATHOLOGIST [employer] JUAN LUNA M.D. Performed By: #### C BC #### [address] Basophils/100 WBC (Bld) 1.0 % Normal . [facility] Comment on above: Performed By: #### C BC #### [address] Eosinophils (Bld) [#/Vol] 0.2 10*3/uL Normal 0.0-0.45 [facility] Comment on above: Performed By: #### C BC #### [address] Eosinophils/100 WBC (Bld) 3.8 % Normal . [facility] Comment on above: Performed By: #### C BC #### [address] Erythrocyte distribution width (RBC) [Ratio] 14.0 % Normal 11.9-15.3 [facility] Comment on above: Performed By: #### C BC #### [address] Hematocrit (Bld) [Volume fraction] 39.8 % Normal 34.0-46.4 [facility] Comment on above: Performed By: #### C BC #### [address] Hemoglobin (Bld) [Mass/Vol] 13.2 g/dL Normal 11.8-15.4 [facility] Comment on above: Performed By: #### C BC #### [facility] [address] Lymphocytes (Bld) [#/Vol] 1.4 10*3/uL Normal 1.00-4.8 [facility] Comment on above: Performed By: #### C BC #### [facility] [address] Lymphocytes/100 WBC (Bld) 31.7 % Normal . [facility] Comment on above: Performed By: #### C BC #### [facility] [address] MCH (RBC) [Entitic mass] 31.4 pg Normal 24.7-34.3 [facility] Comment on above: Performed By: #### C BC #### [address] MCV (RBC) [Entitic vol] 94.9 fL Normal 80-100 [facility] Comment on above: Performed By: #### C BC #### [address] Mean Corpuscular HGB Conc 33.1 g/dL Normal 32.0-35.0 [facility] Comment on above: Performed By: #### C BC #### [address] Monocytes (Bld) [#/Vol] 0.4 10*3/uL Normal 0.0-0.8 [facility] Comment on above: Performed By: #### C BC #### [facility] [address] Monocytes/100 WBC (Bld) 9.6 % Normal . [facility] Comment on above: Performed By: #### C BC #### [address] Neutrophils (Bld) [#/Vol] 2.4 10*3/uL Normal 1.8-7.7 [facility] Comment on above: Performed By: #### C BC #### [facility] [address] [id number] [facility] Neutrophils/100 WBC (Bld) 53.9 % Normal . [facility] Comment on above: Performed By: #### C BC #### [facility] [address] [id number] [place] Nucleated RBC/100 WBC (Bld) [Ratio] 0.1 % Normal 0-0.5 [facility] Comment on above: Performed By: #### C BC #### [facility] [address] [id number] [facility] Platelet mean volume (Bld) [Entitic vol] 8.3 fL Normal 6.3-10.7 [facility] Comment on above: Performed By: #### C BC #### [facility] [address] [id number] [facility] Platelets (Bld) [#/Vol] 236 10*3/uL Normal 150-450 [facility] Comment on above: Performed By: #### C BC #### [facility] [address] [id number] [place] RBC (Bld) [#/Vol] 4.19 10*6/uL Normal 3.60-5.00 [facility] Comment on above: Performed By: #### C BC #### [facility] [address] [id number] [place] WBC (Bld) [#/Vol] 4.5 10*3/uL Normal 4.5-11.0 [facility] Comment on above: Performed By: #### C BC #### [facility] [address] [id number] [facility] Dermatopathologyon Dermatopathology [facility] Dermatopathology Laboratory [address] [place] [id number] DERMATOPATHOLOGY REPORT Name:TAMELA HOPPER Antonieta Med. Rec #. [id number] Location: [facility] Date of Procedure: 11/14/2020 Race: Date Received: 11/16/2020 /Sex: 1965 (Age: 55) / F Date Reported: 11/19/2020 Other: Submitting Physician:JINNY MAST APRN, GLASS INSERTER-C FINAL DIAGNOSIS A. SKIN, L HAIR, BIOPSY: [...] M.D. Electronically Signed Out By FEDERICO SNOW MD/[facility] By the signature on this [...] is one gillette-brown piece of skin measuring [id number]. The specimen is inked and embedded in toto. B: Received in formalin is a gillette-brown, cylindrical piece of skin measuring 8x5x4tu. The specimen is inked and embedded in toto. dcp/11/16/2020 Microscopic Description: A. Microscopic analysis shows hyperplastic epidermis with full-thickness atypia of keratinocytes. Normal [facility] Comment on above: Performed By: #### D #### Dermatopathology Vital Signs Date Time Vital Sign Value Performing Clinician Facility 04-24-2025 15:0400 Body mass index (BMI) [Ratio] 28.24 kg/m2 Damaris Hudson PA-C Work Phone: [facility] 04-24-2025 [id number] Body weight 67.8 kg Damaris Hudson PA-C Work Phone: [facility] 04-24-2025 15:21-0400 Diastolic blood pressure 87 mm[Hg] Damaris Hudson PA-C Work Phone: [facility] 04-24-2025 15:21-0400 Heart rate 61 /min Damaris MORATAYA-Nilsa Work Phone: [facility] 04-24-2025 15:21-0400 Systolic blood pressure 161 mm[Hg] Damaris MORATAYA-Nilsa Work Phone: [facility] 02-27-2025 09:50-0400 Body mass index (BMI) [Ratio] 28.53 kg/m2 Alfonso Puri MD Work Phone: [facility] 02-27-2025 09:50-0400 Body weight 68.49 kg Alfonso Puri MD Work Phone: [facility] 01-19-2025 08:48-0400 Diastolic blood pressure 76 mm[Hg] Tarik Cummins [employer] Work Phone: [facility] 01-19-2025 08:48-0400 Heart rate 71 /min Tarik Cummins [employer] Work Phone: [facility] 01-19-2025 08:48-0400 Systolic blood pressure 131 mm[Hg] Tarik Cummins [employer] Work Phone: [facility] 10-06-2024 08:37-0500 Diastolic blood pressure 80 mm[Hg] Daphne Padron [employer] Work Phone: [facility] 10-06-2024 08:37-0500 Heart rate 67 /min Daphne Padron [employer] Work Phone: [facility] 10-06-2024 08:37-0500 Systolic blood pressure 159 mm[Hg] Daphne Robertsondaconnor [employer] Work Phone: [facility] 09-20-2024 09:33-0500 Body mass index (BMI) [Ratio] 29.12 kg/m2 Pari Jaimes PA Work Phone: [facility] 09-20-2024 09:33-0500 Body weight 69.91 kg Pari Lepeey PA Work Phone: [facility] 09-20-2024 09:33-0500 Diastolic blood pressure 82 mm[Hg] Pari Lepeey PA Work Phone: [facility] 09-20-2024 09:33-0500 Systolic blood pressure 110 mm[Hg] Pari Jaimes PA Work Phone: [facility] 07-07-2024 10:46-0400 Diastolic blood pressure 89 mm[Hg] Mohammad Hamdan [employer] Work Phone: [facility] 07-07-2024 10:46-0400 Heart rate 76 /min Mohammad Hamdan [employer] Work Phone: [facility] 07-07-2024 10:46-0400 Systolic blood pressure 139 mm[Hg] Mohammad Hamdan [employer] Work Phone: [facility] 05-04-2024 09:59-0400 Body mass index (BMI) [Ratio] 29.85 kg/m2 Alfonso Puri MD Work Phone: [facility] 05-04-2024 09:59-0400 Body weight 71.67 kg Alfonso Puri MD Work Phone: [facility] 03-31-2024 10:31-0400 Diastolic blood pressure 82 mm[Hg] Mohammad Hamdan SATELLITE COMMUNICATIONS ENGINEER.WATERPROOF BAG SEWER Work Phone: [facility] 03-31-2024 10:31-0400 Heart rate 74 /min Mohammad Hamdan SATELLITE COMMUNICATIONS ENGINEER.WATERPROOF BAG SEWER Work Phone: [facility] 03-31-2024 10:31-0400 Systolic blood pressure 121 mm[Hg] Mohammad Hamdan SATELLITE COMMUNICATIONS ENGINEER.WATERPROOF BAG SEWER Work Phone: [facility] 12-24-2023 10:31-0400 Diastolic blood pressure 85 mm[Hg] Mohammad Hamdan SATELLITE COMMUNICATIONS ENGINEER.WATERPROOF BAG SEWER Work Phone: [facility] 12-24-2023 10:31-0400 Heart rate 68 /min Mohammad Hamdan SATELLITE COMMUNICATIONS ENGINEER.WATERPROOF BAG SEWER Work Phone: [facility] 12-24-2023 10:31-0400 Systolic blood pressure 159 mm[Hg] Mohammad Hamdan SATELLITE COMMUNICATIONS ENGINEER.WATERPROOF BAG SEWER Work Phone: [facility] 06-25-2023 11:08-0400 Body weight 78.02 kg Mohammad Hamdan SATELLITE COMMUNICATIONS ENGINEER.WATERPROOF BAG SEWER Work Phone: [facility] 06-25-2023 11:08-0400 Diastolic blood pressure 97 mm[Hg] Mohammad Hamdan SATELLITE COMMUNICATIONS ENGINEER.WATERPROOF BAG SEWER Work Phone: [facility] 06-25-2023 11:08-0400 Heart rate 68 /min Mohammad Hamdan SATELLITE COMMUNICATIONS ENGINEER.WATERPROOF BAG SEWER Work Phone: [facility] 06-25-2023 11:08-0400 Systolic blood pressure 161 mm[Hg] Mohammad Hamdan SATELLITE COMMUNICATIONS ENGINEER.WATERPROOF BAG SEWER Work Phone: [facility] 10-17-2022 10:07-0500 Body height 154.9 cm Hilda Shilpa SATELLITE COMMUNICATIONS ENGINEER.WATERPROOF BAG SEWER Work Phone: [facility] 10-17-2022 10:07-0500 Body weight 76.43 kg Hilda Shilpa SATELLITE COMMUNICATIONS ENGINEER.WATERPROOF BAG SEWER Work Phone: [facility] 10-17-2022 10:07-0500 Diastolic blood pressure 84 mm[Hg] Hilda Shilpa SATELLITE COMMUNICATIONS ENGINEER.WATERPROOF BAG SEWER Work Phone: [facility] 10-17-2022 10:07-0500 Heart rate 74 /min Hilda Shilpa SATELLITE COMMUNICATIONS ENGINEER.WATERPROOF BAG SEWER Work Phone: [facility] 10-17-2022 10:07-0500 SaO2% (BldA) [Mass fraction] 97 % Hilda Shilpa SATELLITE COMMUNICATIONS ENGINEER.WATERPROOF BAG SEWER Work Phone: [facility] 10-17-2022 10:07-0500 Systolic blood pressure 126 mm[Hg] Hilda Shilpa SATELLITE COMMUNICATIONS ENGINEER.WATERPROOF BAG SEWER Work Phone: [facility] 07-23-2022 08:56-0500 Body height 154.9 cm Koli Green SATELLITE COMMUNICATIONS ENGINEER.WATERPROOF BAG SEWER Work Phone: [facility] 07-23-2022 08:56-0500 Body weight 76.66 kg Koli Green SATELLITE COMMUNICATIONS ENGINEER.WATERPROOF BAG SEWER Work Phone: [facility] 07-23-2022 08:56-0500 Diastolic blood pressure 84 mm[Hg] Koli Green SATELLITE COMMUNICATIONS ENGINEER.WATERPROOF BAG SEWER Work Phone: [facility] 07-23-2022 08:56-0500 Heart rate 94 /min Koli Green SATELLITE COMMUNICATIONS ENGINEER.WATERPROOF BAG SEWER Work Phone: [facility] 07-23-2022 08:56-0500 Systolic blood pressure 119 mm[Hg] Koli Green SATELLITE COMMUNICATIONS ENGINEER.WATERPROOF BAG SEWER Work Phone: [facility] 05-08-2022 14:05-0400 Blood Pressure Location Peters SALAM [facility] 05-08-2022 14:05-0400 Diastolic blood pressure 78 mm[Hg] Peters SALAM [facility] 05-08-2022 14:05-0400 Heart rate 78 /min Peters SALAM [facility] 05-08-2022 14:05-0400 Respiratory rate 16 /min Peters SALAM [facility] 05-08-2022 14:05-0400 Systolic blood pressure 116 mm[Hg] Peters SALAM [facility] 01-23-2022 09:38-0400 Body height 154.9 cm Hilda Shilpa SATELLITE COMMUNICATIONS ENGINEER.WATERPROOF BAG SEWER Work Phone: [facility] 01-23-2022 09:38-0400 Body weight 77.52 kg Hilda Shilpa SATELLITE COMMUNICATIONS ENGINEER.WATERPROOF BAG SEWER Work Phone: [facility] 01-23-2022 09:38-0400 Diastolic blood pressure 72 mm[Hg] Hilda Shilpa SATELLITE COMMUNICATIONS ENGINEER.WATERPROOF BAG SEWER Work Phone: [facility] 01-23-2022 09:38-0400 Heart rate 68 /min Hilda Shilpa SATELLITE COMMUNICATIONS ENGINEER.WATERPROOF BAG SEWER Work Phone: [facility] 01-23-2022 09:38-0400 SaO2% (BldA) [Mass fraction] 99 % Hilda Shilpa SATELLITE COMMUNICATIONS ENGINEER.WATERPROOF BAG SEWER Work Phone: [facility] 01-23-2022 09:38-0400 Systolic blood pressure 120 mm[Hg] Hilda Shilpa SATELLITE COMMUNICATIONS ENGINEER.WATERPROOF BAG SEWER Work Phone: [facility] Encounters Encounter Date Encounter Type Care Provider Facility Start: 05-25-2025 End: 05-25-2025 Refill Alfonso Puri MD Work Phone: [facility] Comment on above: Migraine without aur a and without status migrainosus, not intractable Start: 04-26-2025 End: 04-26-2025 Bamboo dayanna Puri MD Work Phone: [facility] Start: 04-26-2025 End: 04-26-2025 Bamcandidao dayanna Puri MD Work Phone: [facility] Start: 04-26-2025 End: 04-26-2025 ambulatory ALFONSO PURI Not Available Start: 04-26-2025 End: 04-26-2025 Patient encounter procedure Alfonso Puri MD Work Phone: [facility] Comment on above: Seasonal allergic rh initis, unspecified trigger Start: 04-24-2025 End: 04-24-2025 Patient encounter procedure Damaris Hudson PA-C Work Phone: Neurology Comment on above: Chronic migraine wit hout aura, with intractable migraine, so stated, with status migrainosus (Primary Dx) Start: 04-24-2025 End: 04-24-2025 ambulatory DAMARIS KAITLYN Facility:[facility] Start: 04-24-2025 End: 04-24-2025 Bamboo flowsheet Claire Abdi RELATIONS MGR Work Phone: [facility] Start: 04-24-2025 End: 04-24-2025 Bamboo flowsheet Claire Abdi RELATIONS MGR Work Phone: [facility] Start: 04-24-2025 End: 04-24-2025 ambulatory Claire Abdi RELATIONS MGR Work Phone: [facility] Comment on above: Poor balance (Primar y Dx); Peripheral neuropathy, idiopathic; At risk for falls Start: 04-21-2025 End: 04-21-2025 ambulatory Claire Abdi RELATIONS MGR Work Phone: [facility] Comment on above: Poor balance (Primar y Dx); Peripheral neuropathy, idiopathic; At risk for falls Start: 04-19-2025 End: 04-19-2025 Bamboo flowsheet Claire Abdi RELATIONS MGR Work Phone: [facility] Start: 04-19-2025 End: 04-19-2025 Bamboo flowsheet Claire Abdi RELATIONS MGR Work Phone: [facility] Start: 04-19-2025 End: 04-19-2025 ambulatory Claire Abdi RELATIONS MGR Work Phone: [facility] Comment on above: Poor balance (Primar y Dx); Peripheral neuropathy, idiopathic; At risk for falls Start: 04-06-2025 End: 04-06-2025 Bamboo flowsheet Mak Hummel DPM [facility] Start: 04-06-2025 End: 04-06-2025 Bamboo flowsheet Mak Hummel DPM Work Phone: [facility] Start: 04-06-2025 End: 04-06-2025 ambulatory MAK HUMMEL Not Available Start: 04-05-2025 End: 04-05-2025 Bamboo flowsheet Sangeetha Brand PT Work Phone: [facility] Start: 04-05-2025 End: 04-05-2025 Bamboo flowsheet Sangeetha Brand PT Work Phone: [facility] Start: 04-05-2025 End: 04-05-2025 ambulatory Sangeetha Brand PT Work Phone: [facility] Comment on above: Poor balance (Primar y Dx); Peripheral neuropathy, idiopathic; At risk for falls Start: 03-14-2025 End: 03-14-2025 Bamboo flowsheet Mak Hummel DPM Work Phone: [facility] Start: 03-14-2025 End: 03-14-2025 Bamboo flowsheet Mak Hmumel DPM Work Phone: [facility] Start: 03-14-2025 End: 03-14-2025 ambulatory MAK HUMMEL Not Available Start: 02-27-2025 End: 02-27-2025 Bamboo flowsdayan Puri MD Work Phone: [facility] Start: 02-27-2025 End: 02-27-2025 Bamboo flowsdayan Puri MD Work Phone: [facility] Start: 02-27-2025 End: 02-27-2025 Office outpatient visit 25 minutes Alfonso Puri MD Work Phone: [facility] Comment on above: Migraine without aur a and without status migrainosus, not intractable (Primary Dx); Seasonal allergic rhinitis due to pollen; Mild intermittent asthma without complication (HCC) Start: 02-27-2025 End: 02-27-2025 ambulatory ALFONSO PURI Not Available Start: 01-19-2025 End: 01-19-2025 Patient encounter procedure Tarik Cummins SATELLITE COMMUNICATIONS ENGINEER.WATERPROOF BAG SEWER Work Phone: Neurology Comment on above: Intractable chronic migraine without aura and without status migrainosus Start: 01-19-2025 End: 01-19-2025 ambulatory TARIK CUMMINS Facility:[facility] Start: 12-20-2024 End: 12-20-2024 [facility] Start: 10-17-2024 End: 10-17-2024 Office outpatient visit 10 minutes Jinny Meza Felter SATELLITE COMMUNICATIONS ENGINEER-WATERPROOF BAG SEWER Work Phone: [facility] Comment on above: Seborrheic keratosis , inflamed (Primary Dx); Seborrheic keratosis Start: 10-17-2024 End: 10-17-2024 ambulatory JINNY A FELTER Not Available Start: 10-17-2024 End: 10-17-2024 Bamboo flowsheet Jinny A Felter SATELLITE COMMUNICATIONS ENGINEER-WATERPROOF BAG SEWER Work Phone: [facility] Start: 10-17-2024 End: 10-17-2024 Bamboo flowsheet Jinny A Felter SATELLITE COMMUNICATIONS ENGINEER-WATERPROOF BAG SEWER Work Phone: [facility] Start: 10-06-2024 End: 10-06-2024 [facility] Start: 10-06-2024 End: 10-06-2024 Patient encounter procedure Daphne Marcelojulia SATELLITE COMMUNICATIONS ENGINEER.WATERPROOF BAG SEWER Work Phone: Neurology Comment on above: Intractable chronic migraine without aura and without status migrainosus (Primary Dx) Start: 09-20-2024 End: 09-20-2024 Bamboo flowsheet Pari MORATAYA Work Phone: [facility] Start: 09-20-2024 End: 09-24-2024 Bamboo flowsheet Pari MORATAYA Work Phone: [facility] Start: 09-20-2024 End: 09-24-2024 Clinisync Result Encounter Pari MORATAYA Work Phone: [facility] Unsolicited Start: 09-20-2024 End: 09-20-2024 Patient encounter procedure Pari MORATAYA Work Phone: [facility] Start: 09-20-2024 End: 09-20-2024 Periodic preventive med est patient 40-64yrs Pari MORATAYA Work Phone: [facility] Comment on above: Well woman exam with routine gynecological exam; Breast cancer screening by mammogram; Vaginal dryness Start: 09-20-2024 End: 09-20-2024 ambulatory PARI JAIMES Not Available Start: 09-14-2024 End: 09-14-2024 Refill Daphne Padron SATELLITE COMMUNICATIONS ENGINEER.WATERPROOF BAG SEWER Work Phone: Neurology Comment on above: Refill Request Start: 08-16-2024 End: 08-16-2024 Bamboo flowsheet Jinny A Felter SATELLITE COMMUNICATIONS ENGINEER-WATERPROOF BAG SEWER Work Phone: [facility] Start: 08-16-2024 End: 08-16-2024 Bamboo flowsheet Jinny A Felter SATELLITE COMMUNICATIONS ENGINEER-WATERPROOF BAG SEWER Work Phone: [facility] Start: 08-16-2024 End: 08-16-2024 ambulatory JINNY A FELTER Not Available Start: 08-16-2024 End: 08-16-2024 Office outpatient visit 15 minutes Jinny A Felter SATELLITE COMMUNICATIONS ENGINEER-WATERPROOF BAG SEWER Work Phone: [facility] Comment on above: Seborrheic keratosis (Primary Dx); Lentigines; History of SCC (squamous cell carcinoma) of skin; Capillary angioma; Melanocytic nevus of trunk Start: 07-21-2024 End: 07-21-2024 Telephone encounter Daphne Padron SATELLITE COMMUNICATIONS ENGINEER.WATERPROOF BAG SEWER Work Phone: Neurology Comment on above: Insurance Authorizat ion (Naratriptan ); Naratriptan PA - MMO / [employer]. Start: 07-08-2024 End: 07-08-2024 Telephone encounter Daphne Padron SATELLITE COMMUNICATIONS ENGINEER.WATERPROOF BAG SEWER Work Phone: Neurology Comment on above: Referral Request Start: 07-07-2024 End: 07-07-2024 ambulatory DAPHNE PADRON Facility:[facility] Start: 07-07-2024 End: 07-07-2024 Patient encounter procedure Daphne Padron APRN.CNP Work Phone: Neurology Comment on above: Intractable chronic migraine without aura and without status migrainosus Start: 05-06-2024 End: 05-06-2024 Refill Marcus Zamora APRN.CNP Work Phone: Neurology Comment on above: Refill Request Start: 05-04-2024 End: 05-04-2024 Bamboo flowsheet Alfonso Puri MD Work Phone: [facility] Start: 05-04-2024 End: 05-04-2024 Abimbola flowsdayan Puri MD Work Phone: [facility] [...] due to pollen Start: 03-31-2024 End: 03-31-2024 Patient encounter procedure Daphne Padron APRN.WATERPROOF BAG SEWER Work Phone: Neurology Comment on above: Intractable chronic migraine without aura and without status migrainosus (Primary Dx) Start: 12-24-2023 End: 12-24-2023 Patient encounter procedure Dapnhe Padron APRN.WATERPROOF BAG SEWER Work Phone: Neurology Comment on above: Intractable chronic migraine without aura and without status migrainosus (Primary Dx) Start: 06-25-2023 End: 06-25-2023 Patient encounter procedure Daphne Padron APRN.SOHAIL Work Phone: Neurology Comment on above: Intractable chronic migraine without aura and without status migrainosus (Primary Dx) Start: 06-22-2023 Telephone encounter Daphne Jacobson adrianaryanne SATELLITE COMMUNICATIONS ENGINEER.WATERPROOF BAG SEWER Work Phone: Neurology Comment on above: Referral Request Start: 03-03-2023 Telephone encounter Hilda Cade SATELLITE COMMUNICATIONS ENGINEER.WATERPROOF BAG SEWER Work Phone: [facility] Comment on above: Insurance Authorizat ion (PRIOR AUTH DELAYED: NEED COVERAGE VERIFICATION) Start: 01-14-2023 ambulatory Lorraine SUTHERLAND Facility:[facility] Start: 01-01-2023 Telephone encounter Hilda Cade SATELLITE COMMUNICATIONS ENGINEER.WATERPROOF BAG SEWER Work Phone: Neurology Comment on above: Referral Request Start: 11-06-2022 End: 11-06-[address] ARPAN MULLINS . Facility: Start: 10-17-2022 End: 10-17-2022 Patient encounter procedure Hilda Gustafsonler SATELLITE COMMUNICATIONS ENGINEER.WATERPROOF BAG SEWER Work Phone: Neurology Comment on above: Intractable chronic migraine without aura and without status migrainosus (Primary Dx) Start: 09-12-2022 End: 09-13-2022 ambulatory ADAM RENO . Facility:[facility] Start: 07-23-2022 End: 07-23-2022 Patient encounter procedure Marcus Zamora SATELLITE COMMUNICATIONS ENGINEER.WATERPROOF BAG SEWER Work Phone: Neurology Comment on above: Intractable chronic migraine without aura and without status migrainosus Start: 05-08-2022 End: 05-09-2022 ambulatory Lorraine SUTHERLAND Facility:[facility] Start: 05-08-2022 End: 05-08-2022 Patient encounter procedure Lorraine SUTHERLAND [facility] Start: 04-18-2022 End: 04-18-[address] ARPAN MULLINS . Facility:[facility] Start: 04-07-2022 End: 04-08-[address] ARPAN MULLINS . Facility: Start: 03-06-2022 End: 03-07-2022 ambulatory Petersbibi SUTHERLAND Facility:[facility] Start: 03-06-2022 End: 03-06-2022 Patient encounter procedure Petersbibi SUTHERLAND [facility] Start: 02-26-2022 End: 02-27-2022 ambulatory [facility] Facility:[facility] Start: 02-19-2022 ambulatory [facility] Facility:[facility] Start: 01-23-2022 End: 01-23-2022 Patient encounter procedure Hilda Massey SATELLITE COMMUNICATIONS ENGINEER.WATERPROOF BAG SEWER Work Phone: Neurology Comment on above: Intractable chronic migraine without aura and without status migrainosus (Primary Dx) Start: 03-31-2017 End: 04-01-2017 Ambulatory DEFAULT PHYSICIAN Facility:[facility] Procedures Date Procedure Procedure Detail Performing Clinician Start: 10-17-2024 CRYOTHERAPY SKIN LESION Jinny Mast SATELLITE COMMUNICATIONS ENGINEER-WATERPROOF BAG SEWER Work Phone: Start: 09-20-2024 IGP,APTIMA HPV,AGE GDLN Pari MROATAYA Work Phone: Start: 09-20-2024 Microscopic observat ion [Identifier] in Cervix by Cyto stain Alfonso Puri MD Work Phone: Start: 05-13-2024 Mammography Alfonso rock MD Work Phone: Start: 01-19-2022 Adult depression scr eening assessment Hilda Massey SATELLITE COMMUNICATIONS ENGINEER.WATERPROOF BAG SEWER Work Phone: Start: 05-26-2017 Cystourethroscopy wi th dilation of urethral stricture [facility] Start: 09-06-2015 Cystopexy Lorraine Maciel Start: 04-24-2015 Cystourethroscopy wi th dilation of urethral stricture Peters SALAM Comment on above: 05-26-2017 Adenoidectomy planned Petersbibi SUTHERLAND Appendectomy Peters SALAM 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) Peters SALAM Colonoscopy [employer] End: 02-22-2019 H/O: hysterectomy History of partial hysterectomy( Confirmed ) [facility] End: 02-22-2019 History of appendectomy History of appendectomy( Confirmed ) [employer] End: 02-22-2019 History of tonsillectomy Hx of tonsillectomy( Confirmed ) [employer] Hysterectomy [facility] Sinus Surgery [employer] Tonsillectomy [employer] Plan of Treatment Date Care Activity Detail Author Start: 09-20-2027 Screening for malign ant neoplasm of cervix [facility] Start: 10-11-2025 End: 10-11-2025 Patient encounter procedure 10/11/2025 9:40 AM EST Office Visit [facility] [address] [place] [phone] Alfonso Puri MD [address] [address] [facility] Start: 09-21-2025 End: 09-21-2025 Patient encounter procedure [facility] Start: 08-17-2025 End: 08-17-2025 Patient encounter procedure [facility] Start: 07-27-2025 End: 07-27-2025 Patient encounter procedure 07/27/2025 8:00 AM EST Office Visit Neurology [address] [place], [place] [id number] Tarik Cummins, SATELLITE COMMUNICATIONS ENGINEER.WATERPROOF BAG SEWER [address] [place] [address] [facility] Neurology Comment on above: Botox Start: 05-13-2025 Screening for malign ant neoplasm of breast Mammogram [facility] Start: 05-08-2025 Influenza vaccination C [facility] Start: 04-28-2025 End: 04-28-2025 ambulatory 04/28/2025 8:30 AM EDT Treatment [facility] [address] [place] [phone] Sangeetha Brand, PT [address] [place] [address] [facility] Start: 04-26-2025 End: 04-26-2025 Patient encounter procedure [facility] Start: 04-24-2025 End: 04-24-2025 Patient encounter procedure 04/24/2025 3:15 PM EDT Office Visit Neurology [address] [place] [address] Damaris Hudson PA-C [address] [place], [place] [id number] botox Neurology Comment on above: botox Start: 04-24-2025 End: 04-24-2025 ambulatory [facility] Comment on above: Arrived Start: 04-21-2025 End: 04-21-2025 ambulatory 04/21/2025 8:30 AM EDT Treatment [facility] [address] [place] [phone] Claire Abdi, ONEYDA [address] [place] [address] [facility] Start: 04-19-2025 End: 04-19-2025 ambulatory [facility] Comment on above: Arrived Start: 04-14-2025 End: 04-14-2025 ambulatory 04/14/2025 8:30 AM EDT Treatment [facility] [address] [place] [phone] Sangeetha Brand, PT [address] [place] [address] [facility] Start: 04-13-2025 End: 04-13-2025 ambulatory 04/13/2025 8:00 AM EDT Treatment [facility] [address] [place] [address] Alesha Kearns PTA [facility] Start: 04-06-2025 End: 04-06-2025 Patient encounter procedure 04/06/2025 8:00 AM EDT Office [facility] [address] [place] [address] Mak Hummel DPJanell [address] [place] [address] [facility] Start: 04-05-2025 End: 04-05-2025 ambulatory 04/05/2025 8:00 AM EDT Evaluation [facility] [address] [place] [phone] Sangeetha Brand, PT [address] [place] [address] Peripheral neuropathy, idiopathic; At risk for falls; Poor balance [facility] Comment on above: Peripheral neuropath y, idiopathic; At risk for falls; Poor balance Start: 03-14-2025 End: 03-14-2025 Patient encounter procedure 03/14/2025 8:30 AM EDT Office Visit [facility] [address] [place] [address] Mak Hummel DPJanell [address] [place] [address] [facility] Start: 02-27-2025 End: 02-27-2025 Patient encounter procedure [facility] Comment on above: Arrived Start: 01-03-2025 End: 01-03-2025 Patient encounter procedure 01/03/2025 8:30 AM EDT Office Visit Neurology Headache [facility] [address] [place] [address] Daphne Padron APRN.WATERPROOF BAG SEWER [address] [place] [address] Return in about 3 months (around 01/04/2025) for botox. Neurology Headache [facility] Comment on above: Return in about 3 mo nths (around 01/04/2025) for botox. Start: 10-17-2024 End: 10-17-2024 Patient encounter procedure 10/17/2024 2:50 PM EST Office Visit [facility] [address] [place] [phone] Jinny Mast APRN-WATERPROOF BAG SEWER [address] [place] [address] Arrived [facility] Comment on above: Arrived Start: 10-06-2024 End: 10-06-2024 Patient encounter procedure 10/06/2024 8:30 AM EST Office Visit Neurology [address] [place] [address] Daphne Padron APRN.WATERPROOF BAG SEWER [address] [place] [address] [facility] Neurology Comment on above: Botox Start: [...] [address] [place] [phone] Jinny Mast SATELLITE COMMUNICATIONS ENGINEER-WATERPROOF BAG SEWER [address] [place] [address] [facility] Start: 07-07-2024 End: 07-07-2024 Patient encounter procedure 07/07/2024 11:00 AM EDT Office Visit Neurology [id number] [facility] [place] [address] Daphne Padron, SATELLITE COMMUNICATIONS ENGINEER.WATERPROOF BAG SEWER [address] [place] [address] [facility] Comment on above: Botox Start: 05-08-2024 Covid-19 Vaccine ( season) Covid-19 Vaccine ( season) [facility] Start: 05-08-2024 Influenza vaccination C [facility] Start: 05-08-2023 Covid-19 Vaccine ( season) Covid-19 Vaccine ( season) [facility] Start: 05-08-2023 Influenza vaccination Influenza Vacc ine (#1) [facility] Start: 01-19-2023 Adult depression screening assessment DEPRESSION SCREENING [facility] Start: 2023 RSV Vaccine (1 - 1-d ose 60+ series) RSV Vaccine (1 - 1-dose 60+ series) [facility] Start: 2023 RSV Vaccine (1 - Ris k 60-74 years 1-dose series) RSV Vaccine (1 - Risk 60-74 years 1-dose series) [facility] Start: 09-07-2022 DEPRESSION ASSESSMENT DEPRESSION ASS ESSMENT [facility] Start: 09-07-2021 DEPRESSION ASSESSMENT DEPRESSION ASS ESSMENT [facility] Start: 09-15-2017 Pneumococcal Vaccine : 50+ (2 of 2 - PCV) Pneumococcal Vaccine: 50+ (2 of 2 - PCV) [facility] Start: 01-18-2008 COLOGUARD (FIT-DNA) COLOGUARD (FIT-D NA) [facility] Start: 01-18-2008 Colonoscopy COLONOSCOPY [facility] Start: 01-18-2008 COLORECTAL CANCER SCREENING COLORECTAL CANCER SCREENING [facility] Start: 01-18-[address] [facility] Start: 01-18-2008 DIABETES SCREEN DIABETES SCREEN [facility] Start: 01-18-2008 Diabetes Screening Diabetes Screenin g [facility] Start: 01-18-2008 FECAL OCCULT BLOOD FECAL OCCULT BLOO D [facility] Start: 01-18-2008 Lipid 1996 panel - S shey or Plasma Lipid Screening [facility] Start: 01-18-2008 Lipid panel Lipid Screening [facility] Start: 01-18-2008 LIPID SCREEN LIPID SCREEN [facility] Start: 01-18-2008 Screening for malign ant neoplasm of colon [facility] Start: 01-18-2008 SIGMOIDOSCOPY SIGMOIDOSCOPY [facility] Start: 2003 Mammography [facility] Start: 2003 Screening for malign ant neoplasm of breast Mammogram Screening [facility] Start: 1993 HPV TESTING HPV TESTING [facility] Start: 1993 Screening for malign ant neoplasm of cervix [facility] Start: 01-18-1984 PAP TESTING PAP TESTING [facility] Start: 01-18-1984 Screening for malign ant neoplasm of cervix [facility] Start: 1982 Urine microalbumin profile [facility] Start: 1981 Anxiety Screening Anxiety Screening [facility] Start: 1981 Depression Screening Depression Scre ening [facility] Start: 1981 HEPATITIS C SCREENING HEPATITIS C [facility] Start: 1981 Hepatitis C screening Hepatitis C [facility] Start: 1981 HIV SCREENING HIV SCREENING [facility] Start: 1981 HIV screening HIV Screening [facility] Start: 01-18-1968 COVID-19 VACCINE (#1) COVID-19 VACCI NE (#1) [facility] Start: 1963 COVID-19 VACCINE (#1) COVID-19 VACCI NE (#1) [facility] Start: 1963 Screening for malign ant neoplasm of colon [facility] THIN PREP TIS PAP AN D HR HPV DNA THIN PREP TIS PAP AND HR HPV DNA Pathology and Cytology Routine Well woman exam with routine gynecological exam Ordered: 09/20/2024 [facility] Comment on above: Ordered: 09/20/2024 [facility] Immunizations Immunization Date Immunization Notes Care Provider Ruth montoya 06-11-2022 influenza virus vaccine, unspecified formulation Teemohamudshae Frediconnor SATELLITE COMMUNICATIONS ENGINEER.WATERPROOF BAG SEWER Work Phone: [facility] 07-01-2021 influenza virus vaccine, unspecified formulation Peters SALAM [facility] 05-29-2020 influenza virus vaccine, unspecified formulation Peters SALAM [facility] 05-22-2020 influenza virus vaccine, unspecified formulation Peters SALAM [facility] 08-08-2019 zoster vaccine recombinant Hilda Shilpa SATELLITE COMMUNICATIONS ENGINEER.WATERPROOF BAG SEWER Work Phone: [facility] Work Phone: 06-15-2019 influenza virus vaccine, unspecified formulation Alfonso Puri MD Work Phone: [facility] 05-19-2019 zoster vaccine recombinant Hilda Shilpa SATELLITE COMMUNICATIONS ENGINEER.WATERPROOF BAG SEWER Work Phone: [facility] Work Phone: 05-10-2019 influenza virus vaccine, unspecified formulation Peters SALAM [facility] 05-10-2019 influenza, injectabl e, quadrivalent, preservative free Hilda Shilpa SATELLITE COMMUNICATIONS ENGINEER.WATERPROOF BAG SEWER Work Phone: [facility] Work Phone: 05-10-2019 measles, mumps and rubella virus vaccine Hilda Shilpa SATELLITE COMMUNICATIONS ENGINEER.WATERPROOF BAG SEWER Work Phone: [facility] Work Phone: 06-08-2017 influenza virus vaccine, unspecified formulation Hilda Shilpa SATELLITE COMMUNICATIONS ENGINEER.WATERPROOF BAG SEWER Work Phone: [facility] Work Phone: 06-08-2017 influenza, unspecifi ed formulation Petesr SALAM [facility] 09-15-2016 pneumococcal polysaccharide vaccine, 23 valent Hilda Massey SATELLITE COMMUNICATIONS ENGINEER.WATERPROO[employer] BAG SEWER Work Phone: [facility] Work Phone: 06-17-2016 influenza virus vaccine, unspecified formulation Hilda Massey SATELLITE COMMUNICATIONS ENGINEER.WATERPROOF BAG SEWER Work Phone: [facility] Work Phone: 06-17-2016 influenza, unspecifi ed formulation Peters SALAM [facility] NEGATED: Highlighted row has not occurred!05-08-2022 influenza virus vaccine, unspecified formulation Peters SALAM [facility] Payers Date Payer Category Payer Private Health Insurance [id number] 2023 Unknown [id number] 2021 Unknown 2021 Unknown CHEYANNE DELISA ZELAYA PPO [id number] 2021-Present [phone] [address] [place] [address] PPO [id number] 1965 Unknown [id number] [id number] 1965 Unknown [id number] 2.16.840.1.484332.3.579.2.5 1963 Unknown [id number] 2.16.840.1.489892.3.579.2.5 1963 Unknown [id number] 2.16.840.1.692088.3.579.2.5 1963 Unknown [id number] 2.16.840.1.299957.3.579.2.7 1963 Unknown [id number] 2.16.840.1.518544.3.579.2.7 27 1963 Unknown [id number] 2.16.840.1.556648.3.579.2.7 27 1963 Unknown [id number] 2.16.840.1.657346.3.579.2.7 27 1963 Unknown [id number] 2.16.840.1.103263.3.579.2.1 259 1963 Unknown [id number] 2.16.840.1.388254.3.579.2.1 259 1963 Unknown [id number] 2.16.840.1.128352.3.579.2.1 259 1963 Unknown [id number] 2.16.840.1.126477.3.579.2.1 259 1963 Unknown [id number] 2.16.840.1.881586.3.579.2.1 259 1963 Unknown [id number] 2.16.840.1.503750.3.579.2.1 259 1963 Unknown [id number] 2.16.840.1.537394.3.579.2.1 259 1963 Unknown [id number] 2.16.840.1.899682.3.579.2.1 259 1963 Unknown [id number] 2.16.840.1.351143.3.579.2.1 259 1963 Unknown [id number] 2.16.840.1.328521.3.579.2.1 259 1963 Unknown [id number] 2.16.840.1.352646.3.579.2.1 259 1963 Unknown [id number] 2.16.840.1.905048.3.579.2.1 259 1959 Unknown [id number] Social History Date Type Detail Facility Start: 10-03-2020 End: 03-14-2025 Tobacco smoking status NHIS Ex-smoker [facility] Start: 10-03-2020 End: 03-14-2025 Tobacco use and exposure Smokeless tobacco non-user [facility] Start: 01-23-2022 End: 04-26-2025 Alcohol intake Current drinker of alcohol (finding) [facility] Start: 05-08-2020 History SDOH Alcohol Frequency 4 [facility] Start: 1965 Sex Assigned At Not on file [facility] Start: 01-13-2022 End: 07-23-2022 Exposure to SARS-CoV-2 (event) Not sure [facility] Start: 05-08-2020 End: 04-26-2025 Sex Assigned At Female [facility] Start: 11-15-1981 End: 05-29-1989 History of tobacco use Current smoker [facility] Start: 05-08-2020 End: 04-26-2025 History of Social function [facility] Work Phone: How often to you hav e a drink containing alcohol? 2-3 time sa week [facility] Work Phone: Start: 08-08-2012 Average Number of Drinks Not on file [facility] Start: 05-04-2023 Tobacco smoking status [facility] Never smoked tobacco [facility] Start: 05-01-2023 Alcohol Comment less than monthly, Caffeine intake: 1-2 cups per day [facility] Start: 1965 Sex assigned at Female [facility] Start: 04-27-2023 Gender identity Identifies as female gender (finding) [facility] Start: 04-27-2023 Sexual orientation Heterosexual (finding) [facility] Start: 11-15-1981 End: 05-29-1989 History of tobacco use Cigarette Smoker [facility] Functional Status Date Assessment Result Facility 05-08-2022 Functional Status N/A [facility] Clinical Notes 01-23-2022 to 04-26-2025 Alfonso Puri MD - 04/26/2025 9:00 AM EDTPatiDamaris Ocasio PA-C - 04/24/2025 3:33 PM Samri Brand PT - 04/05/2025 8:00 AM Wilmar Puri MD - 02/27/2025 9:40 AM EDT Note Date & Type Note Facility 04-26-2025 History of Present illness Narrative Tamela Hopper returns to the office today for skin testing to update her immunotherapy prescription. Skin testing in the office today performed under direct physician supervision is positive for cat and dog dander but negative for other indoor and outdoor allergens. Symbicort epinephrine elavil We agreed to re mix her immunotherapy with cat only. She would like to defer on adding dog to her regimen at the current time. Follow-up was arranged in 6 months for reassessment or sooner should problems arise. documented in this encounter [facility] 04-24-2025 Instructions Damaris Hudson PA-C - 04/24/2025 3:47 PM EDT Images from the original note were not included. [facility] Frequently Asked Questions about Botox Treatment for Chronic Migraine What is Botox and how does it work for chronic migraine? Botox (short for OnabotulinumtoxinA) is a medication that works by blocking pain signals. When injected into muscles, botox travels along the nerves connected to those muscles and towards the brainstem to reduce the release of pain inducing chemicals in the central nervous system. Botox helps block pain signals at the level of the brain. For chronic migraines, Botox is injected into 7 specific muscles in the head and neck using very small needles. By calming overactive nerve activity and blocking pain signals, Botox can help prevent migraines and can significantly lower the number of headaches you might experience. Botox may reduce migraine frequency and severity significantly for 50-70% of chronic migraine patients. Where are the injections? Botox injections, for chronic migraine, involve a series of 31 injections into 7 different muscles using very small needles. These injections occur around the forehead, temples, back of the head, the neck, and shoulder area. What are the possible side-effects? Botox has very minimal side effects: the most common may be pain at the injection sites, mild bruising and a small amount of bleeding at the injection sites, mild headache or neck pain after treatment, You may experience flu-like symptoms after the injections, but this should be transient and will only last a few days. Muscle weakness around the injection site can occur. Temporary drooping eyelids (ptosis) is a rare but possible side-effect Does it hurt? The needles used in the procedure are extremely small and most patients tolerate the procedure with minimal discomfort. Some patients report mild pinching or stinging. How long does the procedure take? Botox is an outpatient procedure: no sedation is given, and you can drive yourself to/from your appointment - you will leave the same day! The duration of the procedure for the injections, once started, is typically 15-20 minutes. How long will it take until the medication takes effect and I feel better? The Botox medication starts to kick into effect after about 1-2 weeks, it is not immediate. The first or second round of Botox injections may not provide much relief, but it is recommended to continue for at least a total of 2-3 rounds of injections, occurring every 12 weeks, to assess the benefit, prior to stopping the injections. After completion of 3 rounds of injections, you should make an appointment with your primary provider to discuss how well Botox works for you, and develop a long-term treatment plan. Insurance also requires this documentation for Botox renewals. Please be sure to keep a headache diary to discuss with your provider How long does the medication last? The effects of Botox for chronic migraines usually last around 10 to 12 weeks. After this time, you may start to notice that your migraines return or become more frequent. Many people get Botox injections every 12 weeks (84 -91 days) to maintain its effectiveness in preventing migraines, based on what insurance allows. What about my other medications? At the start of Botox therapy, you will continue the medication plan as discussed with your provider. Please plan to make a follow-up appointment after the 3rd round of Botox to discuss long-term planning of your preventive medications. Is it approved by insurance? Many insurance companies will cover Botox treatment if a patient meets criteria for chronic migraine headache and has already tried other preventative options. It is important to share all previously tried medications, including durations of trials and why you stopped taking the medication, with your provider, to help with this documentation. Please be aware that an approval or notification that no pre-certification is required is not equivalent to 100% coverage of payment by your insurance. We encourage you to check with your insurance company for specific benefit details before starting Botox to understand your coverage and any [id number] costs. Botox injections are scheduled every 12-13 weeks, per insurance. How long will it take to hear back about insurance approval? Once your provider has referred you for Botox treatment, our team will start the authorization process and contact you within 3-5 business days to schedule a Botox appointment in about 4 weeks while awaiting a decision from insurance. If you haven t heard from a equipment planner within 1-2 weeks, please call our office at [phone] (select option 1 for Botox schedulers). Feel free to contact us with any other questions or concerns about Botox: [employer] [phone] or [email or web address] Once my appointment is scheduled, how should I prepare? Botox treatments are quick, but you may want to plan for a few quiet hours or even a day or two of rest after the treatment to see how you individually response. Some people feel sore or tired, especially after the first treatments. Stock up on your acute rescue migraine treatments; though it is rare, migraines can flare in the few days immediately after administration of the treatment Please do not apply any makeup prior to your appointment Wear comfortable clothing: Since the injections are given in your head, neck and upper shoulder area, wear something that allows easy access to these areas. If you are also considering or also already undergoing cosmetic Botox (such as for wrinkles), it s important to let your provider know so you can discuss ideal timing of the Botox injections. We encourage you to check with your insurance company for specific benefit details before starting Botox to understand your coverage and any [id number] costs. Do I need a hook up driver? No; however, if it is the first time you are receiving Botox, it is encouraged to have someone with you for support. What to avoid after the procedure? Lying down: For the first 4 hours after your treatment, we recommend you do not lie down or put pressure on your head, neck, or the areas where you had the Botox injections. This helps prevent the Botox from moving to other areas. Massaging the treated areas: Avoid rubbing or massaging your face, head, neck, or the areas where you had the Botox injections for 24 hours. This helps prevent the Botox from spreading to other areas. Washing the treated areas: Avoid rubbing or applying pressure to your head, neck, face or the areas where you had the Botox injections for 24 hours. This helps prevent the Botox from spreading to other areas. Strenuous exercise: Avoid intense physical activities like running, heavy lifting, or anything that causes you to sweat heavily for at least 24 hours. Hair treatments or dyes: Avoid getting any hair treatments, including coloring or chemical treatments, for 24 hours before or after your Botox injections. The chemicals from these treatments can affect the Botox. When should I call my healthcare provider with concerns after receiving Botox? In general, side-effects are rare. Please call your provider s office if you experience any side-effects that are bothersome to you or persistent: Severe headache that doesn t go away or gets worse. Vision changes: such as blurry vision or difficulty seeing clearly. Drooping eyelid or muscle weakness that doesn t improve or becomes worse. Trouble swallowing or breathing difficulties. Severe pain or swelling at the injection sites that doesn t go away. Signs of an allergic reaction, such as rash, itching, or difficulty breathing Will I need Botox my whole life? Botox for chronic migraines is a long-term treatment, but it is not necessarily something you will need to use for the rest of your life. Many people use Botox treatments for several years to help prevent migraines. Over time, you and your provider may find that the treatment helps so much that you can space out the timing of injections or stop them altogether as your migraine condition calms down. Your provider will regularly check how well the Botox is working for you, and together you can decide how often you need treatments. Can I receive cosmetic Botox while getting Botox for my migraines? Please discuss these details with your primary provider. To prevent the development of antibodies against onabotulinumtoxinA and potential overdose, careful coordination for timing of the procedures close together is necessary, to avoid potential complications and maximize benefit. Can I get Botox while or ? Botox for migraine is not FDA approved for use in and there is limited available data for the analysis of the use of onabotulinum toxin A for the treatment of chronic migraine in . Please discuss the details with your primary provider regarding treatment if you are planning to conceive, currently , or . documented in this encounter [facility] 04-24-2025 Note HNO ID: [id number] Author: DAMARIS HUDSON PA-C Service: ? Author Type: Physician Manga Artist Type: Progress Notes Filed: 04/24/2025 15:49 Note Text: Headache Center Follow-up Visit Current Preventive: Botox, amitriptyline and metoprolol given by outside prescribers Change needed for current preventive? No Current Abortive: rizatriptan Change needed for current abortive? No Impression: Tamela Hopper is a 60 year old year old female, with a history of chronic migraines, doing well with botox. Her neurological examination is essentially normal at this visit. ICHD-3 Diagnosis: Chronic migraine without aura, with intractable migraine, so stated, with status migrainosus (primary encounter diagnosis) Plan: Botox #19, return in 3 months for repeat round. Follow-Up Onabotulinum Toxin A (BotoxTM) for Migraine Indication: Chronic Intractable Migraine Treatment #: 19 Referral Expiration: 09/06/2025 Prior to the initiation of the FIRST treatment with Onabotulinum Toxin A, the patient reported the following average headache frequency over the past 3 MONTHS: Number of moderate-severe migraine days/month: 18 Number of mild migraine days/month: 10 Number of headache free days/month: 2 (48 headache-free hours) Migraine severity: 8/10 After treatment with Onabotulinum Toxin A: Number of moderate-severe migraine days/month: 2 Number of mild migraine days/month: 3 Number of headache free days/month: 25 (600 headache-free hours) Migraine severity: 6/10 Patient reduction in overall migraine days: Yes Patient reduction in moderate-severe migraine days: Yes Patient reduction of headache hours by 100 hours or more: Yes (reduction of 552 hours) Individual has obtained clinical benefit deemed [...] infection at proposed injection site. HEADACHE SCORES: 10/01/2024 01/15/2025 04/18/2025 Headache Questions ER visits since last office visit: 0 0 0 Hospital stays since last office visit 0 0 0 Limited ADLs in the last month: 0 0 0 Days missed from work or school in the last month: 0 0 0 Days headache pain free in the last month: 21 10 25 Days per month with ALL of the following symptoms - decreased productivity, light sensitivity and nausea: 0 2 0 Initial improvement of headache after botox injection at last visit: Much improved Much improved Much improved PRN medication usage in the last month: 9 10 6 Patient impression of improvement since last visit: Much improved Minimally worse Much improved 10/01/2024 01/15/2025 04/18/2025 HIT-6 HIT-6 40 (Little or no impact) 57 (Substantial impact) 46 (Little or no impact) 10/01/2024 01/15/2025 04/18/2025 HANS - 2/7 SCORES HANS-2 Score 0 0 0 10/01/2024 01/15/2025 04/18/2025 Migraine Specific QOL - Higher scores indicate better HRQL Role Function-Restrictive Transformed Score (range: 0-100) 100 80 94.29 Role Function-Preventive Transformed Score (range: 0-100) 100 95 100 Emotional Function Transformed Score (range: 0-100) 100 93.33 100 04/18/2025 01/15/2025 10/01/2024 PHQ-9 Score 0 0 0 BP 161/87 (BP Site: Left Arm, BP Position: Sitting, BP Cuff Size: Regular Adult) Pulse 61 Wt 67.8 kg (149 lb 7.6 oz) BMI 28.24 kg/m? [facility] 1965 ALLERGIES Allergen Reactions Sulfa (Sulfonamide * Hives UNIVERSAL PROTOCOL / SAFETY CHECKLIST Procedure: Onabotulinum toxin A for migraine Informed Consent Consent Obtained: Written [place] Protocol A moment to CARE was completed SIGN IN Personnel directly involved with the procedure wore the appropriate PPE Special Equipment: N/A Patient/Surrogate Stated/Verified: Patient name, Date of , Relevant allergies and Intended procedure TIME OUT No relevant labs, photos, and/or imaging studies were applicable for review. Consent documented and matches the intended procedure Correct side/site marked and visible. Medications required for procedure verified. No fire risk assessment and interventions applicable. No implant(s) inserted. SIGN OUT No specimen collected. Written Consent Obtained: Written LOT #: [id number] Expiration Date: Month: 11 Year: 2025 Injection Sites Left (Units) Left (Sites) Right (Units) Right (Sites) TOTAL (Units) Vending Machine Filler 5 1 5 1 10 Procerus Units: 5 Sites: 1 5 Frontalis 10 2 10 2 20 Temporalis optional follow the pain 20 10 4 2 20 10 4 2 60 Occipitalis optional follow the pain 15 10 3 2 15 15 3 3 55 Cervical PSP 10 2 10 2 20 Trape (more content not included)... [facility] 04-24-2025 History of Present illness Narrative Images from the original note were not included. Headache Center Follow-up Visit Current Preventive: Botox, amitriptyline and metoprolol given by outside prescribers Change needed for current preventive? No Current Abortive: rizatriptan Change needed for current abortive? No Impression: Tamela Hopper is a 60 year old year old female, with a history of chronic migraines, doing well with botox. Her neurological examination is essentially normal at this visit. ICHD-3 Diagnosis: Chronic migraine without aura, with intractable migraine, so stated, with status migrainosus (primary encounter diagnosis) Plan: Botox #19, return in 3 months for repeat round. Follow-Up Onabotulinum Toxin A (BotoxTM) for Migraine Indication: Chronic Intractable Migraine Treatment #: 19 Referral Expiration: 09/06/2025 Prior to the initiation of the FIRST treatment with Onabotulinum Toxin A, the patient reported the following average headache frequency over the past 3 MONTHS: Number of moderate-severe migraine days/month: 18 Number of mild migraine days/month: 10 Number of headache free days/month: 2 (48 headache-free hours) Migraine severity: 8/10 After treatment with Onabotulinum Toxin A: Number of moderate-severe migraine days/month: 2 Number of mild migraine days/month: 3 Number of headache free days/month: 25 (600 headache-free hours) Migraine severity: 6/10 Patient reduction in overall migraine days: Yes Patient reduction in moderate-severe migraine days: Yes Patient reduction of headache hours by 100 hours or more: Yes (reduction of 552 hours) Individual has obtained clinical benefit deemed [...] infection at proposed injection site. HEADACHE SCORES: 10/01/2024 01/15/2025 04/18/2025 Headache Questions ER visits since last office visit: 0 0 0 Hospital stays since last office visit 0 0 0 Limited ADLs in the last month: 0 0 0 Days missed from work or school in the last month: 0 0 0 Days headache pain free in the last month: 21 10 25 Days per month with ALL of the following symptoms - decreased productivity, light sensitivity and nausea: 0 2 0 Initial improvement of headache after botox injection at last visit: Much improved Much improved Much improved PRN medication usage in the last month: 9 10 6 Patient impression of improvement since last visit: Much improved Minimally worse Much improved 10/01/2024 01/15/2025 04/18/2025 HIT-6 HIT-6 40 (Little or no impact) 57 (Substantial impact) 46 (Little or no impact) 10/01/2024 01/15/2025 04/18/2025 HANS - 2/7 SCORES HANS-2 Score 0 0 0 10/01/2024 01/15/2025 04/18/2025 Migraine Specific QOL - Higher scores indicate better HRQL Role Function-Restrictive Transformed Score (range: 0-100) 100 80 94.29 Role Function-Preventive Transformed Score (range: 0-100) 100 95 100 Emotional Function Transformed Score (range: 0-100) 100 93.33 100 04/18/2025 01/15/2025 10/01/2024 PHQ-9 Score 0 0 0 BP 161/87 (BP Site: Left Arm, BP Position: Sitting, BP Cuff Size: Regular Adult) Pulse 61 Wt 67.8 kg (149 lb 7.6 oz) BMI 28.24 kg/m Patient name: Tamela Meza [facility] : 1965 ALLERGIES Allergen Reactions Sulfa (Sulfonamide * Hives UNIVERSAL PROTOCOL / SAFETY CHECKLIST Procedure: Onabotulinum toxin A for migraine Informed Consent Consent Obtained: Written [place] Protocol A moment to CARE was completed SIGN IN Personnel directly involved with the procedure wore the appropriate PPE Special Equipment: N/A Patient/Surrogate Stated/Verified: Patient name, Date of , Relevant allergies and Intended procedure TIME OUT No relevant labs, photos, and/or imaging studies were applicable for review. Consent documented and matches the intended procedure Correct side/site marked and visible. Medications required for procedure verified. No fire risk assessment and interventions applicable. No implant(s) inserted. SIGN OUT No specimen collected. Written Consent Obtained: Written LOT #: [id number] Expiration Date: Month: Year: 2025 Injection Sites Left (Units) Left (Sites) Right (Units) Right (Sites) TOTAL (Units) Vending Machine Filler 5 1 5 1 10 Procerus Units: 5 Sites: 1 5 Frontalis 10 2 10 2 20 Temporalis optional follow the pain 20 10 4 2 20 10 4 2 60 Occipitalis optional follow the pain 15 10 3 2 15 15 3 3 55 Cervical PSP 10 2 10 2 20 Trapezius 15 3 15 3 30 Total Units used: 200 Total Units wasted: 0 Prior Therapies Duration of Use Dose Side effect Anti-Convulsant Gabapentin (Neurontin) Anti-Depressant and Antipsychotic Amitriptyline (Elavil) Blood Pressure Metoprolol (Lopressor,Toprol XL) Over the Counter Medications Acetaminophen (Tylenol) lack of efficacy Ibuprofen (Advil, Motrin) Naproxen sodium (Aleve) lack of efficacy Damaris Hudson PA-C Answers submitted by the patient for this visit: Headache Questionnaire (Submitted on 04/18/2025) How many days of work or school have you missed due to headaches in the last month? : 0 In the last month, how many headache days did you experience ALL of the following symptoms: decreased productivity, light sensitivity and nausea?: 0 How many days have you been completely free of headache pain in the last month? : 25 documented in this encounter [facility] 04-05-2025 History of Present illness Narrative Images from the original note were not included. Physical Therapy Physical Therapy Evaluation Visit Patient Name: Tamela Hopper Today's Date: 04/05/2025 Encounter Diagnoses Name Primary? Poor balance Yes Peripheral neuropathy, idiopathic At risk for falls Visit number: 1 Subjective Tamela Hopper 60 y.o. female presents to physical therapy w/ chief c/o sorin LE neuropathy affecting balance. Mechanism of Onset: issues ~10 years, affecting balance more as of late, finds herself looking down when walking, no noted fall hx but a lot of near falls in the past. Dr and her want her to do PT before it starts restricting her more and decreasing QOL further. 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 Extracurricular/Leisure Activities: Has pool at home Precautions: low falll risk Objective Optimal difficulty=20% impaired at IE Gait: WNL Balance: SLS balance less than or equal to 2 sec sorin without UE assist NSEO/EC on ground > 30 sec min sway with EC NSEC foam= mod sway but able to do up to 30 sec Ankle and knee strength grossly 5/5 MMT Sorin hip flex=4+/5, abd=4/5, ext=4+/5 MMT Treatment Interventions Education: HEP education with demonstration with handout and review, Educated on Eval Findings and POC, use of pool at home for ALDAIR x 5 min self care/home maintenance Therapeutic Exercise: per ALDAIR grid, strength, endurance x 15 min sup demo and verbal cues for correct technique Neuromuscular re-education: Balance training per ALDAIR grid x 10 min sup Close SBA with all Assessment/Plan Sorin LE neuropathy causing decreased balance, fear of falling and decreased QOL at times Patient Goals Short Term Goal #1: pt will be ind with HEP for maintenance/progression prn at DC from PT Short Term Goal #2: pt will demo at least min improved SLS balance sorin >/= 5 sec Short Term Goal #3: pt will self report impairment less than or equal to 10% per optimal difficuly at DC from PT Pt will benefit from skilled PT to address the above impairments for 2x/week for 4-6 weeks pt pt needs/progress and thoughts. Advised pt to do at least 2 x week for a couple weeks then would be ok with pt going to HEP if she feels confident in things. Pt getting in at a good time before balance worsens and QOL decreases further. I hereby deem this POC medically necessary. Please sign below. Date: documented in this encounter [facility] 02-27-2025 History of Present illness Narrative Tamela Hopper returns to the office today for follow-up assessment for allergic rhinitis treated with allergen immunotherapy. She has been holding her metoprolol prior to immunotherapy injections. She has been using her Symbicort before immunotherapy injections. She continues to take amitriptyline 75 mg at bedtime and this is helpful for her headache and she feels she still needs it. The patient reports having an excellent response to allergen immunotherapy and denies having any systemic reactions. Her last reaction to allergen immunotherapy was 2-3 years ago. EpiPen Symbicort amitriptyline Omnicef EXAM The patient appears comfortable in the [...] excoriations, or erythema. IMPRESSION: Allergic rhinoconjunctivitis - patient is due for environmental allergens skin testing in the near future. We agreed she would hold beta for 36 hours before allergen immunotherapy. Skin testing in 1-3 months. Epinephrine with allergen immunotherapy. I explained to the patient the importance of having epinephrine on hand at all times during days of her immunotherapy injections. We agreed to re mix her immunotherapy prescription based on the results of her follow up skin test. Migraine - refill elavil to [facility] in [place]. Refill epinephrine. documented in this encounter [facility] 01-19-2025 Instructions Tarik Cummins APRN.CNP - 01/19/2025 9:21 AM EDT AFTER VISIT CARE BOTOX INJECTION While these procedures can be extremely helpful as part of your headache treatment plan, they can irritate the muscles and tissues in your head, neck and shoulders. Proper follow-up care is important to avoid muscle spasms and temporary pain increase within the following 3-5 days after your clinic visit. Here are some tips to help decrease side-effects that may occur and maximize the effectiveness of your pain relief -HYDRATION Hydration is important to help nourish your muscles and tissues. Drink 60-80 oz of non caffeinated fluid at least for 3 days after your visit. -REST Rest will help avoid further irritation of muscle and tissues. Remember that you need to give your body time to adjust. NO strenuous activity for at least the first 24 hours after your visit. Gentle stretching, yoga, meditation or even swimming is OK and encouraged. -ICE/HEAT Since these procedures irritate muscles, there can be some swelling. Alternating ice and heat every 3-5 times per day may help decrease this, while also optimizing pain relief Use cool gel packs for ice for 10 min. Use a warm moist towel covered with a dry towel on neck and shoulders. Alternate stretching each side of the neck. -STRETCHING Slow, gentle stretching of the neck and shoulders once every hour is helpful to avoid muscle spasms. -TREAT MUSCLE SPASMS If you are already prescribed a muscle relaxer such as baclofen, tizanidine or flexeril, use as directed. If you do not have one, talk to your provider to find out if this would be safe for you to use. Do not rub or massage the area for 48-72 hours. If you are paying out of pocket for Botox go online to Botox Savings Program and see if you qualify for reimbursement. Return in 3 months for your next Botox Injection documented in this encounter [facility] 01-19-2025 History of Present illness Narrative Headache Center Follow-up Visit Current Preventive: Botox, amitriptyline and metoprolol given by outside prescribers Change needed for current preventive? No Current Abortive: rizatriptan Change needed for current abortive? No Miscellaneous Patient Concerns: 1 month late on botox, starting to get migraines, Plan: Botox Follow-Up Onabotulinum Toxin A (BotoxTM) for Migraine Indication: Chronic Intractable Migraine Treatment #: 18 Referral Expiration: 09/06/2025 Prior to the initiation of the FIRST treatment with Onabotulinum Toxin A, the patient reported the following average headache frequency over the past 3 MONTHS: Number of moderate-severe migraine days/month: 18 Number of mild migraine days/month: 10 Number of headache free days/month: 2 (48 headache-free hours) Migraine severity: 04/16 After treatment with Onabotulinum Toxin A: Number of moderate-severe migraine days/month: 2 Number of mild migraine days/month: 9 Number of headache free days/month: 19 (456 headache-free hours) Migraine severity: 02/14 Patient reduction in overall migraine days: Yes Patient reduction in moderate-severe migraine days: Yes Patient reduction of headache hours by 100 hours or more: Yes (reduction of 408 hours) Individual has obtained clinical benefit deemed [...] infection at proposed injection site. HEADACHE SCORES: 06/30/2024 10/01/2024 01/15/2025 Headache Questions ER visits since last office visit: 0 0 0 Hospital stays since last office visit 0 0 0 Limited ADLs in the last month: 0 0 0 Days missed from work or school in the last month: 0 0 0 Days headache pain free in the last month: 28 21 10 Days per month with ALL of the following symptoms - decreased productivity, light sensitivity and nausea: 0 0 2 Initial improvement of headache after botox injection at last visit: Much improved Much improved Much improved PRN medication usage in the last month: 9 10 Patient impression of improvement since last visit: Much improved Much improved Minimally worse 06/30/2024 10/01/2024 01/15/2025 HIT-6 HIT-6 44 (Little or no impact) 40 (Little or no impact) 57 (Substantial impact) 06/30/2024 10/01/2024 01/15/2025 HANS - 2/7 SCORES HANS-2 Score 0 0 0 06/30/2024 10/01/2024 01/15/2025 Migraine Specific QOL - Higher scores indicate better HRQL Role Function-Restrictive Transformed Score (range: 0-100) 100 100 80 Role Function-Preventive Transformed Score (range: 0-100) 100 100 95 Emotional Function Transformed Score (range: 0-100) 100 100 93.33 01/15/2025 10/01/2024 03/24/2024 PHQ-9 Score 0 0 0 There were no vitals taken for this visit. Patient name: Tamela Meza [facility] : 1965 ALLERGIES Allergen Reactions Sulfa (Sulfonamide * Hives UNIVERSAL PROTOCOL / SAFETY CHECKLIST Procedure: Onabotulinum toxin A for migraine Informed Consent Consent Obtained: Written [place] Protocol A moment to CARE was completed SIGN IN Personnel directly involved with the procedure wore the appropriate PPE Special Equipment: N/A Patient/Surrogate Stated/Verified: Patient name, Date of , Relevant allergies and Intended procedure TIME OUT No relevant labs, photos, and/or imaging studies were applicable for review. Consent documented and matches the intended procedure Correct side/site marked and visible. Medications required for procedure verified. No fire risk assessment and interventions applicable. No implant(s) inserted. SIGN OUT No specimen collected. Written Consent Obtained: Written LOT #: [id number] Expiration Date: Month: 10 Year: 2026 Injection Sites Left (Units) Left (Sites) Right (Units) Right (Sites) TOTAL (Units) Vending Machine Filler 5 1 5 1 10 Procerus Units: [...] Motrin) Naproxen sodium (Aleve) lack of efficacy Tarik Cummins APRN.CNP documented in this encounter [facility] 01-19-2025 Note HNO ID: [id number] Author: TARIK CUMMINS APRN.CNP Service: ? Author Type: Nurse Practitioner Type: Progress Notes Filed: 01/19/2025 09:26 Note Text: Headache Center Follow-up Visit Current Preventive: Botox, amitriptyline and metoprolol given by outside prescribers Change needed for current preventive? No Current Abortive: rizatriptan Change needed for current abortive? No Miscellaneous Patient Concerns: 1 month late on botox, starting to get migraines, Plan: Botox Follow-Up Onabotulinum Toxin A (BotoxTM) for Migraine Indication: Chronic Intractable Migraine Treatment #: 18 Referral Expiration: 09/06/2025 Prior to the initiation of the FIRST treatment with Onabotulinum Toxin A, the patient reported the following average headache frequency over the past 3 MONTHS: Number of moderate-severe migraine days/month: 18 Number of mild migraine days/month: 10 Number of headache free days/month: 2 (48 headache-free hours) Migraine severity: 8/10 After treatment with Onabotulinum Toxin A: Number of moderate-severe migraine days/month: 2 Number of mild migraine days/month: 9 Number of headache free days/month: 19 (456 headache-free hours) Migraine severity: 6/10 Patient reduction in overall migraine days: Yes Patient reduction in moderate-severe migraine days: Yes Patient reduction of headache hours by 100 hours or more: Yes (reduction of 408 hours) Individual has obtained clinical benefit deemed [...] infection at proposed injection site. HEADACHE SCORES: 06/30/2024 10/01/2024 01/15/2025 Headache Questions ER visits since last office visit: 0 0 0 Hospital stays since last office visit 0 0 0 Limited ADLs in the last month: 0 0 0 Days missed from work or school in the last month: 0 0 0 Days headache pain free in the last month: 28 21 10 Days per month with ALL of the following symptoms - decreased productivity, light sensitivity and nausea: 0 0 2 Initial improvement of headache after botox injection at last visit: Much improved Much improved Much improved PRN medication usage in the last month: 9 10 Patient impression of improvement since last visit: Much improved Much improved Minimally worse 06/30/2024 10/01/2024 01/15/2025 HIT-6 HIT-6 44 (Little or no impact) 40 (Little or no impact) 57 (Substantial impact) 06/30/2024 10/01/2024 01/15/2025 HANS - 2/7 SCORES HANS-2 Score 0 0 0 06/30/2024 10/01/2024 01/15/2025 Migraine Specific QOL - Higher scores indicate better HRQL Role Function-Restrictive Transformed Score (range: 0-100) 100 100 80 Role Function-Preventive Transformed Score (range: 0-100) 100 100 95 Emotional Function Transformed Score (range: 0-100) 100 100 93.33 01/15/2025 10/01/2024 03/24/2024 PHQ-9 Score 0 0 0 There were no vitals taken for this visit. [facility] 1965 ALLERGIES Allergen Reactions Sulfa (Sulfonamide * Hives UNIVERSAL PROTOCOL / SAFETY CHECKLIST Procedure: Onabotulinum toxin A for migraine Informed Consent Consent Obtained: Written [place] Protocol A moment to CARE was completed SIGN IN Personnel directly involved with the procedure wore the appropriate PPE Special Equipment: N/A Patient/Surrogate Stated/Verified: Patient name, Date of , Relevant allergies and Intended procedure TIME OUT No relevant labs, photos, and/or imaging studies were applicable for review. Consent documented and matches the intended procedure Correct side/site marked and visible. Medications required for procedure verified. No fire risk assessment and interventions applicable. No implant(s) inserted. SIGN OUT No specimen collected. Written Consent Obtained: Written LOT #: [id number] Expiration Date: Month: Year: 2026 Injection Sites Left (Units) Left (Sites) Right (Units) Right (Sites) TOTAL (Units) Vending Machine Filler 5 1 5 1 10 Procerus Units: [...] Medications Acetaminophen (Tylenol) lack of efficacy Ibuprofen ( (more content not included)... [facility] 10-17-2024 History of Present illness Narrative Lesions: Location: mid chest, left upper leg posterior Duration: weeks Quality: denies pain, denies itch Modifying factors: none Associated symptoms: non-healing, red, rough Treatments: none Established patient All pertinent medical history, medications, and allergies were reviewed. General Exam: alert, oriented to person, place, and time, normal affect, well appearing Unaccompanied A focused exam completed based on patient reported problems, see below: 1. Seborrheic keratosis, inflamed Chest - Medial (Center) [place] and brown stuck on verrucous scaly papule with surrounding erythema The patient was informed that symptomatic seborrheic keratoses are benign growths that become inflamed, itchy, tender, traumatized, caught on clothing, or bleed. Symptomatic lesions can be treated with cryotherapy or curretage. Thicker lesions treated with cryotherapy may require more than one treatment. The patient was instructed to notify the office if abnormal redness or tenderness develops at the treatment site. Cryotherapy today, see procedure note. Diagnosis: Inflamed seborrheic keratosis Indication: Inflamed Consent: Verbal consent was obtained and risks were discussed, including, but not limited to risks of scarring, darker or curriculum manager pigmentary changes, recurrence, incomplete removal and infection. Method: Liquid nitrogen was used to treat the lesion(s) with two 5-10 second freeze-thaw cycles Number of lesions treated: 1 Post-procedure instructions: Instructions were given orally and in writing. The office will be contacted if the lesion fails to resolve despite treatment, or if a side effect develops such as abnormal crusting, scabbing, redness or tenderness Cryotherapy, skin lesion - Chest - Medial (Center) 2. Seborrheic keratosis Left Thigh - Posterior Stuck on verrucous, gillette-brown papules and plaques. Patient was counseled regarding these benign growths. Removal is normally not necessary, but they may be removed if they are symptomatic or for cosmetic reasons. Next Visit: as scheduled documented in this encounter [facility] 10-06-2024 Instructions Daphne Padron APRN.CNP - 10/06/2024 8:46 AM EST Instruction after Botox injection: - [...] it does not, call our office at [phone] for further instructions. documented in this encounter [facility] 10-06-2024 Note HNO ID: [id number] Author: DAPHNE PADRON APRN.CNP Service: ? Author Type: Nurse Practitioner Type: Progress Notes Filed: 10/06/2024 08:50 Note Text: Answers submitted by the patient for this visit: Headache Questionnaire (Submitted on 10/01/2024) How many days of work or school have you missed due to headaches in the last month? : 0 In the last month, how many headache days did you experience ALL of the following symptoms: decreased productivity, light sensitivity and nausea?: 0 How many days have you been completely free of headache pain in the last month? : 21 Follow-Up Onabotulinum Toxin A (BotoxTM) for Migraine Indication: Chronic Intractable Migraine Treatment #: 17 Referral Expiration: 09/06/2025 Prior to the initiation of the FIRST [...] days/month: 0 Number of mild migraine days/month: 9 Number of headache free days/month: 21 (504 headache-free hours) Migraine severity: 02/14 Patient reduction in overall migraine days: Yes Patient reduction in moderate-severe migraine days: Yes Patient reduction of headache hours by 100 hours or more: Yes (reduction of 456 hours) Individual has obtained clinical benefit deemed [...] infection at proposed injection site. HEADACHE SCORES: 03/24/2024 06/30/2024 10/01/2024 Headache Questions ER visits since last office visit: 0 0 0 Hospital stays since last office visit 0 0 0 Limited ADLs in the last month: 0 0 0 Days missed from work or school in the last month: 0 0 0 Days headache pain free in the last month: 20 28 21 Days per month with ALL of the following symptoms - decreased productivity, light sensitivity and nausea: 0 0 0 Initial improvement of headache after botox injection at last visit: Much improved Much improved Much improved PRN medication usage in the last month: 9 Patient impression of improvement since last visit: Much improved Much improved Much improved 03/24/2024 06/30/2024 10/01/2024 HIT-6 HIT-6 38 (Little or no impact) 44 (Little or no impact) 40 (Little or no impact) 03/24/2024 06/30/2024 10/01/2024 HANS - 2/7 SCORES HANS-2 Score 0 0 0 03/24/2024 06/30/2024 10/01/2024 Migraine Specific QOL - Higher scores indicate better HRQL Role Function-Restrictive Transformed Score (range: 0-100) 100 100 100 Role Function-Preventive Transformed Score (range: 0-100) 100 100 100 Emotional Function Transformed Score (range: 0-100) 86.67 100 100 10/01/2024 03/24/2024 12/19/2023 PHQ-9 Score 0 0 0 BP 159/80 (BP Site: Left Arm, BP Position: Sitting, BP Cuff Size: Regular Adult) Pulse 67 Patient name: Tamela Meza [facility] : 1965 ALLERGIES Allergen Reactions Sulfa (Sulfonamide * Hives UNIVERSAL PROTOCOL / SAFETY CHECKLIST Procedure: Onabotulinum toxin A for migraine Informed Consent Consent Obtained: Written [place] Protocol A moment to CARE was completed [...] (Sites) Right (Units) Right (Sites) TOTAL (Units) Vending Machine Filler 5 1 5 1 10 Procerus Units: [...] 15 3 35 Total Units used: 200 T (more content not included)... [facility] 10-06-2024 History of Present illness Narrative Answers submitted by the patient for this visit: Headache Questionnaire (Submitted on 10/01/2024) How many days of work or school have you missed due to headaches in the last month? : 0 In the last month, how many headache days did you experience ALL of the following symptoms: decreased productivity, light sensitivity and nausea?: 0 How many days have you been completely free of headache pain in the last month? : 21 Follow-Up Onabotulinum Toxin A (BotoxTM) for Migraine Indication: Chronic Intractable Migraine Treatment #: 17 Referral Expiration: 09/06/2025 Prior to the initiation of the FIRST [...] days/month: 0 Number of mild migraine days/month: 9 Number of headache free days/month: 21 (504 headache-free hours) Migraine severity: 02/14 Patient reduction in overall migraine days: Yes Patient reduction in moderate-severe migraine days: Yes Patient reduction of headache hours by 100 hours or more: Yes (reduction of 456 hours) Individual has obtained clinical benefit deemed [...] infection at proposed injection site. HEADACHE SCORES: 03/24/2024 06/30/2024 10/01/2024 Headache Questions ER visits since last office visit: 0 0 0 Hospital stays since last office visit 0 0 0 Limited ADLs in the last month: 0 0 0 Days missed from work or school in the last month: 0 0 0 Days headache pain free in the last month: 20 28 21 Days per month with ALL of the following symptoms - decreased productivity, light sensitivity and nausea: 0 0 0 Initial improvement of headache after botox injection at last visit: Much improved Much improved Much improved PRN medication usage in the last month: 9 Patient impression of improvement since last visit: Much improved Much improved Much improved 03/24/2024 06/30/2024 10/01/2024 HIT-6 HIT-6 38 (Little or no impact) 44 (Little or no impact) 40 (Little or no impact) 03/24/2024 06/30/2024 10/01/2024 HANS - 2/7 SCORES HANS-2 Score 0 0 0 03/24/2024 06/30/2024 10/01/2024 Migraine Specific QOL - Higher scores indicate better HRQL Role Function-Restrictive Transformed Score (range: 0-100) 100 100 100 Role Function-Preventive Transformed Score (range: 0-100) 100 100 100 Emotional Function Transformed Score (range: 0-100) 86.67 100 100 10/01/2024 03/24/2024 12/19/2023 PHQ-9 Score 0 0 0 BP 159/80 (BP Site: Left Arm, BP Position: Sitting, BP Cuff Size: Regular Adult) Pulse 67 Patient name: Tamela Meza [facility] : 1965 ALLERGIES Allergen Reactions Sulfa (Sulfonamide * Hives UNIVERSAL PROTOCOL / SAFETY CHECKLIST Procedure: Onabotulinum toxin A for migraine Informed Consent Consent Obtained: Written [place] Protocol A moment to CARE was completed [...] (Sites) Right (Units) Right (Sites) TOTAL (Units) Vending Machine Filler 5 1 5 1 10 Procerus Units: [...] sodium (Aleve) lack of efficacy Daphne Padron APRN.WATERPROOF BAG SEWER documented in this encounter [facility] 09-20-2024 History of Present illness Narrative Reason [...] SURGICAL HISTORY Right removal of ganglion wrist CT MEDICATION MANAGEMENT irritable bowel syndrome SINUS SURGERY [...] nursing note reviewed. Exam conducted with a deputy jailer present. Vitals: Estimated body mass index is [...] annual unless needed otherwise. Documented by Donna Villasenor LPN on behalf of: RAFIA Waggoner documented in this encounter [facility] 09-14-2024 Telephone encounter Note Physician: Vito Call from patient requesting refill. Please E-Scribe Last office visit 07/07/24 with Vito in person Next office visit 10/06/24 with Vito in person Requested Prescriptions Pending Prescriptions Disp Refills rizatriptan (MAXALT) 10 mg tablet [Pharmacy Med Name: RIZATRIPTAN 10 MG TABLET] 9 tablet 1 Sig: TAKE 1 TABLET (10 MG) BY MOUTH NEEDED. AT ONSET OF HEADACHE. MAY REPEAT AFTER 2 HOURS. Pharmacy Name: BRITTANY Rubio [facility] 09-14-2024 Miscellaneous Notes Physician: Vito Call from patient requesting refill. Please E-Scribe Last office visit 07/07/24 with Marcelodan in person Next office visit 10/06/24 with Fredin in person Requested Prescriptions Pending Prescriptions Disp Refills rizatriptan (MAXALT) 10 mg tablet [Pharmacy Med Name: RIZATRIPTAN 10 MG TABLET] 9 tablet 1 Sig: TAKE 1 TABLET (10 MG) BY MOUTH NEEDED. AT ONSET OF HEADACHE. MAY REPEAT AFTER 2 HOURS. Pharmacy Name: BRITTANY Pollock Rubio documented in this encounter [facility] 08-16-2024 History of Present illness Narrative Skin [...] Examined Right arm Examined Patient wearing nail azeri, Denies dark streaks under finger nails, Denies [...] Visit: 1 year documented in this encounter [facility] 07-21-2024 Telephone encounter Note TAMELA HOPPER (Carreon: [id number]) RAFIA Denied today by [employer] 2016 CaseId:[id number];Status:Denied;Rev iew Type:Prior Auth;Appeal Information: Attention:ATTN: CLINICAL APPEALS DEPARTMENT [employer] [address] [address],[place], [place],[address] ; I We reviewed the information you [...] authorized at this time. Ju Reynolds MA [facility] 07-21-2024 Miscellaneous Notes TAMELA HOPPER (Carreon: [id number]) PA Denied today by [employer] 2016 CaseId:[id number];Status:Denied;Rev iew Type:Prior Auth;Appeal Information: Attention:ATTN: CLINICAL APPEALS DEPARTMENT [employer] [address] [address],[place], [place],[address] ; I We reviewed the information you [...] time. Ju Reynolds MA Completed over CMM: [employer] is reviewing your PA request and will respond within 24 hours for Medicaid or up to 72 hours TAMELA HOPPER (Carreon: [id number]) PA Drug Naratriptan HCl 2.5MG tablets ePA cloud logo Form [employer] Electronic PA Form (2016 SDPD) Ju Reynolds MA Images from the original note were not included. Prior Authorization for Medications Requested by (MyChart, Pharmacy, Patient Call, Fax) : Phone Pharmacy Name: [facility] Pharmacy Phone # : [phone] Name of Medication : Naratriptan Dose : 2.5 mg Tablet - 9 tabs If renewal, auth date expiration: NA Prescribing Provider: Vito Last OV: 07/07/2024 with Vito Insurance Provider : CELINE / [employer]. Is insurance card scanned in, including Rx info? Yes Rx ID number: [id number] Rx BIN: [id number] Rx PCN: COPAY Rx Grp: [id number] Insurance Phone : CoverMyMeds Carreon: NA E-PA? Yes documented in this encounter [facility] 07-21-2024 Telephone encounter Note Completed over CMM: [facility] is reviewing your PA request and will respond within 24 hours for Medicaid or up to 72 hours TAMELAMIKE TELLESDAVID (Carreon: [id number]) PA Drug Naratriptan HCl 2.5MG tablets ePA cloud logo Form [employer] Electronic PA Form (2016 [facility]) Ju Reynolds MA [facility] 07-21-2024 Telephone encounter Note Images from the original note were not included. Prior Authorization for Medications Requested by (MyChart, Pharmacy, Patient Call, Fax) : Phone Pharmacy Name: [facility] Pharmacy Phone # : [phone] Name of Medication : Naratriptan Dose : 2.5 mg Tablet - 9 tabs If renewal, auth date expiration: NA Prescribing Provider: Vito Last OV: 07/07/2024 with Vito Insurance Provider : CELINE / [facility]. Is insurance card scanned in, including Rx info? Yes Rx ID number: [id number] Rx BIN: [id number] Rx PCN: COPAY Rx Grp: [id number] Insurance Phone : CoverMyMeds Carreon: NA E-PA? Yes [facility] 07-08-2024 Telephone encounter Note Botox referral sent to pharmacy. Belle Erazo, RAMONA [facility] 07-08-2024 Miscellaneous Notes Botox referral sent to pharmacy. Belle Erazo RN documented in this encounter [facility] 07-07-2024 Instructions Daphne Padron APRN.CNP - 07/07/2024 [...] it does not, call our office at [phone] for further instructions. documented in this encounter [facility] 07-07-2024 Note HNO ID: [id number] Author: DAPHNE PADRON APRN.SOHAIL Service: ? Author Type: Nurse Practitioner Type: [...] Small Adult) Pulse 76 Patient name: Tamela Meza [facility]: 1965 ALLERGIES Allergen Reactions Sulfa (Sulfonamide * Hives UNIVERSAL PROTOCOL / SAFETY CHECKLIST Procedure: Onabotulinum toxin A for migraine Informed Consent Consent Obtained: Written [place] Protocol A moment to CARE was completed [...] (Sites) Right (Units) Right (Sites) TOTAL (Units) Vending Machine Filler 5 1 5 1 10 Procerus Units: [...] Prior Therapies Duratio (more content not included)... [facility] 07-07-2024 History of Present illness Narrative [...] for migraine Informed Consent Consent Obtained: Written [place] Protocol A moment to CARE was completed [...] (Sites) Right (Units) Right (Sites) TOTAL (Units) Vending Machine Filler 5 1 5 1 10 Procerus Units: [...] sodium (Aleve) lack of efficacy Daphne Padron APRN.SOHAIL documented in this encounter [facility] 05-06-2024 Telephone encounter Note patient requesting refill via Mychart. Last OV: 03/31/2024 with Daphne Padron APRN.CNP Future OV: 07/07/2024 with Daphne aPdron APRN.CNP Last prescribed: 9 months ago (08/10/2023) by Daphne Padron APRN.SOHAIL Requested Prescriptions Pending Prescriptions Disp Refills naratriptan (AMERGE) 2.5 mg tablet 9 tablet 11 Sig: May repeat dose after 4 hours if needed. Maximum daily dose is 5 mg per day. [facility] 05-06-2024 Miscellaneous Notes patient requesting refill via Mychart. Last OV: 03/31/2024 with Daphne Padron APRN.CNP Future OV: 07/07/2024 with Daphne Padron APRN.SOHAIL Last prescribed: 9 months ago (08/10/2023) by Daphne Padron APRN.SOHAIL Requested Prescriptions Pending Prescriptions Disp Refills naratriptan (AMERGE) 2.5 mg tablet 9 tablet 11 Sig: May repeat dose after 4 hours if needed. Maximum daily dose is 5 mg per day. documented in this encounter [facility] 05-04-2024 History of Present illness Narrative Tamela [...] mg at bed. She is going to [place] soon. EXAM The patient appears comfortable in [...] if problems arise. documented in this encounter [facility] 03-31-2024 Instructions Daphne Padron APRN.SOHAIL - 03/31/2024 10:46 AM EDT Instruction after [...] it does not, call our office at [phone] for further instructions. documented in this encounter [facility] 03-31-2024 History of Present illness Narrative [...] Regular Adult) Pulse 74 [facility]: [facility] 1965 ALLERGIES Allergen Reactions Sulfa (Sulfonamide * Hives UNIVERSAL PROTOCOL / SAFETY CHECKLIST Procedure: Onabotulinum toxin A for migraine Informed Consent Consent Obtained: Written [place] Protocol A moment to CARE was completed [...] (Sites) Right (Units) Right (Sites) TOTAL (Units) Vending Machine Filler 5 1 5 1 10 Procerus Units: [...] sodium (Aleve) lack of efficacy Daphne Padron APRN.WATERPROOF BAG SEWER documented in this encounter [facility] 12-24-2023 Instructions Daphne Padron APRN.CNP - 12/24/2023 [...] it does not, call our office at [phone] for further instructions. documented in this encounter [facility] 12-24-2023 History of Present illness Narrative [...] Regular Adult) Pulse 68 [facility]: [facility] 1965 ALLERGIES Allergen Reactions Sulfa (Sulfonamide * Hives UNIVERSAL PROTOCOL / SAFETY CHECKLIST Procedure: Onabotulinum toxin A for migraine Informed Consent Consent Obtained: Written [place] Protocol A moment to CARE was completed [...] (Sites) Right (Units) Right (Sites) TOTAL (Units) Vending Machine Filler 5 1 5 1 10 Procerus Units: [...] sodium (Aleve) lack of efficacy Daphne Padron APRN.SOHAIL documented in this encounter [facility] 06-25-2023 Instructions Daphne Padron APRN.SOHAIL - 06/25/2023 11:10 AM EDT Instruction after [...] it does not, call our office at [phone] for further instructions. documented in this encounter [facility] 06-25-2023 History of Present illness Narrative Answers [...] days/month: 2 (48 headache-free hours) Migraine severity: 8/ After treatment with Onabotulinum Toxin A: Number [...] for this visit. Patient name: Tamela Meza [facility] : 1965 ALLERGIES Allergen Reactions Sulfa (Sulfonamide * Hives UNIVERSAL PROTOCOL / SAFETY CHECKLIST Procedure: Onabotulinum toxin A for migraine Informed Consent Consent Obtained: Written [place] Protocol A moment to CARE was completed [...] applicable Written Consent Obtained: Written LOT #: [id number] Expiration Date: Month: 3 Year: 2024 Injection Sites Left (Units) Left (Sites) Right (Units) Right (Sites) TOTAL (Units) Vending Machine Filler 5 1 5 1 10 Procerus Units: [...] sodium (Aleve) lack of efficacy Daphne Padron APRN.WATERPROOF BAG SEWER documented in this encounter [facility] 06-22-2023 Miscellaneous Notes Botox referral sent to pharmacy. Maya Erazo, RN documented in this encounter [facility] 03-03-2023 Miscellaneous Notes Called patient, she has new MMO insurance. Registration has been updated === PHARMACY TEAM ==== ADDITIONAL INFORMATION NEEDED/REQUESTED Case Submitted: No Request Type: Provider Date of Service: 03/30/2023 Additional Information Needed: as per today's eligibility check [employer] ([id number]) coverage for the patient is termed. We need active coverage of the patient to work on authorization. Request from Payor by: N/A Email Sent to: C21 Britney White Romelda S, Dwight T, Mdadie O, Rahat Maciel Requested Clinicals/Information Sent: N/A documented in this encounter [facility] 01-01-2023 Miscellaneous Notes Botox referral sent to pharmacy Bridgette Gipson LPN January 01, 2023 11:44 AM documented in this encounter [facility] 10-17-2022 History of Present illness Narrative Follow-Up [...] BMI 31.84 kg/m Patient name: Tamela Meza [facility] : 1965 ALLERGIES Allergen Reactions Sulfa (Sulfonamide * Hives UNIVERSAL PROTOCOL / SAFETY CHECKLIST Procedure: Onabotulinum toxin A for migraine Informed Consent Consent Obtained: Written [place] Protocol A moment to CARE was completed [...] applicable Written Consent Obtained: Written LOT #: [id number] Expiration Date: Month: 5 Year: 2024 Injection Sites Left (Units) Left (Sites) Right (Units) Right (Sites) TOTAL (Units) Vending Machine Filler 5 1 5 1 10 Procerus Units: [...] month? : 0 documented in this encounter [facility] 07-23-2022 Instructions Marcus Zamora APRN.CNP - 07/23/2022 [...] it does not, call our office at [phone] for further instructions. documented in this encounter [facility] 07-23-2022 History of Present illness Narrative Follow-Up [...] taken for this visit. [facility]: [facility] 1965 ALLERGIES Allergen Reactions Sulfa (Sulfonamide * Hives Denies . No fever, rashes, or body aches. UNIVERSAL PROTOCOL / SAFETY CHECKLIST Procedure: Onabotulinum toxin A for migraine Informed Consent Consent Obtained: Written [place] Protocol A moment to CARE was completed [...] applicable Written Consent Obtained: Written LOT #: [id number] Expiration Date: Month: 3 Year: 2024 Injection Sites Left (Units) Left (Sites) Right (Units) Right (Sites) TOTAL (Units) Vending Machine Filler 5 1 5 1 10 Procerus Units: [...] sodium (Aleve) lack of efficacy Marcus Zamora APRN.WATERPROOF BAG SEWER Answers submitted by the patient for this visit: Headache Questionnaire (Submitted on 07/17/2022) documented in this encounter [facility] 02-26-2022 Hospital Discharge instructions Follow Up Care 02/26/2022 10:41:21 With:ENA BROTHERS, LELIA Peters, [facility] Address: [facility] [address] [place] [address] Vicky Sunday [facility] [place] [address]- When:3 months [facility] 01-23-2022 History of Present illness [...] 99% BMI 32.29 kg/m [facility]: [facility] 1965 ALLERGIES Allergen Reactions Sulfa (Sulfonamide [...] Care Visit completed when applicable. Hilda Massey APRN.[facility] UNIVERSAL PROTOCOL / SAFETY CHECKLIST Procedure: Onabotulinum toxin A for migraine Informed Consent Consent Obtained: yes [place] Protocol A moment to CARE was completed [...] injections Written Consent Obtained: yes LOT #: [id number] Expiration Date: Month: 12 Year: 2023 Injection Sites Left (Units) Left (Sites) Right (Units) Right (Sites) TOTAL (Units) Vending Machine Filler 5 1 5 1 10 Procerus Units: [...] of efficacy RTC 3 months Hilda Massey APRN.SOHAIL Answers for HPI/ROS submitted by the patient on 01/19/2022 How many days of work or school have you missed due to headaches in the last month? : 0 documented in this encounter [facility] Evaluation + Plan note Future Appointments Appointment Date:04/10/2022 01:15:00 PM Scheduled Provider:Lorraine SUTHERLAND MD Location:[facility] App[facility]ment Type:[facility] Follow Up [facility] Evaluation note Diagnosis Intractable chronic migraine without aura and without status migrainosus- Primary Chronic migraine without aura, with intractable migraine, so stated, without mention of status migrainosus [facility] Intractable chronic migraine without aura and without status migrainosus Chronic migraine without aura, with intractable migraine, so stated, without mention of status migrainosus [facility] Intractable chronic migraine without aura and without status migrainosus- Primary Chronic migraine without aura, with intractable migraine, so stated, without mention of status migrainosus [facility] Diagnosis Intractable chronic migraine without aura and without status migrainosus- Primary Chronic migraine without aura, with intractable migraine, so stated, without mention of status migrainosus [facility] Diagnosis Intractable chronic migraine without aura and without status migrainosus- Primary Chronic migraine without aura, with intractable migraine, so stated, without mention of status migrainosus [facility] Diagnosis Intractable chronic migraine without aura and without status migrainosus- Primary Chronic migraine without aura, with intractable migraine, so stated, without mention of status migrainosus [facility] Diagnosis Intractable chronic migraine without aura and without status migrainosus Chronic migraine without aura, with intractable migraine, so stated, without mention of status migrainosus [facility] Intractable chronic migraine without aura and without status migrainosus Chronic migraine without aura, with intractable migraine, so stated, without mention of status migrainosus [facility] Diagnosis Seborrheic keratosis- Primary Lentigines History of SCC (squamous cell carcinoma) of skin Personal history of other malignant neoplasm of skin Capillary angioma Nevus, non-neoplastic Melanocytic nevus of trunk Benign neoplasm of skin of trunk, except scrotum documented in this encounter [facility]* Diagnosis Asthma, allergic, mild intermittent, uncomplicated (CMS/HCC)- Primary Seasonal allergic rhinitis, unspecified trigger Migraine without aura and without status migrainosus, not intractable (CMS/HCC) Mild intermittent asthma without complication (CMS/HCC) Seasonal allergic rhinitis due to pollen documented in this encounter [facility]* Diagnosis Intractable chronic migraine without aura and without status migrainosus Chronic migraine without aura, with intractable migraine, so stated, without mention of status migrainosus [facility] Diagnosis Well woman exam with routine gynecological exam Routine gynecological examination Breast cancer screening by mammogram Vaginal dryness Postmenopausal atrophic vaginitis documented in this encounter [facility]* Diagnosis Intractable chronic migraine without aura and without status migrainosus- Primary Chronic migraine without aura, with intractable migraine, so stated, without mention of status migrainosus [facility] Diagnosis Seborrheic keratosis, inflamed- Primary Seborrheic keratosis documented in this encounter [facility]* Diagnosis Intractable chronic migraine without aura and without status migrainosus Chronic migraine without aura, with intractable migraine, so stated, without mention of status migrainosus [facility] Diagnosis Migraine without aura and without status migrainosus, not intractable- Primary Seasonal allergic rhinitis due to pollen Mild intermittent asthma without complication (HCC) documented in this encounter [facility]* Diagnosis Poor balance- Primary Peripheral neuropathy, idiopathic At risk for falls Personal history of fall documented in this encounter [facility]* Diagnosis Poor balance- Primary Peripheral neuropathy, idiopathic At risk for falls Personal history of fall documented in this encounter [facility]* Diagnosis Poor balance- Primary Peripheral neuropathy, idiopathic At risk for falls Personal history of fall documented in this encounter [facility]* Diagnosis Poor balance- Primary Peripheral neuropathy, idiopathic At risk for falls Personal history of fall documented in this encounter [facility]* Diagnosis Chronic migraine without aura, with intractable migraine, so stated, with status migrainosus- Primary [facility] Diagnosis Seasonal allergic rhinitis, unspecified trigger documented in this encounter [facility]* Diagnosis Migraine without aura and without status migrainosus, not intractable [facility] N[facility] No data available for this section [facility] No data available for this section [facility] No data available for this section [facility] N[facility]* Rehabilitation - Outpatient (Routine) - Authorized Specialty Diagnoses / Procedures Referred By Davion harris Referred To Contact Physical Therapy Diagnoses Peripheral neuropathy, idiopathic At risk for falls Poor balance Procedures CT OFFICE/OUTPATIENT NEW HIGH MDM 60 MINUTES Mak Hummel, DPM [address] [place] [address] Phone: tel: fax: Sangeetha Brand, PT [address] [place] [address] Phone: tel: fax: Referral ID Status Reason Start Date Expiration Date Visits Requested Visits Authorized [id number] Authorized Specialty Services Required 03/14/2025 09/10/2025 40 40 [facility] for visit Narrative* Rehabilitation - Outpatient (Routine) - Authorized Specialty Diagnoses / Procedures Referred By Davion harris Referred To Contact Physical Therapy Diagnoses Peripheral neuropathy, idiopathic At risk for falls Poor balance Procedures CT OFFICE/OUTPATIENT NEW HIGH MDM 60 MINUTES Mak Hummel, DPM [address] [place] [address] Phone: tel: fax: Sangeetha Brand, PT [address] [place] [address] Phone: tel: fax: Referral ID Status Reason Start Date Expiration Date Visits Requested Visits Authorized [id number] Authorized Specialty Services Required 03/14/2025 09/06/2025 40 40 [facility] Summary Purpose Family History No Family History [...] migrainosus Procedures PROVIDER ORDERED FOLLOW UP OFFICE/OUTPATIENT NEW HIGH MDM 60-74 MINUTES Marcus Zamora APRN.WATERPROOF BAG SEWER [address] [place] [address] Referral ID Status Reason Start Date Expiration Date Visits Requested Visits Authorized [id number] Authorized PCP Requested Referral 10/23/2022 07/23/2023 1 1 Additional Source Comments INFORMATION SOURCE (unrecogn ized section and content) DATE CREATED AUTHOR 03/03/2018 [facility] DATE CREATED AUTHOR AUTHOR'S ORGANIZ ATION 11/20/2020 [facility] DATE CREATED AUTHOR AUTHOR'S ORGANIZ ATION 10/31/2021 [facility] DATE CREATED AUTHOR AUTHOR'S ORGANIZ ATION 11/11/2022 [facility] DATE CREATED AUTHOR AUTHOR'S ORGANIZ ATION 01/21/2023 [facility] DATE CREATED AUTHOR AUTHOR'S ORGANIZ ATION 04/27/2025 [facility] DATE CREATED AUTHOR AUTHOR'S ORGANIZ ATION 04/30/2025 [facility] Source Comments (unrecognize d section and content) In the event this informatio n is protected by the Federal Confidentiality of Alcohol and Drug Abuse Patient Records regulations: The Federal rules restrict any use of the information to criminally investigate or prosecute any alcohol or drug abuse patient.[facility] the event this information is protected by the Federal Confidentiality of Alcohol and Drug Abuse Patient Records regulations: The Federal rules restrict any use of the information to criminally investigate or prosecute any alcohol or drug abuse patient.[facility] the event this information is protected by the Federal Confidentiality of Alcohol and Drug Abuse Patient Records regulations: The Federal rules restrict any use of the information to criminally investigate or prosecute any alcohol or drug abuse patient.[facility] the event this information is protected by the Federal Confidentiality of Alcohol and Drug Abuse Patient Records regulations: The Federal rules restrict any use of the information to criminally investigate or prosecute any alcohol or drug abuse patient.[facility] the event this information is protected by the Federal Confidentiality of Alcohol and Drug Abuse Patient Records regulations: The Federal rules restrict any use of the information to criminally investigate or prosecute any alcohol or drug abuse patient.[facility] the event this information is protected by the Federal Confidentiality of Alcohol and Drug Abuse Patient Records regulations: The Federal rules restrict any use of the information to criminally investigate or prosecute any alcohol or drug abuse patient.[facility] the event this information is protected by the Federal Confidentiality of Alcohol and Drug Abuse Patient Records regulations: The Federal rules restrict any use of the information to criminally investigate or prosecute any alcohol or drug abuse patient.[facility] the event this information is protected by the Federal Confidentiality of Alcohol and Drug Abuse Patient Records regulations: The Federal rules restrict any use of the information to criminally investigate or prosecute any alcohol or drug abuse patient.[facility] the event this information is protected by the Federal Confidentiality of Alcohol and Drug Abuse Patient Records regulations: The Federal rules restrict any use of the information to criminally investigate or prosecute any alcohol or drug abuse patient.[facility] the event this information is protected by the Federal Confidentiality of Alcohol and Drug Abuse Patient Records regulations: The Federal rules restrict any use of the information to criminally investigate or prosecute any alcohol or drug abuse patient.[facility] the event this information is protected by the Federal Confidentiality of Alcohol and Drug Abuse Patient Records regulations: The Federal rules restrict any use of the information to criminally investigate or prosecute any alcohol or drug abuse patient.[facility] the event this information is protected by the Federal Confidentiality of Alcohol and Drug Abuse Patient Records regulations: The Federal rules restrict any use of the information to criminally investigate or prosecute any alcohol or drug abuse patient.[facility] the event this information is protected by the Federal Confidentiality of Alcohol and Drug Abuse Patient Records regulations: The Federal rules restrict any use of the information to criminally investigate or prosecute any alcohol or drug abuse patient.[facility]In the event this information is protected by the Federal Confidentiality of Alcohol and Drug Abuse Patient Records regulations: The Federal rules restrict any use of the information to criminally investigate or prosecute any alcohol or drug abuse patient.[facility]In the event this information is protected by the Federal Confidentiality of Alcohol and Drug Abuse Patient Records regulations: The Federal rules restrict any use of the information to criminally investigate or prosecute any alcohol or drug abuse patient.[facility] the event this information is protected by the Federal Confidentiality of Alcohol and Drug Abuse Patient Records regulations: The Federal rules restrict any use of the information to criminally investigate or prosecute any alcohol or drug abuse patient.[facility] the event this information is protected by the Federal Confidentiality of Alcohol and Drug Abuse Patient Records regulations: The Federal rules restrict any use of the information to criminally investigate or prosecute any alcohol or drug abuse patient.[facility] Reason for Visit (unrecogniz ed section and content) Reason Comments Established Patient Follow Up Botox Injection Chronic Migraine Specialty Diagnoses / Procedures Referred By Contac t Referred To Contact HEADACHE Diagnoses Chronic migraine without aura, intractable, without status migrainosus Renewal. Due 08/25/23. Botox 200 units every 12 weeks for 1 year through [facility] buy and bill Preempt protocol [id number] Procedure -11501 chemodervate facial/trigem/cerv musc migraine Procedures BOTULINUM TOXIN A PER 1 UNIT CHEMODERVATE FACIAL/TRIGEM/CERV MUSC MIGRAINE Daphne Padron, [employer]ATE[employer] COMM[employer]ICATIONS ENGINEER.[employer] [address] [place] [address] Neur Headache Main [address] [phone] Referral ID Status Reason Start Date Expiration Date V isits Requested Visits Authorized [id number] Authorized 08/19/2023 08/25/2024 4 4 Reason Comments Botox Injection Specialty Diagnoses / Procedures Referred By Contac t Referred To Contact HEADACHE Diagnoses Chronic migraine without aura, intractable, without status migrainosus Procedures BOTULINUM TOXIN A PER 1 UNIT CHEMODERVATE FACIAL/TRIGEM/CERV MUSC MIGRAINE Renewal due 12/24/2021 Botox 200 units every 12 weeks for 1 year through [facility] [employer] and bill Preempt protocol [id number] Procedure -99734 chemodervate facial/trigem/cerv musc migraine Hilda Massey, SATELLITE COMMUNICATIONS ENGINEER.[employer] [address] [place] [address] Neur Headache Main [address] [phone] Referral ID Status Reason Start Date Expiration Date V isits Requested Visits Authorized [id number] Authorized 12/24/2021 01/22/2023 5 5 Reason Comments Botox Injection Specialty Diagnoses / Procedures Referred By Contac t Referred To Contact HEADACHE Diagnoses Chronic migraine without aura, intractable, without status migrainosus Procedures BOTULINUM TOXIN A PER 1 UNIT CHEMODERVATE FACIAL/TRIGEM/CERV MUSC MIGRAINE Renewal due 12/24/2021 Botox 200 units every 12 weeks for 1 year through [facility] buy and bill Preempt protocol J0585 Procedure -13217 chemodervate facial/trigem/cerv musc migraine Hilda Massey, SATELLITE COMM[employer]ICATIONS ENGINEER.[employer] [address] [place] [address] Neur Headache Main [address] [phone] Reason Comments Referral Request Reason Comments Insurance Authorization [employer] DEL[employer] ED: NEED COVERAGE VERIFICATION Reason Comments Chronic Migraine botox Specialty Diagnoses / Procedures Referred By Contac t Referred To Contact HEADACHE Diagnoses Chronic migraine without aura, intractable, without status migrainosus Botox renewal due 03/14/2023 Botox 200 units every 12 weeks for 1 year through [facility] buy and bill Preempt protocol [id number] Procedure -65488 chemodervate facial/trigem/cerv musc migraine Procedures BOTULINUM TOXIN A PER 1 UNIT CHEMODERVATE FACIAL/TRIGEM/CERV MUSC MIGRAINE Hilda Massey, SATELLITE COMMUNICATIONS ENGINEER.[employer] [address] [place] [address] Neur Headache Main [address] [phone] Referral ID Status Reason Start Date Expiration Date V isits Requested Visits Authorized [id number] Authorized 03/30/2023 09/06/2023 99 99 Reason Comments [...] every 12 weeks for 1 year through [facility] buy and bill Preempt protocol [id number] Procedure -83176 chemodervate facial/trigem/cerv musc migraine Procedures BOTULINUM TOXIN A PER 1 UNIT CHEMODERVATE FACIAL/TRIGEM/CERV MUSC MIGRAINE HamdaDaphne ryan, SATELLITE COMMUNICATIONS ENGINEER.[employer] [address] [phone] Neur Headache Main [address] [phone] Referral ID Status Reason Start Date Expiration Date Visits Re quested Visits Authorized [id number] Closed 08/19/2023 08/25/2024 4 4 Reason Comments Insurance Authorization Naratriptan Naratriptan PA Antonina OLIVARESO / [employer]. Reason Comments Skin Check Reason Comments Follow-up Pt here for yearly v isit and med refills Reason Comments Refill Request Reason Comments Well Women Visit Specialty Diagnoses / Procedures Referred By Contac t Referred To Contact HEADACHE Diagnoses Chronic migraine without aura, intractable, without status migrainosus botox renewal due 09/07/24 Botox 200 units every 12 weeks for 1 year through [facility] buy and bill Preempt protocol [id number] Procedure -59266 chemodervate facial/trigem/cerv musc migraine Procedures BOTULINUM TOXIN A PER 1 UNIT CHEMODERVATE FACIAL/TRIGEM/CERV MUSC MIGRAINE Hamdan, Mohammad, SATELL[employer] COMMUNICATIONS ENGINEER.[employer] [address] [place] [address] Neur Headache Main [address] [place] [address] Referral ID Status Reason Start Date Expiration Date V isits Requested Visits Authorized [id number] Authorized 10/06/2024 09/06/2025 99 99 Reason Comments Suspicious Skin Lesion Specialty Diagnoses / Procedures Referred By Contac t Referred To Contact HEADACHE Diagnoses Chronic migraine without aura, intractable, without status migrainosus botox renewal due 09/07/24 Botox 200 units every 12 weeks for 1 year through [facility] buy and bill Preempt protocol [id number] Procedure -67544 chemodervate facial/trigem/cerv musc migraine Procedures BOTULINUM TOXIN A PER 1 UNIT CHEMODERVATE FACIAL/TRIGEM/CERV MUSC MIGRAINE Hamdan, Mohammad, SATELLITE COMMUNICATIONS ENGINEER.[employer] [address] [place] [address] Phone: tel: fax: Neurology [address] [place] [address] Phone: tel: fax: Reason Comments Follow-up No surgeries; no hos pital stays. Pt is doing great! Reason Comments Chronic Migraine Specialty Diagnoses / Procedures Referred By Contac t Referred To Contact HEADACHE Diagnoses Chronic migraine without aura, intractable, without status migrainosus botox renewal due 09/07/24 Botox 200 units every 12 weeks for 1 year through [facility] buy and bill Preempt protocol [id number] Procedure -25273 chemodervate facial/trigem/cerv [facility] migraine Procedures BOTULINUM TOXIN A PER 1 UNIT CHEMODERVATE FACIAL/TRIGEM/CERV [facility] MIGRAINE Daphne Padron, SATELLITE COMMUNICATIONS ENGINEER.[employer] [address] [place] [address] Phone: tel: fax: Neurology [address] [phone] Phone: tel: fax: Reason Comments Med Refill Care Team (unrecognized sect ion and content) Pilot Submersible Relationship Specialty Start Date End Date Arpan Mullins MD [address] [place] [phone] PCP - General Family Medicine 05/04/23 Pilot Submersible Relationship Specialty [place] [address] [place] [phone] PCP - General Family Medicine 05/04/23 Pilot Submersible Relationship Specialty Start Date End Date Arpan Mullins MD [address] [place] [address] PCP - General Family Medicine 05/04/23 Pilot Submersible Relationship Specialty Start Date End Date Arpan Mullins MD [address] [place] [address] PCP - General Family Medicine 05/04/23 Pilot Submersible Relationship Specialty Start Date End Date Arpan Mullins MD [address] [facility] [place] [address] PCP - General Family Medicine 05/04/23 Pilot Submersible Relationship Specialty Start Date End Date Arpan Mullins MD [address] [facility] [place] [address] PCP - General Family Medicine 05/04/23 Pilot Submersible Relationship Specialty Start Date End Date Arpan Mullins MD [address] [facility] [place] [address] PCP - General Family Medicine 05/04/23 Pilot Submersible Relationship Specialty Start Date End Date Arpan Mullins MD [address] [facility] [place] [address] PCP - General Family Medicine 05/04/23 Pilot Submersible Relationship Specialty Start Date End Date Arpan Mullins MD [address] [facility] [place] [address] PCP - General Family Medicine 05/04/23 Pilot Submersible Relationship Specialty Start Date End Date Arpan Mullins MD PCP - General Family Medicine 05/04/23 Pilot Submersible Relationship Specialty Start Date End Date Arpan Mullins MD PCP - General Family Medicine 05/04/23 Pilot Submersible Relationship Specialty Start Date End Date Arpan Mullins MD [address] [facility] [place] [address] PCP - General Family Medicine 03/08/25 Pilot Submersible Relationship Specialty Start Date End Date Arpan Mullins MD [address] [facility] [place] [address] PCP - General Family Medicine 03/08/25 Pilot Submersible Relationship Specialty Start Date End Date Arpan Mullins MD [address] [facility] [place] [address] PCP - General Family Medicine 03/08/25 Pilot Submersible Relationship Specialty Start Date End Date Arpan Mullins MD [address] [facility] [place] [address] PCP - General Family Medicine 03/08/25 Pilot Submersible Relationship Specialty Start Date End Date Arpan Mullins MD [address] [facility] [place] [address] PCP - General Family Medicine 03/08/25 Pilot Submersible Relationship Specialty Start Date End Date Arpan Mullins MD [address] [facility] [place] [address] PCP - General Family Medicine 03/08/25 Pilot Submersible Relationship Specialty Start Date End Date Arpan Mullins MD [address] [facility] [place] [address] PCP - General Family Medicine 03/08/25 Pilot Submersible Relationship Specialty Start Date End Date Arpan Mullins MD [address] [facility] [place] [address] PCP - General Family Medicine 03/08/25 Pilot Submersible Relationship Specialty Start Date End Date Arpan Mullins MD [address] [place] [address] PCP - General Family Medicine 03/08/25 Pilot Submersible Relationship Specialty Start Date End Date Arpan Mullins MD [address] [place] [address] PCP - General Family Medicine 03/08/25 Pilot Submersible Relationship Specialty Start Date End Date Arpan Mullins MD [address] [place] [address] PCP - General Family Medicine 03/08/25 Inactive Administered Medications - up to 3 [...] BE BASED ON THE PRIMARY CLINICAL RECORDS. [employer] provides no warranty or guarantee of the accuracy or completeness of information in this document.
--- NOTE | 2025-06-09 08:48 | MM_ITS ---
Patient Name: TAMELA MENJIVAR MR#: [id number] : 1965 Exam Date: 06/09/2025 Ordering Doctor: RAFIA PUGH . RADIOLOGY REPORT PROCEDURE: MM TOMOSYNTHESIS SCREENING BI COMPARISON: MM TOMOSYNTHESIS SCREENING BI, 05/11/2024. MM TOMOSYNTHESIS SCREENING BI, 05/06/2023. MG MAMM SCREEN 3D ESTHELA CAD, 04/07/2022. MG MAMM ESTHELA SCRN W CAD DIG, 01/17/2014. INDICATIONS: Screening Calculator Name NCI Breast Cancer Risk Assessment Tool 5 Year Breast Cancer Risk 1.00% Lifetime Breast Cancer Risk 4.60% Personal Breast Cancer No Personal Ovarian Cancer No Treatments None Family Cancers Aunt-paternal with breast cancer at age 50; Grandmother-maternal with breast cancer at age 70. LOCATION: [facility] BREAST COMPOSITION: There are scattered areas of fibroglandular density. FINDINGS: DIAGNOSTIC CATEGORY 1--NEGATIVE. RIGHT BREAST: No significant suspicious finding. LEFT BREAST: No significant suspicious finding. RECOMMENDATIONS: ROUTINE MAMMOGRAM AND CLINICAL EVALUATION IN 12 MONTHS. Dictated by: Charles Merlos DO on 06/09/2025 at 15:46 Approved by: Charles Merlos DO on 06/09/2025 at 15:48
== END 2025-06-09 08:23 | disposition home or self-care (01) ==
PROVIDERS: PCP Family Medicine; Visit Provider Physician Assistant
DX: Z12.31 Encounter for screening mammogram for malignant neoplasm of breast (principal); Z80.3 Family history of malignant neoplasm of breast
CPT/HCPCS: 77063; 77067